=== PATIENT | male | born 1935 | race Asian ===

== ENCOUNTER 2018-08-12 02:18 | Inpatient (IN) | payer MEDICARE, MEDICAID ==
[~2018-08-12] VITALS: Ht 165.1 cm; Wt 63.0 kg
[2018-08-12] VITALS (12 sets, daily range): BP systolic 128–169; BP diastolic 62–95
[2018-08-12] MEDS ORDERED: Solu-MEDROL 125mg Inj IVP ONE (02:30)
[2018-08-12] MEDS ORDERED: SYNTHROID137 MCG ORAL (02:31)
[2018-08-12] MEDS ORDERED: BUMEX1 MG ORAL (02:31)
[2018-08-12] MEDS ORDERED: ATORVASTATIN CA40 MG ORAL (02:31)
[2018-08-12] MEDS ORDERED: AMIODARONE HCL100 MG ORAL (02:31)
[2018-08-12] MEDS ORDERED: COMBIVENT RESPIM4 GM IH (02:31)
[2018-08-12] MEDS ORDERED: PROTONIX20 MG ORAL (02:31)
[2018-08-12] MEDS ORDERED: LYRICA50 MG ORAL (02:31)
[2018-08-12] MEDS ORDERED: COREG3.125 MG ORAL (02:31)
[2018-08-12] MEDS ORDERED: POTASSIUM CHLO10 ME3 ORAL (02:31)
[2018-08-12] MEDS: Ipratropium 0.02% Inh Soln 2.5ml UD HHN SCH ×3 (02:39→03:00)
[2018-08-12] MEDS: Albuterol ud Inhalation HHN SCH ×3 (02:39→03:00)
--- NOTE | 2018-08-12 02:40 | NUR ---
ER Nurse Note: Pt BIBA R29 from [facility] c/o shortness of breath. Per EMS, pt does not have O2 at home, O2 in mid 80% RA. Pt arrived with CPAP. On assessment, pt lung sounds clear, pt grunts when breathing; RT place pt on BiPAP, currently 30% FiO2; O2 at 97%. Pt a&ox3, VSS. IV placed prior to arrival. Pt has HX of COPD, smoking. ERMD at pt side, will continue to montior.
[2018-08-12 02:53] LABS: BASOPHILS % (AUTO) 0.9 % (0.0-2.0); EOSINOPHILS % (AUTO) 2.1 % (0.0-3.0); HEMATOCRIT 41.3 % (42.0-52.0); HEMOGLOBIN 13.5 G/DL (14.2-18.0); LYMPHOCYTES % (AUTO) 30.6 % (20.0-45.0); MEAN CORPUSCULAR VOLUME 91 FL (80-99); MONOCYTES % (AUTO) 7.5 % (1.0-10.0); NEUTROPHILS % (AUTO) 58.9 % (45.0-75.0); PLATELET COUNT 221 K/UL (150-450); RED BLOOD COUNT 4.54 M/UL (4.70-6.10); RED CELL DISTRIBUTION WIDTH 13.5 % (11.6-14.8); WHITE BLOOD COUNT 10.2 K/UL (4.8-10.8)
--- NOTE | 2018-08-12 02:56 | Diagnostic Imaging Report ---
EXAM: XR Chest, 1 View CLINICAL HISTORY: SOB TECHNIQUE: Frontal view of the chest. COMPARISON: No relevant prior studies available. FINDINGS: Lungs: Diffuse airspace opacities which may represent edema versus an infectious process. Pleural space: Unremarkable. No pneumothorax. Heart: Unremarkable. No cardiomegaly. Mediastinum: Unremarkable. Bones/joints: Unremarkable. Tubes, lines and devices: Dual chamber cardiac pacemaker. IMPRESSION: Diffuse airspace opacities which may represent edema versus an infectious process.
[2018-08-12] MEDS ORDERED: Piperacillin/Tazobactam 3.375 GM in NS 110 ML IVPB ONE (03:00)
[2018-08-12] MEDS ORDERED: Azithromycin 500 MG in NS 275 ML IV ONE (03:00)
[2018-08-12 03:02] LABS: ANION GAP 9 mmol/L (5-15); BLOOD UREA NITROGEN 41 mg/dL (7-18); CALCIUM 8.8 MG/DL (8.5-10.1); CARBON DIOXIDE 26 MMOL/L (21-32); CHLORIDE 103 MMOL/L (98-107); CREATININE 2.2 MG/DL (0.55-1.30); POTASSIUM 4.7 MMOL/L (3.5-5.1); SODIUM 138 MMOL/L (136-145)
[2018-08-12 03:16] LABS: ALANINE AMINOTRANSFERASE 33 U/L (12-78); ALBUMIN 3.6 G/DL (3.4-5.0); ALBUMIN/GLOBULIN RATIO 0.9 (1.0-2.7); ALKALINE PHOSPHATASE 96 U/L (46-116); ASPARTATE AMINO TRANSFERASE 29 U/L (15-37); BILIRUBIN,TOTAL 0.6 MG/DL (0.2-1.0); CKMB 1.4 NG/ML (0.0-3.6); CREATINE KINASE 132 U/L (26-308)
--- NOTE | 2018-08-12 03:20 | NUR ---
ER Nurse Note: Pt receiving q15 breathing treatment; O2 at 95%. Pt lung sounds clear, pt remains grunting on extertion. Pt unable to provide urine; all labs sent and awaiting results. Family at bedside; will continue to montior.
[2018-08-12] MEDS ORDERED: cefTRIAXone 1 GM in NS 55 ML IVPB SCH ×2 (04:00→08:00)
--- NOTE | 2018-08-12 04:31 | NUR ---
ER Nurse Note: Pt O2 destated to 78%. ERMD, RT informed and aware. Pt repositioned, new O2 location, RT changed setting; pt O2 at 100%. ERMD aware. Will continue to montior.
--- NOTE | 2018-08-12 05:00 | NUR ---
ER Nurse Note: Report given to ADOLFO Gillespie in [facility]. Pt O2 sat 99% on BPAP. Pt a&ox3, VSS.
--- NOTE | 2018-08-12 05:02 | Emergency Room Report ---
History of Present Illness General Chief Complaint: Dyspnea/Respdistress Source: Patient Present Illness HPI 82-year-old male presents ED for evaluation. Brought in by EMS for respiratory distress. Started tonight. States that patient was tripoding at home. History of COPD. Was started on CPAP with nebs. Denies fevers or chills. Denies chest pain. States he was using his medications at home without relief. No other aggravating relieving factors. Denies any other associated symptoms Allergies: Coded Allergies: No Known Allergies (Unverified , 08/12/18) Patient History Past Medical History: HTN, COPD Past Surgical History: none, pacemaker Pertinent Family History: none Social History: Denies: smoking, alcohol use, drug use Immunizations: UTD Reviewed Nursing Documentation: PMH: Agreed; PSxH: Agreed Nursing Documentation-PMH Hx Hypertension: Yes Hx Pacemaker: Yes - left chest Hx COPD: Yes Review of Systems All Other Systems: negative except mentioned in HPI Physical Exam Vital Signs Date Time Temp Pulse Resp B/P (MAP) Pulse Ox O2 Delivery O2 Flow Rate FiO2 08/12/18 02:19 99.0 85 28 200/123 92 Bi-pap 15.0 08/12/18 02:35 30 Sp02 EP Interpretation: reviewed, normal General Appearance: alert, GCS 15, non-toxic, moderate distress Head: normocephalic, atraumatic Eyes: bilateral eye normal inspection, bilateral eye PERRL ENT: hearing grossly normal, normal pharynx, no angioedema, normal voice Neck: full range of motion, supple/symm/no masses Respiratory: accessory muscle use, crackles, wheezing Cardiovascular #1: regular rate, rhythm, no edema Cardiovascular #2: 2+ carotid (R), 2+ carotid (L), 2+ radial (R), 2+ radial (L) , 2+ dorsalis pedis (R), 2+ dorsalis pedis (L) Gastrointestinal: normal bowel sounds, non tender, soft, non-distended, no guarding, no rebound Rectal: deferred Genitourinary: normal inspection, no CVA tenderness Musculoskeletal: back normal, gait/station normal, normal range of motion, non- tender Neurologic: alert, oriented x3, responsive, motor strength/tone normal, sensory intact, speech normal Psychiatric: judgement/insight normal, memory normal, mood/affect normal, no suicidal/homicidal ideation Reflexes: 3+ bicep (R), 3+ bicep (L), 3+ tricep (R), 3+ tricep (L), 3+ knee (R) , 3+ knee (L) Skin: normal color, no rash, warm/dry, well hydrated Lymphatic: no adenopathy Procedures Critical Care Time Critical Care Time i. I feel this is a highly complex case requiring extensive working including EKG/Rhythm strip, Xray/CT/US, Blood/urine lab work, repeat exams while in ED, and administration of strong opiates/narcotics for pain control, admission to hospital or close patient follow up. Total time: 50 min bedside evaluation and treatment excludes procedures (EKG). Reason for critical care: Respiratory distress, hypoxia Possible complications: hypotension, hypertension, AK, shock, arrhythmias, metabolic acidosis, end organ damage, respiratory failure. Interventions: Labs, EKG, chest x-ray, BiPAP, ABG, nebulizer treatments, antibiotics Course: Patient presenting with respiratory distress. History of COPD. On CPAP. BiPAP with nebs started. ABG shows no significant hypercapnia or hypoxia. Chest x-ray shows significant infiltrate versus edema. Lactic greater than 3. Respiratory status improved on BiPAP. O2 sats improved. Antibiotics given. Consultations: nursing staff, EMS, family Performed by: Dr Dawson Tolerated well condition = critical j. because of unstable vital signs this patient had a condition that could potentially threaten life or limb. I feel this is a critical patient who required my full attention while patient was considered critical. Total Critical Care Time excluding procedures was greater than 50 minutes Medical Decision Making Diagnostic Impression: Primary Impression: Respiratory distress Additional Impressions: COPD exacerbation Sepsis Qualified Codes: A41.9 - Sepsis, unspecified organism ER Course Hospital Course 82-year-old M presenting to ED with SOB. h/o COPD Differential diagnoses include: Pneumonia, CHF exacerbation, pneumothorax, fluid overload Clinical course Patient placed on stretcher. in distress on CPAP. After initial history and physical, I ordered BIPAP + nebulizer treatments. I ordered labs, IV fluids, EKG, chest x-ray, blood cultures, UA. Labs - no leukocytosis noted, hemoglobin/hematocrit stable, electrolytes okay, lactate > 3, trop negative, BNP elevated CXR - diffuse bilateral opacities ? PNA, pacemaker ABG shows no significant hypercapnia or hypoxia. O2 sats improved on BiPAP. Respiratory status improved. given 30 mL per KG fluid bolus. Given broad-spectrum antibiotics. discussed findings with son at bedside Case discussed with Dr. Hidalgo and he agreed to the patient to his service for further care and support I feel this is a highly complex case requiring extensive working including EKG/ Rhythm strip, Xray/CT/US, Blood/urine lab work, repeat exams while in ED, and administration of strong opiates/narcotics for pain control, admission to hospital or close patient follow up. Diagnosis - COPD exacerbation, respiratory distress, sepsis Patient admitted to SDU in critical condition Labs Test 08/12/18 02:35 08/12/18 03:55 White Blood Count 10.2 K/UL (4.8-10.8) Red Blood Count 4.54 M/UL (4.70-6.10) Hemoglobin 13.5 G/DL (14.2-18.0) Hematocrit 41.3 % (42.0-52.0) Mean Corpuscular Volume 91 FL (80-99) Mean Corpuscular Hemoglobin 29.7 PG (27.0-31.0) Mean Corpuscular Hemoglobin Concent 32.7 G/DL (32.0-36.0) Red Cell Distribution Width 13.5 % (11.6-14.8) Platelet Count 221 K/UL (150-450) Mean Platelet Volume 7.5 FL (6.5-10.1) Neutrophils (%) (Auto) 58.9 % (45.0-75.0) Lymphocytes (%) (Auto) 30.6 % (20.0-45.0) Monocytes (%) (Auto) 7.5 % (1.0-10.0) Eosinophils (%) (Auto) 2.1 % (0.0-3.0) Basophils (%) (Auto) 0.9 % (0.0-2.0) Sodium Level 138 MMOL/L (136-145) Potassium Level 4.7 MMOL/L (3.5-5.1) Chloride Level 103 MMOL/L (98-107) Carbon Dioxide Level 26 MMOL/L (21-32) Anion Gap 9 mmol/L (5-15) Blood Urea Nitrogen 41 mg/dL (7-18) Creatinine 2.2 MG/DL (0.55-1.30) Estimat Glomerular Filtration Rate mL/min (>60) Glucose Level 310 MG/DL (74-106) Lactic Acid Level 3.30 mmol/L (0.4-2.0) 2.50 mmol/L (0.66-2.22) Calcium Level 8.8 MG/DL (8.5-10.1) Total Bilirubin 0.6 MG/DL (0.2-1.0) Aspartate Amino Transf (AST/SGOT) 29 U/L (15-37) Alanine Aminotransferase (ALT/SGPT) 33 U/L (12-78) Alkaline Phosphatase 96 U/L (46-116) Total Creatine Kinase 132 U/L (26-308) Creatine Kinase MB 1.4 NG/ML (0.0-3.6) Creatine Kinase MB Relative Index 1.0 Troponin I 0.038 ng/mL (0.000-0.056) Pro-B-Type Natriuretic Peptide 7730 pg/mL (0-125) Total Protein 7.6 G/DL (6.4-8.2) Albumin 3.6 G/DL (3.4-5.0) Globulin 4.0 g/dL Albumin/Globulin Ratio 0.9 (1.0-2.7) Thyroid Stimulating Hormone (TSH) 6.841 uiU/mL (0.358-3.740) EKG Diagnostic Results Rate: normal Rhythm: NSR ST Segments: other - repolarization abnormality ASA given to the pt in ED: No Rhythm Strip Diag. Results EP Interpretation: yes Rhythm: NSR Chest X-Ray Diagnostic Results Chest X-Ray Diagnostic Results : Chest X-Ray Ordered: Yes # of Views/Limited/Complete: 1 View Indication: Shortness of Breath EP Interpretation: Yes Interpretation: no pneumothorax, other - bilateral opacities vs edema Impression: Other - pneumonia Electronically Signed by: Electronically signed by Abraham Dawson MD Last Vital Signs Date Time Temp Pulse Resp B/P (MAP) Pulse Ox O2 Delivery O2 Flow Rate FiO2 08/12/18 03:50 65 24 96 Bi-pap 30 08/12/18 02:42 98.9 169/95 08/12/18 02:19 15.0 Status: improved Disposition: ADMITTED INPATIENT Condition: Critical Referrals: NOT CHOSEN IPA/,REFERRING (PCP) Abraham Dawson MD Aug 12, 2018 05:02
--- NOTE | 2018-08-12 05:10 | NUR ---
NURSE NOTES: Received report from Winnie RN, pt. brought up by marcy from ER, pt. is alert to name- pt. is English speaking- per endorsement, no signs of acute cardiac or respiratory distress noted, bed in lowest position and call light within easy reach, bed alarm on side rails up x's3 safety brakes engaged, Cardiac monitoring done, VS taken, pt. teaching done and pt. oriented to room, full body assessment done- skin intact. Pt. appears to be sating well on Bipap 10/5 fio2 at 100%- no respiratory distress noted, placed condom catheter on patient- intact and draining to gravity, RT. AC 20G IV intact and patent, comfort measures provided, safety measures continued, will continue with plan of care.
--- NOTE | 2018-08-12 07:00 | NUR ---
RESPIRATORY NOTE: pt recieved on bipap on facial mask, redness noted ton bridge of nose , changed to full face mask with tape placed, sat 100%, will continue to monitor the pt,
[2018-08-12] MEDS: Albuterol/Ipratropium 3ml neb HHN SCH ×5 (07:29→23:06)
--- NOTE | 2018-08-12 07:31 | NUR ---
HAND-OFF: Report given to Anastasiya RN, pt. stable and no signs of distress noted.
--- NOTE | 2018-08-12 07:32 | NUR ---
NURSE NOTES: RECEIVED PATIENT FROM Bartolo CLAYTON RN. PATIENT AWAKE, ALERT AND CONFUSED. TRYING TO GET OUT OF THE BED. ROOM CLOSE TO NURSES STATION. HOOKED TO [facility]IRCUTTER. ON BIPAP 06/11, FIO2 30%. NO SIGNS OF DISTRESS OF THE MOMENT. NOTED CONDOM CATH. IV ON R FA G20, IVF RUNNING NS AT 75CC/HR. CALL LIGHT WITHIN REACH. BED AT LOWEST POSITION. SIDE RAILS UP. WILL CONTINUE TO MONITOR.
--- NOTE | 2018-08-12 08:01 | NUR ---
NURSE NOTES: NOTED PULLING OFF THE BIPAP MASK. NO RESPI DISTRESS OF THE MOMENT. WILL CONTINUE TO MONITOR.
--- NOTE | 2018-08-12 10:18 | NUR ---
CASE MANAGEMENT: INITIAL REVIEW 08/12/2018 82 YO M PATRICIA FROM HOME CC: DYSPNEA. PMHx: HTN. COPD. PACER. SI:RESPIRATORY DISTRESS. COPD. T 99 HR 85 RR 28 B/P 200/123 SATS 92% ON 15L/BIPAP FiO2 30 BUN 41 CR 2.2 GLU 310 BNP 7730 LACTIC ACID 3.3 IS: DUO NEB HHN X1 NS BOLUS X1 SOLU MEDROL IV X1 PATIENT ADMITTED TO [facility] 08/12/2018 @ 0251 DCP: PATIENT TO BE DISCHARGED TO HOME ONCE MEDICALLY CLEARED. PLAN OF CARE: 2D ECHO Addendum: 08/12/18 at 1449 by Lupe Kendall CM INTERQUAL MET FOR ACUTE
--- NOTE | 2018-08-12 11:32 | NUR ---
NURSE NOTES: ABG DONE. CALLED AND A LEFT TO DR EGAN. AWAITING FOR CALL BACK. FAMILY MEMBER AT THE BEDSIDE. NO SIGNS OF DISTRESS. WILL CONTINUE TO MONITOR.
--- NOTE | 2018-08-12 12:04 | NUR ---
NURSE NOTES: CALLED AND A LEFT A MESSAGE TO DR EGAN FOR THE SECOND TIME. AWAITING FOR CALL BACK. WILL CONTINUE TO MONITOR.
--- NOTE | 2018-08-12 12:17 | NUR ---
NURSE NOTES: DR EGAN REFERRED PATIENT TO DR BOB FOR CONSULTATION. AWAITING FOR CALL BACK. MADE AWARE OF ABG RESULT. WILL CONTINUE TO MONITOR.
--- NOTE | 2018-08-12 13:15 | Cardiology Report ---
APPROVED REPORT EXAM: Two-dimensional and M-mode echocardiogram with Doppler and color Doppler. INDICATION Congestive Heart Failure M-Mode DIMENSIONS IVSd1.3 (0.7-1.1cm)Left Atrium (MM)4.0 (1.6-4.0cm) LVDd5.5 (3.5-5.6cm)Aortic Root3.1 (2.0-3.7cm) PWd1.0 (0.7-1.1cm)Aortic Cusp Exc.1.8 (1.5-2.0cm) IVSs1.7 cm LVDs4.4 (2.5-4.0cm) PWs1.0 cm Global left ventrular hypokinesis . Normal left ventricular chamber size . Left ventricular ejection fraction estimated to be 40 %. Moderate left ventricular hypertrophy. No evidence of pericardial effusion. Mild left atrial enlargement. Right cardiac chamber sizes are within normal limits. Focal aortic valve sclerosis with adequate cusp excursion. Thickened mitral valve leaflets with normal excursion. Mitral annulus and aortic root calcification. Pulmonic valve not well visualized. Normal tricuspid valve structure. IVC at normal size with physiologic collapse. Pacemaker wire present in the right side chambers. A color flow and spectral Doppler study was performed and revealed: Mild aortic insuuficency . Moderate mitral regurgitation. Mitral diastolic velocities suggest reduced left ventricular relaxation c/w mild LV diastolic dysfunction (Grade I ). Moderate tricuspid regurgitation. Tricuspid systolic velocities suggests peak right ventricular systolic pressure of 80 mmHg,consistent with severe pulmonary hypertension. Pulmonic regurgitation present.
--- NOTE | 2018-08-12 13:18 | Cardiology Report ---
APPROVED REPORT EKG Measurement Heart [id number] OK [id number] Normal sinus rhythm Left axis deviation Left ventricular hypertrophy with QRS widening and repolarization abnormality Inferior infarct, age undetermined Abnormal ECG
[2018-08-12] MEDS ORDERED: Solu-MEDROL 40mg Inj IVP SCH (14:00)
--- NOTE | 2018-08-12 14:50 | NUR ---
TRANSFER TO FLOOR: Patient transferred to ICU, 246-J per [facility] bed per Dr Hidalgo's order. Report given to ADOLFO Palomo. Belongings was all given to the son. Son and at the bedside. Still on BIPAP 15/4 at 90% FiO2. FOr stat ABG, awaiting for result.
--- NOTE | 2018-08-12 14:56 | NUR ---
NURSE NOTES: Patient report received from ADOLFO Brian. Admit to ICU for respiratory distress.On Bipap at this time 15/4 and saturation 100. Patient awake and restless, afebrile at this time and family at bedside. On NS at 75cc. Stat ABG done and awaiting result.No skin impairment and no belongings.Pt kept clean ,dry and remains on close monitoring. Addendum: 08/12/18 at 1649 by Stacia Estrada RN ABG result received and relayed to Dr Hidalgo with order to keep pt on close monitoring and report any depression of respiratory respiratory drive.Keep pt on Bipap at this time per Dr Hidalgo.Will continue close monitoring. Addendum: 08/12/18 at 1810 by Stacia Estrada RN Dr Hidalgo made aware of pt restlessness, as stated he does not want to depress his respiratory drive.
[2018-08-12 15:34] LABS: HEMATOCRIT 42.1 % (42.0-52.0); HEMOGLOBIN 13.6 G/DL (14.2-18.0); MEAN CORPUSCULAR VOLUME 92 FL (80-99); PLATELET COUNT 219 K/UL (150-450); RED CELL DISTRIBUTION WIDTH 13.3 % (11.6-14.8); WHITE BLOOD COUNT 20.3 K/UL (4.8-10.8)
--- NOTE | 2018-08-12 17:07 | NUR ---
NURSE NOTES: Received call from Dr Contreras to get update on pt condition.ABG relayed, also short episode of Afib made aware. Order to continue to closely monitor the pt. Remains on Bipap 15/4 FiO2 80% and saturating at 99% at this time.
--- NOTE | 2018-08-12 17:58 | NUR ---
NURSE NOTES: Left message to Dr Hidalgo regarding WBC 20.3, Lactic acid 5.2 and pt episode of restlessness and moaning.Awaiting call back
--- NOTE | 2018-08-12 18:51 | NUR ---
NURSE NOTES: ADls done, kept clean and dry.Paged Dr Contreras regarding pt restlessness and episode of moaning. As stated "if we give any sedative he will end up intubate because it will depress his respiration". Continue to closely monitor the pt.
--- NOTE | 2018-08-12 19:25 | NUR ---
HAND-OFF: Report given to ADOLFO Milsl. Addendum: 08/12/18 at 1928 by Stacia Estrada RN NURSE NOTES: Endorsed to next shift follow up diet order and WBC 20.3, Lactic acid 5.2
--- NOTE | 2018-08-12 19:36 | NUR ---
NURSE NOTES: PATIENT COMPLAINED CHEST PAIN THAT CALLED DR. EGAN, LEFT MESSAGE, WILL CONTINUE TO MONITOR.
--- NOTE | 2018-08-12 19:40 | NUR ---
NURSE NOTES: PATIENT ALERT, ORIENTED X2, CHINESE SPEAKING, COMPLAINED CHEST PAIN OF 5/10 WITHOUT RADIATION, ON FULL FACE MASK BIPAP I/E 04/28, BACK UP RATE 16/ FIO2 80% STATUS, TACHYPNEA 32-38/MIN AND O2 SATURATION 100% NOTED AT THIS TIME. ABDOMEN SOFT, HYPOACTIVE BOWEL SOUND TO 4 QUADRANTS, NO BOWEL MOVEMENT, ON CONDOM CATH, YELLOW URINE OUTED, PERIPHERAL LINE TO LEFT FOREARM 22G INTACT AND PATENT, ONGOING NS 75ML/HR STATUS, PROVIDED CALL LIGHT WITHIN REACH, MADE LOWER BED POSITION, WILL CONTINUE TO MONITOR.
[2018-08-12] MEDS ORDERED: D5 1/2NS 1000ml IV ONE (19:42)
[2018-08-12] MEDS ORDERED: Tubing IV Secondary IV ONE (19:42)
--- NOTE | 2018-08-12 20:46 | NUR ---
NURSE NOTES: PT'S SONS VISITED AND STAYED AT BEDSIDE. CALLED DR. EGAN REGARDING PAIN THAT LEFT MESSAGE.
[2018-08-12] MEDS: Heparin 5000 units/ml inj SUBQ SCH (20:54)
[2018-08-12] MEDS ORDERED: Heparin 5000 units/ml inj SUBQ SCH (21:00)
[2018-08-12] MEDS ORDERED: Norco 5mg/325mg tab ORAL PRN (21:00)
--- NOTE | 2018-08-12 21:00 | NUR ---
NURSE NOTES: CALLED BACK FROM DR. EGAN THAT MD AWARE REGARDING PT'S SITUATION.
--- NOTE | 2018-08-12 21:25 | NUR ---
NURSE NOTES: GIVEN TYLENOL 650MG BY PO ORDERED FOR GENERALIZED PAIN OF 3/10, NO ASPIRATION SIGN NOTED, WILL CONTINUE TO MONITOR.
[2018-08-12] MEDS: Solu-MEDROL 40mg Inj IVP SCH (21:32)
[2018-08-12] MEDS: Lyrica 50mg cap ORAL SCH (21:45)
--- NOTE | 2018-08-12 22:45 | Consultation ---
DATE OF CONSULTATION: 08/12/2018 NOTE: "POOR AUDIO QUALITY" PULMONARY CONSULTATION CONSULTING PHYSICIAN: Carl Contreras M.D. HISTORY OF PRESENT ILLNESS: This is an 82-year-old male, who was brought to the hospital with shortness of breath. He has history of COPD. He was placed on BiPAP. He was apparently in significant distress at home. The patient has a pacemaker in place. There is no other information available from the patient. The patient was found to be agitated requiring restraints. He was seen in ICU. PAST HISTORY: Hypertension, COPD, permanent pacemaker. ALLERGIES: None. HOME MEDICATIONS: Reviewed and reconciled in the chart. PREVIOUS SURGERIES: Pacemaker. FAMILY HISTORY: Noncontributory. PHYSICAL EXAMINATION: HEENT: Unremarkable. CHEST: breath sounds bilaterally. HEART: Normal heart sounds. ABDOMEN: Soft. EXTREMITIES: There is no edema. NEUROLOGIC: Nonfocal. IMAGING STUDIES: Echocardiogram has been obtained which shows global left ventricular hypokinesis, EF is 40%. X-ray of chest was also reviewed which shows diffuse bilateral pulmonary opacities which could be suspicious for pulmonary edema. IMPRESSION: 1. Pulmonary edema. 2. Advanced COPD. 3. Pacemaker. DISCUSSION: The patient needs diuresis. He also needs to be on respiratory support with BiPAP. Currently, I note he has been started on Rocephin and azithromycin after receiving a single dose in the emergency room. I will start him on Solu-Medrol 40 mg IV q.6 hours. Consider diuresis. We will follow carefully as a consulting architectural intern. Carl Contreras M.D. DR: Adan JOB#: [id number] CC:
--- NOTE | 2018-08-12 23:35 | NUR ---
NURSE NOTES: PATIENT ASLEEP STATUS, WILL CONTINUE TO MONITOR.
[2018-08-13] VITALS (25 sets, daily range): BP systolic 96–181; BP diastolic 55–98
--- NOTE | 2018-08-13 | History and Physical Report ---
DATE OF ADMISSION: 08/12/2018 REASON FOR ADMISSION: Respiratory failure. HISTORY OF PRESENT ILLNESS: This is an 82-year-old Faroese male with a known history of COPD. He has never required intubation according to his , but has been hospitalized for exacerbations of COPD in the past. He was brought into the emergency room by paramedics early this morning. He woke up with shortness of breath and congestion. He did not improve and did not respond to his usual nebulizers. In the emergency room, he was placed on CPAP and was noted to have unstable vital signs. Following hospitalization, he was also noted to have severely impaired acid-base parameters. On this basis, he was transferred to the intensive care unit. PAST MEDICAL HISTORY: Hypertension, COPD, [employer] permanent pacemaker, paroxysmal atrial fibrillation, osteoarthritis, degenerative disk disease, hypothyroidism, peptic ulcer disease, hyperlipidemia, and prostatic hypertrophy. SOCIAL HISTORY: Former smoker. No alcohol or substance abuse. ALLERGIES: None known. MEDICATIONS: Prior to admission, reviewed and reconciled. FAMILY HISTORY: Noncontributory. REVIEW OF SYSTEMS: Cannot be reliably obtained from the patient. Available data from his son, who is visiting from the [facility] is outlined above. PHYSICAL EXAMINATION: VITAL SIGNS: Blood pressure in the emergency room 200/123, heart rate 86, respiratory rate 28, temperature 99, and oxygen saturation 92% on BiPAP. Accessory muscle use. LUNGS: Coarse breath sounds with rhonchi. Expiratory wheezes. CARDIAC: Irregularly irregular rhythm. Normal S1 and S2. ABDOMEN: Soft and nontender. EXTREMITIES: Trace edema. Capillary refill diminished. NEUROLOGIC: Nonfocal. LABORATORY AND DIAGNOSTIC DATA: White count 10 and hemoglobin 13. Sodium 138, potassium 4.7, bicarbonate 26, BUN 41, creatinine 2.2, and glucose 310. Lactic acid 3.3. Natriuretic peptide 7700. Troponin 0.038. TSH 6.8. Chest x-ray reveals bilateral interstitial opacities. EKG reveals atrial fibrillation with nonspecific ST-T wave changes. ABG, pH 7.20, 51, 60. IMPRESSION: 1. Acute respiratory failure. 2. Acute respiratory acidosis. 3. COPD with acute exacerbation. 4. Community-acquired pneumonia. 5. Acute bronchospasm. 6. Permanent pacemaker. 7. Paroxysmal atrial fibrillation. 8. Acute on chronic diastolic and systolic congestive heart failure. 9. Hypoxia. 10. Hypothyroidism. 11. Lactic acidosis. PLAN: 1. ICU management. 2. BiPAP support, may need intubation and mechanical ventilation. 3. Panculture. 4. Broad-spectrum antibiotics. 5. Inhaled bronchodilators. 6. Intravenous steroids. 7. Pacemaker interrogation to follow, if not recently done. 8. DVT prophylaxis. 9. Reassess for chronic anticoagulation. 10. Stress ulcer prophylaxis. 11. Serial troponin levels. 12. Increase thyroid replacement therapy. Crescencio Hidalgo M.D. DR: GIGI JOB#: [id number] CC:
--- NOTE | 2018-08-13 01:40 | NUR ---
NURSE NOTES: PATIENT AWOKE, DENIED PAIN OR DISCOMFORT AT THIS TIME.
[2018-08-13] MEDS: Azithromycin 500 MG in NS 275 ML IV SCH (03:08)
[2018-08-13] MEDS ORDERED: Azithromycin 500 MG in NS 275 ML IV SCH (03:30)
[2018-08-13] MEDS: Albuterol/Ipratropium 3ml neb HHN SCH ×6 (03:34→23:01)
--- NOTE | 2018-08-13 03:40 | NUR ---
NURSE NOTES: MORNING CARE WAS DONE, ORAL CARE WAS DONE, NO BOWEL MOVEMENT.
--- NOTE | 2018-08-13 05:08 | NUR ---
NURSE NOTES: PATIENT ASLEEP STATUS.
[2018-08-13] MEDS: Solu-MEDROL 40mg Inj IVP SCH ×3 (05:44→21:36)
[2018-08-13 06:08] LABS: ALANINE AMINOTRANSFERASE 221 U/L (12-78); ALBUMIN/GLOBULIN RATIO 0.9 (1.0-2.7); ALKALINE PHOSPHATASE 77 U/L (46-116); ANION GAP 16 mmol/L (5-15); ASPARTATE AMINO TRANSFERASE 236 U/L (15-37); BILIRUBIN,TOTAL 0.7 MG/DL (0.2-1.0); BLOOD UREA NITROGEN 52 mg/dL (7-18); CALCIUM 7.6 MG/DL (8.5-10.1); CARBON DIOXIDE 20 MMOL/L (21-32); CHLORIDE 111 MMOL/L (98-107); CREATININE 2.2 MG/DL (0.55-1.30); POTASSIUM 3.7 MMOL/L (3.5-5.1); SODIUM 147 MMOL/L (136-145)
[2018-08-13 06:30] LABS: HEMATOCRIT 37.4 % (42.0-52.0); HEMOGLOBIN 12.5 G/DL (14.2-18.0); MEAN CORPUSCULAR VOLUME 89 FL (80-99); PLATELET COUNT 183 K/UL (150-450); RED CELL DISTRIBUTION WIDTH 13.4 % (11.6-14.8); WHITE BLOOD COUNT 14.5 K/UL (4.8-10.8)
--- NOTE | 2018-08-13 07:12 | NUR ---
HAND-OFF: Report given to HENRY/ADOLFO.
--- NOTE | 2018-08-13 07:15 | NUR ---
NURSE NOTES: Patient received from Antonio Loera RN. Patient is awake and alert. Patient is very anxious and restless. Family is at bedside assisting with translation. Patient speaks only Greek and is hard of hearing. Patient opens eyes spontaneously, follows commands, speaks his needs clearly or gesticulates to make his needs known. Patient has 3/5 on BUE muscle strength and 3/5 BLE muscle strength. Patient is being monitored on the BIPAP, 10/5 Bi-level 16 at 50%. Patient is tolerating well. Upon auscultation, patient has a crackle in his left lower lung otherwise lung sounds are slightly diminished. Patient states that he has mild pain on that side. Patient does moan and grimace. Patient does not appear in acute distress except with that discomfort. Patient's belly sounds are hypoactive. Patient is NPO and afebrile. Patient has a condom catheter and is voiding moderate amounts of urine. Patient has NS with 10 mEq running through his RH 24G currently. Skin is intact however, patient has ecchymosis all over BUE. Safety measures are in place with bed locked in the lowest position, bed alarmed and call light within reach. Will continue to monitor and follow MD plan of care.
--- NOTE | 2018-08-13 07:22 | NUR ---
Patient received on BIPAP 10/5 50% FIO2 BUR 16. Patient currently on full face mask and stephanie well. Diminished bilateral breath sounds heard throughout lung poe. Bipap alarms on and audible. Bipap plugged into red outlet. Will continue to monitor throughout the day.
[2018-08-13] MEDS: cefTRIAXone 1 GM in NS 55 ML IVPB SCH (08:54)
[2018-08-13] MEDS: Amiodarone 200mg tab ORAL SCH (08:55)
[2018-08-13] MEDS: Heparin 5000 units/ml inj SUBQ SCH ×2 (09:11→20:52)
--- NOTE | 2018-08-13 10:30 | NUR ---
NURSE NOTES: Patient is very restless and required repositioning with the help of the HARNESS PLACER. Patient requested water however, patient is NPO, lemon swabs were given instead. Patient was repositioned, mouth swabs given and BIPAP readjusted for comfort. The condom cath was also repositioned to ensure it was dropping urine to gravity. Family continues to be at bedside.
--- NOTE | 2018-08-13 10:41 | Pulmonology Progress Note ---
Assessment/Plan Assessment/Plan IMPRESSION: 1. Pulmonary edema. 2. Advanced COPD. 3. Pacemaker. DISCUSSION: The patient needs diuresis. Will order additional doses. Will DC BiPAP and attempt cool aerosol. COntinue steroids and abx Carl Contreras M.D. Subjective Interval Events: On BiPAP; anxious; ABG better Constitutional: Reports: no symptoms HEENT: Repors: no symptoms Respiratory: Reports: no symptoms Cardiovascular: Reports: no symptoms Gastrointestinal/Abdominal: Reports: no symptoms Genitourinary: Reports: no symptoms Allergies: Coded Allergies: No Known Allergies (Unverified , 08/12/18) Objective Last 24 Hour Vital Signs Date Time Temp Pulse Resp B/P (MAP) Pulse Ox O2 Delivery O2 Flow Rate FiO2 08/13/18 09:02 74 18 100 Full Face 40 08/13/18 09:00 79 25 113/76 (88) 100 08/13/18 08:00 98.2 81 27 160/86 (110) 100 08/13/18 08:00 40 08/13/18 08:00 Bi-pap 08/13/18 07:00 74 25 155/92 (113) 100 08/13/18 06:48 80 22 100 Bi-pap 50 08/13/18 06:45 68 16 100 Full Face 50 08/13/18 06:42 78 26 100 Bi-pap 50 08/13/18 06:42 50 08/13/18 06:00 81 26 139/65 (89) 100 08/13/18 05:00 78 26 137/75 (95) 100 08/13/18 04:55 80 31 100 Full Face 50 08/13/18 04:00 50 08/13/18 04:00 97.6 88 27 96/74 (81) 100 08/13/18 04:00 Bi-pap 08/13/18 03:43 81 34 100 Bi-pap 50 08/13/18 03:36 83 30 100 Full Face 50 08/13/18 03:34 81 33 100 Bi-pap 50 08/13/18 03:18 101 08/13/18 03:00 82 28 141/59 (86) 100 08/13/18 02:00 83 27 143/69 (93) 100 08/13/18 01:09 60 08/13/18 01:09 85 38 100 Full Face 60 08/13/18 01:00 84 29 142/63 (89) 100 08/13/18 00:18 73 08/13/18 00:04 153/84 08/13/18 00:00 Bi-pap 08/13/18 00:00 70 08/13/18 00:00 98.3 90 24 146/59 (88) 100 08/12/18 23:06 85 35 100 Bi-pap 70 08/12/18 23:00 86 29 153/82 (105) 100 08/12/18 22:55 82 30 100 Full Face 70 08/12/18 22:00 87 32 128/91 (103) 100 08/12/18 21:05 83 35 100 Full Face 80 08/12/18 21:00 88 30 140/72 (94) 100 08/12/18 20:16 97 31 100 Bi-pap 70 08/12/18 20:00 80 08/12/18 20:00 98.5 91 28 146/62 (90) 100 08/12/18 20:00 Bi-pap 08/12/18 19:53 89 08/12/18 19:37 99 35 100 Bi-pap 80 08/12/18 19:26 85 34 100 Bi-pap 80 08/12/18 19:07 80 31 100 Full Face 80 08/12/18 19:00 74 18 149/74 (99) 100 08/12/18 18:00 83 33 148/74 (98) 100 08/12/18 17:26 81 32 99 Full Face 80 08/12/18 17:00 83 32 142/68 (92) 99 08/12/18 16:00 93 31 132/95 (107) 100 08/12/18 16:00 Bi-pap 08/12/18 16:00 80 08/12/18 15:16 94 34 100 Bi-pap 90 08/12/18 15:05 82 33 100 Full Face 90 08/12/18 15:05 82 33 100 Bi-pap 90 08/12/18 15:00 97.5 99 36 146/76 (99) 100 08/12/18 13:33 82 30 92 Full Face 90 08/12/18 13:20 92 08/12/18 12:08 160/106 08/12/18 12:00 Bi-pap 08/12/18 12:00 90 08/12/18 11:35 87 24 95 Bi-pap 90 08/12/18 11:26 88 30 90 Bi-pap 80 08/12/18 11:26 88 30 90 Facial 80 Intake and Output 08/12/18 08/13/18 19:00 07:00 Intake Total 672.5 ml 1660 ml Output Total 350 ml 1570 ml Balance 322.5 ml 90 ml Intake IV Total 672.5 ml 1410 ml Other 250 ml Output Urine Total 350 ml 1570 ml General Appearance: no acute distress HEENT: normocephalic Respiratory/Chest: chest wall non-tender, crackles/rales Cardiovascular: normal peripheral pulses, normal rate, regular rhythm Abdomen: normal bowel sounds Microbiology Date/Time Source Procedure Growth Status 08/12/18 03:05 Nasal Nares Influenza Types A,B Antigen (ENOC) - Final Complete Laboratory Tests 08/12/18 10:49: Arterial Blood pH 7.200*L, Arterial Blood Partial Pressure CO2 51.3H, Arterial Blood Partial Pressure O2 59.8L, Arterial Blood HCO3 19.7L, Arterial Blood Oxygen Saturation 83.7*L, Arterial Blood Base Excess -8.5L, Gabriele Test Positive 08/12/18 14:23: Arterial Blood pH 7.260L, Arterial Blood Partial Pressure CO2 40.3, Arterial Blood Partial Pressure O2 112.0H, Arterial Blood HCO3 18.0L, Arterial Blood Oxygen Saturation 96.8, Arterial Blood Base Excess -8.4L, Gabriele Test Positive 08/12/18 15:25: White Blood Count 20.3#H, Red Blood Count 4.60L, Hemoglobin 13.6L, Hematocrit 42.1, Mean Corpuscular Volume 92, Mean Corpuscular Hemoglobin 29.5, Mean Corpuscular Hemoglobin Concent 32.3, Red Cell Distribution Width 13.3, Platelet Count 219, Mean Platelet Volume 7.1, Neutrophils (%) (Auto) , Lymphocytes (%) ( Auto) , Monocytes (%) (Auto) , Eosinophils (%) (Auto) , Basophils (%) (Auto) , Lactic Acid Level 4.70H 08/12/18 17:00: Arterial Blood pH 7.310L, Arterial Blood Partial Pressure CO2 35.1, Arterial Blood Partial Pressure O2 108.2H, Arterial Blood HCO3 17.4*L, Arterial Blood Oxygen Saturation 96.7, Arterial Blood Base Excess -8.0L, Gabriele Test Positive 08/12/18 17:05: Lactic Acid Level 5.20H 08/12/18 21:35: Lactic Acid Level 3.90H 08/13/18 04:52: White Blood Count 14.5H, Red Blood Count 4.20L, Hemoglobin 12.5L, Hematocrit 37.4L, Mean Corpuscular Volume 89, Mean Corpuscular Hemoglobin 29.6, Mean Corpuscular Hemoglobin Concent 33.3, Red Cell Distribution Width 13.4, Platelet Count 183, Mean Platelet Volume 8.6, Neutrophils (%) (Auto) , Lymphocytes (%) ( Auto) , Monocytes (%) (Auto) , Eosinophils (%) (Auto) , Basophils (%) (Auto) , Differential Total Cells Counted 100, Neutrophils % (Manual) 91H, Lymphocytes % (Manual) 6L, Monocytes % (Manual) 3, Eosinophils % (Manual) 0, Basophils % ( Manual) 0, Band Neutrophils 0, Platelet Estimate Adequate, Platelet Morphology Normal, Red Blood Cell Morphology Normal, Sodium Level 147H, Potassium Level 3.7 , Chloride Level 111H, Carbon Dioxide Level 20L, Anion Gap 16H, Blood Urea Nitrogen 52H, Creatinine 2.2H, Estimat Glomerular Filtration Rate , Glucose Level 189#H, Calcium Level 7.6L, Total Bilirubin 0.7, Aspartate Amino Transf ( AST/SGOT) 236H, Alanine Aminotransferase (ALT/SGPT) 221H, Alkaline Phosphatase 77, Troponin I 0.435H, Pro-B-Type Natriuretic Peptide > [id number], Total Protein 6.4, Albumin 3.0L, Globulin 3.4, Albumin/Globulin Ratio 0.9L 08/13/18 07:40: Arterial Blood pH 7.439, Arterial Blood Partial Pressure CO2 31.3L, Arterial Blood Partial Pressure O2 101.7H, Arterial Blood HCO3 20.7L, Arterial Blood Oxygen Saturation 96.7, Arterial Blood Base Excess -2.5L, Gabriele Test Positive Current Medications Medications (Trade) Dose Ordered Sig/Dinorah Route PRN Reason Start Time Stop Time Status Last Admin Dose Admin Acetaminophen (Tylenol) 650 mg Q6H PRN ORAL Mild Pain/Temp > 100.5 08/12/18 21:00 09/11/18 20:59 08/12/18 21:25 Acetaminophen/ Hydrocodone Bitart ([place] 5/325) 1 tab Q6H PRN ORAL PAIN 4-10 08/12/18 21:00 08/19/18 20:59 Albuterol/ Ipratropium (Albuterol/ Ipratropium) 3 ml Q4HRT HHN 08/12/18 19:00 08/17/18 06:59 08/13/18 06:46 Amiodarone HCl (Cordarone) 100 mg DAILY ORAL 08/13/18 09:00 09/12/18 08:59 08/13/18 08:55 Atorvastatin Calcium (Lipitor) 40 mg BEDTIME ORAL 08/13/18 21:00 09/12/18 20:59 Azithromycin 500 mg/Sodium Chloride 275 ml @ 275 mls/hr Q24HRS IV 08/13/18 03:30 08/20/18 03:29 08/13/18 03:08 Ceftriaxone Sodium 1 gm/ Sodium Chloride 55 ml @ 110 mls/hr Q24HRS IVPB 08/13/18 08:00 08/19/18 07:59 08/13/18 08:54 Heparin Sodium (Porcine) (Heparin 5000 units/ml) 5,000 units EVERY 12 HOURS SUBQ 08/12/18 21:00 09/11/18 20:59 08/13/18 09:11 Hydralazine HCl (Apresoline) 10 mg Q4H PRN IV SBP above 150mmHg 08/12/18 15:30 09/11/18 03:29 08/13/18 00:04 Levothyroxine Sodium (Synthroid) 150 mcg DAILY@0630 ORAL 08/13/18 06:30 09/12/18 06:29 08/13/18 05:44 Methylprednisolone Sodium Succinate (Solu-MEDROL) 40 mg EVERY 8 HOURS IVP 08/12/18 22:00 09/11/18 13:59 08/13/18 05:44 Ondansetron HCl (Zofran) 4 mg Q6H PRN IVP Nausea & Vomiting 08/12/18 16:00 09/11/18 15:59 Pantoprazole (Protonix) 40 mg DAILY ORAL 08/12/18 20:00 09/11/18 19:59 08/13/18 08:55 Potassium Chloride 10 meq/ Sodium Chloride 1,005 ml @ 100 mls/hr Q10H3M IV 08/12/18 21:01 09/11/18 21:00 08/13/18 08:53 Pregabalin (Lyrica) 50 mg BEDTIME ORAL 08/12/18 21:30 09/11/18 21:29 08/12/18 21:45 Carl Contreras MD Aug 13, 2018 10:41
--- NOTE | 2018-08-13 11:15 | NUR ---
NURSE NOTES: Dr Contreras assessed patient bedside. BiPAP was d/c'd and patient started on Venti mask at 40%. Orders were placed for the patient. Will monitor O2 sats and possible advancement of clear liquid diet. Will continue to monitor per MD orders.
--- NOTE | 2018-08-13 12:01 | NUR ---
NURSE NOTES: Patient is awake and alert. Family is bedside. Patient is anxious and restless. Patient makes his needs known with his very little Persian or with family translation. Patient is not in any acute distress, however does moan with his SOB. Patient is on Venti mask 12L at 40%. Patient is being monitored on the informatics pharmacist with VSS. Patient is NPO and afebrile. Patient has a newly replaced condom catheter and is voiding moderate amounts of urine. Patient has NS with 10 mEq running through his RH 24G currently at 50 ml. Safety measures are in place with bed locked in the lowest position, bed alarmed and call light within reach. Will continue to monitor and follow MD plan of care.
--- NOTE | 2018-08-13 14:00 | NUR ---
NURSE NOTES: Patient requested that condom catheter be removed because he stated that "it hurts" and that it was too tight however, condom catheter was not on patient's penis. RN adhered to the request and urinal was given to the patient and has successfully been voiding in the urinal. Patient's VSS and continues on the venti mask without respiratory distress. Patient does become SOB with repositioning or when linens were changed. Patient does not tolerate activity well. Will continue to monitor.
--- NOTE | 2018-08-13 16:10 | NUR ---
NURSE NOTES: Patient sits high fowlers in bed because it helps him breath better. Patient is observed to be awake and alert. Patient is more calm now that family has left home. Patient is being monitored on the polymerization oven operator. VSS. Patient currently is on the venti mask 12L @ 40%. Patient tolerates well except with activity when he becomes SOB. Patient is not in any acute distress. A clear liquid diet has been ordered for patient as nectar thick. Patient is successfully voiding in the urinal. NS with 10 mEq is running through his RH 24G @ 50 ml. Safety measures are in place with bed locked in the lowest position, bed alarmed and call light within reach. Will continue to monitor and follow MD plan of care.
--- NOTE | 2018-08-13 17:45 | NUR ---
NURSE NOTES: Called Dr Hidalgo's Office with Lactic Acid of 5.90 and Trop of 0.348. Left message. Awaiting call back. Also asked for ID consult.
--- NOTE | 2018-08-13 18:00 | NUR ---
NURSE NOTES: Patient ate 50% of his tray without any issues. Patient remained about 90% O2 Sats. VSS and appears to not be in any acute distress.
--- NOTE | 2018-08-13 19:09 | NUR ---
RESPIRATORY NOTE: Received pt on Venti mask 40% 8L. Pt is stable with no s/s of resp distress. Just received his breathing treatment. SPO2 98%, HR 88. Will put back on bipap if seen distress. Will continue to monitor pt's progress.
--- NOTE | 2018-08-13 19:15 | NUR ---
HAND-OFF: Report given to Evaristo Alvarez RN. VSS and not in any acute distress.
--- NOTE | 2018-08-13 19:30 | NUR ---
NURSE NOTES: PATIENT COMPLAINED BLADDER DISTENSION, BLADDER SCAN WAS DONE THAT OVER 999ML + NOTED TWO TIMES.
--- NOTE | 2018-08-13 19:35 | NUR ---
NURSE NOTES: CALLED BACK FROM DR. EGAN THAT REPORTED PT'S BLADER SCAN RESULT AND RECEIVED NEW ORDER, CARRY OUT.
--- NOTE | 2018-08-13 19:55 | NUR ---
NURSE NOTES: FAILED INSERTION 16 FR. MARES CATHETER, INSERTED AND FIXED 14FR. MARES CATHETER, THIN YELLOW URINE OUTED WITHOUT SEDIMENTS, NO HEMATURIA NOTED, WILL CONTINUE TO MONITOR.
--- NOTE | 2018-08-13 20:05 | NUR ---
NURSE NOTES: PT'S SON STAYED AT BEDSIDE. PATIENT ALERT, ORIENTED X3 AT THIS TIME, RESPIRATION REGULAR, ON 40% VENT MASK, TACHYPNEA NOTED BUT DENIED SOB OR DISTRESS AT THIS TIME, ABDOMEN SOFT, HYPOACTIVE BOWEL SOUND, NO BOWEL MOVEMENT, 14FR. F/C INTACT AND PATENT, THIN YELLOW URINE OUT, PERIPHERAL LINE TO RIGHT 24G, INTACT AND PATENT, ONGOING NS 1000ML W/KCL 10MEQ AT 50ML/HR VIA PERIPHERAL LINE, PROVIDED CALL LIGHT WITHIN REACH, MADE LOWER BED POSITION, WILL CONTINUE TO MONITOR.
[2018-08-13] MEDS: Lyrica 50mg cap ORAL SCH (20:50)
[2018-08-13 21:00] LABS: APPEARANCE,URINE CLEAR; BILIRUBIN, URINE NEGATIVE (NEGATIVE); COLOR,URINE PALE YELLOW; GLUCOSE, URINE (UA) 1+ (NEGATIVE); KETONES,URINE NEGATIVE (NEGATIVE); LEUKOCYTE ESTERASE ,URINE NEGATIVE (NEGATIVE); NITRITE,URINE NEGATIVE (NEGATIVE); PH,URINE 5 (4.5-8.0); PROTEIN,URINE NEGATIVE (NEGATIVE); UROBILINOGEN,URINE NORMAL MG/DL (0.0-1.0)
[2018-08-13] MEDS ORDERED: Atorvastatin 20mg tab ORAL SCH (21:00)
--- NOTE | 2018-08-13 21:00 | NUR ---
NURSE NOTES: F/C INTACT AND PATENT, URINE DRAINING WELL, GIVEN SCHEDULED MEDICATION BY PO, TOLERATED, SWALLOWING WELL, WILL CONTINUE TO MONITOR.
--- NOTE | 2018-08-13 23:00 | NUR ---
NURSE NOTES: PATIENT AWOKE, DENIED PAIN OR DISTRESS AT THIS TIME.
[2018-08-14] VITALS (15 sets, daily range): BP systolic 122–168; BP diastolic 49–99
--- NOTE | 2018-08-14 00:56 | NUR ---
NURSE NOTES: GIVEN TYLENOL 650MG BY PO PRN ORDERED FOR PAIN 3/10, DENIED CHEST PAIN, WILL CONTINUE TO MONITOR.
[2018-08-14] MEDS: Albuterol/Ipratropium 3ml neb HHN SCH ×6 (02:50→23:37)
[2018-08-14] MEDS: Azithromycin 500 MG in NS 275 ML IV SCH (03:07)
--- NOTE | 2018-08-14 03:10 | NUR ---
NURSE NOTES: PATIENT ASLEEP STATUS, WILL CONTINUE PLAN OF CARE.
--- NOTE | 2018-08-14 04:15 | Progress Note ---
DATE: 08/13/2018 CARDIOLOGY PROGRESS NOTE SUBJECTIVE: The patient remains in the intensive care unit. Condition remains critical. Prognosis guarded. The patient remains with shortness of breath, however his oxygen have decreased ____ able to come off BiPAP this afternoon for sometime. OBJECTIVE: VITAL SIGNS: Blood pressure 113/76, pulse 79, respiratory rate 25, afebrile. Monitored rhythm atrial fibrillation with no signs of pacing. Some accessory muscle use. LUNGS: Bilateral rales. HEART: Irregularly irregular rhythm. Normal S1 and S2. ABDOMEN: Soft. EXTREMITIES: No edema. LABORATORY DATA: White count 14.5 and hemoglobin 12.5. Lactic acid 4.4. Blood gas, ABG 7.31, 35, 108 last night and today 7.44, 31, 101. The patient had Zaidi catheter placed with 900 mL residual urine noted. IMPRESSION: 1. Respiratory failure, hypoxia, chronic obstructive pulmonary disease exacerbation. 2. Atrial fibrillation, permanent pacemaker. 3. Urinary retention, prostatic hypertrophy. 4. Acute myocardial ischemia. 5. Pulmonary edema, lactic acidosis. PLAN: 1. Maintenance hydration. 2. Diuresis. 3. Antimicrobials. 4. Steroids with taper. 5. Oxygenation. 6. Monitor acid-base parameters. 7. DVT and stress ulcer prophylaxis. 8. BiPAP as needed. Crescencio Hidalgo M.D. DR: REBECCA JOB#: [id number] CC:
--- NOTE | 2018-08-14 04:20 | NUR ---
NURSE NOTES: MORNING CARE WAS DONE.
[2018-08-14] MEDS: Solu-MEDROL 40mg Inj IVP SCH ×3 (05:54→21:41)
[2018-08-14 06:08] LABS: HEMOGLOBIN 11.8 G/DL (14.2-18.0); MEAN CORPUSCULAR VOLUME 89 FL (80-99); PLATELET COUNT 153 K/UL (150-450); RED BLOOD COUNT 3.95 M/UL (4.70-6.10); RED CELL DISTRIBUTION WIDTH 13.1 % (11.6-14.8); WHITE BLOOD COUNT 16.4 K/UL (4.8-10.8)
--- NOTE | 2018-08-14 06:22 | NUR ---
NURSE NOTES: ON FIO2 40% VENTURI MASK, O2 SATURATION 96% NOTED, NO SOB OR DISTRESS NOTED AT THIS TIME.
[2018-08-14 06:25] LABS: ALANINE AMINOTRANSFERASE 310 U/L (12-78); ALBUMIN 3.1 G/DL (3.4-5.0); ALBUMIN/GLOBULIN RATIO 0.9 (1.0-2.7); ALKALINE PHOSPHATASE 68 U/L (46-116); ANION GAP 13 mmol/L (5-15); ASPARTATE AMINO TRANSFERASE 214 U/L (15-37); BLOOD UREA NITROGEN 45 mg/dL (7-18); CALCIUM 8.1 MG/DL (8.5-10.1); CARBON DIOXIDE 25 MMOL/L (21-32); CHLORIDE 111 MMOL/L (98-107); POTASSIUM 2.8 MMOL/L (3.5-5.1); SODIUM 149 MMOL/L (136-145)
--- NOTE | 2018-08-14 07:12 | NUR ---
HAND-OFF: Report given to YARA/ADOLFO.
--- NOTE | 2018-08-14 07:30 | NUR ---
NURSE NOTES: Report received from Antonio RN. Pt alert and oriented x3, kiswahili speaking and able to make needs known. Pt connected to night monitor, paced sinus rhythm. Pt on 40% venturi mask saturating 97-99%. Zaidi intact draining clear yellow urine. RH 24 with NS =10 KCL @50 cc/hr. RFA heplock noted and intact. Son at bedside. Safety measures in place with bed locked and in lowest position, side rails x3 up and bed alarm on. Will continue to monitor and continue plan of care.
[2018-08-14] MEDS: Amiodarone 200mg tab ORAL SCH (08:14)
[2018-08-14] MEDS: Heparin 5000 units/ml inj SUBQ SCH ×2 (08:20→20:33)
[2018-08-14] MEDS: cefTRIAXone 1 GM in NS 55 ML IVPB SCH (08:41)
--- NOTE | 2018-08-14 10:04 | Pulmonology Progress Note ---
Assessment/Plan Assessment/Plan IMPRESSION: 1. Pulmonary edema. 2. Advanced COPD. 3. Pacemaker. DISCUSSION: Continue supplemental o2 via VTM Transfer to [facility] Continue steroids and abx WBC higher today Carl Contreras M.D. Subjective Interval Events: Looking well; off BiPAP; on 40% VTM; ABG adequate Constitutional: Reports: no symptoms HEENT: Repors: no symptoms Respiratory: Reports: no symptoms Cardiovascular: Reports: no symptoms Gastrointestinal/Abdominal: Reports: no symptoms Genitourinary: Reports: no symptoms Allergies: Coded Allergies: No Known Allergies (Unverified , 08/12/18) Objective Last 24 Hour Vital Signs Date Time Temp Pulse Resp B/P (MAP) Pulse Ox O2 Delivery O2 Flow Rate FiO2 08/14/18 10:00 85 17 155/59 (91) 99 08/14/18 09:00 90 16 155/59 (91) 97 08/14/18 08:00 98.3 96 15 146/99 (115) 98 08/14/18 08:00 8.0 40 08/14/18 08:00 Venturi Mask 12.0 08/14/18 07:15 86 16 100 Venturi Mask 8.0 40 08/14/18 07:02 85 15 94 Venturi Mask 8.0 40 08/14/18 07:02 85 15 94 08/14/18 07:00 98 15 152/69 (96) 97 08/14/18 06:00 84 19 144/70 (94) 97 08/14/18 05:18 169/71 08/14/18 05:00 85 18 98 08/14/18 05:00 84 19 168/81 (110) 98 08/14/18 04:00 80 08/14/18 04:00 8.0 40 08/14/18 04:00 98.5 80 22 137/49 (78) 91 08/14/18 04:00 Venturi Mask 12.0 08/14/18 03:00 82 16 122/56 (78) 98 08/14/18 02:57 83 17 99 Venturi Mask 8.0 40 08/14/18 02:50 74 18 98 Venturi Mask 8.0 40 08/14/18 02:44 81 18 98 08/14/18 02:00 83 16 124/50 (74) 98 08/14/18 01:06 94 18 97 08/14/18 01:00 90 23 145/75 (98) 97 08/14/18 00:00 98.0 86 17 146/52 (83) 98 08/14/18 00:00 89 08/14/18 00:00 8.0 40 08/14/18 00:00 Venturi Mask 12.0 08/13/18 23:08 88 21 99 Venturi Mask 8.0 40 08/13/18 23:01 86 21 98 Venturi Mask 8.0 40 08/13/18 23:00 97 15 164/80 (108) 98 08/13/18 22:58 86 20 98 08/13/18 22:25 88 21 156/76 (102) 98 08/13/18 22:00 88 17 163/98 (119) 99 08/13/18 21:37 152/74 08/13/18 21:03 88 22 99 08/13/18 21:00 86 20 152/74 (100) 98 08/13/18 20:00 8.0 40 08/13/18 20:00 Venturi Mask 12.0 08/13/18 20:00 90 08/13/18 20:00 98.2 90 24 179/74 (109) 98 08/13/18 19:13 86 23 100 Venturi Mask 8.0 40 08/13/18 19:07 88 23 97 08/13/18 19:06 89 24 97 Venturi Mask 8.0 40 08/13/18 19:00 94 27 169/98 (121) 98 08/13/18 18:00 82 27 181/96 (124) 97 08/13/18 18:00 72 20 172/96 (121) 98 08/13/18 17:00 87 22 98 08/13/18 17:00 84 27 181/96 (124) 97 08/13/18 16:00 Venturi Mask 12.0 08/13/18 16:00 98.2 85 28 163/66 (98) 98 08/13/18 16:00 91 08/13/18 16:00 12.0 40 08/13/18 15:00 92 25 168/85 (112) 98 08/13/18 14:41 80 22 100 Venturi Mask 8.0 40 08/13/18 14:40 73 23 99 08/13/18 14:35 36 08/13/18 14:35 73 21 99 Venturi Mask 8.0 40 08/13/18 14:01 75 23 159/84 (109) 97 08/13/18 13:05 87 24 97 08/13/18 13:00 84 22 165/75 (105) 98 08/13/18 12:00 Venturi Mask 08/13/18 12:00 90 08/13/18 12:00 98.6 84 28 150/83 (105) 97 08/13/18 11:11 82 19 100 Venturi Mask 8.0 40 08/13/18 11:00 80 22 153/70 (97) 100 08/13/18 11:00 12.0 40 08/13/18 11:00 36 08/13/18 11:00 74 21 99 Venturi Mask 8.0 40 08/13/18 11:00 80 19 99 Intake and Output 08/13/18 08/14/18 19:00 07:00 Intake Total 1030 ml 1145 ml Output Total 1110 ml 3260 ml Balance -80 ml -2115 ml Intake Oral 120 ml IV Total 910 ml 825 ml Other 120 ml 200 ml Output Urine Total 1110 ml 3260 ml # Voids 1 General Appearance: no acute distress HEENT: normocephalic Respiratory/Chest: chest wall non-tender, lungs clear Cardiovascular: normal peripheral pulses, normal rate Abdomen: normal bowel sounds, soft, non tender Microbiology Date/Time Source Procedure Growth Status 08/12/18 02:45 Blood Blood Culture - Preliminary NO GROWTH AFTER 48 HOURS Resulted 08/12/18 02:35 Blood Blood Culture - Preliminary NO GROWTH AFTER 48 HOURS Resulted 08/12/18 03:05 Nasal Nares Influenza Types A,B Antigen (ENOC) - Final Complete 08/13/18 20:25 Indwelling Cath Urine Culture - Preliminary NO GROWTH Resulted Laboratory Tests 08/13/18 11:40: Lactic Acid Level 4.60H, Troponin I 0.348H 08/13/18 17:00: Lactic Acid Level 5.90H 08/13/18 20:25: Urine Color Pale yellow, Urine Appearance Clear, Urine pH 5, Urine Specific [place] 1.010, Urine Protein Negative, Urine Glucose (UA) 1+H, Urine Ketones Negative, Urine Blood 4+H, Urine Nitrite Negative, Urine Bilirubin Negative, Urine Urobilinogen Normal, Urine Leukocyte Esterase Negative, Urine RBC 30-40H, Urine WBC 0, Urine Squamous Epithelial Cells None, Urine Bacteria None 08/13/18 22:50: Lactic Acid Level 4.40H 08/14/18 04:00: White Blood Count 16.4H, Red Blood Count 3.95L, Hemoglobin 11.8L, Hematocrit 35.0L, Mean Corpuscular Volume 89, Mean Corpuscular Hemoglobin 29.9, Mean Corpuscular Hemoglobin Concent 33.8, Red Cell Distribution Width 13.1, Platelet Count 153, Mean Platelet Volume 8.3, Neutrophils (%) (Auto) , Lymphocytes (%) ( Auto) , Monocytes (%) (Auto) , Eosinophils (%) (Auto) , Basophils (%) (Auto) , Differential Total Cells Counted 100, Neutrophils % (Manual) 92H, Lymphocytes % (Manual) 3L, Monocytes % (Manual) 5, Eosinophils % (Manual) 0, Basophils % ( Manual) 0, Band Neutrophils 0, Platelet Estimate Adequate, Platelet Morphology Normal, Red Blood Cell Morphology Normal, Arterial Blood pH 7.518H, Arterial Blood Partial Pressure CO2 30.5L, Arterial Blood Partial Pressure O2 84.7, Arterial Blood HCO3 24.2, Arterial Blood Oxygen Saturation 95.9, Arterial Blood Base Excess 2.0, Gabriele Test Positive 08/14/18 04:45: Sodium Level 149H, Potassium Level 2.8L, Chloride Level 111H, Carbon Dioxide Level 25, Anion Gap 13, Blood Urea Nitrogen 45H, Creatinine 2.0H, Estimat Glomerular Filtration Rate , Glucose Level 191H, Lactic Acid Level 3.60H, Calcium Level 8.1L, Total Bilirubin 1.0, Aspartate Amino Transf (AST/SGOT) 214H , Alanine Aminotransferase (ALT/SGPT) 310H, Alkaline Phosphatase 68, Total Protein 6.5, Albumin 3.1L, Globulin 3.4, Albumin/Globulin Ratio 0.9L 08/14/18 07:20: Lactic Acid Level 2.80H Current Medications Medications (Trade) Dose Ordered Sig/Dinorah Route PRN Reason Start Time Stop Time Status Last Admin Dose Admin Acetaminophen (Tylenol) 650 mg Q6H PRN ORAL Mild Pain/Temp > 100.5 08/12/18 21:00 09/11/18 20:59 08/14/18 00:56 Acetaminophen/ Hydrocodone Bitart ([place] 5/325) 1 tab Q6H PRN ORAL PAIN 4-10 08/12/18 21:00 08/19/18 20:59 Albuterol/ Ipratropium (Albuterol/ Ipratropium) 3 ml Q4HRT HHN 08/12/18 19:00 08/17/18 06:59 08/14/18 07:01 Amiodarone HCl (Cordarone) 100 mg DAILY ORAL 08/13/18 09:00 09/12/18 08:59 08/14/18 08:14 Atorvastatin Calcium (Lipitor) 40 mg BEDTIME ORAL 08/13/18 21:00 09/12/18 20:59 08/13/18 20:51 Azithromycin 500 mg/Sodium Chloride 275 ml @ 275 mls/hr Q24HRS IV 08/13/18 03:30 08/20/18 03:29 08/14/18 03:07 Ceftriaxone Sodium 1 gm/ Sodium Chloride 55 ml @ 110 mls/hr Q24HRS IVPB 08/13/18 08:00 08/19/18 07:59 08/14/18 08:41 Furosemide (Lasix) 40 mg EVERY 12 HOURS IV 08/13/18 10:45 09/12/18 10:44 08/14/18 08:15 Heparin Sodium (Porcine) (Heparin 5000 units/ml) 5,000 units EVERY 12 HOURS SUBQ 08/12/18 21:00 09/11/18 20:59 08/14/18 08:20 Hydralazine HCl (Apresoline) 10 mg Q4H PRN IV SBP above 150mmHg 08/12/18 15:30 09/11/18 03:29 08/14/18 05:18 Levothyroxine Sodium (Synthroid) 150 mcg DAILY@0630 ORAL 08/13/18 06:30 09/12/18 06:29 08/14/18 05:54 Methylprednisolone Sodium Succinate (Solu-MEDROL) 40 mg EVERY 8 HOURS IVP 08/12/18 22:00 09/11/18 13:59 08/14/18 05:54 Ondansetron HCl (Zofran) 4 mg Q6H PRN IVP Nausea & Vomiting 08/12/18 16:00 09/11/18 15:59 Pantoprazole (Protonix) 40 mg DAILY ORAL 08/12/18 20:00 09/11/18 19:59 08/14/18 08:13 Potassium Chloride 10 meq/ Sodium Chloride 1,005 ml @ 50 mls/hr Q20H6M IV 08/13/18 11:00 09/12/18 10:59 08/14/18 05:55 Pregabalin (Lyrica) 50 mg BEDTIME ORAL 08/12/18 21:30 09/11/18 21:29 08/13/18 20:50 Carl Contreras MD Aug 14, 2018 10:04
--- NOTE | 2018-08-14 10:24 | NUR ---
NURSE NOTES: Dr Contreras came to see pt. ordered to transfer pt to [facility]. Will continue to monitor.
--- NOTE | 2018-08-14 11:04 | NUR ---
HAND-OFF: Report given to Anastasiya MATA.
--- NOTE | 2018-08-14 11:05 | NUR ---
NURSE NOTES: RECEIVED PATIENT FROM ICU, REPORT GIVEN BY Sofya HYLTON RN. PATIENT IS AWAKE, ALERT AND ORIENTED. BELARUSIAN SPEAKING BUT ABLE TO MAKE NEEDS KNOWN. KIANA BUT USES B HEARING AID. HOOKED TO METALLURGICAL ANALYST. ON VENTURI MASK. NO SIGNS OF RESPI OR CARDIO DISTRESS OF THE MOMENT. MARES CATH CONNECTED TO BAG, PATENT AND DRAINING. IV ON R HAND G24 AND R FA G22 WITH IVF RUNNING NS + 10MEQS KCL AT 50CC/HR. NO SIGNS OF DISTRESS. CALL LIGHT WITHIN REACH. BED AT LOWEST POSITION. SIDE RAILS UP. WILL CONTINUE TO MONITOR.
[2018-08-14] MEDS ORDERED: Norco 5mg/325mg tab ORAL PRN ×2 (12:30)
--- NOTE | 2018-08-14 13:44 | Diagnostic Imaging Report ---
Indication: Dyspnea Technique: XRAY Chest 1v Comparison: 08/12/2018 Findings: Stable cardiomegaly. Atherosclerotic calcifications again noted in a tortuous aorta. Left-sided dual-lead pacer stable positioning. Interval decrease in bilateral airspace and interstitial opacities compared to exam 2 days prior likely related to interval improvement in pulmonary edema. Persistent interstitial opacities and very mild bibasilar airspace disease persists. Osseous structures stable. No pneumothorax. IMPRESSION: Interval improved aeration with decreased bilateral airspace opacities with residual interstitial opacification and patchy bibasilar airspace opacities. Findings may be on the basis of improved pulmonary edema. Superimposed infection to be excluded clinically. Clinical correlation and follow-up recommended.
[2018-08-14] MEDS ORDERED: Solu-MEDROL 40mg Inj IVP SCH (14:00)
[2018-08-14] MEDS: 1/2NS w/KCl 20mEq 1000ml 1,000 ML IV SCH (14:56)
[2018-08-14] MEDS ORDERED: Albuterol/Ipratropium 3ml neb HHN SCH (15:00)
--- NOTE | 2018-08-14 16:15 | Consultation ---
DATE OF CONSULTATION: 08/14/2018 INFECTIOUS DISEASES CONSULTATION This consult is for coverage of Dr. Almaraz. CONSULTING PHYSICIAN: Reji Batista M.D. PRIMARY ATTENDING PHYSICIAN: Crescencio Hidalgo M.D. REASON FOR CONSULTATION: COPD and pneumonia. HISTORY OF PRESENT ILLNESS: This is an 82-year-old male admitted on 08/12/2018 from home complaining of shortness of breath. The patient has history of COPD, wake up with shortness of breath, not responding with bronchodilator, in the hospital he was put on BiPAP and spent the first day in ICU. Currently, he is doing better and transferred to the [facility], had leukocytosis, and lactic acidosis. PAST MEDICAL HISTORY: Significant for COPD, hypertension, hypothyroidism, status post pacemaker, peptic ulcer disease, degenerative disk disease, and BPH. ALLERGIES: No known drug allergy. MEDICATIONS: Getting amiodarone, Protonix, ceftriaxone, levothyroxine, azithromycin, atorvastatin, , pregabalin, albuterol ipratropium, methylprednisone, potassium chloride x1. SOCIAL HISTORY: Former smoker. Currently lives at home, single originally from [place]. REVIEW OF SYSTEMS: Very limited because of language barrier. PHYSICAL EXAMINATION: VITAL SIGNS: Temperature 98.2, pulse 87, blood pressure 152/68. GENERAL APPEARANCE: Seems to be thin. HEAD AND NECK: Getting oxygen by Venturi mask. HEART: Normal rate. LUNGS: Bilateral rhonchi. ABDOMEN: Soft and nontender. EXTREMITIES: No edema. NEUROLOGIC: Awake and responsive. LABORATORY AND DIAGNOSTIC DATA: WBC 16.4, hemoglobin 11.8, hematocrit 35, platelets 153. Sodium 149, potassium 2.8, chloride is 111, bicarbonate 25, BUN 45, creatinine 2. Lactic acid latest 2.8 and earliest is 5.9. UA showed rbc's of 30 to 40. Blood gas at the time of admission showed acidosis with pH of 7.2, pCO2 of 51.3, pO2 of 59.8 latest. ABG showed elevation of pH to 7.518, pCO2 decreased to 30.5, and pO2 to increase to 84.7. Echocardiogram showed ejection fraction of 40% diastolic dysfunction, mitral regurgitation, tricuspid regurgitation. Chest x-ray, blood culture so far negative. Influenza A and B negative. Urine culture negative. Chest x-ray showed pulmonary edema versus infection. IMPRESSION: 1. Pneumonia. 2. COPD exacerbation. 3. Hypercapnic respiratory failure. 4. Acidosis. 5. Congestive heart failure, systolic and diastolic. 6. Renal failure. 7. Hypothyroidism. 8. Paroxysmal atrial fibrillation. 9. Lactic acidosis. RECOMMENDATION: 1. We will continue with ceftriaxone and Zithromax. 2. We will follow up the chest x-ray. 3. We will follow up the cultures. At the end of my exam, I thank Dr. Hidalgo, for involving me in the care of this patient. Reji Batista M.D. DR: Vipul JOB#: [id number] CC: DAVID
--- NOTE | 2018-08-14 17:27 | NUR ---
NURSE NOTES: PATIENT TOLERATION ROOM AIR. SATING AT 95-96%. NO SIGNS OF DISTRESS. WILL CONTINUE TO MONITOR.
--- NOTE | 2018-08-14 19:19 | NUR ---
HAND-OFF: Report given to Sofya Garcia RN.
--- NOTE | 2018-08-14 19:30 | NUR ---
NURSE NOTES: Received Pt is resting on the bed and awake and alert. On RA with SaO2 94% noted. IV site intact and no sign of infiltration noted. On Tele monitor with A-Fib with paced. Placed fall precaution. Will continue to care plan.
[2018-08-14] MEDS: Lyrica 50mg cap ORAL SCH (20:35)
[2018-08-14] MEDS ORDERED: Atorvastatin 20mg tab ORAL SCH ×2 (21:00)
[2018-08-14] MEDS ORDERED: Heparin 5000 units/ml inj SUBQ SCH (21:00)
[2018-08-14] MEDS ORDERED: Lyrica 50mg cap ORAL SCH (21:00)
[2018-08-15] VITALS: BP 136/88
[2018-08-15] MEDS: 1/2NS w/KCl 20mEq 1000ml 1,000 ML IV SCH ×3 (00:43→20:15)
[2018-08-15] MEDS: Albuterol/Ipratropium 3ml neb HHN SCH ×6 (03:00→23:04)
--- NOTE | 2018-08-15 03:00 | NUR ---
NURSE NOTES: Educated Pt for NPO for US ABD and verbally understand. Will continue to care plan.
--- NOTE | 2018-08-15 03:00 | Progress Note ---
DATE: 08/14/2018 SUBJECTIVE: The patient is less congested and short of breath. Acid-base parameters have improved. He is more alert. He is tolerating oral intake better. He still is limited in his mobility. OBJECTIVE: VITAL SIGNS: Blood pressure 155/59, pulse 85, and respiratory rate 17. LUNGS: Coarse breath sounds. No wheezing. Few rhonchi. HEART: Regular rhythm and rate. Normal S1 and S2. ABDOMEN: Soft. EXTREMITIES: Trace edema. LABORATORY DATA: Chest x-ray today revealed improved aeration with decreased opacities, although persistent bilateral airspace disease. White count 16 and hemoglobin 11.8. Lactic acid 3.1. Sodium 149, potassium 2.8, chloride 111, bicarbonate 25, BUN 45, creatinine 2, and glucose 191. AST and ALT are now elevated at 214 and 310 respectively. ABG - 7.5, 130, 84. IMPRESSION: 1. Healthcare-acquired pneumonia. 2. Chronic obstructive pulmonary disease exacerbation. 3. Acute bronchospasm. 4. Lactic acidosis. 5. Transaminitis. 6. Paroxysmal atrial fibrillation. 7. 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 8. Hypokalemia. 9. Dehydration. 10. Hyponatremia. 11. Acute kidney injury. 12. Neuropathy and pain. PLAN: 1. Respiratory hygiene, bronchodilator, and intravenous antibiotics. 2. Discontinue ____. 3. Discontinue Lipitor. 4. Potassium replacement. 5. Hold diuretics. 6. Cautiously hydrate with hypotonic fluids. 7. Recheck laboratory studies. 8. DVT prophylaxis. 9. Abdominal ultrasound. 10. Remains high risk. Crescencio Hidalgo M.D. DR: JOSEFINA JOB#: [id number] CC:
[2018-08-15] MEDS ORDERED: Azithromycin 500 MG in NS 275 ML IV SCH ×4 (03:30)
[2018-08-15 04:00] VITALS: BP 147/81
[2018-08-15] MEDS: Solu-MEDROL 40mg Inj IVP SCH ×2 (05:54→14:59)
[2018-08-15 06:12] LABS: HEMATOCRIT 33.4 % (42.0-52.0); HEMOGLOBIN 11.3 G/DL (14.2-18.0); MEAN CORPUSCULAR VOLUME 89 FL (80-99); PLATELET COUNT 146 K/UL (150-450); RED BLOOD COUNT 3.74 M/UL (4.70-6.10); RED CELL DISTRIBUTION WIDTH 13.5 % (11.6-14.8); WHITE BLOOD COUNT 14.2 K/UL (4.8-10.8)
[2018-08-15 06:57] LABS: ALANINE AMINOTRANSFERASE 301 U/L (12-78); ALKALINE PHOSPHATASE 71 U/L (46-116); ANION GAP 11 mmol/L (5-15); ASPARTATE AMINO TRANSFERASE 147 U/L (15-37); BILIRUBIN,TOTAL 1.1 MG/DL (0.2-1.0); BLOOD UREA NITROGEN 36 mg/dL (7-18); CALCIUM 7.5 MG/DL (8.5-10.1); CARBON DIOXIDE 24 MMOL/L (21-32); CHLORIDE 112 MMOL/L (98-107); CREATININE 1.7 MG/DL (0.55-1.30); POTASSIUM 3.4 MMOL/L (3.5-5.1); SODIUM 147 MMOL/L (136-145)
[2018-08-15 06:58] LABS: BILIRUBIN,DIRECT 0.2 MG/DL (0.0-0.3)
--- NOTE | 2018-08-15 07:40 | NUR ---
HAND-OFF: Report given to ADOLFO Hu. Pt is resting on the bed and no sign of acute distress noted. On NPo for US abdomen.
--- NOTE | 2018-08-15 07:41 | NUR ---
NURSE NOTES: Patient received lying in bed, awake, alert, opens eyes spontaneously. No complains of pain or respiratory distress. Lung sounds noted to be bilateral expiratory wheezing, oxygen saturation at 90-93%, patient has history of COPD, on room air. Zaidi catheter in place, clear yellow urine output. Right hand running IVF 1/2 NS with 20 mEq at 100 cc/hr, asymptomatic. Atrial Fibrillation, rate 110s, on the hospital monitor. Safety measures implemented, call light placed within reach. NPO for pending US of the abdomen. Will continue to monitor.
[2018-08-15 08:00] VITALS: BP 149/91
[2018-08-15] MEDS ORDERED: cefTRIAXone 1 GM in NS 55 ML IVPB SCH (08:00)
[2018-08-15] MEDS ORDERED: Amiodarone 200mg tab ORAL SCH (09:00)
[2018-08-15] MEDS: Amiodarone 200mg tab ORAL SCH (10:01)
[2018-08-15] MEDS: Heparin 5000 units/ml inj SUBQ SCH ×2 (10:02→20:16)
--- NOTE | 2018-08-15 10:22 | NUR ---
NURSE NOTES: Dr. Almaraz saw and assessed patient, made aware of WBC 14.2, no new orders at this time.
--- NOTE | 2018-08-15 10:24 | NUR ---
Discharge Planning This met with son, Antonio Garcia ([phone]), currently at bedside, along with spouse. Son plans to be here (visiting from [place]) until this Tuesday. Son states he prefers for patient to discharge to home with home care, does not want SNF placement. SonKarl lives two blocks and supportive, as needed . Spouse plan to be the primary caregiver after discharge, expressing no needs or concerns at this time.
--- NOTE | 2018-08-15 10:25 | Infectious Diseases Prog Note ---
Assessment/Plan Assessment/Plan antibiotics : ceftriaxone A 1. pneumonia 2. CHF 3. leucocytosis improving 4. renal failure improving 5. COPD 6. hypertension P 1. continue ceftriaxone 2. will follow up cultures 3. sputum cultures Subjective Constitutional: Denies: fever, chills Respiratory: Reports: shortness of breath, dry cough - with drinking water Gastrointestinal/Abdominal: Denies: nausea, vomiting, diarrhea Musculoskeletal: Denies: pain Allergies: Coded Allergies: No Known Allergies (Unverified , 08/12/18) Objective Vital Signs Last 24 Hour Vital Signs Date Time Temp Pulse Resp B/P (MAP) Pulse Ox O2 Delivery O2 Flow Rate FiO2 08/15/18 08:00 98.2 103 18 149/91 (110) 94 08/15/18 07:20 104 20 99 Room Air 21 08/15/18 07:10 109 18 93 Room Air 21 08/15/18 04:00 110 08/15/18 04:00 Room Air 08/15/18 04:00 98.4 117 18 147/81 (103) 94 08/15/18 03:00 Room Air 21 08/15/18 03:00 Room Air 21 08/15/18 00:00 Room Air 08/15/18 00:00 98.2 117 18 136/88 (104) 93 08/15/18 00:00 79 08/14/18 23:50 95 18 99 Room Air 21 08/14/18 23:37 80 18 93 Room Air 21 08/14/18 20:00 79 08/14/18 20:00 97.7 104 18 138/87 (104) 95 08/14/18 20:00 Room Air 08/14/18 19:50 90 18 99 Room Air 21 08/14/18 19:33 83 18 98 Room Air 21 08/14/18 16:00 Nasal Cannula 2.0 08/14/18 16:00 2.0 08/14/18 16:00 116 08/14/18 16:00 97.7 107 18 146/94 (111) 95 08/14/18 14:55 61 15 97 Nasal Cannula 3.0 32 08/14/18 14:43 60 14 94 Nasal Cannula 3.0 32 08/14/18 12:09 8.0 40 08/14/18 12:00 98.2 87 18 152/68 (96) 98 08/14/18 12:00 85 08/14/18 12:00 Venturi Mask 12.0 08/14/18 11:00 89 17 150/72 (98) 97 08/14/18 10:53 87 17 98 Venturi Mask 8.0 40 08/14/18 10:43 89 16 96 Venturi Mask 8.0 40 Height (Feet): 5 Height (Inches): 5.00 Weight (Pounds): 135 Respiratory/Chest: rhonchi - bilaterally Cardiovascular: normal rate, regular rhythm, no gallop/murmur Abdomen: soft, non tender Extremities: no edema Microbiology Date/Time Source Procedure Growth Status 08/13/18 20:25 Indwelling Cath Urine Culture - Preliminary NO GROWTH AFTER 24 HOURS Resulted Laboratory Tests Test 08/14/18 13:05 08/15/18 03:40 Lactic Acid Level 2.10 mmol/L (0.4-2.0) H White Blood Count 14.2 K/UL (4.8-10.8) H Red Blood Count 3.74 M/UL (4.70-6.10) L Hemoglobin 11.3 G/DL (14.2-18.0) L Hematocrit 33.4 % (42.0-52.0) L Mean Corpuscular Volume 89 FL (80-99) Mean Corpuscular Hemoglobin 30.1 PG (27.0-31.0) Mean Corpuscular Hemoglobin Concent 33.6 G/DL (32.0-36.0) Red Cell Distribution Width 13.5 % (11.6-14.8) Platelet Count 146 K/UL (150-450) L Mean Platelet Volume 8.0 FL (6.5-10.1) Neutrophils (%) (Auto) % (45.0-75.0) Lymphocytes (%) (Auto) % (20.0-45.0) Monocytes (%) (Auto) % (1.0-10.0) Eosinophils (%) (Auto) % (0.0-3.0) Basophils (%) (Auto) % (0.0-2.0) Sodium Level 147 MMOL/L (136-145) H Potassium Level 3.4 MMOL/L (3.5-5.1) L Chloride Level 112 MMOL/L (98-107) H Carbon Dioxide Level 24 MMOL/L (21-32) Anion Gap 11 mmol/L (5-15) Blood Urea Nitrogen 36 mg/dL (7-18) H Creatinine 1.7 MG/DL (0.55-1.30) H Estimat Glomerular Filtration Rate mL/min (>60) Glucose Level 169 MG/DL (74-106) H Calcium Level 7.5 MG/DL (8.5-10.1) L Magnesium Level 2.6 MG/DL (1.8-2.4) H Total Bilirubin 1.1 MG/DL (0.2-1.0) H Direct Bilirubin 0.2 MG/DL (0.0-0.3) Aspartate Amino Transf (AST/SGOT) 147 U/L (15-37) H Alanine Aminotransferase (ALT/SGPT) 301 U/L (12-78) H Alkaline Phosphatase 71 U/L (46-116) Pro-B-Type Natriuretic Peptide 00503 pg/mL (0-125) H Total Protein 6.1 G/DL (6.4-8.2) L Albumin 3.0 G/DL (3.4-5.0) L Globulin 3.1 g/dL Albumin/Globulin Ratio 1.0 (1.0-2.7) Current Medications Medications (Trade) Dose Ordered Sig/Dinorah Route PRN Reason Start Time Stop Time Status Last Admin Dose Admin Acetaminophen (Tylenol) 650 mg Q6H PRN ORAL Mild Pain/Temp > 100.5 08/14/18 12:30 09/11/18 12:29 Acetaminophen/ Hydrocodone Bitart ([place] 5/325) 1 tab Q6H PRN ORAL PAIN 4-10 08/14/18 12:30 08/19/18 12:29 Albuterol/ Ipratropium (Albuterol/ Ipratropium) 3 ml Q4HRT HHN 08/14/18 15:00 08/17/18 06:59 08/15/18 07:11 Amiodarone HCl (Cordarone) 100 mg DAILY ORAL 08/15/18 09:00 09/12/18 08:59 08/15/18 10:01 Ceftriaxone Sodium 1 gm/ Sodium Chloride 55 ml @ 110 mls/hr Q24HRS IVPB 08/15/18 08:00 08/19/18 07:59 Heparin Sodium (Porcine) (Heparin 5000 units/ml) 5,000 units EVERY 12 HOURS SUBQ 08/14/18 21:00 09/11/18 20:59 08/15/18 10:02 Hydralazine HCl (Apresoline) 10 mg Q4H PRN IV SBP above 150mmHg 08/14/18 12:30 09/11/18 12:29 Levothyroxine Sodium (Synthroid) 150 mcg DAILY@0630 ORAL 08/15/18 06:30 09/12/18 06:29 08/15/18 05:54 Methylprednisolone Sodium Succinate (Solu-MEDROL) 40 mg EVERY 8 HOURS IVP 08/14/18 14:00 09/11/18 13:59 08/15/18 05:54 Ondansetron HCl (Zofran) 4 mg Q6H PRN IVP Nausea & Vomiting 08/14/18 12:30 09/11/18 12:29 Pantoprazole (Protonix) 40 mg DAILY ORAL 08/15/18 09:00 09/11/18 19:59 08/15/18 10:01 Pregabalin (Lyrica) 50 mg BEDTIME ORAL 08/14/18 21:00 09/11/18 21:29 08/14/18 20:35 Sodium 1,000 ml @ 100 mls/hr Q10H IV 08/14/18 14:00 09/13/18 13:59 08/15/18 10:03 Soo Almaraz MD Aug 15, 2018 10:25
--- NOTE | 2018-08-15 10:25 | Pulmonology Progress Note ---
Assessment/Plan Assessment/Plan IMPRESSION: 1. Pulmonary edema. 2. Advanced COPD. 3. Pacemaker. DISCUSSION: Continue supplemental o2 via VTM Transfer to [facility] Continue steroids and abx Moniror for leucocytosis Spot Lasix Carl Contreras M.D. Subjective Interval Events: None new Constitutional: Reports: no symptoms HEENT: Repors: no symptoms Respiratory: Reports: no symptoms Cardiovascular: Reports: no symptoms Gastrointestinal/Abdominal: Reports: no symptoms Genitourinary: Reports: no symptoms Allergies: Coded Allergies: No Known Allergies (Unverified , 08/12/18) Objective Last 24 Hour Vital Signs Date Time Temp Pulse Resp B/P (MAP) Pulse Ox O2 Delivery O2 Flow Rate FiO2 08/15/18 08:00 98.2 103 18 149/91 (110) 94 08/15/18 07:20 104 20 99 Room Air 21 08/15/18 07:10 109 18 93 Room Air 21 08/15/18 04:00 110 08/15/18 04:00 Room Air 08/15/18 04:00 98.4 117 18 147/81 (103) 94 08/15/18 03:00 Room Air 21 08/15/18 03:00 Room Air 21 08/15/18 00:00 Room Air 08/15/18 00:00 98.2 117 18 136/88 (104) 93 08/15/18 00:00 79 08/14/18 23:50 95 18 99 Room Air 21 08/14/18 23:37 80 18 93 Room Air 21 08/14/18 20:00 79 08/14/18 20:00 97.7 104 18 138/87 (104) 95 08/14/18 20:00 Room Air 08/14/18 19:50 90 18 99 Room Air 21 08/14/18 19:33 83 18 98 Room Air 21 08/14/18 16:00 Nasal Cannula 2.0 08/14/18 16:00 2.0 08/14/18 16:00 116 08/14/18 16:00 97.7 107 18 146/94 (111) 95 08/14/18 14:55 61 15 97 Nasal Cannula 3.0 32 08/14/18 14:43 60 14 94 Nasal Cannula 3.0 32 08/14/18 12:09 8.0 40 08/14/18 12:00 98.2 87 18 152/68 (96) 98 08/14/18 12:00 85 08/14/18 12:00 Venturi Mask 12.0 08/14/18 11:00 89 17 150/72 (98) 97 08/14/18 10:53 87 17 98 Venturi Mask 8.0 40 08/14/18 10:43 89 16 96 Venturi Mask 8.0 40 Intake and Output 08/14/18 08/15/18 19:00 07:00 Intake Total 750 ml 1365 ml Output Total 1210 ml 450 ml Balance -460 ml 915 ml Intake Oral 350 ml 240 ml IV Total 400 ml 1125 ml Output Urine Total 1210 ml 450 ml General Appearance: no acute distress HEENT: normocephalic Respiratory/Chest: chest wall non-tender, decreased breath sounds Cardiovascular: normal peripheral pulses, normal rate Microbiology Date/Time Source Procedure Growth Status 08/13/18 20:25 Indwelling Cath Urine Culture - Preliminary NO GROWTH AFTER 24 HOURS Resulted Laboratory Tests 08/14/18 13:05: Lactic Acid Level 2.10H 08/15/18 03:40: White Blood Count 14.2H, Red Blood Count 3.74L, Hemoglobin 11.3L, Hematocrit 33.4L, Mean Corpuscular Volume 89, Mean Corpuscular Hemoglobin 30.1, Mean Corpuscular Hemoglobin Concent 33.6, Red Cell Distribution Width 13.5, Platelet Count 146L, Mean Platelet Volume 8.0, Neutrophils (%) (Auto) , Lymphocytes (%) ( Auto) , Monocytes (%) (Auto) , Eosinophils (%) (Auto) , Basophils (%) (Auto) , Sodium Level 147H, Potassium Level 3.4L, Chloride Level 112H, Carbon Dioxide Level 24, Anion Gap 11, Blood Urea Nitrogen 36H, Creatinine 1.7H, Estimat Glomerular Filtration Rate , Glucose Level 169H, Calcium Level 7.5L, Magnesium Level 2.6H, Total Bilirubin 1.1H, Direct Bilirubin 0.2, Aspartate Amino Transf ( AST/SGOT) 147H, Alanine Aminotransferase (ALT/SGPT) 301H, Alkaline Phosphatase 71, Pro-B-Type Natriuretic Peptide 82299C, Total Protein 6.1L, Albumin 3.0L, Globulin 3.1, Albumin/Globulin Ratio 1.0 Current Medications Medications (Trade) Dose Ordered Sig/Dinorah Route PRN Reason Start Time Stop Time Status Last Admin Dose Admin Acetaminophen (Tylenol) 650 mg Q6H PRN ORAL Mild Pain/Temp > 100.5 08/14/18 12:30 09/11/18 12:29 Acetaminophen/ Hydrocodone Bitart ([place] 5/325) 1 tab Q6H PRN ORAL PAIN 4-10 08/14/18 12:30 08/19/18 12:29 Albuterol/ Ipratropium (Albuterol/ Ipratropium) 3 ml Q4HRT HHN 08/14/18 15:00 08/17/18 06:59 08/15/18 07:11 Amiodarone HCl (Cordarone) 100 mg DAILY ORAL 08/15/18 09:00 09/12/18 08:59 08/15/18 10:01 Ceftriaxone Sodium 1 gm/ Sodium Chloride 55 ml @ 110 mls/hr Q24HRS IVPB 08/15/18 08:00 08/19/18 07:59 Heparin Sodium (Porcine) (Heparin 5000 units/ml) 5,000 units EVERY 12 HOURS SUBQ 08/14/18 21:00 09/11/18 20:59 08/15/18 10:02 Hydralazine HCl (Apresoline) 10 mg Q4H PRN IV SBP above 150mmHg 08/14/18 12:30 09/11/18 12:29 Levothyroxine Sodium (Synthroid) 150 mcg DAILY@0630 ORAL 08/15/18 06:30 09/12/18 06:29 08/15/18 05:54 Methylprednisolone Sodium Succinate (Solu-MEDROL) 40 mg EVERY 8 HOURS IVP 08/14/18 14:00 09/11/18 13:59 08/15/18 05:54 Ondansetron HCl (Zofran) 4 mg Q6H PRN IVP Nausea & Vomiting 08/14/18 12:30 09/11/18 12:29 Pantoprazole (Protonix) 40 mg DAILY ORAL 08/15/18 09:00 09/11/18 19:59 08/15/18 10:01 Pregabalin (Lyrica) 50 mg BEDTIME ORAL 08/14/18 21:00 09/11/18 21:29 08/14/18 20:35 Sodium 1,000 ml @ 100 mls/hr Q10H IV 08/14/18 14:00 09/13/18 13:59 08/15/18 10:03 Carl Contreras MD Aug 15, 2018 10:25
[2018-08-15] MEDS: cefTRIAXone 1 GM in NS 55 ML IVPB SCH (10:46)
[2018-08-15 12:00] VITALS: BP 149/91
--- NOTE | 2018-08-15 12:14 | NUR ---
REH[facility] PT NOTE CONSULT RECEIVED, ALEC CHERY, PATIENT WILL BENEFIT FROM SKILLED PT DURING STAY FOR RETURN TO OF. RECOMMEND HOME AT DC VS SNF. PLAN OF CARE INITIATED. WOO HERNANDEZ PT DPT Addendum: 08/15/18 at 1215 by WOO HERNANDEZ PT Amended: Links added.
--- NOTE | 2018-08-15 12:20 | NUR ---
NURSE NOTES: Dr. Hidalgo informed patient currently on clear liquid diet, MD ordered to advance diet to 3 gm sodium diet, soft easy chew. Order noted and carried out.
--- NOTE | 2018-08-15 13:00 | NUR ---
NURSE NOTES: Patient calm and comfortable, no complains of pain. No acute distress, remains on room air. Call light within reach.
--- NOTE | 2018-08-15 13:56 | General Progress Note ---
Assessment/Plan Problem List: (1) Sepsis ICD Codes: A41.9 - Sepsis, unspecified organism SNOMED: 97107233 Qualifiers: Qualified Codes: A41.9 - Sepsis, unspecified organism (2) COPD exacerbation ICD Codes: J44.1 - Chronic obstructive pulmonary disease with (acute) exacerbation SNOMED: 014526116 (3) Respiratory distress ICD Codes: R06.03 - Acute respiratory distress SNOMED: 924650003 Status: stable Assessment/Plan abx resp care replace lytes monitor labs o2 Subjective ROS Limited/Unobtainable: No Constitutional: Reports: malaise, weakness HEENT: Reports: no symptoms Cardiovascular: Reports: no symptoms Respiratory: Reports: cough, shortness of breath Gastrointestinal/Abdominal: Reports: no symptoms Genitourinary: Reports: no symptoms Neurologic/Psychiatric: Reports: no symptoms Endocrine: Reports: no symptoms Hematologic/Lymphatic: Reports: anemia Allergies: Coded Allergies: No Known Allergies (Unverified , 08/12/18) All Systems: reviewed and negative except above Subjective decreased sob. no new complaints. labs noted. Objective Last 24 Hour Vital Signs Date Time Temp Pulse Resp B/P (MAP) Pulse Ox O2 Delivery O2 Flow Rate FiO2 08/15/18 12:00 98.2 113 18 149/91 (110) 97 08/15/18 12:00 Room Air 08/15/18 11:11 116 22 90 Room Air 08/15/18 11:11 21 08/15/18 08:00 Room Air 08/15/18 08:00 98.2 103 18 149/91 (110) 94 08/15/18 08:00 112 08/15/18 07:20 104 20 99 Room Air 08/15/18 07:10 109 18 93 Room Air 08/15/18 04:00 110 08/15/18 04:00 Room Air 08/15/18 04:00 98.4 117 18 147/81 (103) 94 08/15/18 03:00 Room Air 08/15/18 03:00 Room Air 21 08/15/18 00:00 Room Air 08/15/18 00:00 98.2 117 18 136/88 (104) 93 08/15/18 00:00 79 08/14/18 23:50 95 18 99 Room Air 08/14/18 23:37 80 18 93 Room Air 21 08/14/18 20:00 79 08/14/18 20:00 97.7 104 18 138/87 (104) 95 08/14/18 20:00 Room Air 08/14/18 19:50 90 18 99 Room Air 21 08/14/18 19:33 83 18 98 Room Air 21 08/14/18 16:00 Nasal Cannula 2.0 08/14/18 16:00 2.0 08/14/18 16:00 116 08/14/18 16:00 97.7 107 18 146/94 (111) 95 08/14/18 14:55 61 15 97 Nasal Cannula 3.0 32 08/14/18 14:43 60 14 94 Nasal Cannula 3.0 32 Intake and Output 08/14/18 08/15/18 19:00 07:00 Intake Total 750 ml 1365 ml Output Total 1210 ml 450 ml Balance -460 ml 915 ml Intake Oral 350 ml 240 ml IV Total 400 ml 1125 ml Output Urine Total 1210 ml 450 ml Laboratory Tests 08/15/18 03:40: White Blood Count 14.2H, Red Blood Count 3.74L, Hemoglobin 11.3L, Hematocrit 33.4L, Mean Corpuscular Volume 89, Mean Corpuscular Hemoglobin 30.1, Mean Corpuscular Hemoglobin Concent 33.6, Red Cell Distribution Width 13.5, Platelet Count 146L, Mean Platelet Volume 8.0, Neutrophils (%) (Auto) , Lymphocytes (%) ( Auto) , Monocytes (%) (Auto) , Eosinophils (%) (Auto) , Basophils (%) (Auto) , Sodium Level 147H, Potassium Level 3.4L, Chloride Level 112H, Carbon Dioxide Level 24, Anion Gap 11, Blood Urea Nitrogen 36H, Creatinine 1.7H, Estimat Glomerular Filtration Rate , Glucose Level 169H, Calcium Level 7.5L, Magnesium Level 2.6H, Total Bilirubin 1.1H, Direct Bilirubin 0.2, Aspartate Amino Transf ( AST/SGOT) 147H, Alanine Aminotransferase (ALT/SGPT) 301H, Alkaline Phosphatase 71, Pro-B-Type Natriuretic Peptide 05332U, Total Protein 6.1L, Albumin 3.0L, Globulin 3.1, Albumin/Globulin Ratio 1.0 Height (Feet): 5 Height (Inches): 5.00 Weight (Pounds): 135 General Appearance: WD/WN, alert Neck: supple Cardiovascular: regular rhythm Respiratory/Chest: rhonchi - bilaterally Abdomen: normal bowel sounds, non tender, soft, no organomegaly Edema: no edema noted Arm (L), no edema noted Arm (R), no edema noted Leg (L), no edema noted Leg (R), no edema noted Pedal (L), no edema noted Pedal (R), no edema noted Generalized Joshua Sultana MD Aug 15, 2018 13:56
--- NOTE | 2018-08-15 14:39 | NUR ---
Social Service Note SW faxed prescription for nebulizer to [facility] [phone] (p) [phone] (f). Anticipated discharge in the next few days. Will follow up.
[2018-08-15 16:00] VITALS: BP 158/92
--- NOTE | 2018-08-15 16:25 | NUR ---
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 98.2 HR 116 RR 18 B/P 149/91 RA 98% WBC 14.2 BUN 36 CR 1.7 BNP [id number] IS: CEFTRIAXONE IV AZITHROMAX IV IVF NS @ 100ML/HR SOLU MEDROL IV STEP DOWN STATUS
--- NOTE | 2018-08-15 16:37 | Diagnostic Imaging Report ---
Indication: Abnormal liver function tests. Abnormal renal function tests Technique: Valadez-scale and duplex images of the upper abdomen were obtained Comparison: none Findings: Gallbladder demonstrates sludge. No gallstones. No pericholecystic fluid. Sonographic Urban's sign is negative. Common bile duct measures 4 mm in diameter. No intrahepatic biliary ductal dilatation. Liver demonstrates normal echogenicity, no focal abnormality. Portal vein and hepatic veins are patent. Pancreas is unremarkable. Spleen is unremarkable. Left kidney measures cm in length. Right kidney measures 9 cm length. Both kidneys demonstrate normal echogenicity. There is no hydronephrosis. Right kidney demonstrates an echogenic parenchymal focus in the upper pole measuring 1 cm diameter. Left kidney demonstrates a small lower pole cyst . Abdominal aorta is partially obscured by bowel gas, visualized portions are non-aneurysmal . There is incidental finding of a right pleural effusion Impression: Gallbladder sludge. 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 Consider CT to confirm Right pleural effusion Incidental finding left lower pole renal cyst Note incomplete visualization of the abdominal aorta
--- NOTE | 2018-08-15 17:54 | NUR ---
NURSE NOTES: Left a message for Dr. Hidalgo, patient requesting something for constipation, patient has no order PRN.
--- NOTE | 2018-08-15 19:11 | NUR ---
NURSE NOTES: RT called for patient's breathing treatment, SOB noted with exertion.
--- NOTE | 2018-08-15 19:30 | Progress Note ---
DATE: 08/15/2018 CARDIOLOGY PROGRESS NOTE: SUBJECTIVE: The patient was seen with his and son at bedside. The patient feels better, but is still coughing and congested requiring bronchodilators around the clock. OBJECTIVE: VITAL SIGNS: Blood pressure 149/91, pulse 113, respirations 18, afebrile. Monitor atrial fibrillation. LUNGS: Coarse breath sounds. Few rhonchi. HEART: Irregularly irregular rhythm. Normal S1, S2. ABDOMEN: Soft. No edema. LABORATORY DATA: White count 14 and hemoglobin and hematocrit 11 and 47. Potassium 3.4, chloride 112, bicarb 24, BUN 36, and creatinine 1.6. Albumin is 3. Pro-natriuretic peptide is 32,000. IMPRESSION: 1. COPD acute exacerbation. 2. Healthcare-acquired pneumonia as was recently hospitalized. 3. Paroxysmal atrial fibrillation. 4. Permanent pacemaker. 5. 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 6. Dehydration. 7. Hyponatremia. 8. Hypokalemia. PLAN: 1. Steroid taper. 2. Replace potassium. 3. Continue hypotonic IV fluids for free water replacement. 4. Hold diuretics. 5. Pacemaker interrogation scheduled. 6. DVT prophylaxis. 7. Amiodarone for arrhythmia suppression. Crescencio Hidalgo M.D. DR: LOTTIE JOB#: [id number] CC:
--- NOTE | 2018-08-15 19:31 | NUR ---
HAND-OFF: Report given to ADOLFO Rodriguez.
--- NOTE | 2018-08-15 19:32 | NUR ---
NURSE NOTES: Received patient from ADOLFO Hu.
[2018-08-15 20:00] VITALS: BP 157/95
[2018-08-15] MEDS: Lyrica 50mg cap ORAL SCH (20:17)
[2018-08-16] VITALS: BP 148/87
[2018-08-16] MEDS: Albuterol/Ipratropium 3ml neb HHN SCH ×6 (02:57→22:25)
[2018-08-16 04:00] VITALS: BP 152/95
[2018-08-16 05:31] LABS: HEMATOCRIT 34.4 % (42.0-52.0); HEMOGLOBIN 11.4 G/DL (14.2-18.0); MEAN CORPUSCULAR VOLUME 90 FL (80-99); PLATELET COUNT 146 K/UL (150-450); RED BLOOD COUNT 3.82 M/UL (4.70-6.10); RED CELL DISTRIBUTION WIDTH 13.7 % (11.6-14.8); WHITE BLOOD COUNT 13.9 K/UL (4.8-10.8)
[2018-08-16 06:19] LABS: ALANINE AMINOTRANSFERASE 268 U/L (12-78); ALBUMIN 3.4 G/DL (3.4-5.0); ALBUMIN/GLOBULIN RATIO 0.9 (1.0-2.7); ALKALINE PHOSPHATASE 83 U/L (46-116); ANION GAP 18 mmol/L (5-15); ASPARTATE AMINO TRANSFERASE 270 U/L (15-37); BILIRUBIN,TOTAL 0.5 MG/DL (0.2-1.0); BLOOD UREA NITROGEN 52 mg/dL (7-18); CARBON DIOXIDE 19 MMOL/L (21-32); CHLORIDE 112 MMOL/L (98-107); CREATININE 2.3 MG/DL (0.55-1.30); POTASSIUM 4.1 MMOL/L (3.5-5.1); SODIUM 149 MMOL/L (136-145)
[2018-08-16] MEDS: 1/2NS w/KCl 20mEq 1000ml 1,000 ML IV SCH (06:58)
--- NOTE | 2018-08-16 07:33 | NUR ---
NURSE NOTES: Report received from ADOLFO Gorman. Observed patient in bed. Awake and verbally responsive. On BIPAP with labored breathing and very congestive. Denies pain at this time. IV site intact with IVF running at prescribed rate. F/C intact and draining well. Bed in lowest position. Call light within reach. Will continue to monitor.
[2018-08-16 07:46] VITALS: BP 166/110
[2018-08-16] MEDS: Amiodarone 200mg tab ORAL SCH (08:06)
[2018-08-16] MEDS: dilTIAZem HCl CD 180mg cap ORAL SCH (08:06)
[2018-08-16] MEDS: Heparin 5000 units/ml inj SUBQ SCH ×2 (08:08→20:51)
[2018-08-16] MEDS: cefTRIAXone 1 GM in NS 55 ML IVPB SCH (08:08)
--- NOTE | 2018-08-16 08:47 | General Progress Note ---
Assessment/Plan Problem List: (1) Sepsis ICD Codes: A41.9 - Sepsis, unspecified organism SNOMED: 10943816 Qualifiers: Qualified Codes: A41.9 - Sepsis, unspecified organism (2) COPD exacerbation ICD Codes: J44.1 - Chronic obstructive pulmonary disease with (acute) exacerbation SNOMED: 274980716 (3) Respiratory distress ICD Codes: R06.03 - Acute respiratory distress SNOMED: 374151748 Status: stable, not improved Assessment/Plan abx resp care bipap replace lytes as needed check cxr consider steroids monitor labs o2 Subjective ROS Limited/Unobtainable: No Constitutional: Reports: malaise, weakness HEENT: Reports: no symptoms Cardiovascular: Reports: no symptoms Respiratory: Reports: cough, shortness of breath Gastrointestinal/Abdominal: Reports: no symptoms Genitourinary: Reports: no symptoms Neurologic/Psychiatric: Reports: no symptoms Endocrine: Reports: no symptoms Hematologic/Lymphatic: Reports: no symptoms Allergies: Coded Allergies: No Known Allergies (Unverified , 08/12/18) All Systems: reviewed and negative except above Subjective events noted. placed back on bipap last night due to progressive sob and hypoxemia. much more comfortable on bipap. Objective Last 24 Hour Vital Signs Date Time Temp Pulse Resp B/P (MAP) Pulse Ox O2 Delivery O2 Flow Rate FiO2 08/16/18 08:32 86 18 96 Bi-pap 40 08/16/18 08:06 96 166/110 08/16/18 08:00 Bi-pap 08/16/18 07:46 97.8 96 21 166/110 (128) 96 08/16/18 05:08 67 17 100 Facial 40 08/16/18 04:00 64 08/16/18 04:00 98.1 63 19 152/95 (114) 100 08/16/18 04:00 Room Air 08/16/18 04:00 40 08/16/18 03:04 64 16 100 Bi-pap 40 08/16/18 02:57 65 17 100 Facial 40 08/16/18 02:57 65 18 100 Bi-pap 40 08/16/18 01:04 68 21 100 Facial 40 08/16/18 00:00 40 08/16/18 00:00 97.8 85 19 148/87 (107) 99 08/16/18 00:00 Room Air 08/15/18 23:20 95 08/15/18 23:14 86 20 100 Bi-pap 40 08/15/18 23:14 08/15/18 23:04 105 21 100 Bi-pap 40 08/15/18 23:00 89 25 100 Facial 40 08/15/18 20:00 97.5 74 32 157/95 (115) 95 08/15/18 20:00 Room Air 08/15/18 19:55 110 22 100 Facial 40 08/15/18 19:36 111 08/15/18 19:22 97 20 99 Nasal Cannula 3.0 32 08/15/18 19:21 21 08/15/18 19:13 98 22 96 Nasal Cannula 2.0 28 08/15/18 16:00 82 08/15/18 16:00 88 20 98 Room Air 21 08/15/18 16:00 92 20 98 Room Air 21 08/15/18 16:00 98.4 77 20 158/92 (114) 97 08/15/18 16:00 Room Air 08/15/18 15:33 76 20 95 Room Air 21 08/15/18 15:33 21 08/15/18 12:00 98.2 113 18 149/91 (110) 97 08/15/18 12:00 111 08/15/18 12:00 Room Air 08/15/18 11:48 88 20 98 Room Air 21 08/15/18 11:11 116 22 90 Room Air 21 08/15/18 11:11 21 Intake and Output 08/15/18 08/16/18 19:00 07:00 Intake Total 1000 ml 975 ml Output Total 550 ml Balance 1000 ml 425 ml IV Total 1000 ml 975 ml Output Urine Total 550 ml # Bowel Movements 1 Laboratory Tests 08/16/18 03:30: White Blood Count 13.9H, Red Blood Count 3.82L, Hemoglobin 11.4L, Hematocrit 34.4L, Mean Corpuscular Volume 90, Mean Corpuscular Hemoglobin 29.9, Mean Corpuscular Hemoglobin Concent 33.2, Red Cell Distribution Width 13.7, Platelet Count 146L, Mean Platelet Volume 7.9, Neutrophils (%) (Auto) , Lymphocytes (%) ( Auto) , Monocytes (%) (Auto) , Eosinophils (%) (Auto) , Basophils (%) (Auto) , Differential Total Cells Counted 100, Neutrophils % (Manual) 96H, Lymphocytes % (Manual) 2L, Monocytes % (Manual) 2, Eosinophils % (Manual) 0, Basophils % ( Manual) 0, Band Neutrophils 0, Platelet Estimate DecreasedL, Platelet Morphology Normal, Hypochromasia 1+, Poikilocytosis 2+, Anisocytosis 1+, Dayne Cells 2+, Sodium Level 149H, Potassium Level 4.1, Chloride Level 112H, Carbon Dioxide Level 19L, Anion Gap 18H, Blood Urea Nitrogen 52H, Creatinine 2.3H, Estimat Glomerular Filtration Rate , Glucose Level 188H, Lactic Acid Level 4.70H , Calcium Level 8.0L, Magnesium Level 2.2, Total Bilirubin 0.5, Aspartate Amino Transf (AST/SGOT) 270H, Alanine Aminotransferase (ALT/SGPT) 268H, Alkaline Phosphatase 83, Total Protein 7.1, Albumin 3.4, Globulin 3.7, Albumin/Globulin Ratio 0.9L Height (Feet): 5 Height (Inches): 5.00 Weight (Pounds): 135 General Appearance: WD/WN, alert Neck: supple Cardiovascular: normal rate, regular rhythm Respiratory/Chest: no accessory muscle use, rhonchi - bilaterally, expiratory wheezing Abdomen: normal bowel sounds, non tender, soft 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
[2018-08-16] MEDS ORDERED: Solu-MEDROL 40mg Inj IVP SCH (09:00)
--- NOTE | 2018-08-16 09:21 | NUR ---
NURSE NOTES: Informed Dr. Contreras regarding ABG result and ordered to take off the BIPAP and changed to 4L N/C. RT made aware.
--- NOTE | 2018-08-16 09:24 | Pulmonology Progress Note ---
Assessment/Plan Assessment/Plan IMPRESSION: 1. Pulmonary edema. 2. Advanced COPD. 3. Pacemaker. DISCUSSION: Continue supplemental o2 via VTM; may use BiPAP prn ABG reviewed () In LINO Continue steroids; will increase to 40 q 6; and abx Moniror for leucocytosis No further LAsix; CXR is clear Carl Contreras M.D. Subjective Interval Events: More restless and tachypnic today Constitutional: Reports: no symptoms HEENT: Repors: no symptoms Respiratory: Reports: shortness of breath Cardiovascular: Reports: no symptoms Gastrointestinal/Abdominal: Reports: no symptoms Genitourinary: Reports: no symptoms Allergies: Coded Allergies: No Known Allergies (Unverified , 08/12/18) Objective Last 24 Hour Vital Signs Date Time Temp Pulse Resp B/P (MAP) Pulse Ox O2 Delivery O2 Flow Rate FiO2 08/16/18 08:45 96 26 100 Bi-pap 40 08/16/18 08:32 86 18 96 Bi-pap 40 08/16/18 08:06 96 166/110 08/16/18 08:00 40 08/16/18 08:00 Bi-pap 08/16/18 07:46 97.8 96 21 166/110 (128) 96 08/16/18 05:08 67 17 100 Facial 40 08/16/18 04:00 64 08/16/18 04:00 98.1 63 19 152/95 (114) 100 08/16/18 04:00 Room Air 08/16/18 04:00 40 08/16/18 03:04 64 16 100 Bi-pap 40 08/16/18 02:57 65 17 100 Facial 40 08/16/18 02:57 65 18 100 Bi-pap 40 08/16/18 01:04 68 21 100 Facial 40 08/16/18 00:00 40 08/16/18 00:00 97.8 85 19 148/87 (107) 99 08/16/18 00:00 Room Air 08/15/18 23:20 95 08/15/18 23:14 86 20 100 Bi-pap 40 08/15/18 23:14 1/22/19 23:04 105 21 100 Bi-pap 40 08/15/18 23:00 89 25 100 Facial 40 08/15/18 20:00 97.5 74 32 157/95 (115) 95 08/15/18 20:00 Room Air 08/15/18 19:55 110 22 100 Facial 40 08/15/18 19:36 111 08/15/18 19:22 97 20 99 Nasal Cannula 3.0 32 08/15/18 19:21 21 08/15/18 19:13 98 22 96 Nasal Cannula 2.0 28 08/15/18 16:00 82 08/15/18 16:00 88 20 98 Room Air 21 08/15/18 16:00 92 20 98 Room Air 21 08/15/18 16:00 98.4 77 20 158/92 (114) 97 08/15/18 16:00 Room Air 08/15/18 15:33 76 20 95 Room Air 21 08/15/18 15:33 21 08/15/18 12:00 98.2 113 18 149/91 (110) 97 08/15/18 12:00 111 08/15/18 12:00 Room Air 08/15/18 11:48 88 20 98 Room Air 21 08/15/18 11:11 116 22 90 Room Air 21 08/15/18 11:11 21 Intake and Output 08/15/18 08/16/18 19:00 07:00 Intake Total 1000 ml 975 ml Output Total 550 ml Balance 1000 ml 425 ml IV Total 1000 ml 975 ml Output Urine Total 550 ml # Bowel Movements 1 General Appearance: no acute distress HEENT: normocephalic Respiratory/Chest: chest wall non-tender, decreased breath sounds Cardiovascular: normal peripheral pulses, normal rate Abdomen: normal bowel sounds Microbiology Date/Time Source Procedure Growth Status 08/13/18 20:25 Indwelling Cath Urine Culture - Final NO GROWTH AFTER 48 HOURS Complete Laboratory Tests 08/16/18 03:30: White Blood Count 13.9H, Red Blood Count 3.82L, Hemoglobin 11.4L, Hematocrit 34.4L, Mean Corpuscular Volume 90, Mean Corpuscular Hemoglobin 29.9, Mean Corpuscular Hemoglobin Concent 33.2, Red Cell Distribution Width 13.7, Platelet Count 146L, Mean Platelet Volume 7.9, Neutrophils (%) (Auto) , Lymphocytes (%) ( Auto) , Monocytes (%) (Auto) , Eosinophils (%) (Auto) , Basophils (%) (Auto) , Differential Total Cells Counted 100, Neutrophils % (Manual) 96H, Lymphocytes % (Manual) 2L, Monocytes % (Manual) 2, Eosinophils % (Manual) 0, Basophils % ( Manual) 0, Band Neutrophils 0, Platelet Estimate DecreasedL, Platelet Morphology Normal, Hypochromasia 1+, Poikilocytosis 2+, Anisocytosis 1+, Dayne Cells 2+, Sodium Level 149H, Potassium Level 4.1, Chloride Level 112H, Carbon Dioxide Level 19L, Anion Gap 18H, Blood Urea Nitrogen 52H, Creatinine 2.3H, Estimat Glomerular Filtration Rate , Glucose Level 188H, Lactic Acid Level 4.70H , Calcium Level 8.0L, Magnesium Level 2.2, Total Bilirubin 0.5, Aspartate Amino Transf (AST/SGOT) 270H, Alanine Aminotransferase (ALT/SGPT) 268H, Alkaline Phosphatase 83, Total Protein 7.1, Albumin 3.4, Globulin 3.7, Albumin/Globulin Ratio 0.9L 08/16/18 08:40: Lactic Acid Level [Pending] 08/16/18 09:10: Arterial Blood pH 7.323L, Arterial Blood Partial Pressure CO2 33.2L, Arterial Blood Partial Pressure O2 97.0, Arterial Blood HCO3 16.8*L, Arterial Blood Oxygen Saturation 96.0, Arterial Blood Base Excess -8.2L, Gabriele Test Positive Current Medications Medications (Trade) Dose Ordered Sig/Dinorah Route PRN Reason Start Time Stop Time Status Last Admin Dose Admin Acetaminophen (Tylenol) 650 mg Q6H PRN ORAL Mild Pain/Temp > 100.5 08/14/18 12:30 09/11/18 12:29 Acetaminophen/ Hydrocodone Bitart ([place] 5/325) 1 tab Q6H PRN ORAL PAIN 4-10 08/14/18 12:30 08/19/18 12:29 Albuterol/ Ipratropium (Albuterol/ Ipratropium) 3 ml Q4HRT HHN 08/14/18 15:00 08/17/18 06:59 08/16/18 08:34 Amiodarone HCl (Cordarone) 100 mg DAILY ORAL 08/15/18 09:00 09/12/18 08:59 08/16/18 08:06 Ceftriaxone Sodium 1 gm/ Sodium Chloride 55 ml @ 110 mls/hr Q24HRS IVPB 08/15/18 08:00 08/19/18 07:59 08/16/18 08:08 Diltiazem HCl (Cardizem CD) 180 mg DAILY ORAL 08/16/18 09:00 09/15/18 08:59 08/16/18 08:06 Heparin Sodium (Porcine) (Heparin 5000 units/ml) 5,000 units EVERY 12 HOURS SUBQ 08/14/18 21:00 09/11/18 20:59 08/16/18 08:08 Hydralazine HCl (Apresoline) 10 mg Q4H PRN IV SBP above 150mmHg 08/14/18 12:30 09/11/18 12:29 Levothyroxine Sodium (Synthroid) 150 mcg DAILY@0630 ORAL 08/15/18 06:30 09/12/18 06:29 08/16/18 06:58 Methylprednisolone Sodium Succinate (Solu-MEDROL) 40 mg DAILY IVP 08/16/18 09:00 09/15/18 08:59 08/16/18 08:06 Ondansetron HCl (Zofran) 4 mg Q6H PRN IVP Nausea & Vomiting 08/14/18 12:30 09/11/18 12:29 Pantoprazole (Protonix) 40 mg DAILY ORAL 08/15/18 09:00 09/11/18 19:59 08/16/18 08:06 Pregabalin (Lyrica) 50 mg BEDTIME ORAL 08/14/18 21:00 09/11/18 21:29 08/15/18 20:17 Sodium 1,000 ml @ 100 mls/hr Q10H IV 08/14/18 14:00 09/13/18 13:59 08/16/18 06:58 Carl Contreras MD Aug 16, 2018 09:24
[2018-08-16] MEDS ORDERED: Albuterol/Ipratropium 3ml neb HHN SCH (10:27)
--- NOTE | 2018-08-16 10:46 | Infectious Diseases Prog Note ---
Assessment/Plan Assessment/Plan antibiotics : ceftriaxone A 1. pneumonia 2. CHF 3. leucocytosis improving 4. renal failure worse 5. COPD 6. hypertension 7. gram negative sepsis 8. r/o cholecystitis increased LFT P 1. d/c ceftriaxone 2. start zosyn 3. will follow up cultures 4. HIDA scan Subjective Constitutional: Denies: fever, chills Respiratory: Reports: shortness of breath, dry cough Gastrointestinal/Abdominal: Denies: nausea, vomiting, diarrhea Musculoskeletal: Denies: pain Allergies: Coded Allergies: No Known Allergies (Unverified , 08/12/18) Objective Vital Signs Last 24 Hour Vital Signs Date Time Temp Pulse Resp B/P (MAP) Pulse Ox O2 Delivery O2 Flow Rate FiO2 08/16/18 10:35 96 22 94 Nasal Cannula 36 08/16/18 08:45 96 26 100 Bi-pap 40 08/16/18 08:32 86 18 96 Bi-pap 40 08/16/18 08:06 96 166/110 08/16/18 08:00 40 08/16/18 08:00 Bi-pap 08/16/18 08:00 101 08/16/18 07:46 97.8 96 21 166/110 (128) 96 08/16/18 05:08 67 17 100 Facial 40 08/16/18 04:00 64 08/16/18 04:00 98.1 63 19 152/95 (114) 100 08/16/18 04:00 Room Air 08/16/18 04:00 40 08/16/18 03:04 64 16 100 Bi-pap 40 08/16/18 02:57 65 17 100 Facial 40 08/16/18 02:57 65 18 100 Bi-pap 40 08/16/18 01:04 68 21 100 Facial 40 08/16/18 00:00 40 08/16/18 00:00 97.8 85 19 148/87 (107) 99 08/16/18 00:00 Room Air 08/15/18 23:20 95 08/15/18 23:14 86 20 100 Bi-pap 40 08/15/18 23:14 08/15/18 23:04 105 21 100 Bi-pap 40 08/15/18 23:00 89 25 100 Facial 40 08/15/18 20:00 97.5 74 32 157/95 (115) 95 08/15/18 20:00 Room Air 08/15/18 19:55 110 22 100 Facial 40 08/15/18 19:36 111 08/15/18 19:22 97 20 99 Nasal Cannula 3.0 32 08/15/18 19:21 21 08/15/18 19:13 98 22 96 Nasal Cannula 2.0 28 08/15/18 16:00 82 08/15/18 16:00 88 20 98 Room Air 21 08/15/18 16:00 92 20 98 Room Air 21 08/15/18 16:00 98.4 77 20 158/92 (114) 97 08/15/18 16:00 Room Air 08/15/18 15:33 76 20 95 Room Air 21 08/15/18 15:33 21 08/15/18 12:00 98.2 113 18 149/91 (110) 97 08/15/18 12:00 111 08/15/18 12:00 Room Air 08/15/18 11:48 88 20 98 Room Air 21 08/15/18 11:11 116 22 90 Room Air 21 08/15/18 11:11 21 Height (Feet): 5 Height (Inches): 5.00 Weight (Pounds): 135 Respiratory/Chest: rhonchi - bilaterally Cardiovascular: normal rate, regular rhythm, no gallop/murmur Abdomen: soft, non tender Extremities: no edema Microbiology Date/Time Source Procedure Growth Status 08/13/18 20:25 Indwelling Cath Urine Culture - Final NO GROWTH AFTER 48 HOURS Complete Laboratory Tests Test 08/16/18 03:30 08/16/18 08:40 08/16/18 09:10 White Blood Count 13.9 K/UL (4.8-10.8) H Red Blood Count 3.82 M/UL (4.70-6.10) L Hemoglobin 11.4 G/DL (14.2-18.0) L Hematocrit 34.4 % (42.0-52.0) L Mean Corpuscular Volume 90 FL (80-99) Mean Corpuscular Hemoglobin 29.9 PG (27.0-31.0) Mean Corpuscular Hemoglobin Concent 33.2 G/DL (32.0-36.0) Red Cell Distribution Width 13.7 % (11.6-14.8) Platelet Count 146 K/UL (150-450) L Mean Platelet Volume 7.9 FL (6.5-10.1) Neutrophils (%) (Auto) % (45.0-75.0) Lymphocytes (%) (Auto) % (20.0-45.0) Monocytes (%) (Auto) % (1.0-10.0) Eosinophils (%) (Auto) % (0.0-3.0) Basophils (%) (Auto) % (0.0-2.0) Differential Total Cells Counted 100 Neutrophils % (Manual) 96 % (45-75) H Lymphocytes % (Manual) 2 % (20-45) L Monocytes % (Manual) 2 % (1-10) Eosinophils % (Manual) 0 % (0-3) Basophils % (Manual) 0 % (0-2) Band Neutrophils 0 % (0-8) Platelet Estimate Decreased L Platelet Morphology Normal Hypochromasia 1+ Poikilocytosis 2+ Anisocytosis 1+ Dumont Cells 2+ Sodium Level 149 MMOL/L (136-145) H Potassium Level 4.1 MMOL/L (3.5-5.1) Chloride Level 112 MMOL/L (98-107) H Carbon Dioxide Level 19 MMOL/L (21-32) L Anion Gap 18 mmol/L (5-15) H Blood Urea Nitrogen 52 mg/dL (7-18) H Creatinine 2.3 MG/DL (0.55-1.30) H Estimat Glomerular Filtration Rate mL/min (>60) Glucose Level 188 MG/DL (74-106) H Lactic Acid Level 4.70 mmol/L (0.4-2.0) H 3.50 mmol/L (0.66-2.22) H Calcium Level 8.0 MG/DL (8.5-10.1) L Magnesium Level 2.2 MG/DL (1.8-2.4) Total Bilirubin 0.5 MG/DL (0.2-1.0) Aspartate Amino Transf (AST/SGOT) 270 U/L (15-37) H Alanine Aminotransferase (ALT/SGPT) 268 U/L (12-78) H Alkaline Phosphatase 83 U/L (46-116) Total Protein 7.1 G/DL (6.4-8.2) Albumin 3.4 G/DL (3.4-5.0) Globulin 3.7 g/dL Albumin/Globulin Ratio 0.9 (1.0-2.7) L Arterial Blood pH 7.323 (7.350-7.450) Arterial Blood Partial Pressure CO2 33.2 mmHg (35.0-45.0) L Arterial Blood Partial Pressure O2 97.0 mmHg (75.0-100.0) Arterial Blood HCO3 16.8 mmol/L (22.0-26.0) *L Arterial Blood Oxygen Saturation 96.0 % (95-100) Arterial Blood Base Excess -8.2 (-2-2) L Gabriele Test Positive Current Medications Medications (Trade) Dose Ordered Sig/Dinorah Route PRN Reason Start Time Stop Time Status Last Admin Dose Admin Acetaminophen (Tylenol) 650 mg Q6H PRN ORAL Mild Pain/Temp > 100.5 08/14/18 12:30 09/11/18 12:29 Acetaminophen/ Hydrocodone Bitart ([place] 5/325) 1 tab Q6H PRN ORAL PAIN 4-10 08/14/18 12:30 08/19/18 12:29 Albuterol/ Ipratropium (Albuterol/ Ipratropium) 3 ml Q4HRT N 08/14/18 15:00 08/17/18 06:59 08/16/18 08:34 Albuterol/ Ipratropium (Albuterol/ Ipratropium) 3 ml STAT N 08/16/18 10:27 08/16/18 11:30 08/16/18 10:33 Amiodarone HCl (Cordarone) 100 mg DAILY ORAL 08/15/18 09:00 09/12/18 08:59 08/16/18 08:06 Diltiazem HCl (Cardizem CD) 180 mg DAILY ORAL 08/16/18 09:00 09/15/18 08:59 08/16/18 08:06 Heparin Sodium (Porcine) (Heparin 5000 units/ml) 5,000 units EVERY 12 HOURS SUBQ 08/14/18 21:00 09/11/18 20:59 08/16/18 08:08 Hydralazine HCl (Apresoline) 10 mg Q4H PRN IV SBP above 150mmHg 08/14/18 12:30 09/11/18 12:29 Levothyroxine Sodium (Synthroid) 150 mcg DAILY@0630 ORAL 08/15/18 06:30 09/12/18 06:29 08/16/18 06:58 Methylprednisolone Sodium Succinate (Solu-MEDROL) 40 mg Q6HR IVP 08/16/18 12:00 09/15/18 11:59 Ondansetron HCl (Zofran) 4 mg Q6H PRN IVP Nausea & Vomiting 08/14/18 12:30 09/11/18 12:29 Pantoprazole (Protonix) 40 mg DAILY ORAL 08/15/18 09:00 09/11/18 19:59 08/16/18 08:06 Piperacillin Sod/ Tazobactam Sod 4.5 gm/Dextrose 110 ml @ 27.5 mls/hr EVERY 8 HOURS IVPB 08/16/18 10:45 08/21/18 10:44 UNV Pregabalin (Lyrica) 50 mg BEDTIME ORAL 08/14/18 21:00 09/11/18 21:29 08/15/18 20:17 Sodium Chloride 1,000 ml @ 100 mls/hr Q10H IV 08/16/18 10:45 09/15/18 10:44 UNV Soo Almaraz MD Aug 16, 2018 10:46
--- NOTE | 2018-08-16 11:00 | NUR ---
NURSE NOTES:RECEIVED BED SIDE REPORT FROM RUBÉN MATA .RECEIVED PT WITH HOB ELEVATED 45 DEGREE SLOVENIAN SPEAKING ONLY ,SEEMS BREATHING FAST 34 RR,FAMILY AT BED SIDE REQUESTING TO PLACE THE PT ON BIPAP.PT PLACED ON BIPAP BY RT.PT IS NPO FOR HIDA SCAN TODAY.ALL NEEDS ATTENDED AND ANTICIPATED.WILL CONT TO MONITOR.
--- NOTE | 2018-08-16 11:05 | NUR ---
RADIOLOGY DEPT CHEST X-RAY DONE BY TECH. [place] BRAXTON.YANIV
--- NOTE | 2018-08-16 11:05 | NUR ---
HAND-OFF: Report given to ADOLFO Alexander.
--- NOTE | 2018-08-16 11:17 | NUR ---
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 97.8 HR 96 RR 21 B/P 166/110 5L NC O2 SAT @ 94% WBC 13.9 NA 149 BUN 52 CR 2.3 AST 270 [id number] LACTID ACID 3.50 PH 7.32 PCO2 33.2 O2 SAT 97.0 HCO3 16.8 O2 SAT 96.0 BE-8.2 IS: SOLU MEDROL IV ZOSYN IV IVF NS @ 100ML/HR CARDIZEM STEP DOWN STATUS
[2018-08-16] MEDS: Solu-MEDROL 40mg Inj IVP SCH ×3 (11:48→23:59)
[2018-08-16 12:00] VITALS: BP 151/83
--- NOTE | 2018-08-16 13:30 | NUR ---
NURSE NOTES:PT UNABLE TO TOLERATED LYING FLAT.Rodney HERNANDEZ OF [facility] MADE AWARE AND NOTIFIED REGARDING PT IS UNABLE TO TOLERATED LYING FLAT AND PT IS BACK ON BIPAP SMALL TO RESP DISTRESS.JUAN MANUEL RE-SCHEDULE THE PT FOR HIDA SCAN UNTIL TOMORROW.PLACED A TELEPHONE CALL TO DR HINKLE AND MADE AWARE AND NOTIFIED REGARDING PT UNABLE TO TOLERATED LYING FLAT AND HIDA SCAN IS RE-SCHEDULE FOR TOMORROW.WILL CONT TO MONITOR.
--- NOTE | 2018-08-16 13:32 | NUR ---
Regarding HIDA: Spoke with ADOLFO Mcghee, pt is unable to tolerate laying flat for HIDA scan at this time. Will follow up tomorrow to see if pt can tolerate.
--- NOTE | 2018-08-16 13:34 | NUR ---
Social Service Note Dr. Hidalgo signed physician's orders for [facility]. Orders faxed to [facility] at [phone].
[2018-08-16] MEDS: Piperacillin/Tazobactam 4.5 GM in D5W 110 ML IVPB SCH ×2 (13:37→20:49)
--- NOTE | 2018-08-16 14:31 | Diagnostic Imaging Report ---
Indication: Cough Technique: One view of the chest Comparison: 08/14/2018 Findings: Less optimal inspiration currently. Bilateral interstitial and airspace infiltrates versus edema appear equivocally slightly increased from the prior exam, although apparent increase is likely artifactual due to the lower lung volumes. Normal heart size. Left chest pacemaker again demonstrated. Small bilateral pleural effusions persist Impression: Unchanged, over 2 days, findings as above.
[2018-08-16 16:00] VITALS: BP 145/82
--- NOTE | 2018-08-16 17:45 | Consultation ---
DATE OF CONSULTATION: 08/16/2018 NEPHROLOGY CONSULTATION CONSULTING PHYSICIAN: Brian Gill M.D. ATTENDING PHYSICIAN: Crescencio Hidalgo M.D. REASON FOR CONSULTATION: Multiple electrolyte abnormalities and acidosis. HISTORY OF PRESENT ILLNESS: The patient is an 82-year-old Yi male who was admitted to the hospital with respiratory failure. The patient was found to have acute respiratory failure and respiratory acidosis. Later on, the patient developed sepsis with lactic acidosis and was found to have sepsis. The patient is nonverbal. PAST MEDICAL HISTORY: 1. COPD. 2. Status post pacemaker. 3. Hypertensive cardiovascular disease. 4. History of paroxysmal atrial fibrillation. 5. Degenerative joint disease. 6. Hypothyroidism. MEDICATIONS: IV fluids half normal saline, IV Zosyn, amiodarone, diltiazem , DuoNeb inhalation, subcutaneous heparin, Apresoline IV p.r.n., Synthroid, IV Solu-Medrol, Zofran p.r.n., Lyrica p.r.n. ALLERGIES: No known drug allergies. FAMILY HISTORY: Unable to obtain secondary to mental status. SOCIAL HISTORY: Unable to obtain secondary to mental status. REVIEW OF SYSTEMS: Unable to obtain secondary to mental status. PHYSICAL EXAMINATION: GENERAL: This is an elderly Yi male who is in no acute distress. VITAL SIGNS: Blood pressure 166/110; pulse 86. Respirations 22, unlabored. O2 saturation 100% on a BiPAP. HEENT: Head is normocephalic and atraumatic. Pupils are equal, round, and reactive to light and accommodation consensually. NECK: Supple. Trachea midline. There was no lymphadenopathy or thyromegaly. LUNGS: Bilateral wheezes. HEART: Regular rate and rhythm without rubs, murmurs, or gallops. ABDOMEN: Soft and nontender. Bowel sounds were active. EXTREMITIES: No clubbing, cyanosis, or edema. NEUROLOGICAL: He is confused. There were no gross focal findings. LABORATORY AND ANCILLARY DATA: CBC shows white count of 13,900, otherwise within normal limits. Serum chemistry, electrolytes, sodium 149, potassium 4.1, BUN 52, creatinine 2.3. Lactic acid initially 4.7 and then 3.5. ABGs today, pH 7.32, pCO2 33, pO2 97, bicarb 16.8. ASSESSMENT: Acute metabolic acidosis, most likely due to the patient's sepsis. PLAN: Continue current therapy for the patient's sepsis, which is most likely due to the patient's current pneumonia. The patient says he has been followed by Dr. Almaraz. I have discussed the patient's situation with Dr. Almaraz and Dr. Hidalgo. Thank you, Dr. Hidalgo, for letting me to participate in the care of this patient. Brian Gill M.D. DR: Dyllan JOB#: [id number] CC: DAVID
--- NOTE | 2018-08-16 19:00 | NUR ---
HAND-OFF: Report given to .ALLIE MATA.
--- NOTE | 2018-08-16 19:24 | NUR ---
NURSE NOTES: Report received from ADOLFO Alexander. Patient seen in bed in valdez position with oxygen on 4L/min via N/C. no acute respiratory distress is noted. is by bed side. Denies any pain at this time. IVF of 1/2NS @ 100ml/hr is running. IV site to right hand 24g and right forearm 22g is both intact. Noted with charles cath, urine is draining. Bed is in lowest position. Call light is within reach when in room. will continue to monitor.
[2018-08-16 20:00] VITALS: BP 140/77
[2018-08-16] MEDS: Lyrica 50mg cap ORAL SCH (20:50)
--- NOTE | 2018-08-16 22:45 | Progress Note ---
DATE: 08/16/2018 CARDIOLOGY PROGRESS NOTE SUBJECTIVE: The patient's condition has worsened today. He has become increasingly congested with wheezing and shortness of breath. He has had this is reflected in his ABG, which today shows pH 7.32, pCO2 33, and pO2 of 97. So, the patient remains with elevated lactic acid level and low-grade fevers. However, his blood cultures are positive for gram-negative rods. OBJECTIVE: VITAL SIGNS: Blood pressure 145/82, pulse 72, respiratory rate 24, afebrile. He remains on BiPAP support. LUNGS: Coarse breath sounds. Scattered rhonchi. Expiratory wheezes. HEART: Regular rhythm and rate. Normal S1, S2. A 1/6 systolic murmur at apex. ABDOMEN: Soft. EXTREMITIES: No edema. LABORATORY DATA: Lactic acid 3.5. Sodium 149, potassium 4.1, chloride 112, bicarb 19, BUN 52, and creatinine 2.3. Albumin is 3.4. White count 13.9, hemoglobin 11.4. IMPRESSION: 1. Sepsis. 2. Gram-negative bacteremia. 3. Pneumonia. 4. COPD exacerbation. 5. Acute bronchospasm. 6. Acute on chronic respiratory acidosis. 7. Lactic acidosis. 8. Acute renal failure. 9. Critical and guarded. 10. Permanent pacemaker. PLAN: Infectious Disease and renal consults are appreciated. Antimicrobials, spectrum broaden, hypotonic IV fluids just added. Continue bronchodilators and respiratory hygiene. Hold diuretics. Continue current cardiovascular regimen otherwise. Pacemaker interrogation plan today. Crescencio Hidalgo M.D. : GIGI JOB#: [id number] CC:
[2018-08-17] VITALS: BP 129/72
[2018-08-17] MEDS: Albuterol/Ipratropium 3ml neb HHN SCH ×2 (02:42→22:39)
[2018-08-17 04:00] VITALS: BP 123/77
[2018-08-17 05:44] LABS: HEMATOCRIT 33.3 % (42.0-52.0); MEAN CORPUSCULAR VOLUME 89 FL (80-99); PLATELET COUNT 114 K/UL (150-450); RED BLOOD COUNT 3.73 M/UL (4.70-6.10); RED CELL DISTRIBUTION WIDTH 13.4 % (11.6-14.8); WHITE BLOOD COUNT 8.7 K/UL (4.8-10.8)
[2018-08-17] MEDS: Piperacillin/Tazobactam 4.5 GM in D5W 110 ML IVPB SCH ×3 (05:46→21:05)
[2018-08-17] MEDS: Solu-MEDROL 40mg Inj IVP SCH ×3 (05:46→17:37)
[2018-08-17 05:54] LABS: ALANINE AMINOTRANSFERASE 362 U/L (12-78); ALBUMIN 2.9 G/DL (3.4-5.0); ALKALINE PHOSPHATASE 60 U/L (46-116); ANION GAP 12 mmol/L (5-15); ASPARTATE AMINO TRANSFERASE 237 U/L (15-37); BILIRUBIN,TOTAL 1.1 MG/DL (0.2-1.0); BLOOD UREA NITROGEN 45 mg/dL (7-18); CALCIUM 7.3 MG/DL (8.5-10.1); CARBON DIOXIDE 20 MMOL/L (21-32); CHLORIDE 108 MMOL/L (98-107); CREATININE 1.8 MG/DL (0.55-1.30); POTASSIUM 4.9 MMOL/L (3.5-5.1); SODIUM 140 MMOL/L (136-145)
[2018-08-17 05:58] LABS: BILIRUBIN,DIRECT 0.4 MG/DL (0.0-0.3)
--- NOTE | 2018-08-17 07:22 | NUR ---
HAND-OFF: Report given to ADOLFO Bradley .
--- NOTE | 2018-08-17 07:25 | General Progress Note ---
Assessment/Plan Problem List: (1) Sepsis ICD Codes: A41.9 - Sepsis, unspecified organism SNOMED: 53808193 Qualifiers: Qualified Codes: A41.9 - Sepsis, unspecified organism (2) COPD exacerbation ICD Codes: J44.1 - Chronic obstructive pulmonary disease with (acute) exacerbation SNOMED: 413852449 (3) Respiratory distress ICD Codes: R06.03 - Acute respiratory distress SNOMED: 268937977 Status: stable Assessment/Plan abx resp care/o2 amio for rate control bipap as needed consider steroids monitor labs o2 hida scan Subjective ROS Limited/Unobtainable: No Constitutional: Reports: malaise, weakness HEENT: Reports: no symptoms Cardiovascular: Reports: no symptoms Respiratory: Reports: cough, shortness of breath Gastrointestinal/Abdominal: Reports: no symptoms Genitourinary: Reports: no symptoms Neurologic/Psychiatric: Reports: no symptoms Endocrine: Reports: no symptoms Hematologic/Lymphatic: Reports: anemia Allergies: Coded Allergies: No Known Allergies (Unverified , 08/12/18) All Systems: reviewed and negative except above Subjective off bipap. on 4L NC. no chest pain still with wheezing and congestion. Objective Last 24 Hour Vital Signs Date Time Temp Pulse Resp B/P (MAP) Pulse Ox O2 Delivery O2 Flow Rate FiO2 08/17/18 04:00 Bi-pap 08/17/18 04:00 97.8 73 24 123/77 (92) 98 08/17/18 04:00 30 08/17/18 03:17 76 08/17/18 02:57 77 16 100 Nasal Cannula 2.0 28 08/17/18 02:42 77 14 100 Nasal Cannula 2.0 28 08/17/18 02:34 68 16 Nasal Cannula 2.0 28 08/17/18 00:00 98.2 62 20 129/72 (91) 98 08/17/18 00:00 Bi-pap 08/17/18 00:00 62 08/16/18 22:38 68 16 100 Nasal Cannula 2.0 28 08/16/18 22:25 70 18 100 Nasal Cannula 2.0 28 08/16/18 20:00 Bi-pap 08/16/18 20:00 40 08/16/18 20:00 98.7 70 23 140/77 (98) 98 08/16/18 20:00 68 08/16/18 19:24 66 18 100 Nasal Cannula 2.0 28 08/16/18 19:15 68 19 95 Nasal Cannula 2.0 28 08/16/18 16:00 Bi-pap 08/16/18 16:00 97.7 72 24 145/82 (103) 98 08/16/18 16:00 64 08/16/18 16:00 40 08/16/18 15:26 76 19 99 Bi-pap 40 08/16/18 15:16 69 16 99 Bi-pap 40 08/16/18 12:13 66 17 100 Bi-pap 40 08/16/18 12:02 68 18 100 Bi-pap 40 08/16/18 12:00 97.3 71 32 151/83 (105) 95 08/16/18 12:00 Bi-pap 08/16/18 12:00 78 08/16/18 12:00 40 08/16/18 11:30 80 20 99 Facial 40 08/16/18 10:45 89 22 94 Nasal Cannula 40 08/16/18 10:35 96 22 94 Nasal Cannula 36 08/16/18 08:45 96 26 100 Bi-pap 40 08/16/18 08:32 86 18 96 Bi-pap 40 08/16/18 08:06 96 166/110 08/16/18 08:00 40 08/16/18 08:00 Bi-pap 08/16/18 08:00 101 08/16/18 08:00 80 22 98 Facial 40 08/16/18 07:46 97.8 96 21 166/110 (128) 96 Intake and Output 08/16/18 08/17/18 18:59 06:59 Intake Total 1515.0 ml 1270.0 ml Output Total 350 ml 450 ml Balance 1165.0 ml 820.0 ml Intake Oral 350 ml 160 ml IV Total 1165.0 ml 1110.0 ml Output Urine Total 350 ml 450 ml Laboratory Tests 08/16/18 08:40: Lactic Acid Level 3.50H 08/16/18 09:10: Arterial Blood pH 7.323L, Arterial Blood Partial Pressure CO2 33.2L, Arterial Blood Partial Pressure O2 97.0, Arterial Blood HCO3 16.8*L, Arterial Blood Oxygen Saturation 96.0, Arterial Blood Base Excess -8.2L, Gabriele Test Positive 08/17/18 03:25: White Blood Count 8.7, Red Blood Count 3.73L, Hemoglobin 11.0L, Hematocrit 33.3L , Mean Corpuscular Volume 89, Mean Corpuscular Hemoglobin 29.6, Mean Corpuscular Hemoglobin Concent 33.1, Red Cell Distribution Width 13.4, Platelet Count 114L, Mean Platelet Volume 8.3, Neutrophils (%) (Auto) , Lymphocytes (%) ( Auto) , Monocytes (%) (Auto) , Eosinophils (%) (Auto) , Basophils (%) (Auto) , Neutrophils % (Manual) [Pending], Lymphocytes % (Manual) [Pending], Platelet Estimate [Pending], Platelet Morphology [Pending], Sodium Level 140, Potassium Level 4.9, Chloride Level 108H, Carbon Dioxide Level 20L, Anion Gap 12, Blood Urea Nitrogen 45H, Creatinine 1.8H, Estimat Glomerular Filtration Rate , Glucose Level 165H, Calcium Level 7.3L, Total Bilirubin 1.1H, Direct Bilirubin 0.4H, Aspartate Amino Transf (AST/SGOT) 237H, Alanine Aminotransferase (ALT/SGPT ) 362H, Alkaline Phosphatase 60, Total Protein 5.8L, Albumin 2.9L, Globulin 2.9 , Albumin/Globulin Ratio 1.0 Height (Feet): 5 Height (Inches): 5.00 Weight (Pounds): 135 Objective General Appearance: WD/WN, alert Neck: supple Cardiovascular: normal rate, regular rhythm Respiratory/Chest: no accessory muscle use, rhonchi - bilaterally, expiratory wheezing Abdomen: normal bowel sounds, non tender, soft 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
--- NOTE | 2018-08-17 07:28 | NUR ---
NURSE NOTES: Report received from ADOLFO Gorman. Observed patient in bed. Awake and verbally responsive. Denies pain at this time. Receiving 4L of oxygen via N/C with O2 saturation of 98%. IV site intact and patent. F/C intact and draining well. Bed in lowest position. Call light within reach. Will continue to monitor.
[2018-08-17 08:00] VITALS: BP 123/67
[2018-08-17] MEDS: Heparin 5000 units/ml inj SUBQ SCH ×2 (09:00→20:55)
[2018-08-17] MEDS: Amiodarone 200mg tab ORAL SCH (09:04)
[2018-08-17] MEDS: dilTIAZem HCl CD 180mg cap ORAL SCH (09:04)
--- NOTE | 2018-08-17 10:18 | Pulmonology Progress Note ---
Assessment/Plan Assessment/Plan IMPRESSION: 1. Pulmonary edema. 2. Advanced COPD. 3. Pacemaker. DISCUSSION: Continue supplemental o2 via VTM; may use BiPAP prn ABG reviewed () In [facility] Continue steroids; now on 40 q 6; and abx Moniror for leucocytosis No further LAsix; CXR is clear Carl Contreras M.D. Subjective Interval Events: Off BiPAP; doing well Constitutional: Reports: no symptoms HEENT: Repors: no symptoms Respiratory: Reports: no symptoms Cardiovascular: Reports: no symptoms Gastrointestinal/Abdominal: Reports: no symptoms Genitourinary: Reports: no symptoms Allergies: Coded Allergies: No Known Allergies (Unverified , 08/12/18) Objective Last 24 Hour Vital Signs Date Time Temp Pulse Resp B/P (MAP) Pulse Ox O2 Delivery O2 Flow Rate FiO2 08/17/18 09:04 67 123/67 08/17/18 08:00 4.0 08/17/18 08:00 98.4 67 18 123/67 (85) 98 08/17/18 08:00 Nasal Cannula 4.0 08/17/18 04:00 Bi-pap 08/17/18 04:00 97.8 73 24 123/77 (92) 98 08/17/18 04:00 30 08/17/18 03:17 76 08/17/18 02:57 77 16 100 Nasal Cannula 2.0 28 08/17/18 02:42 77 14 100 Nasal Cannula 2.0 28 08/17/18 02:34 68 16 Nasal Cannula 2.0 28 08/17/18 00:00 98.2 62 20 129/72 (91) 98 08/17/18 00:00 Bi-pap 08/17/18 00:00 62 08/16/18 22:38 68 16 100 Nasal Cannula 2.0 28 08/16/18 22:25 70 18 100 Nasal Cannula 2.0 28 08/16/18 20:00 Bi-pap 08/16/18 20:00 40 08/16/18 20:00 98.7 70 23 140/77 (98) 98 08/16/18 20:00 68 08/16/18 19:24 66 18 100 Nasal Cannula 2.0 28 08/16/18 19:15 68 19 95 Nasal Cannula 2.0 28 08/16/18 16:00 Bi-pap 08/16/18 16:00 97.7 72 24 145/82 (103) 98 08/16/18 16:00 64 08/16/18 16:00 40 08/16/18 15:26 76 19 99 Bi-pap 40 08/16/18 15:16 69 16 99 Bi-pap 40 08/16/18 12:13 66 17 100 Bi-pap 40 08/16/18 12:02 68 18 100 Bi-pap 40 08/16/18 12:00 97.3 71 32 151/83 (105) 95 08/16/18 12:00 Bi-pap 08/16/18 12:00 78 08/16/18 12:00 40 08/16/18 11:30 80 20 99 Facial 40 08/16/18 10:45 89 22 94 Nasal Cannula 40 08/16/18 10:35 96 22 94 Nasal Cannula 36 Intake and Output 08/16/18 08/17/18 19:00 07:00 Intake Total 1615.0 ml 1170.0 ml Output Total 350 ml 450 ml Balance 1265.0 ml 720.0 ml Intake Oral 350 ml 160 ml IV Total 1265.0 ml 1010.0 ml Output Urine Total 350 ml 450 ml General Appearance: no acute distress HEENT: normocephalic Respiratory/Chest: chest wall non-tender, lungs clear Cardiovascular: normal peripheral pulses, normal rate Abdomen: normal bowel sounds Microbiology Date/Time Source Procedure Growth Status 08/16/18 12:00 Sputum Gram Stain Pending Resulted 08/16/18 12:00 Sputum Sputum Culture - Preliminary Resulted Laboratory Tests 08/17/18 03:25: White Blood Count 8.7, Red Blood Count 3.73L, Hemoglobin 11.0L, Hematocrit 33.3L , Mean Corpuscular Volume 89, Mean Corpuscular Hemoglobin 29.6, Mean Corpuscular Hemoglobin Concent 33.1, Red Cell Distribution Width 13.4, Platelet Count 114L, Mean Platelet Volume 8.3, Neutrophils (%) (Auto) , Lymphocytes (%) ( Auto) , Monocytes (%) (Auto) , Eosinophils (%) (Auto) , Basophils (%) (Auto) , Differential Total Cells Counted 100, Neutrophils % (Manual) 93H, Lymphocytes % (Manual) 3L, Monocytes % (Manual) 4, Eosinophils % (Manual) 0, Basophils % ( Manual) 0, Band Neutrophils 0, Platelet Estimate DecreasedL, Platelet Morphology Normal, Hypochromasia 1+, Anisocytosis 1+, Sodium Level 140, Potassium Level 4.9, Chloride Level 108H, Carbon Dioxide Level 20L, Anion Gap 12 , Blood Urea Nitrogen 45H, Creatinine 1.8H, Estimat Glomerular Filtration Rate , Glucose Level 165H, Calcium Level 7.3L, Total Bilirubin 1.1H, Direct Bilirubin 0.4H, Aspartate Amino Transf (AST/SGOT) 237H, Alanine Aminotransferase (ALT/SGPT) 362H, Alkaline Phosphatase 60, Total Protein 5.8L, Albumin 2.9L, Globulin 2.9, Albumin/Globulin Ratio 1.0 Current Medications Medications (Trade) Dose Ordered Sig/Dinorah Route PRN Reason Start Time Stop Time Status Last Admin Dose Admin Acetaminophen (Tylenol) 650 mg Q6H PRN ORAL Mild Pain/Temp > 100.5 08/14/18 12:30 09/11/18 12:29 Acetaminophen/ Hydrocodone Bitart ([place] 5/325) 1 tab Q6H PRN ORAL PAIN 4-10 08/14/18 12:30 08/19/18 12:29 Amiodarone HCl (Cordarone) 100 mg DAILY ORAL 08/15/18 09:00 09/12/18 08:59 08/17/18 09:04 Diltiazem HCl (Cardizem CD) 180 mg DAILY ORAL 08/16/18 09:00 09/15/18 08:59 08/17/18 09:04 Heparin Sodium (Porcine) (Heparin 5000 units/ml) 5,000 units EVERY 12 HOURS SUBQ 08/14/18 21:00 09/11/18 20:59 08/16/18 20:51 Hydralazine HCl (Apresoline) 10 mg Q4H PRN IV SBP above 150mmHg 08/14/18 12:30 09/11/18 12:29 Levothyroxine Sodium (Synthroid) 150 mcg DAILY@0630 ORAL 08/15/18 06:30 09/12/18 06:29 08/17/18 05:46 Methylprednisolone Sodium Succinate (Solu-MEDROL) 40 mg Q6HR IVP 08/16/18 12:00 09/15/18 11:59 08/17/18 05:46 Ondansetron HCl (Zofran) 4 mg Q6H PRN IVP Nausea & Vomiting 08/14/18 12:30 09/11/18 12:29 Pantoprazole (Protonix) 40 mg DAILY ORAL 08/15/18 09:00 09/11/18 19:59 08/17/18 09:04 Piperacillin Sod/ Tazobactam Sod 4.5 gm/Dextrose 110 ml @ 27.5 mls/hr EVERY 8 HOURS IVPB 08/16/18 12:00 08/21/18 11:59 08/17/18 05:46 Pregabalin (Lyrica) 50 mg BEDTIME ORAL 08/14/18 21:00 09/11/18 21:29 08/16/18 20:50 Sodium Chloride 1,000 ml @ 75 mls/hr [id number] IV 08/17/18 07:30 09/16/18 07:29 08/17/18 07:40 Carl Contreras MD Aug 17, 2018 10:18
[2018-08-17 12:00] VITALS: BP 134/82
--- NOTE | 2018-08-17 12:30 | NUR ---
Informed Dr. Almaraz regarding HIDA scan was not able to perform because pt. is not able to lying flat on the bed due to breathing problem. Dr. Almaraz said to keep the order and perform when pt. become more stable. Willie from [facility] informed.
--- NOTE | 2018-08-17 13:50 | Infectious Diseases Prog Note ---
Assessment/Plan Assessment/Plan A 1. pneumonia 2. CHF 3. leucocytosis improving 4. renal failure worse 5. COPD 6. hypertension 7. gram negative sepsis 8. r/o cholecystitis increased LFT P 1. Continue Zosyn 2. will follow up cultures 4. will follow HIDA scan Subjective ROS Limited/Unobtainable: Yes Constitutional: Reports: no symptoms Gastrointestinal/Abdominal: Reports: no symptoms Allergies: Coded Allergies: No Known Allergies (Unverified , 08/12/18) Objective Vital Signs Last 24 Hour Vital Signs Date Time Temp Pulse Resp B/P (MAP) Pulse Ox O2 Delivery O2 Flow Rate FiO2 08/17/18 12:00 4.0 08/17/18 12:00 97.4 75 18 134/82 (99) 100 08/17/18 12:00 Nasal Cannula 4.0 08/17/18 09:04 67 123/67 08/17/18 08:00 4.0 08/17/18 08:00 71 08/17/18 08:00 98.4 67 18 123/67 (85) 98 08/17/18 08:00 Nasal Cannula 4.0 08/17/18 04:00 Bi-pap 08/17/18 04:00 97.8 73 24 123/77 (92) 98 08/17/18 04:00 30 08/17/18 03:17 76 08/17/18 02:57 77 16 100 Nasal Cannula 2.0 28 08/17/18 02:42 77 14 100 Nasal Cannula 2.0 28 08/17/18 02:34 68 16 Nasal Cannula 2.0 28 08/17/18 00:00 98.2 62 20 129/72 (91) 98 08/17/18 00:00 Bi-pap 08/17/18 00:00 62 08/16/18 22:38 68 16 100 Nasal Cannula 2.0 28 08/16/18 22:25 70 18 100 Nasal Cannula 2.0 28 08/16/18 20:00 Bi-pap 08/16/18 20:00 40 08/16/18 20:00 98.7 70 23 140/77 (98) 98 08/16/18 20:00 68 08/16/18 19:24 66 18 100 Nasal Cannula 2.0 28 08/16/18 19:15 68 19 95 Nasal Cannula 2.0 28 08/16/18 16:00 Bi-pap 08/16/18 16:00 97.7 72 24 145/82 (103) 98 08/16/18 16:00 64 08/16/18 16:00 40 08/16/18 15:26 76 19 99 Bi-pap 40 08/16/18 15:16 69 16 99 Bi-pap 40 Height (Feet): 5 Height (Inches): 5.00 Weight (Pounds): 135 General Appearance: no acute distress HEENT: mucous membranes moist Respiratory/Chest: lungs clear Cardiovascular: normal rate Abdomen: soft, non tender Extremities: no edema Neurologic/Psychiatric: alert, responsive Microbiology Date/Time Source Procedure Growth Status 08/16/18 12:00 Sputum Gram Stain Pending Resulted 08/16/18 12:00 Sputum Sputum Culture - Preliminary Resulted Laboratory Tests Test 08/17/18 03:25 White Blood Count 8.7 K/UL (4.8-10.8) Red Blood Count 3.73 M/UL (4.70-6.10) L Hemoglobin 11.0 G/DL (14.2-18.0) L Hematocrit 33.3 % (42.0-52.0) L Mean Corpuscular Volume 89 FL (80-99) Mean Corpuscular Hemoglobin 29.6 PG (27.0-31.0) Mean Corpuscular Hemoglobin Concent 33.1 G/DL (32.0-36.0) Red Cell Distribution Width 13.4 % (11.6-14.8) Platelet Count 114 K/UL (150-450) L Mean Platelet Volume 8.3 FL (6.5-10.1) Neutrophils (%) (Auto) % (45.0-75.0) Lymphocytes (%) (Auto) % (20.0-45.0) Monocytes (%) (Auto) % (1.0-10.0) Eosinophils (%) (Auto) % (0.0-3.0) Basophils (%) (Auto) % (0.0-2.0) Differential Total Cells Counted 100 Neutrophils % (Manual) 93 % (45-75) H Lymphocytes % (Manual) 3 % (20-45) L Monocytes % (Manual) 4 % (1-10) Eosinophils % (Manual) 0 % (0-3) Basophils % (Manual) 0 % (0-2) Band Neutrophils 0 % (0-8) Platelet Estimate Decreased L Platelet Morphology Normal Hypochromasia 1+ Anisocytosis 1+ Sodium Level 140 MMOL/L (136-145) Potassium Level 4.9 MMOL/L (3.5-5.1) Chloride Level 108 MMOL/L (98-107) H Carbon Dioxide Level 20 MMOL/L (21-32) L Anion Gap 12 mmol/L (5-15) Blood Urea Nitrogen 45 mg/dL (7-18) H Creatinine 1.8 MG/DL (0.55-1.30) H Estimat Glomerular Filtration Rate mL/min (>60) Glucose Level 165 MG/DL (74-106) H Calcium Level 7.3 MG/DL (8.5-10.1) L Total Bilirubin 1.1 MG/DL (0.2-1.0) H Direct Bilirubin 0.4 MG/DL (0.0-0.3) H Aspartate Amino Transf (AST/SGOT) 237 U/L (15-37) H Alanine Aminotransferase (ALT/SGPT) 362 U/L (12-78) H Alkaline Phosphatase 60 U/L (46-116) Total Protein 5.8 G/DL (6.4-8.2) L Albumin 2.9 G/DL (3.4-5.0) L Globulin 2.9 g/dL Albumin/Globulin Ratio 1.0 (1.0-2.7) Current Medications Medications (Trade) Dose Ordered Sig/Dinorah Route PRN Reason Start Time Stop Time Status Last Admin Dose Admin Acetaminophen (Tylenol) 650 mg Q6H PRN ORAL Mild Pain/Temp > 100.5 08/14/18 12:30 09/11/18 12:29 Acetaminophen/ Hydrocodone Bitart ([place] 5/325) 1 tab Q6H PRN ORAL PAIN 4-10 08/14/18 12:30 08/19/18 12:29 Amiodarone HCl (Cordarone) 100 mg DAILY ORAL 08/15/18 09:00 09/12/18 08:59 08/17/18 09:04 Diltiazem HCl (Cardizem CD) 180 mg DAILY ORAL 08/16/18 09:00 09/15/18 08:59 08/17/18 09:04 Heparin Sodium (Porcine) (Heparin 5000 units/ml) 5,000 units EVERY 12 HOURS SUBQ 08/14/18 21:00 09/11/18 20:59 08/16/18 20:51 Hydralazine HCl (Apresoline) 10 mg Q4H PRN IV SBP above 150mmHg 08/14/18 12:30 09/11/18 12:29 Levothyroxine Sodium (Synthroid) 150 mcg DAILY@0630 ORAL 08/15/18 06:30 09/12/18 06:29 08/17/18 05:46 Methylprednisolone Sodium Succinate (Solu-MEDROL) 40 mg Q6HR IVP 08/16/18 12:00 09/15/18 11:59 08/17/18 11:12 Ondansetron HCl (Zofran) 4 mg Q6H PRN IVP Nausea & Vomiting 08/14/18 12:30 09/11/18 12:29 Pantoprazole (Protonix) 40 mg DAILY ORAL 08/15/18 09:00 09/11/18 19:59 08/17/18 09:04 Piperacillin Sod/ Tazobactam Sod 4.5 gm/Dextrose 110 ml @ 27.5 mls/hr EVERY 8 HOURS IVPB 08/16/18 12:00 08/21/18 11:59 08/17/18 13:13 Pregabalin (Lyrica) 50 mg BEDTIME ORAL 08/14/18 21:00 09/11/18 21:29 08/16/18 20:50 Sodium Chloride 1,000 ml @ 75 mls/hr [id number] IV 08/17/18 07:30 09/16/18 07:29 08/17/18 07:40 Reji Batista MD Aug 17, 2018 13:50
--- NOTE | 2018-08-17 15:16 | NUR ---
NURSE NOTES: Called and left message to Dr. Sultana regarding pt.'s concern about swelling on bilateral legs and noted with light pink colored blood on his sputum. Awaiting for call back.
[2018-08-17] MEDS ORDERED: NS 275ml ONE (15:36)
[2018-08-17] MEDS ORDERED: 1/2 NS 1000ml IV ONE (15:36)
[2018-08-17] MEDS ORDERED: Tubing IV Secondary IV ONE (15:36)
[2018-08-17 16:00] VITALS: BP 137/76
--- NOTE | 2018-08-17 16:10 | NUR ---
NURSE NOTES: Called back from Dr. Sultana with x-ray order. Order carried out.
--- NOTE | 2018-08-17 16:58 | Nephrology Progress Note ---
Assessment/Plan Plan Metabolic Acidosis Continues. Recheck ABGs. Need IV HCO3 Subjective Subjective Confused Objective Objective Last 24 Hour Vital Signs Date Time Temp Pulse Resp B/P (MAP) Pulse Ox O2 Delivery O2 Flow Rate FiO2 08/17/18 16:00 Nasal Cannula 4.0 08/17/18 16:00 97.4 68 17 137/76 (96) 99 08/17/18 16:00 4.0 08/17/18 12:00 70 08/17/18 12:00 4.0 08/17/18 12:00 97.4 75 18 134/82 (99) 100 08/17/18 12:00 Nasal Cannula 4.0 08/17/18 09:04 67 123/67 08/17/18 08:00 4.0 08/17/18 08:00 71 08/17/18 08:00 98.4 67 18 123/67 (85) 98 08/17/18 08:00 Nasal Cannula 4.0 08/17/18 04:00 Bi-pap 08/17/18 04:00 97.8 73 24 123/77 (92) 98 08/17/18 04:00 30 08/17/18 03:17 76 08/17/18 02:57 77 16 100 Nasal Cannula 2.0 28 08/17/18 02:42 77 14 100 Nasal Cannula 2.0 28 08/17/18 02:34 68 16 Nasal Cannula 2.0 28 08/17/18 00:00 98.2 62 20 129/72 (91) 98 08/17/18 00:00 Bi-pap 08/17/18 00:00 62 08/16/18 22:38 68 16 100 Nasal Cannula 2.0 28 08/16/18 22:25 70 18 100 Nasal Cannula 2.0 28 08/16/18 20:00 Bi-pap 08/16/18 20:00 40 08/16/18 20:00 98.7 70 23 140/77 (98) 98 08/16/18 20:00 68 08/16/18 19:24 66 18 100 Nasal Cannula 2.0 28 08/16/18 19:15 68 19 95 Nasal Cannula 2.0 28 Intake and Output 08/16/18 08/17/18 19:00 07:00 Intake Total 1615.0 ml 1170.0 ml Output Total 350 ml 450 ml Balance 1265.0 ml 720.0 ml Intake Oral 350 ml 160 ml IV Total 1265.0 ml 1010.0 ml Output Urine Total 350 ml 450 ml Laboratory Tests 08/17/18 03:25: White Blood Count 8.7, Red Blood Count 3.73L, Hemoglobin 11.0L, Hematocrit 33.3L , Mean Corpuscular Volume 89, Mean Corpuscular Hemoglobin 29.6, Mean Corpuscular Hemoglobin Concent 33.1, Red Cell Distribution Width 13.4, Platelet Count 114L, Mean Platelet Volume 8.3, Neutrophils (%) (Auto) , Lymphocytes (%) ( Auto) , Monocytes (%) (Auto) , Eosinophils (%) (Auto) , Basophils (%) (Auto) , Differential Total Cells Counted 100, Neutrophils % (Manual) 93H, Lymphocytes % (Manual) 3L, Monocytes % (Manual) 4, Eosinophils % (Manual) 0, Basophils % ( Manual) 0, Band Neutrophils 0, Platelet Estimate DecreasedL, Platelet Morphology Normal, Hypochromasia 1+, Anisocytosis 1+, Sodium Level 140, Potassium Level 4.9, Chloride Level 108H, Carbon Dioxide Level 20L, Anion Gap 12 , Blood Urea Nitrogen 45H, Creatinine 1.8H, Estimat Glomerular Filtration Rate , Glucose Level 165H, Calcium Level 7.3L, Total Bilirubin 1.1H, Direct Bilirubin 0.4H, Aspartate Amino Transf (AST/SGOT) 237H, Alanine Aminotransferase (ALT/SGPT) 362H, Alkaline Phosphatase 60, Total Protein 5.8L, Albumin 2.9L, Globulin 2.9, Albumin/Globulin Ratio 1.0 Height (Feet): 5 Height (Inches): 5.00 Weight (Pounds): 135 Objective CV RR Lungs B wheezes Abd SNT. BS + E No CCE Brian Gill MD Aug 17, 2018 16:58
--- NOTE | 2018-08-17 17:03 | Diagnostic Imaging Report ---
Indication: Cough Technique: One view of the chest Comparison: 08/16/2018 Findings: Bilateral interstitial and airspace infiltrates versus edema persist, unchanged. Bilateral pleural effusions persist, unchanged on the left and perhaps slightly larger on the right. Borderline cardiomegaly persists. Left chest pacemaker is again demonstrated Impression: Slightly increased right pleural effusion. 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
--- NOTE | 2018-08-17 17:20 | NUR ---
NURSE NOTES: Informed Dr. Sultana with result of chest x-ray with no new order at this time.
--- NOTE | 2018-08-17 19:09 | NUR ---
HAND-OFF: Report given to ADOLFO Gorman. Stable condition.
--- NOTE | 2018-08-17 19:11 | NUR ---
NURSE NOTES: Received patient from ADOLFO [place]. Patient is alert and oriented x3; Croatian speaking. On nasal cannula of 4L and saturating at 99%. Shows no pain and/or distress. Bed alarm is activated, call light is in reach and family members are at bedside. Will continue plan of care.
[2018-08-17 20:00] VITALS: BP 148/80
[2018-08-17] MEDS ORDERED: Albuterol/Ipratropium 3ml neb HHN SCH (20:30)
[2018-08-17] MEDS: Lyrica 50mg cap ORAL SCH (21:06)
[2018-08-18] VITALS: BP 133/88
[2018-08-18] MEDS: Solu-MEDROL 40mg Inj IVP SCH ×4 (00:05→17:35)
[2018-08-18] MEDS: Albuterol/Ipratropium 3ml neb HHN SCH ×6 (03:55→22:59)
[2018-08-18 04:00] VITALS: BP 156/70
--- NOTE | 2018-08-18 05:08 | NUR ---
RESPIRATORY NOTE: PT. STABLE ON BIPAP WITH CURRENT SETTINGS. MASK AND CIRCUIT SECURE AND OUT OF THE WAY. NO S/S OF SKIN BREAKDOWN NOTED AT THIS TIME. NO SOB.
[2018-08-18 05:15] LABS: HEMATOCRIT 34.3 % (42.0-52.0); HEMOGLOBIN 11.6 G/DL (14.2-18.0); MEAN CORPUSCULAR VOLUME 87 FL (80-99); PLATELET COUNT 118 K/UL (150-450); RED BLOOD COUNT 3.93 M/UL (4.70-6.10); RED CELL DISTRIBUTION WIDTH 13.1 % (11.6-14.8); WHITE BLOOD COUNT 11.7 K/UL (4.8-10.8)
[2018-08-18] MEDS: Piperacillin/Tazobactam 4.5 GM in D5W 110 ML IVPB SCH ×3 (05:30→21:15)
[2018-08-18 05:50] LABS: ALANINE AMINOTRANSFERASE 303 U/L (12-78); ALBUMIN 2.8 G/DL (3.4-5.0); ALBUMIN/GLOBULIN RATIO 0.9 (1.0-2.7); ALKALINE PHOSPHATASE 61 U/L (46-116); ANION GAP 12 mmol/L (5-15); ASPARTATE AMINO TRANSFERASE 79 U/L (15-37); BILIRUBIN,TOTAL 1.2 MG/DL (0.2-1.0); BLOOD UREA NITROGEN 43 mg/dL (7-18); CALCIUM 7.7 MG/DL (8.5-10.1); CARBON DIOXIDE 20 MMOL/L (21-32); CHLORIDE 107 MMOL/L (98-107); CREATININE 1.7 MG/DL (0.55-1.30); POTASSIUM 4.8 MMOL/L (3.5-5.1); SODIUM 139 MMOL/L (136-145)
[2018-08-18 06:02] LABS: BILIRUBIN,DIRECT 0.4 MG/DL (0.0-0.3)
--- NOTE | 2018-08-18 07:00 | NUR ---
RESPIRATORY NOTE:pt recieved on bipap face mask 06/28 24% sat of 97% no redness or skin tear noted, no SOB or discomfort noted at this time will continue to monitor the pt
--- NOTE | 2018-08-18 07:40 | NUR ---
NURSE NOTES: Left message for Dr. Almaraz regarding patient's increased WBC this AM of 11.8. Awaiting call back for further orders/instructions.
--- NOTE | 2018-08-18 07:41 | NUR ---
HAND-OFF: Report given to ADOLFO YOU.
--- NOTE | 2018-08-18 07:42 | NUR ---
NURSE NOTES: Patient received from ADOLFO Gorman. Patient is awake, alert, and in bed. He was on bipap, but changed to 4L NC. Zaidi is in placed. IV site is asymptomatic. Bed in lowest position with side rails up and locked. Will continue to follow plan of care.
[2018-08-18 08:00] VITALS: BP 136/81
--- NOTE | 2018-08-18 08:08 | General Progress Note ---
Assessment/Plan Problem List: (1) Sepsis ICD Codes: A41.9 - Sepsis, unspecified organism SNOMED: 10728256 Qualifiers: Qualified Codes: A41.9 - Sepsis, unspecified organism (2) COPD exacerbation ICD Codes: J44.1 - Chronic obstructive pulmonary disease with (acute) exacerbation SNOMED: 448172775 (3) Respiratory distress ICD Codes: R06.03 - Acute respiratory distress SNOMED: 517936981 Status: stable, progressing Assessment/Plan abx resp care/o2 amio for rate control bipap as needed cont steroids per pulm monitor labs o2 hida scan- pt unable to do cautious hydration- monitor fluid status Subjective ROS Limited/Unobtainable: No Constitutional: Reports: malaise, weakness HEENT: Reports: no symptoms Cardiovascular: Reports: no symptoms Respiratory: Reports: cough, shortness of breath, wheezing Gastrointestinal/Abdominal: Reports: no symptoms Genitourinary: Reports: no symptoms Neurologic/Psychiatric: Reports: no symptoms Endocrine: Reports: no symptoms Hematologic/Lymphatic: Reports: no symptoms Allergies: Coded Allergies: No Known Allergies (Unverified , 08/12/18) All Systems: reviewed and negative except above Subjective no events. w/o complaints. +wheezing. c/o swelling. Objective Last 24 Hour Vital Signs Date Time Temp Pulse Resp B/P (MAP) Pulse Ox O2 Delivery O2 Flow Rate FiO2 08/18/18 06:53 67 17 100 Bi-pap 24 08/18/18 06:49 70 19 96 Facial 24 08/18/18 06:45 70 19 96 Bi-pap 24 08/18/18 05:08 70 24 97 Facial 40 08/18/18 04:00 24 08/18/18 04:00 97.9 67 20 156/70 (98) 98 08/18/18 04:00 Nasal Cannula 4.0 08/18/18 03:59 73 20 100 Nasal Cannula 4.0 36 08/18/18 03:51 67 20 98 Nasal Cannula 4.0 36 08/18/18 03:38 71 08/18/18 02:38 70 20 99 08/18/18 02:10 72 20 99 08/18/18 00:00 Nasal Cannula 4.0 08/18/18 00:00 97.7 71 24 133/88 (103) 98 08/17/18 23:50 70 08/17/18 22:51 68 22 98 Nasal Cannula 4.0 36 08/17/18 22:39 70 22 100 Nasal Cannula 4.0 36 08/17/18 22:38 Nasal Cannula 4.0 36 08/17/18 22:38 Nasal Cannula 4.0 36 08/17/18 22:31 70 22 97 08/17/18 20:00 97.7 75 20 148/80 (102) 100 08/17/18 20:00 4.0 08/17/18 20:00 Nasal Cannula 4.0 08/17/18 19:44 97 08/17/18 16:00 Nasal Cannula 4.0 08/17/18 16:00 97.4 68 17 137/76 (96) 99 08/17/18 16:00 75 08/17/18 16:00 4.0 08/17/18 12:00 70 08/17/18 12:00 4.0 08/17/18 12:00 97.4 75 18 134/82 (99) 100 08/17/18 12:00 Nasal Cannula 4.0 08/17/18 09:04 67 123/67 Intake and Output 08/17/18 08/18/18 18:59 06:59 Intake Total 1320.0 ml 1148.75 ml Output Total 500 ml 600 ml Balance 820.0 ml 548.75 ml Intake Oral 350 ml 200 ml IV Total 970.0 ml 948.75 ml Output Urine Total 500 ml 600 ml # Bowel Movements 2 Laboratory Tests 08/17/18 18:00: Arterial Blood pH 7.378, Arterial Blood Partial Pressure CO2 32.5L, Arterial Blood Partial Pressure O2 50.3L, Arterial Blood HCO3 18.7L, Arterial Blood Oxygen Saturation 82.8*L, Arterial Blood Base Excess -5.5L, Gabriele Test Positive 08/18/18 03:30: White Blood Count 11.7H, Red Blood Count 3.93L, Hemoglobin 11.6L, Hematocrit 34.3L, Mean Corpuscular Volume 87, Mean Corpuscular Hemoglobin 29.6, Mean Corpuscular Hemoglobin Concent 33.9, Red Cell Distribution Width 13.1, Platelet Count 118L, Mean Platelet Volume 9.0, Neutrophils (%) (Auto) , Lymphocytes (%) ( Auto) , Monocytes (%) (Auto) , Eosinophils (%) (Auto) , Basophils (%) (Auto) , Neutrophils % (Manual) [Pending], Lymphocytes % (Manual) [Pending], Platelet Estimate [Pending], Platelet Morphology [Pending], Sodium Level 139, Potassium Level 4.8, Chloride Level 107, Carbon Dioxide Level 20L, Anion Gap 12, Blood Urea Nitrogen 43H, Creatinine 1.7H, Estimat Glomerular Filtration Rate , Glucose Level 175H, Calcium Level 7.7L, Total Bilirubin 1.2H, Direct Bilirubin 0.4H, Aspartate Amino Transf (AST/SGOT) 79H, Alanine Aminotransferase (ALT/SGPT ) 303H, Alkaline Phosphatase 61, Total Protein 5.8L, Albumin 2.8L, Globulin 3.0 , Albumin/Globulin Ratio 0.9L Height (Feet): 5 Height (Inches): 5.00 Weight (Pounds): 135 Objective General Appearance: WD/WN, alert Neck: supple Cardiovascular: normal rate, regular rhythm Respiratory/Chest: no accessory muscle use, rhonchi - bilaterally, expiratory wheezing Abdomen: normal bowel sounds, non tender, soft 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
[2018-08-18] MEDS: Amiodarone 200mg tab ORAL SCH (08:52)
[2018-08-18] MEDS: Heparin 5000 units/ml inj SUBQ SCH ×2 (08:52→20:29)
[2018-08-18] MEDS: dilTIAZem HCl CD 180mg cap ORAL SCH (08:52)
--- NOTE | 2018-08-18 08:58 | NUR ---
Regarding HIDA: Spoke with Anny RN, pt is still unable to tolerate laying on back for duration of scan. HIDA scan remains on hold until pt is able to tolerate.
--- NOTE | 2018-08-18 10:29 | NUR ---
[facility] PT NOTE ATTEMPT TO SEE PATIENT FOR PT SESSION, HOWEVER NURSE ADVISED TO HOLD PT AT THIS TIME, PATIENT SOB. WILL REATTEMPT ABLE.
--- NOTE | 2018-08-18 10:45 | NUR ---
NURSE NOTES: Dr. Almaraz in the unit and informed her that patient is still cannot lay down flat due to breathing problem and unable to do the HIDA Scan today. Also informed her that Willie from [facility] stated that they will try again on Tuesday since they do not do HIDA scan on the weekend.
--- NOTE | 2018-08-18 10:53 | Infectious Diseases Prog Note ---
Assessment/Plan Assessment/Plan antibiotics : zosyn A 1. staph aureus pneumonia 2. CHF 3. leucocytosis improving 4. renal failure worse 5. COPD 6. hypertension 7. gram negative sepsis 8. r/o cholecystitis increased LFT improving P 1. cotninue zosyn 2. will follow up cultures Subjective Constitutional: Denies: fever Respiratory: Reports: shortness of breath, dry cough Gastrointestinal/Abdominal: Denies: nausea, vomiting Musculoskeletal: Denies: pain Allergies: Coded Allergies: No Known Allergies (Unverified , 08/12/18) Objective Vital Signs Last 24 Hour Vital Signs Date Time Temp Pulse Resp B/P (MAP) Pulse Ox O2 Delivery O2 Flow Rate FiO2 08/18/18 10:45 79 17 98 Nasal Cannula 4.0 36 08/18/18 10:33 73 18 98 Nasal Cannula 4.0 36 08/18/18 08:52 72 136/81 08/18/18 08:00 4.0 08/18/18 08:00 Nasal Cannula 4.0 08/18/18 08:00 97.2 72 24 136/81 (99) 97 08/18/18 08:00 76 08/18/18 06:53 67 17 100 Bi-pap 24 08/18/18 06:49 70 19 96 Facial 24 08/18/18 06:45 70 19 96 Bi-pap 24 08/18/18 05:08 70 24 97 Facial 40 08/18/18 04:00 24 08/18/18 04:00 97.9 67 20 156/70 (98) 98 08/18/18 04:00 Nasal Cannula 4.0 08/18/18 03:59 73 20 100 Nasal Cannula 4.0 36 08/18/18 03:51 67 20 98 Nasal Cannula 4.0 36 08/18/18 03:38 71 08/18/18 02:38 70 20 99 08/18/18 02:10 72 20 99 08/18/18 00:00 Nasal Cannula 4.0 08/18/18 00:00 97.7 71 24 133/88 (103) 98 08/17/18 23:50 70 08/17/18 22:51 68 22 98 Nasal Cannula 4.0 36 08/17/18 22:39 70 22 100 Nasal Cannula 4.0 36 08/17/18 22:38 Nasal Cannula 4.0 36 08/17/18 22:38 Nasal Cannula 4.0 36 08/17/18 22:31 70 22 97 08/17/18 20:00 97.7 75 20 148/80 (102) 100 08/17/18 20:00 4.0 08/17/18 20:00 Nasal Cannula 4.0 08/17/18 19:44 97 08/17/18 16:00 Nasal Cannula 4.0 08/17/18 16:00 97.4 68 17 137/76 (96) 99 08/17/18 16:00 75 08/17/18 16:00 4.0 08/17/18 12:00 70 08/17/18 12:00 4.0 08/17/18 12:00 97.4 75 18 134/82 (99) 100 08/17/18 12:00 Nasal Cannula 4.0 Height (Feet): 5 Height (Inches): 5.00 Weight (Pounds): 135 Respiratory/Chest: rhonchi - bilaterally Cardiovascular: normal rate, regular rhythm, no gallop/murmur Abdomen: soft, non tender Extremities: no edema Microbiology Date/Time Source Procedure Growth Status 08/16/18 12:00 Sputum Gram Stain - Final Resulted 08/16/18 12:00 Sputum Culture - Preliminary Robina Albicans Staphylococcus Aureus Resulted Laboratory Tests Test 08/17/18 18:00 08/18/18 03:30 Arterial Blood pH 7.378 (7.350-7.450) Arterial Blood Partial Pressure CO2 32.5 mmHg (35.0-45.0) L Arterial Blood Partial Pressure O2 50.3 mmHg (75.0-100.0) L Arterial Blood HCO3 18.7 mmol/L (22.0-26.0) L Arterial Blood Oxygen Saturation 82.8 % (95-100) *L Arterial Blood Base Excess -5.5 (-2-2) L Gabriele Test Positive White Blood Count 11.7 K/UL (4.8-10.8) H Red Blood Count 3.93 M/UL (4.70-6.10) L Hemoglobin 11.6 G/DL (14.2-18.0) L Hematocrit 34.3 % (42.0-52.0) L Mean Corpuscular Volume 87 FL (80-99) Mean Corpuscular Hemoglobin 29.6 PG (27.0-31.0) Mean Corpuscular Hemoglobin Concent 33.9 G/DL (32.0-36.0) Red Cell Distribution Width 13.1 % (11.6-14.8) Platelet Count 118 K/UL (150-450) L Mean Platelet Volume 9.0 FL (6.5-10.1) Neutrophils (%) (Auto) % (45.0-75.0) Lymphocytes (%) (Auto) % (20.0-45.0) Monocytes (%) (Auto) % (1.0-10.0) Eosinophils (%) (Auto) % (0.0-3.0) Basophils (%) (Auto) % (0.0-2.0) Differential Total Cells Counted 100 Neutrophils % (Manual) 95 % (45-75) H Lymphocytes % (Manual) 2 % (20-45) L Monocytes % (Manual) 1 % (1-10) Eosinophils % (Manual) 0 % (0-3) Basophils % (Manual) 0 % (0-2) Metamyelocytes % 1 % (0-0) H Myelocytes % 1 % (0-0) H Band Neutrophils 0 % (0-8) Platelet Estimate Decreased L Platelet Morphology Normal Dayne Cells 1+ Crenated Cell 2+ Sodium Level 139 MMOL/L (136-145) Potassium Level 4.8 MMOL/L (3.5-5.1) Chloride Level 107 MMOL/L (98-107) Carbon Dioxide Level 20 MMOL/L (21-32) L Anion Gap 12 mmol/L (5-15) Blood Urea Nitrogen 43 mg/dL (7-18) H Creatinine 1.7 MG/DL (0.55-1.30) H Estimat Glomerular Filtration Rate mL/min (>60) Glucose Level 175 MG/DL (74-106) H Calcium Level 7.7 MG/DL (8.5-10.1) L Total Bilirubin 1.2 MG/DL (0.2-1.0) H Direct Bilirubin 0.4 MG/DL (0.0-0.3) H Aspartate Amino Transf (AST/SGOT) 79 U/L (15-37) H Alanine Aminotransferase (ALT/SGPT) 303 U/L (12-78) H Alkaline Phosphatase 61 U/L (46-116) Total Protein 5.8 G/DL (6.4-8.2) L Albumin 2.8 G/DL (3.4-5.0) L Globulin 3.0 g/dL Albumin/Globulin Ratio 0.9 (1.0-2.7) L Current Medications Medications (Trade) Dose Ordered Sig/Dinorah Route PRN Reason Start Time Stop Time Status Last Admin Dose Admin Acetaminophen (Tylenol) 650 mg Q6H PRN ORAL Mild Pain/Temp > 100.5 08/14/18 12:30 09/11/18 12:29 Acetaminophen/ Hydrocodone Bitart ([place] 5/325) 1 tab Q6H PRN ORAL PAIN 4-10 08/14/18 12:30 08/19/18 12:29 Albuterol/ Ipratropium (Albuterol/ Ipratropium) 3 ml Q4HRT HHN 08/17/18 23:00 08/22/18 22:59 08/18/18 10:33 Amiodarone HCl (Cordarone) 100 mg DAILY ORAL 08/15/18 09:00 09/12/18 08:59 08/18/18 08:52 Diltiazem HCl (Cardizem CD) 180 mg DAILY ORAL 08/16/18 09:00 09/15/18 08:59 08/18/18 08:52 Heparin Sodium (Porcine) (Heparin 5000 units/ml) 5,000 units EVERY 12 HOURS SUBQ 08/14/18 21:00 09/11/18 20:59 08/16/18 20:51 Hydralazine HCl (Apresoline) 10 mg Q4H PRN IV SBP above 150mmHg 08/14/18 12:30 09/11/18 12:29 Levothyroxine Sodium (Synthroid) 150 mcg DAILY@0630 ORAL 08/15/18 06:30 09/12/18 06:29 08/18/18 05:30 Methylprednisolone Sodium Succinate (Solu-MEDROL) 40 mg Q6HR IVP 08/16/18 12:00 09/15/18 11:59 08/18/18 05:30 Ondansetron HCl (Zofran) 4 mg Q6H PRN IVP Nausea & Vomiting 08/14/18 12:30 09/11/18 12:29 Pantoprazole (Protonix) 40 mg DAILY ORAL 08/15/18 09:00 09/11/18 19:59 08/18/18 08:52 Piperacillin Sod/ Tazobactam Sod 4.5 gm/Dextrose 110 ml @ 27.5 mls/hr EVERY 8 HOURS IVPB 08/16/18 12:00 08/21/18 11:59 08/18/18 05:30 Pregabalin (Lyrica) 50 mg BEDTIME ORAL 08/14/18 21:00 09/11/18 21:29 08/17/18 21:06 Sodium Chloride 1,000 ml @ 75 mls/hr [id number] IV 08/17/18 07:30 09/16/18 07:29 08/18/18 10:25 Soo Almaraz MD Aug 18, 2018 10:53
--- NOTE | 2018-08-18 10:54 | Nephrology Progress Note ---
Assessment/Plan Plan Metabolic Acidosis improving. CKD III. Subjective Subjective Confused Objective Objective Last 24 Hour Vital Signs Date Time Temp Pulse Resp B/P (MAP) Pulse Ox O2 Delivery O2 Flow Rate FiO2 08/18/18 10:45 79 17 98 Nasal Cannula 4.0 36 08/18/18 10:33 73 18 98 Nasal Cannula 4.0 36 08/18/18 08:52 72 136/81 08/18/18 08:00 4.0 08/18/18 08:00 Nasal Cannula 4.0 08/18/18 08:00 97.2 72 24 136/81 (99) 97 08/18/18 08:00 76 08/18/18 06:53 67 17 100 Bi-pap 24 08/18/18 06:49 70 19 96 Facial 24 08/18/18 06:45 70 19 96 Bi-pap 24 08/18/18 05:08 70 24 97 Facial 40 08/18/18 04:00 24 08/18/18 04:00 97.9 67 20 156/70 (98) 98 08/18/18 04:00 Nasal Cannula 4.0 08/18/18 03:59 73 20 100 Nasal Cannula 4.0 36 08/18/18 03:51 67 20 98 Nasal Cannula 4.0 36 08/18/18 03:38 71 08/18/18 02:38 70 20 99 08/18/18 02:10 72 20 99 08/18/18 00:00 Nasal Cannula 4.0 08/18/18 00:00 97.7 71 24 133/88 (103) 98 08/17/18 23:50 70 08/17/18 22:51 68 22 98 Nasal Cannula 4.0 36 08/17/18 22:39 70 22 100 Nasal Cannula 4.0 36 08/17/18 22:38 Nasal Cannula 4.0 36 08/17/18 22:38 Nasal Cannula 4.0 36 08/17/18 22:31 70 22 97 08/17/18 20:00 97.7 75 20 148/80 (102) 100 08/17/18 20:00 4.0 08/17/18 20:00 Nasal Cannula 4.0 08/17/18 19:44 97 08/17/18 16:00 Nasal Cannula 4.0 08/17/18 16:00 97.4 68 17 137/76 (96) 99 08/17/18 16:00 75 08/17/18 16:00 4.0 08/17/18 12:00 70 08/17/18 12:00 4.0 08/17/18 12:00 97.4 75 18 134/82 (99) 100 08/17/18 12:00 Nasal Cannula 4.0 Intake and Output 08/17/18 08/18/18 18:59 06:59 Intake Total 1320.0 ml 1148.75 ml Output Total 500 ml 600 ml Balance 820.0 ml 548.75 ml Intake Oral 350 ml 200 ml IV Total 970.0 ml 948.75 ml Output Urine Total 500 ml 600 ml # Bowel Movements 2 Laboratory Tests 08/17/18 18:00: Arterial Blood pH 7.378, Arterial Blood Partial Pressure CO2 32.5L, Arterial Blood Partial Pressure O2 50.3L, Arterial Blood HCO3 18.7L, Arterial Blood Oxygen Saturation 82.8*L, Arterial Blood Base Excess -5.5L, Gabriele Test Positive 08/18/18 03:30: White Blood Count 11.7H, Red Blood Count 3.93L, Hemoglobin 11.6L, Hematocrit 34.3L, Mean Corpuscular Volume 87, Mean Corpuscular Hemoglobin 29.6, Mean Corpuscular Hemoglobin Concent 33.9, Red Cell Distribution Width 13.1, Platelet Count 118L, Mean Platelet Volume 9.0, Neutrophils (%) (Auto) , Lymphocytes (%) ( Auto) , Monocytes (%) (Auto) , Eosinophils (%) (Auto) , Basophils (%) (Auto) , Differential Total Cells Counted 100, Neutrophils % (Manual) 95H, Lymphocytes % (Manual) 2L, Monocytes % (Manual) 1, Eosinophils % (Manual) 0, Basophils % ( Manual) 0, Metamyelocytes % 1H, Myelocytes % 1H, Band Neutrophils 0, Platelet Estimate DecreasedL, Platelet Morphology Normal, Dayne Cells 1+, Crenated Cell 2+ , Sodium Level 139, Potassium Level 4.8, Chloride Level 107, Carbon Dioxide Level 20L, Anion Gap 12, Blood Urea Nitrogen 43H, Creatinine 1.7H, Estimat Glomerular Filtration Rate , Glucose Level 175H, Calcium Level 7.7L, Total Bilirubin 1.2H, Direct Bilirubin 0.4H, Aspartate Amino Transf (AST/SGOT) 79H, Alanine Aminotransferase (ALT/SGPT) 303H, Alkaline Phosphatase 61, Total Protein 5.8L, Albumin 2.8L, Globulin 3.0, Albumin/Globulin Ratio 0.9L Height (Feet): 5 Height (Inches): 5.00 Weight (Pounds): 135 Objective CV RR Lungs B wheezes Abd SNT. BS + E No CCE Brian Gill MD Aug 18, 2018 10:54
[2018-08-18 12:00] VITALS: BP 137/91
[2018-08-18] MEDS ORDERED: Vancomycin 1250mg/D5W 250ml IVPB SCH (12:00)
--- NOTE | 2018-08-18 12:05 | NUR ---
Social Service Note CHIVO spoke with patient's son Antonio Garcia [phone] who states he would like his father to be [facility]. If [facility] doesn't have an available bed son would like patient referred to another [place] speaking facility. CHIVO informed Dr. Hidalgo. Referral faxed to [facility] [phone] (f) [phone] (p). No order for dc at this time. Will monitor and follow up.
--- NOTE | 2018-08-18 12:58 | NUR ---
RD ASSESSMENT & RECOMMENDATIONS SEE CARE ACTIVITY FOR COMPLETE ASSESSMENT DAILY ESTIMATED NEEDS: Needs based on Pulmonary 61kg 25-30 kcals/kg [id number] total kcals 1-1.5 g protein/kg 61-92 g total protein Fluid per MD, was on lasix NUTRITION DIAGNOSIS: 1) Decreased sodium needs r/t clinical status as evidenced by elev BUN, creat, elev T bili, elev LFT's, elev BNP. 2) Altered nutrition related lab values r/t steroidal meds as evidenced by pt w/ COPD, on solumedrol, elev BG (165-188). CURRENT DIET:Low Na soft PO DIET RECOMMENDATIONS: Maintain low Na diet (texture as tolerated) ADDITIONAL RECOMMENDATIONS: 1) Would add carb restriction w/ po intake >75% 2) Obtain a standing weight as able 3) Add Glucerna 1 tetra yoko daily w/ continued fair po intake 4) Rec SSI coverage for glycemic control while on solumedrol
--- NOTE | 2018-08-18 14:01 | NUR ---
NURSE NOTES: Informed Dr. Sultana about patient's bilateral legs and fingers swelling and that patient is not on diuretic. No new orders.
[2018-08-18 16:00] VITALS: BP 155/79
--- NOTE | 2018-08-18 16:00 | NUR ---
Social Service Note Patient accepted for placement at [facility] [phone]. No orders for dc at this time. Dr. Hidalgo notified. Addendum: 08/18/18 at 1622 by KD CARLSON Bed available this weekend 56B.
[2018-08-18] MEDS ORDERED: NS 275ml ONE (16:29)
[2018-08-18] MEDS ORDERED: Tubing IV Secondary IV ONE (16:29)
[2018-08-18] MEDS ORDERED: 1/2 NS 1000ml IV ONE (16:29)
--- NOTE | 2018-08-18 16:37 | Pulmonology Progress Note ---
Assessment/Plan Problems: (1) Pulmonary hypertension (2) Pneumonia (3) COPD exacerbation Assessment/Plan Optimize pulmonary hygiene/mobilize as tolerated Titrate down FiO2 to keep SaO2 > 90% BiPAP 15/4 qHS and PRN RTC and PRN DUOnebs Decrease SM to 40 IV BID Abx (Zosyn/Vanco) per ID Aspiration precautions Monitor volumes and renal function, consider decrease IVF DVT Px: Hep SQ FC Dispo planning Subjective Allergies: Coded Allergies: No Known Allergies (Unverified , 08/12/18) Subjective AFVSS on 4L Used BiPAP ON + cough + wheezing + SOB no F/C Raúl some PO Objective Last 24 Hour Vital Signs Date Time Temp Pulse Resp B/P (MAP) Pulse Ox O2 Delivery O2 Flow Rate FiO2 08/18/18 15:21 78 22 98 Nasal Cannula 4.0 36 08/18/18 15:21 79 17 98 Nasal Cannula 4.0 36 08/18/18 12:00 4.0 08/18/18 12:00 97.5 69 22 137/91 (106) 96 08/18/18 12:00 Nasal Cannula 4.0 08/18/18 11:27 75 08/18/18 10:56 75 22 97 Facial 24 08/18/18 10:45 79 17 98 Nasal Cannula 4.0 36 08/18/18 10:33 73 18 98 Nasal Cannula 4.0 36 08/18/18 08:52 72 136/81 08/18/18 08:00 4.0 08/18/18 08:00 Nasal Cannula 4.0 08/18/18 08:00 97.2 72 24 136/81 (99) 97 08/18/18 08:00 76 08/18/18 06:53 67 17 100 Bi-pap 24 08/18/18 06:49 70 19 96 Facial 24 08/18/18 06:45 70 19 96 Bi-pap 24 08/18/18 05:08 70 24 97 Facial 40 08/18/18 04:00 24 08/18/18 04:00 97.9 67 20 156/70 (98) 98 08/18/18 04:00 Nasal Cannula 4.0 08/18/18 03:59 73 20 100 Nasal Cannula 4.0 36 08/18/18 03:51 67 20 98 Nasal Cannula 4.0 36 08/18/18 03:38 71 08/18/18 02:38 70 20 99 08/18/18 02:10 72 20 99 08/18/18 00:00 Nasal Cannula 4.0 08/18/18 00:00 97.7 71 24 133/88 (103) 98 08/17/18 23:50 70 08/17/18 22:51 68 22 98 Nasal Cannula 4.0 36 08/17/18 22:39 70 22 100 Nasal Cannula 4.0 36 08/17/18 22:38 Nasal Cannula 4.0 36 08/17/18 22:38 Nasal Cannula 4.0 36 08/17/18 22:31 70 22 97 08/17/18 20:00 97.7 75 20 148/80 (102) 100 08/17/18 20:00 4.0 08/17/18 20:00 Nasal Cannula 4.0 08/17/18 19:44 97 Intake and Output 08/17/18 08/18/18 19:00 07:00 Intake Total 1320.0 ml 1251.25 ml Output Total 500 ml 600 ml Balance 820.0 ml 651.25 ml Intake Oral 350 ml 200 ml IV Total 970.0 ml 1051.25 ml Output Urine Total 500 ml 600 ml # Bowel Movements 2 General Appearance: WD/WN, no acute distress HEENT: normocephalic, atraumatic, anicteric, mucous membranes moist Respiratory/Chest: rhonchi Cardiovascular: normal peripheral pulses, normal rate, regular rhythm Abdomen: normal bowel sounds, soft, non tender, no organomegaly, non distended , no mass Extremities: no cyanosis, no clubbing, other - trace SAMANTHA Microbiology Date/Time Source Procedure Growth Status 08/16/18 12:00 Sputum Gram Stain - Final Resulted 08/16/18 12:00 Sputum Culture - Preliminary Robina Albicans Staphylococcus Aureus Resulted Laboratory Tests 08/17/18 18:00: Arterial Blood pH 7.378, Arterial Blood Partial Pressure CO2 32.5L, Arterial Blood Partial Pressure O2 50.3L, Arterial Blood HCO3 18.7L, Arterial Blood Oxygen Saturation 82.8*L, Arterial Blood Base Excess -5.5L, Gabriele Test Positive 08/18/18 03:30: White Blood Count 11.7H, Red Blood Count 3.93L, Hemoglobin 11.6L, Hematocrit 34.3L, Mean Corpuscular Volume 87, Mean Corpuscular Hemoglobin 29.6, Mean Corpuscular Hemoglobin Concent 33.9, Red Cell Distribution Width 13.1, Platelet Count 118L, Mean Platelet Volume 9.0, Neutrophils (%) (Auto) , Lymphocytes (%) ( Auto) , Monocytes (%) (Auto) , Eosinophils (%) (Auto) , Basophils (%) (Auto) , Differential Total Cells Counted 100, Neutrophils % (Manual) 95H, Lymphocytes % (Manual) 2L, Monocytes % (Manual) 1, Eosinophils % (Manual) 0, Basophils % ( Manual) 0, Metamyelocytes % 1H, Myelocytes % 1H, Band Neutrophils 0, Platelet Estimate DecreasedL, Platelet Morphology Normal, [place] Cells 1+, Crenated Cell 2+ , Sodium Level 139, Potassium Level 4.8, Chloride Level 107, Carbon Dioxide Level 20L, Anion Gap 12, Blood Urea Nitrogen 43H, Creatinine 1.7H, Estimat Glomerular Filtration Rate , Glucose Level 175H, Calcium Level 7.7L, Total Bilirubin 1.2H, Direct Bilirubin 0.4H, Aspartate Amino Transf (AST/SGOT) 79H, Alanine Aminotransferase (ALT/SGPT) 303H, Alkaline Phosphatase 61, Total Protein 5.8L, Albumin 2.8L, Globulin 3.0, Albumin/Globulin Ratio 0.9L Current Medications Medications (Trade) Dose Ordered Sig/Dinorah Route PRN Reason Start Time Stop Time Status Last Admin Dose Admin Acetaminophen (Tylenol) 650 mg Q6H PRN ORAL Mild Pain/Temp > 100.5 08/14/18 12:30 09/11/18 12:29 Acetaminophen/ Hydrocodone Bitart ([place] 5/325) 1 tab Q6H PRN ORAL PAIN 4-10 08/14/18 12:30 08/19/18 12:29 Albuterol/ Ipratropium (Albuterol/ Ipratropium) 3 ml Q4HRT HHN 08/17/18 23:00 08/22/18 22:59 08/18/18 10:33 Amiodarone HCl (Cordarone) 100 mg DAILY ORAL 08/15/18 09:00 09/12/18 08:59 08/18/18 08:52 Diltiazem HCl (Cardizem CD) 180 mg DAILY ORAL 08/16/18 09:00 09/15/18 08:59 08/18/18 08:52 Heparin Sodium (Porcine) (Heparin 5000 units/ml) 5,000 units EVERY 12 HOURS SUBQ 08/14/18 21:00 09/11/18 20:59 08/16/18 20:51 Hydralazine HCl (Apresoline) 10 mg Q4H PRN IV SBP above 150mmHg 08/14/18 12:30 09/11/18 12:29 Levothyroxine Sodium (Synthroid) 150 mcg DAILY@0630 ORAL 08/15/18 06:30 09/12/18 06:29 08/18/18 05:30 Methylprednisolone Sodium Succinate (Solu-MEDROL) 40 mg Q6HR IVP 08/16/18 12:00 09/15/18 11:59 08/18/18 11:27 Ondansetron HCl (Zofran) 4 mg Q6H PRN IVP Nausea & Vomiting 08/14/18 12:30 09/11/18 12:29 Pantoprazole (Protonix) 40 mg DAILY ORAL 08/15/18 09:00 09/11/18 19:59 08/18/18 08:52 Piperacillin Sod/ Tazobactam Sod 4.5 gm/Dextrose 110 ml @ 27.5 mls/hr EVERY 8 HOURS IVPB 08/16/18 12:00 08/21/18 11:59 08/18/18 14:22 Pregabalin (Lyrica) 50 mg BEDTIME ORAL 08/14/18 21:00 09/11/18 21:29 08/17/18 21:06 Sodium Chloride 1,000 ml @ 75 mls/hr [id number] IV 08/17/18 07:30 09/16/18 07:29 08/18/18 10:25 Vancomycin HCl (Vanco rx to dose) 1 ea DAILY PRN MISC Per rx protocol 08/18/18 11:00 09/17/18 10:59 Timbo Barbour MD Aug 18, 2018 16:37
--- NOTE | 2018-08-18 19:20 | NUR ---
HAND-OFF: Report given to ADOLFO Sepulveda. Patient stable.
[2018-08-18 20:00] VITALS: BP 145/97
[2018-08-18] MEDS: Lyrica 50mg cap ORAL SCH (20:27)
--- NOTE | 2018-08-18 21:19 | NUR ---
Multiple attempts made to convince the patient to use Bipap and to take a breathing treatment but still refused. Patient is non compliant. RN's and Charge Nurse are all aware. Family member at bedside can't even do anything about the patient refusing care. Spo2 is 95% on nasal can but is breathing fast and shallow.
--- NOTE | 2018-08-18 22:19 | NUR ---
NURSE NOTES: Spoke with DR. Barbour regarding pt. short of breath and if he would like to d/c fluids 1/2 NS at 755cc/hr- per doctor to D/C fluids and order Lasix 20mg via IV once- will carry out orders.
[2018-08-19] VITALS (7 sets, daily range): BP systolic 132–160; BP diastolic 67–82
[2018-08-19] MEDS: Albuterol/Ipratropium 3ml neb HHN SCH ×5 (03:00→20:28)
[2018-08-19] MEDS: Piperacillin/Tazobactam 4.5 GM in D5W 110 ML IVPB SCH (05:30)
[2018-08-19 05:38] LABS: HEMOGLOBIN 11.6 G/DL (14.2-18.0); MEAN CORPUSCULAR VOLUME 88 FL (80-99); PLATELET COUNT 139 K/UL (150-450); RED BLOOD COUNT 3.85 M/UL (4.70-6.10); RED CELL DISTRIBUTION WIDTH 13.4 % (11.6-14.8); WHITE BLOOD COUNT 15.4 K/UL (4.8-10.8)
[2018-08-19 05:53] LABS: ALANINE AMINOTRANSFERASE 245 U/L (12-78); ALBUMIN/GLOBULIN RATIO 1.1 (1.0-2.7); ALKALINE PHOSPHATASE 54 U/L (46-116); ANION GAP 12 mmol/L (5-15); ASPARTATE AMINO TRANSFERASE 42 U/L (15-37); BILIRUBIN,TOTAL 1.4 MG/DL (0.2-1.0); BLOOD UREA NITROGEN 40 mg/dL (7-18); CARBON DIOXIDE 20 MMOL/L (21-32); CHLORIDE 105 MMOL/L (98-107); CREATININE 1.7 MG/DL (0.55-1.30); POTASSIUM 4.1 MMOL/L (3.5-5.1); SODIUM 137 MMOL/L (136-145)
[2018-08-19 05:57] LABS: BILIRUBIN,DIRECT 0.5 MG/DL (0.0-0.3)
--- NOTE | 2018-08-19 07:02 | NUR ---
HAND-OFF: Report given to Paige Rn, pt. remains stable and no signs of distress noted.
--- NOTE | 2018-08-19 07:10 | NUR ---
NURSE NOTES: Report received from Jerica MATA.Pt awake,sitting up in bed,eating breakfast,on 4 l/NC,no resp distress notes,no signs of pain or discomfort V-Paced on the monitor,Zaidi cath draining yellow urine,IV sites x2, RH and RFA both intact,skin warm and dry,SR up x2 ,HOB elevated,bed lock in lowest position,will continue with plans of care.
--- NOTE | 2018-08-19 08:35 | NUR ---
NURSE NOTES: Dr Sultana at bedside,pt not stable to discharge to SNF today,transfer orders to Tele noted. Pt's son informed re plans of care.
[2018-08-19] MEDS: dilTIAZem HCl CD 180mg cap ORAL SCH (09:29)
[2018-08-19] MEDS: Solu-MEDROL 40mg Inj IVP SCH ×2 (09:29→18:08)
[2018-08-19] MEDS: Amiodarone 200mg tab ORAL SCH (09:29)
[2018-08-19] MEDS: Heparin 5000 units/ml inj SUBQ SCH ×2 (09:33→21:11)
--- NOTE | 2018-08-19 09:46 | Pulmonology Progress Note ---
Assessment/Plan Assessment/Plan IMPRESSION: 1. Pulmonary edema. 2. Advanced COPD. 3. Pacemaker. DISCUSSION: Continue supplemental o2 via VTM; may use BiPAP prn ABG reviewed () In [facility] Continue steroids; begin tapering Carl Contreras M.D. Subjective Interval Events: None new Constitutional: Reports: no symptoms HEENT: Repors: no symptoms Respiratory: Reports: no symptoms Cardiovascular: Reports: no symptoms Gastrointestinal/Abdominal: Reports: no symptoms Genitourinary: Reports: no symptoms Neurologic: Reports: no symptoms Allergies: Coded Allergies: No Known Allergies (Unverified , 08/12/18) Objective Last 24 Hour Vital Signs Date Time Temp Pulse Resp B/P (MAP) Pulse Ox O2 Delivery O2 Flow Rate FiO2 08/19/18 09:29 77 132/67 08/19/18 08:00 Nasal Cannula 4.0 08/19/18 08:00 97.8 77 24 132/67 (88) 97 08/19/18 07:13 73 20 99 Nasal Cannula 4.0 36 08/19/18 07:04 71 20 98 Nasal Cannula 3.0 32 08/19/18 04:00 Nasal Cannula 08/19/18 04:00 74 08/19/18 04:00 98.0 79 18 139/78 (98) 99 08/19/18 04:00 4.0 08/19/18 04:00 Nasal Cannula 08/19/18 04:00 Nasal Cannula 4.0 08/19/18 03:30 96 2.0 28 08/19/18 01:30 74 142/75 (97) 08/19/18 01:00 95 2.0 28 08/19/18 00:36 160/79 08/19/18 00:00 24 08/19/18 00:00 97.8 70 20 160/79 (106) 98 08/19/18 00:00 74 08/19/18 00:00 Nasal Cannula 4.0 08/18/18 23:01 105 21 100 Bi-pap 28 08/18/18 22:56 90 21 100 Facial 28 08/18/18 22:50 90 21 98 Bi-pap 28 08/18/18 22:00 24 08/18/18 20:00 Nasal Cannula 08/18/18 20:00 Nasal Cannula 08/18/18 20:00 Nasal Cannula 4.0 08/18/18 20:00 4.0 08/18/18 20:00 97.9 79 22 145/97 (113) 98 08/18/18 20:00 75 08/18/18 16:00 Nasal Cannula 4.0 08/18/18 16:00 97.3 70 20 155/79 (104) 97 08/18/18 16:00 4.0 08/18/18 15:30 70 08/18/18 15:21 78 22 98 Nasal Cannula 4.0 36 08/18/18 15:21 79 17 98 Nasal Cannula 4.0 36 08/18/18 12:00 4.0 08/18/18 12:00 97.5 69 22 137/91 (106) 96 08/18/18 12:00 Nasal Cannula 4.0 08/18/18 11:27 75 08/18/18 10:56 75 22 97 Facial 24 08/18/18 10:45 79 17 98 Nasal Cannula 4.0 36 08/18/18 10:33 73 18 98 Nasal Cannula 4.0 36 Intake and Output 08/18/18 08/19/18 18:59 06:59 Intake Total 1265.00 ml 316.0 ml Output Total 550 ml 1350 ml Balance 715.00 ml -1034.0 ml Intake Oral 340 ml IV Total 925.00 ml 316.0 ml Output Urine Total 550 ml 1350 ml General Appearance: no acute distress HEENT: normocephalic Respiratory/Chest: lungs clear Cardiovascular: normal peripheral pulses, normal rate Abdomen: normal bowel sounds, soft, non tender Microbiology Date/Time Source Procedure Growth Status 08/16/18 12:00 Sputum Gram Stain - Final Complete 08/16/18 12:00 Sputum Culture - Final Robina Albicans Staphylococcus Aureus - Mrsa Complete Laboratory Tests 08/19/18 04:05: White Blood Count 15.4H, Red Blood Count 3.85L, Hemoglobin 11.6L, Hematocrit 34.0L, Mean Corpuscular Volume 88, Mean Corpuscular Hemoglobin 30.2, Mean Corpuscular Hemoglobin Concent 34.1, Red Cell Distribution Width 13.4, Platelet Count 139L, Mean Platelet Volume 9.8, Neutrophils (%) (Auto) , Lymphocytes (%) ( Auto) , Monocytes (%) (Auto) , Eosinophils (%) (Auto) , Basophils (%) (Auto) , Neutrophils % (Manual) [Pending], Lymphocytes % (Manual) [Pending], Platelet Estimate [Pending], Platelet Morphology [Pending], Sodium Level 137, Potassium Level 4.1, Chloride Level 105, Carbon Dioxide Level 20L, Anion Gap 12, Blood Urea Nitrogen 40H, Creatinine 1.7H, Estimat Glomerular Filtration Rate , Glucose Level 179H, Calcium Level 8.0L, Total Bilirubin 1.4H, Direct Bilirubin 0.5H, Aspartate Amino Transf (AST/SGOT) 42H, Alanine Aminotransferase (ALT/SGPT ) 245H, Alkaline Phosphatase 54, Total Protein 5.8L, Albumin 3.0L, Globulin 2.8 , Albumin/Globulin Ratio 1.1 Current Medications Medications (Trade) Dose Ordered Sig/Dinorah Route PRN Reason Start Time Stop Time Status Last Admin Dose Admin Acetaminophen (Tylenol) 650 mg Q6H PRN ORAL Mild Pain/Temp > 100.5 08/14/18 12:30 09/11/18 12:29 Acetaminophen/ Hydrocodone Bitart ([place] 5/325) 1 tab Q6H PRN ORAL PAIN 4-10 08/14/18 12:30 08/19/18 12:29 Albuterol/ Ipratropium (Albuterol/ Ipratropium) 3 ml Q4HRT HHN 08/17/18 23:00 08/22/18 22:59 08/19/18 07:04 Amiodarone HCl (Cordarone) 100 mg DAILY ORAL 08/15/18 09:00 09/12/18 08:59 08/19/18 09:29 Diltiazem HCl (Cardizem CD) 180 mg DAILY ORAL 08/16/18 09:00 09/15/18 08:59 08/19/18 09:29 Heparin Sodium (Porcine) (Heparin 5000 units/ml) 5,000 units EVERY 12 HOURS SUBQ 08/14/18 21:00 09/11/18 20:59 08/19/18 09:33 Hydralazine HCl (Apresoline) 10 mg Q4H PRN IV SBP above 150mmHg 1/21/19 12:30 09/11/18 12:29 08/19/18 00:36 Levothyroxine Sodium (Synthroid) 150 mcg DAILY@0630 ORAL 08/15/18 06:30 09/12/18 06:29 08/19/18 05:32 Methylprednisolone Sodium Succinate (Solu-MEDROL) 40 mg BID IVP 08/18/18 18:00 09/15/18 11:59 08/19/18 09:29 Ondansetron HCl (Zofran) 4 mg Q6H PRN IVP Nausea & Vomiting 08/14/18 12:30 09/11/18 12:29 Pantoprazole (Protonix) 40 mg DAILY ORAL 08/15/18 09:00 09/11/18 19:59 08/19/18 09:29 Piperacillin Sod/ Tazobactam Sod 4.5 gm/Dextrose 110 ml @ 27.5 mls/hr EVERY 8 HOURS IVPB 08/16/18 12:00 08/21/18 11:59 08/19/18 05:30 Pregabalin (Lyrica) 50 mg BEDTIME ORAL 08/14/18 21:00 09/11/18 21:29 08/18/18 20:27 Vancomycin HCl (Vanco rx to dose) 1 ea DAILY PRN MISC Per rx protocol 08/18/18 11:00 09/17/18 10:59 Carl Contreras MD Aug 19, 2018 09:46
--- NOTE | 2018-08-19 10:47 | Infectious Diseases Prog Note ---
Assessment/Plan Assessment/Plan antibiotics : vancomycin iv, zosyn A 1. MRSA pneumonia 2. CHF 3. leucocytosis increased likely secondary to steroids 4. renal failure improving 5. COPD 6. hypertension 7. gram negative sepsis 8. r/o cholecystitis increased LFT improving P 1. continue iv vancomycin, zosyn 2. will follow up cultures 3. HIDA scan pending Subjective Constitutional: Denies: fever, chills Respiratory: Denies: shortness of breath, dry cough Gastrointestinal/Abdominal: Denies: nausea, vomiting, diarrhea Musculoskeletal: Denies: pain Allergies: Coded Allergies: No Known Allergies (Unverified , 08/12/18) Objective Vital Signs Last 24 Hour Vital Signs Date Time Temp Pulse Resp B/P (MAP) Pulse Ox O2 Delivery O2 Flow Rate FiO2 08/19/18 09:29 77 132/67 08/19/18 08:00 Nasal Cannula 4.0 08/19/18 08:00 97.8 77 24 132/67 (88) 97 08/19/18 07:13 73 20 99 Nasal Cannula 4.0 36 08/19/18 07:04 71 20 98 Nasal Cannula 3.0 32 08/19/18 04:00 Nasal Cannula 08/19/18 04:00 74 08/19/18 04:00 98.0 79 18 139/78 (98) 99 08/19/18 04:00 4.0 08/19/18 04:00 Nasal Cannula 08/19/18 04:00 Nasal Cannula 4.0 08/19/18 03:30 96 2.0 28 08/19/18 01:30 74 142/75 (97) 08/19/18 01:00 95 2.0 28 08/19/18 00:36 160/79 08/19/18 00:00 24 08/19/18 00:00 97.8 70 20 160/79 (106) 98 08/19/18 00:00 74 08/19/18 00:00 Nasal Cannula 4.0 08/18/18 23:01 105 21 100 Bi-pap 28 08/18/18 22:56 90 21 100 Facial 28 08/18/18 22:50 90 21 98 Bi-pap 28 08/18/18 22:00 24 08/18/18 20:00 Nasal Cannula 08/18/18 20:00 Nasal Cannula 08/18/18 20:00 Nasal Cannula 4.0 08/18/18 20:00 4.0 08/18/18 20:00 97.9 79 22 145/97 (113) 98 08/18/18 20:00 75 08/18/18 16:00 Nasal Cannula 4.0 08/18/18 16:00 97.3 70 20 155/79 (104) 97 08/18/18 16:00 4.0 08/18/18 15:30 70 08/18/18 15:21 78 22 98 Nasal Cannula 4.0 36 08/18/18 15:21 79 17 98 Nasal Cannula 4.0 36 08/18/18 12:00 4.0 08/18/18 12:00 97.5 69 22 137/91 (106) 96 08/18/18 12:00 Nasal Cannula 4.0 08/18/18 11:27 75 08/18/18 10:56 75 22 97 Facial 24 Height (Feet): 5 Height (Inches): 5.00 Weight (Pounds): 135 Respiratory/Chest: rhonchi - bilaterally Cardiovascular: normal rate, regular rhythm, no gallop/murmur Abdomen: soft, non tender Extremities: no edema Microbiology Date/Time Source Procedure Growth Status 08/16/18 12:00 Sputum Gram Stain - Final Complete 08/16/18 12:00 Sputum Culture - Final Robina Albicans Staphylococcus Aureus - Mrsa Complete Laboratory Tests Test 08/19/18 04:05 White Blood Count 15.4 K/UL (4.8-10.8) H Red Blood Count 3.85 M/UL (4.70-6.10) L Hemoglobin 11.6 G/DL (14.2-18.0) L Hematocrit 34.0 % (42.0-52.0) L Mean Corpuscular Volume 88 FL (80-99) Mean Corpuscular Hemoglobin 30.2 PG (27.0-31.0) Mean Corpuscular Hemoglobin Concent 34.1 G/DL (32.0-36.0) Red Cell Distribution Width 13.4 % (11.6-14.8) Platelet Count 139 K/UL (150-450) L Mean Platelet Volume 9.8 FL (6.5-10.1) Neutrophils (%) (Auto) % (45.0-75.0) Lymphocytes (%) (Auto) % (20.0-45.0) Monocytes (%) (Auto) % (1.0-10.0) Eosinophils (%) (Auto) % (0.0-3.0) Basophils (%) (Auto) % (0.0-2.0) Differential Total Cells Counted 100 Neutrophils % (Manual) 93 % (45-75) H Lymphocytes % (Manual) 3 % (20-45) L Monocytes % (Manual) 4 % (1-10) Eosinophils % (Manual) 0 % (0-3) Basophils % (Manual) 0 % (0-2) Band Neutrophils 0 % (0-8) Platelet Estimate Decreased L Platelet Morphology Normal Red Blood Cell Morphology Normal Sodium Level 137 MMOL/L (136-145) Potassium Level 4.1 MMOL/L (3.5-5.1) Chloride Level 105 MMOL/L (98-107) Carbon Dioxide Level 20 MMOL/L (21-32) L Anion Gap 12 mmol/L (5-15) Blood Urea Nitrogen 40 mg/dL (7-18) H Creatinine 1.7 MG/DL (0.55-1.30) H Estimat Glomerular Filtration Rate mL/min (>60) Glucose Level 179 MG/DL (74-106) H Calcium Level 8.0 MG/DL (8.5-10.1) L Total Bilirubin 1.4 MG/DL (0.2-1.0) H Direct Bilirubin 0.5 MG/DL (0.0-0.3) H Aspartate Amino Transf (AST/SGOT) 42 U/L (15-37) H Alanine Aminotransferase (ALT/SGPT) 245 U/L (12-78) H Alkaline Phosphatase 54 U/L (46-116) Total Protein 5.8 G/DL (6.4-8.2) L Albumin 3.0 G/DL (3.4-5.0) L Globulin 2.8 g/dL Albumin/Globulin Ratio 1.1 (1.0-2.7) Current Medications Medications (Trade) Dose Ordered Sig/Dinorah Route PRN Reason Start Time Stop Time Status Last Admin Dose Admin Acetaminophen (Tylenol) 650 mg Q6H PRN ORAL Mild Pain/Temp > 100.5 08/14/18 12:30 09/11/18 12:29 Acetaminophen/ Hydrocodone Bitart ([place] 5/325) 1 tab Q6H PRN ORAL PAIN 4-10 08/14/18 12:30 08/19/18 12:29 Albuterol/ Ipratropium (Albuterol/ Ipratropium) 3 ml Q4HRT HHN 08/17/18 23:00 08/22/18 22:59 08/19/18 07:04 Amiodarone HCl (Cordarone) 100 mg DAILY ORAL 08/15/18 09:00 09/12/18 08:59 08/19/18 09:29 Diltiazem HCl (Cardizem CD) 180 mg DAILY ORAL 08/16/18 09:00 09/15/18 08:59 08/19/18 09:29 Heparin Sodium (Porcine) (Heparin 5000 units/ml) 5,000 units EVERY 12 HOURS SUBQ 08/14/18 21:00 09/11/18 20:59 08/19/18 09:33 Hydralazine HCl (Apresoline) 10 mg Q4H PRN IV SBP above 150mmHg 08/14/18 12:30 09/11/18 12:29 08/19/18 00:36 Levothyroxine Sodium (Synthroid) 150 mcg DAILY@0630 ORAL 08/15/18 06:30 09/12/18 06:29 08/19/18 05:32 Methylprednisolone Sodium Succinate (Solu-MEDROL) 40 mg BID IVP 08/18/18 18:00 09/15/18 11:59 08/19/18 09:29 Ondansetron HCl (Zofran) 4 mg Q6H PRN IVP Nausea & Vomiting 08/14/18 12:30 09/11/18 12:29 Pantoprazole (Protonix) 40 mg DAILY ORAL 08/15/18 09:00 09/11/18 19:59 08/19/18 09:29 Piperacillin Sod/ Tazobactam Sod 4.5 gm/Dextrose 110 ml @ 27.5 mls/hr EVERY 8 HOURS IVPB 08/16/18 12:00 08/21/18 11:59 08/19/18 05:30 Pregabalin (Lyrica) 50 mg BEDTIME ORAL 08/14/18 21:00 09/11/18 21:29 08/18/18 20:27 Vancomycin HCl (Vanco rx to dose) 1 ea DAILY PRN MISC Per rx protocol 08/18/18 11:00 09/17/18 10:59 Soo Almaraz MD Aug 19, 2018 10:47
--- NOTE | 2018-08-19 12:21 | General Progress Note ---
Assessment/Plan Problem List: (1) Sepsis ICD Codes: A41.9 - Sepsis, unspecified organism SNOMED: 99412930 Qualifiers: Qualified Codes: A41.9 - Sepsis, unspecified organism (2) COPD exacerbation ICD Codes: J44.1 - Chronic obstructive pulmonary disease with (acute) exacerbation SNOMED: 350340766 (3) Respiratory distress ICD Codes: R06.03 - Acute respiratory distress SNOMED: 263428785 Status: stable Assessment/Plan abx resp care/o2 amio for rate control bipap as needed cont steroids per pulm monitor labs o2 lasix prn Subjective ROS Limited/Unobtainable: No Constitutional: Reports: malaise, weakness HEENT: Reports: no symptoms Cardiovascular: Reports: no symptoms Respiratory: Reports: cough, shortness of breath Gastrointestinal/Abdominal: Reports: no symptoms Genitourinary: Reports: no symptoms Neurologic/Psychiatric: Reports: pre-existing deficit Endocrine: Reports: no symptoms Hematologic/Lymphatic: Reports: anemia Allergies: Coded Allergies: No Known Allergies (Unverified , 08/12/18) All Systems: reviewed and negative except above Subjective no events. w/o complaints. +wheezing. c/o swelling. given lasix x 1. Objective Last 24 Hour Vital Signs Date Time Temp Pulse Resp B/P (MAP) Pulse Ox O2 Delivery O2 Flow Rate FiO2 08/19/18 12:09 Nasal Cannula 4.0 08/19/18 12:08 4.0 08/19/18 11:42 72 20 100 Nasal Cannula 3.0 32 08/19/18 11:34 70 20 98 Nasal Cannula 3.0 32 08/19/18 09:29 77 132/67 08/19/18 08:00 Nasal Cannula 4.0 08/19/18 08:00 97.8 77 24 132/67 (88) 97 08/19/18 08:00 4.0 08/19/18 08:00 75 08/19/18 07:13 73 20 99 Nasal Cannula 4.0 36 08/19/18 07:04 71 20 98 Nasal Cannula 3.0 32 08/19/18 04:00 Nasal Cannula 08/19/18 04:00 74 08/19/18 04:00 98.0 79 18 139/78 (98) 99 08/19/18 04:00 4.0 08/19/18 04:00 Nasal Cannula 08/19/18 04:00 Nasal Cannula 4.0 08/19/18 03:30 96 2.0 28 08/19/18 01:30 74 142/75 (97) 08/19/18 01:00 95 2.0 28 08/19/18 00:36 160/79 08/19/18 00:00 24 08/19/18 00:00 97.8 70 20 160/79 (106) 98 08/19/18 00:00 74 08/19/18 00:00 Nasal Cannula 4.0 08/18/18 23:01 105 21 100 Bi-pap 28 08/18/18 22:56 90 21 100 Facial 28 08/18/18 22:50 90 21 98 Bi-pap 28 08/18/18 22:00 24 08/18/18 20:00 Nasal Cannula 08/18/18 20:00 Nasal Cannula 08/18/18 20:00 Nasal Cannula 4.0 08/18/18 20:00 4.0 08/18/18 20:00 97.9 79 22 145/97 (113) 98 08/18/18 20:00 75 08/18/18 16:00 Nasal Cannula 4.0 08/18/18 16:00 97.3 70 20 155/79 (104) 97 08/18/18 16:00 4.0 08/18/18 15:30 70 08/18/18 15:21 78 22 98 Nasal Cannula 4.0 36 08/18/18 15:21 79 17 98 Nasal Cannula 4.0 36 Intake and Output 08/18/18 08/19/18 18:59 06:59 Intake Total 1265.00 ml 316.0 ml Output Total 550 ml 1350 ml Balance 715.00 ml -1034.0 ml Intake Oral 340 ml IV Total 925.00 ml 316.0 ml Output Urine Total 550 ml 1350 ml Laboratory Tests 08/19/18 04:05: White Blood Count 15.4H, Red Blood Count 3.85L, Hemoglobin 11.6L, Hematocrit 34.0L, Mean Corpuscular Volume 88, Mean Corpuscular Hemoglobin 30.2, Mean Corpuscular Hemoglobin Concent 34.1, Red Cell Distribution Width 13.4, Platelet Count 139L, Mean Platelet Volume 9.8, Neutrophils (%) (Auto) , Lymphocytes (%) ( Auto) , Monocytes (%) (Auto) , Eosinophils (%) (Auto) , Basophils (%) (Auto) , Differential Total Cells Counted 100, Neutrophils % (Manual) 93H, Lymphocytes % (Manual) 3L, Monocytes % (Manual) 4, Eosinophils % (Manual) 0, Basophils % ( Manual) 0, Band Neutrophils 0, Platelet Estimate DecreasedL, Platelet Morphology Normal, Red Blood Cell Morphology Normal, Sodium Level 137, Potassium Level 4.1, Chloride Level 105, Carbon Dioxide Level 20L, Anion Gap 12 , Blood Urea Nitrogen 40H, Creatinine 1.7H, Estimat Glomerular Filtration Rate , Glucose Level 179H, Calcium Level 8.0L, Total Bilirubin 1.4H, Direct Bilirubin 0.5H, Aspartate Amino Transf (AST/SGOT) 42H, Alanine Aminotransferase (ALT/SGPT) 245H, Alkaline Phosphatase 54, Total Protein 5.8L, Albumin 3.0L, Globulin 2.8, Albumin/Globulin Ratio 1.1 Height (Feet): 5 Height (Inches): 5.00 Weight (Pounds): 135 Objective General Appearance: WD/WN, alert Neck: supple Cardiovascular: normal rate, regular rhythm Respiratory/Chest: no accessory muscle use, rhonchi - bilaterally, expiratory wheezing Abdomen: normal bowel sounds, non tender, soft Neurologic: 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
--- NOTE | 2018-08-19 13:00 | NUR ---
NURSE NOTES: Pt stable no resp distress presented, and son at bedside.
--- NOTE | 2018-08-19 13:21 | Nephrology Progress Note ---
Assessment/Plan Plan Metabolic Acidosis improving. CKD III. Subjective Subjective Confused Objective Objective Last 24 Hour Vital Signs Date Time Temp Pulse Resp B/P (MAP) Pulse Ox O2 Delivery O2 Flow Rate FiO2 08/19/18 12:09 Nasal Cannula 4.0 08/19/18 12:08 4.0 08/19/18 11:42 72 20 100 Nasal Cannula 3.0 32 08/19/18 11:34 70 20 98 Nasal Cannula 3.0 32 08/19/18 09:29 77 132/67 08/19/18 08:00 Nasal Cannula 4.0 08/19/18 08:00 97.8 77 24 132/67 (88) 97 08/19/18 08:00 4.0 08/19/18 08:00 75 08/19/18 07:13 73 20 99 Nasal Cannula 4.0 36 08/19/18 07:04 71 20 98 Nasal Cannula 3.0 32 08/19/18 04:00 Nasal Cannula 08/19/18 04:00 74 08/19/18 04:00 98.0 79 18 139/78 (98) 99 08/19/18 04:00 4.0 08/19/18 04:00 Nasal Cannula 08/19/18 04:00 Nasal Cannula 4.0 08/19/18 03:30 96 2.0 28 08/19/18 01:30 74 142/75 (97) 08/19/18 01:00 95 2.0 28 08/19/18 00:36 160/79 08/19/18 00:00 24 08/19/18 00:00 97.8 70 20 160/79 (106) 98 08/19/18 00:00 74 08/19/18 00:00 Nasal Cannula 4.0 08/18/18 23:01 105 21 100 Bi-pap 28 08/18/18 22:56 90 21 100 Facial 28 08/18/18 22:50 90 21 98 Bi-pap 28 08/18/18 22:00 24 08/18/18 20:00 Nasal Cannula 08/18/18 20:00 Nasal Cannula 08/18/18 20:00 Nasal Cannula 4.0 08/18/18 20:00 4.0 08/18/18 20:00 97.9 79 22 145/97 (113) 98 08/18/18 20:00 75 08/18/18 16:00 Nasal Cannula 4.0 08/18/18 16:00 97.3 70 20 155/79 (104) 97 08/18/18 16:00 4.0 08/18/18 15:30 70 08/18/18 15:21 78 22 98 Nasal Cannula 4.0 36 08/18/18 15:21 79 17 98 Nasal Cannula 4.0 36 Intake and Output 08/18/18 08/19/18 18:59 06:59 Intake Total 1265.00 ml 316.0 ml Output Total 550 ml 1350 ml Balance 715.00 ml -1034.0 ml Intake Oral 340 ml IV Total 925.00 ml 316.0 ml Output Urine Total 550 ml 1350 ml Laboratory Tests 08/19/18 04:05: White Blood Count 15.4H, Red Blood Count 3.85L, Hemoglobin 11.6L, Hematocrit 34.0L, Mean Corpuscular Volume 88, Mean Corpuscular Hemoglobin 30.2, Mean Corpuscular Hemoglobin Concent 34.1, Red Cell Distribution Width 13.4, Platelet Count 139L, Mean Platelet Volume 9.8, Neutrophils (%) (Auto) , Lymphocytes (%) ( Auto) , Monocytes (%) (Auto) , Eosinophils (%) (Auto) , Basophils (%) (Auto) , Differential Total Cells Counted 100, Neutrophils % (Manual) 93H, Lymphocytes % (Manual) 3L, Monocytes % (Manual) 4, Eosinophils % (Manual) 0, Basophils % ( Manual) 0, Band Neutrophils 0, Platelet Estimate DecreasedL, Platelet Morphology Normal, Red Blood Cell Morphology Normal, Sodium Level 137, Potassium Level 4.1, Chloride Level 105, Carbon Dioxide Level 20L, Anion Gap 12 , Blood Urea Nitrogen 40H, Creatinine 1.7H, Estimat Glomerular Filtration Rate , Glucose Level 179H, Calcium Level 8.0L, Total Bilirubin 1.4H, Direct Bilirubin 0.5H, Aspartate Amino Transf (AST/SGOT) 42H, Alanine Aminotransferase (ALT/SGPT) 245H, Alkaline Phosphatase 54, Total Protein 5.8L, Albumin 3.0L, Globulin 2.8, Albumin/Globulin Ratio 1.1 Height (Feet): 5 Height (Inches): 5.00 Weight (Pounds): 135 Objective CV RR Lungs B wheezes Abd SNT. BS + E No CCE Shechter,Pagiel MD Aug 19, 2018 13:21
[2018-08-19] MEDS: Zoysn 3.37gm in NS 100ML IVPB SCH ×2 (14:12→22:05)
[2018-08-19] MEDS ORDERED: NS 275ml ONE (17:01)
[2018-08-19] MEDS ORDERED: 1/2 NS 1000ml IV ONE (17:01)
--- NOTE | 2018-08-19 19:37 | NUR ---
NURSE NOTES: Received report from ADOLFO Mcghee. at bedside, patient asleep, arousable when name called. On O2 @ 4LPM NC. IV site to right hand & FA intact and patent. Zaidi cath intact and patent running yellow urine. at bedside. No signs of acute distress and discomfort observed. Respiration even and unlabored. Bed in lowest position, wheels locked, alarm on. SR up and secured. Nursing protocols implemented and effective. Will continue to monitor.
--- NOTE | 2018-08-19 19:40 | NUR ---
HAND-OFF: Report given to Krystyna Carlson RN.
[2018-08-19] MEDS ORDERED: Albuterol/Ipratropium 3ml neb ONE (20:26)
[2018-08-19] MEDS: Lyrica 50mg cap ORAL SCH (21:09)
--- NOTE | 2018-08-19 23:15 | NUR ---
TRANSFER TO FLOOR: Patient transferred to 2E Room 214-1, per Dr. Sultana. Report given to ADOLFO German. Belongings w/ . Medications given to ADOLFO German. at bedside, aware of transfer.
[2018-08-20] VITALS: BP 135/63
[2018-08-20] MEDS: Albuterol/Ipratropium 3ml neb HHN SCH ×6 (03:45→23:29)
[2018-08-20 04:00] VITALS: BP 141/71
[2018-08-20] MEDS: Piperacillin/Tazobactam 3.375 GM in NS 110 ML IVPB SCH ×3 (05:58→21:30)
--- NOTE | 2018-08-20 07:14 | NUR ---
HAND-OFF: Report given to Aldo MATA.
--- NOTE | 2018-08-20 07:15 | NUR ---
NURSE NOTES: Received report from ADOLFO German. Patient is in stable condition. No acute distress/SOB noted. is at the bedside. Will continue plan of care.
[2018-08-20 08:00] VITALS: BP 155/64
[2018-08-20 08:12] LABS: HEMATOCRIT 33.6 % (42.0-52.0); HEMOGLOBIN 11.4 G/DL (14.2-18.0); MEAN CORPUSCULAR VOLUME 88 FL (80-99); PLATELET COUNT 134 K/UL (150-450); RED BLOOD COUNT 3.81 M/UL (4.70-6.10); RED CELL DISTRIBUTION WIDTH 13.3 % (11.6-14.8); WHITE BLOOD COUNT 16.3 K/UL (4.8-10.8)
[2018-08-20 08:40] LABS: ALANINE AMINOTRANSFERASE 195 U/L (12-78); ALBUMIN 2.9 G/DL (3.4-5.0); ALKALINE PHOSPHATASE 54 U/L (46-116); ANION GAP 11 mmol/L (5-15); ASPARTATE AMINO TRANSFERASE 34 U/L (15-37); BILIRUBIN,TOTAL 1.4 MG/DL (0.2-1.0); BLOOD UREA NITROGEN 38 mg/dL (7-18); CALCIUM 8.2 MG/DL (8.5-10.1); CARBON DIOXIDE 22 MMOL/L (21-32); CHLORIDE 107 MMOL/L (98-107); CREATININE 1.6 MG/DL (0.55-1.30); POTASSIUM 3.9 MMOL/L (3.5-5.1); SODIUM 140 MMOL/L (136-145)
[2018-08-20 08:47] LABS: BILIRUBIN,DIRECT 0.4 MG/DL (0.0-0.3)
[2018-08-20] MEDS: Heparin 5000 units/ml inj SUBQ SCH ×2 (09:00→21:00)
[2018-08-20] MEDS: Solu-MEDROL 40mg Inj IVP SCH ×2 (09:26→17:21)
[2018-08-20] MEDS: Amiodarone 200mg tab ORAL SCH (09:27)
[2018-08-20] MEDS: dilTIAZem HCl CD 180mg cap ORAL SCH (09:27)
--- NOTE | 2018-08-20 10:32 | Pulmonology Progress Note ---
Assessment/Plan Assessment/Plan IMPRESSION: 1. Pulmonary edema. 2. Advanced COPD. 3. Pacemaker. DISCUSSION: Continue supplemental o2 via VTM; may use BiPAP prn ABG reviewed () In LIN[facility] Continue steroids; now tapering CXR shows small R effusion; will diurese Carl Contreras M.D. Subjective Interval Events: On 3L/min O2; comfortable Constitutional: Reports: no symptoms HEENT: Repors: no symptoms Respiratory: Reports: no symptoms Cardiovascular: Reports: no symptoms Gastrointestinal/Abdominal: Reports: no symptoms Genitourinary: Reports: no symptoms Allergies: Coded Allergies: No Known Allergies (Unverified , 08/12/18) Objective Last 24 Hour Vital Signs Date Time Temp Pulse Resp B/P (MAP) Pulse Ox O2 Delivery O2 Flow Rate FiO2 08/20/18 09:27 66 155/64 08/20/18 09:00 Nasal Cannula 3.0 08/20/18 09:00 3.0 08/20/18 08:00 97.7 66 20 155/64 (94) 95 08/20/18 05:38 78 20 97 28.0 08/20/18 05:22 74 24 99 Facial 27 08/20/18 04:00 24 08/20/18 04:00 71 08/20/18 04:00 97.8 71 16 141/71 (94) 97 08/20/18 04:00 Nasal Cannula 3.0 08/20/18 03:58 77 20 100 Nasal Cannula 3.0 32 08/20/18 03:49 81 23 98 Facial 27 08/20/18 03:45 71 20 96 Bi-pap 3.0 32 08/20/18 01:00 77 22 96 Facial 27 08/20/18 00:00 71 08/20/18 00:00 24 08/20/18 00:00 Nasal Cannula 3.0 08/20/18 00:00 97.8 78 20 135/63 (87) 94 08/19/18 23:00 72 22 96 Facial 28 08/19/18 21:07 72 24 97 Facial 28 08/19/18 20:49 67 20 98 28 08/19/18 20:39 72 20 99 Nasal Cannula 3.0 32 08/19/18 20:30 75 24 97 Nasal Cannula 3.0 32 08/19/18 20:00 Nasal Cannula 3.0 08/19/18 20:00 3.0 08/19/18 20:00 72 08/19/18 20:00 97.2 73 20 144/82 (102) 98 08/19/18 16:00 4.0 08/19/18 16:00 97.9 71 24 138/69 (92) 96 08/19/18 16:00 Nasal Cannula 4.0 08/19/18 15:17 70 20 98 Nasal Cannula 3.0 32 08/19/18 15:09 67 20 97 Nasal Cannula 3.0 32 08/19/18 12:09 Nasal Cannula 4.0 08/19/18 12:08 4.0 08/19/18 12:00 71 08/19/18 12:00 97.5 71 18 145/73 (97) 98 08/19/18 11:42 72 20 100 Nasal Cannula 3.0 32 08/19/18 11:34 70 20 98 Nasal Cannula 3.0 32 Intake and Output 08/19/18 08/20/18 19:00 07:00 Intake Total 480 ml 127.5 ml Output Total 500 ml 550 ml Balance -20 ml -422.5 ml Intake Oral 480 ml 100 ml IV Total 27.5 ml Output Urine Total 500 ml 550 ml General Appearance: no acute distress HEENT: normocephalic Respiratory/Chest: chest wall non-tender, decreased breath sounds Cardiovascular: normal peripheral pulses, normal rate Abdomen: normal bowel sounds, soft, non tender Extremities: no cyanosis Laboratory Tests 08/20/18 07:02: White Blood Count 16.3H, Red Blood Count 3.81L, Hemoglobin 11.4L, Hematocrit 33.6L, Mean Corpuscular Volume 88, Mean Corpuscular Hemoglobin 30.0, Mean Corpuscular Hemoglobin Concent 34.1, Red Cell Distribution Width 13.3, Platelet Count 134L, Mean Platelet Volume 7.8, Neutrophils (%) (Auto) , Lymphocytes (%) ( Auto) , Monocytes (%) (Auto) , Eosinophils (%) (Auto) , Basophils (%) (Auto) , Neutrophils % (Manual) [Pending], Lymphocytes % (Manual) [Pending], Platelet Estimate [Pending], Platelet Morphology [Pending], Sodium Level 140, Potassium Level 3.9, Chloride Level 107, Carbon Dioxide Level 22, Anion Gap 11, Blood Urea Nitrogen 38H, Creatinine 1.6H, Estimat Glomerular Filtration Rate , Glucose Level 190H, Calcium Level 8.2L, Total Bilirubin 1.4H, Direct Bilirubin 0.4H, Aspartate Amino Transf (AST/SGOT) 34, Alanine Aminotransferase (ALT/SGPT) 195H, Alkaline Phosphatase 54, Total Protein 5.8L, Albumin 2.9L, Globulin 2.9, Albumin/Globulin Ratio 1.0, Random Vancomycin Level 5.5 Current Medications Medications (Trade) Dose Ordered Sig/Dinorah Route PRN Reason Start Time Stop Time Status Last Admin Dose Admin Acetaminophen (Tylenol) 650 mg Q6H PRN ORAL Mild Pain/Temp > 100.5 08/20/18 00:30 09/11/18 12:29 Albuterol/ Ipratropium (Albuterol/ Ipratropium) 3 ml Q4HRT HHN 08/20/18 03:00 08/22/18 22:59 08/20/18 09:22 Amiodarone HCl (Cordarone) 100 mg DAILY ORAL 08/20/18 09:00 09/12/18 08:59 08/20/18 09:27 Diltiazem HCl (Cardizem CD) 180 mg DAILY ORAL 08/20/18 09:00 09/15/18 08:59 08/20/18 09:27 Heparin Sodium (Porcine) (Heparin 5000 units/ml) 5,000 units EVERY 12 HOURS SUBQ 08/20/18 09:00 09/11/18 20:59 Hydralazine HCl (Apresoline) 10 mg Q4H PRN IV SBP above 150mmHg 08/20/18 00:30 09/11/18 12:29 Levothyroxine Sodium (Synthroid) 150 mcg DAILY@0630 ORAL 08/20/18 06:30 09/12/18 06:29 08/20/18 05:58 Methylprednisolone Sodium Succinate (Solu-MEDROL) 40 mg BID IVP 08/20/18 09:00 09/15/18 11:59 08/20/18 09:26 Ondansetron HCl (Zofran) 4 mg Q6H PRN IVP Nausea & Vomiting 08/20/18 00:30 09/11/18 12:29 Pantoprazole (Protonix) 40 mg DAILY ORAL 08/20/18 09:00 09/11/18 19:59 08/20/18 09:27 Piperacillin Sod/ Tazobactam Sod 3.375 gm/Sodium Chloride 110 ml @ 27.5 mls/hr EVERY 8 HOURS IVPB 08/20/18 06:00 08/24/18 13:59 08/20/18 05:58 Pregabalin (Lyrica) 50 mg BEDTIME ORAL 08/20/18 21:00 09/11/18 21:29 Vancomycin HCl (Vanco rx to dose) 1 ea DAILY PRN MISC Per rx protocol 08/20/18 09:00 09/17/18 10:59 Vancomycin HCl 500 mg/Dextrose 110 ml @ 110 mls/hr Q24H IVPB 08/21/18 11:00 08/26/18 10:59 Vancomycin/Sodium Chloride 250 ml @ 166.667 mls/hr ONCE ONCE IVPB 08/20/18 11:00 08/20/18 12:29 Carl Contreras MD Aug 20, 2018 10:32
--- NOTE | 2018-08-20 10:54 | Infectious Diseases Prog Note ---
Assessment/Plan Assessment/Plan A 1. pneumonia with MRSA 2. CHF 3. leucocytosis improving 4. renal failure worse 5. COPD 6. hypertension 7. gram negative sepsis 8. increased LFT P 1. Continue Zosyn & Vancomycin 2. will follow up cultures Subjective ROS Limited/Unobtainable: Yes Respiratory: Reports: shortness of breath, productive cough Gastrointestinal/Abdominal: Reports: no symptoms Genitourinary: Reports: no symptoms Allergies: Coded Allergies: No Known Allergies (Unverified , 08/12/18) Objective Vital Signs Last 24 Hour Vital Signs Date Time Temp Pulse Resp B/P (MAP) Pulse Ox O2 Delivery O2 Flow Rate FiO2 08/20/18 09:27 66 155/64 08/20/18 09:00 Nasal Cannula 3.0 08/20/18 09:00 3.0 08/20/18 08:00 97.7 66 20 155/64 (94) 95 08/20/18 05:38 78 20 97 28.0 08/20/18 05:22 74 24 99 Facial 27 08/20/18 04:00 24 08/20/18 04:00 71 08/20/18 04:00 97.8 71 16 141/71 (94) 97 08/20/18 04:00 Nasal Cannula 3.0 08/20/18 03:58 77 20 100 Nasal Cannula 3.0 32 08/20/18 03:49 81 23 98 Facial 27 08/20/18 03:45 71 20 96 Bi-pap 3.0 32 08/20/18 01:00 77 22 96 Facial 27 08/20/18 00:00 71 08/20/18 00:00 24 08/20/18 00:00 Nasal Cannula 3.0 08/20/18 00:00 97.8 78 20 135/63 (87) 94 08/19/18 23:00 72 22 96 Facial 28 08/19/18 21:07 72 24 97 Facial 28 08/19/18 20:49 67 20 98 28 08/19/18 20:39 72 20 99 Nasal Cannula 3.0 32 08/19/18 20:30 75 24 97 Nasal Cannula 3.0 32 08/19/18 20:00 Nasal Cannula 3.0 08/19/18 20:00 3.0 08/19/18 20:00 72 08/19/18 20:00 97.2 73 20 144/82 (102) 98 08/19/18 16:00 4.0 08/19/18 16:00 97.9 71 24 138/69 (92) 96 08/19/18 16:00 Nasal Cannula 4.0 08/19/18 15:17 70 20 98 Nasal Cannula 3.0 32 08/19/18 15:09 67 20 97 Nasal Cannula 3.0 32 08/19/18 12:09 Nasal Cannula 4.0 08/19/18 12:08 4.0 08/19/18 12:00 71 08/19/18 12:00 97.5 71 18 145/73 (97) 98 08/19/18 11:42 72 20 100 Nasal Cannula 3.0 32 08/19/18 11:34 70 20 98 Nasal Cannula 3.0 32 Height (Feet): 5 Height (Inches): 5.00 Weight (Pounds): 135 HEENT: mucous membranes moist, other - oxygen bynasal cannula Respiratory/Chest: rhonchi - bilaterally, expiratory wheezing Cardiovascular: normal rate Abdomen: soft, non tender Extremities: no edema Skin: other - bruises Neurologic/Psychiatric: alert, responsive Laboratory Tests Test 08/20/18 07:02 White Blood Count 16.3 K/UL (4.8-10.8) H Red Blood Count 3.81 M/UL (4.70-6.10) L Hemoglobin 11.4 G/DL (14.2-18.0) L Hematocrit 33.6 % (42.0-52.0) L Mean Corpuscular Volume 88 FL (80-99) Mean Corpuscular Hemoglobin 30.0 PG (27.0-31.0) Mean Corpuscular Hemoglobin Concent 34.1 G/DL (32.0-36.0) Red Cell Distribution Width 13.3 % (11.6-14.8) Platelet Count 134 K/UL (150-450) L Mean Platelet Volume 7.8 FL (6.5-10.1) Neutrophils (%) (Auto) % (45.0-75.0) Lymphocytes (%) (Auto) % (20.0-45.0) Monocytes (%) (Auto) % (1.0-10.0) Eosinophils (%) (Auto) % (0.0-3.0) Basophils (%) (Auto) % (0.0-2.0) Neutrophils % (Manual) Pending Lymphocytes % (Manual) Pending Platelet Estimate Pending Platelet Morphology Pending Sodium Level 140 MMOL/L (136-145) Potassium Level 3.9 MMOL/L (3.5-5.1) Chloride Level 107 MMOL/L (98-107) Carbon Dioxide Level 22 MMOL/L (21-32) Anion Gap 11 mmol/L (5-15) Blood Urea Nitrogen 38 mg/dL (7-18) H Creatinine 1.6 MG/DL (0.55-1.30) H Estimat Glomerular Filtration Rate mL/min (>60) Glucose Level 190 MG/DL (74-106) H Calcium Level 8.2 MG/DL (8.5-10.1) L Total Bilirubin 1.4 MG/DL (0.2-1.0) H Direct Bilirubin 0.4 MG/DL (0.0-0.3) H Aspartate Amino Transf (AST/SGOT) 34 U/L (15-37) Alanine Aminotransferase (ALT/SGPT) 195 U/L (12-78) H Alkaline Phosphatase 54 U/L (46-116) Total Protein 5.8 G/DL (6.4-8.2) L Albumin 2.9 G/DL (3.4-5.0) L Globulin 2.9 g/dL Albumin/Globulin Ratio 1.0 (1.0-2.7) Random Vancomycin Level 5.5 ug/mL Current Medications Medications (Trade) Dose Ordered Sig/Dinorah Route PRN Reason Start Time Stop Time Status Last Admin Dose Admin Acetaminophen (Tylenol) 650 mg Q6H PRN ORAL Mild Pain/Temp > 100.5 08/20/18 00:30 09/11/18 12:29 Albuterol/ Ipratropium (Albuterol/ Ipratropium) 3 ml Q4HRT HHN 08/20/18 03:00 08/22/18 22:59 08/20/18 09:22 Amiodarone HCl (Cordarone) 100 mg DAILY ORAL 08/20/18 09:00 09/12/18 08:59 08/20/18 09:27 Diltiazem HCl (Cardizem CD) 180 mg DAILY ORAL 08/20/18 09:00 09/15/18 08:59 08/20/18 09:27 Furosemide (Lasix) 40 mg ONCE IV 08/20/18 10:45 08/20/18 12:00 Heparin Sodium (Porcine) (Heparin 5000 units/ml) 5,000 units EVERY 12 HOURS SUBQ 08/20/18 09:00 09/11/18 20:59 Hydralazine HCl (Apresoline) 10 mg Q4H PRN IV SBP above 150mmHg 08/20/18 00:30 09/11/18 12:29 Levothyroxine Sodium (Synthroid) 150 mcg DAILY@0630 ORAL 08/20/18 06:30 09/12/18 06:29 08/20/18 05:58 Methylprednisolone Sodium Succinate (Solu-MEDROL) 40 mg BID IVP 08/20/18 09:00 09/15/18 11:59 08/20/18 09:26 Ondansetron HCl (Zofran) 4 mg Q6H PRN IVP Nausea & Vomiting 08/20/18 00:30 09/11/18 12:29 Pantoprazole (Protonix) 40 mg DAILY ORAL 08/20/18 09:00 09/11/18 19:59 08/20/18 09:27 Piperacillin Sod/ Tazobactam Sod 3.375 gm/Sodium Chloride 110 ml @ 27.5 mls/hr EVERY 8 HOURS IVPB 08/20/18 06:00 08/24/18 13:59 08/20/18 05:58 Pregabalin (Lyrica) 50 mg BEDTIME ORAL 08/20/18 21:00 09/11/18 21:29 Vancomycin HCl (Vanco rx to dose) 1 ea DAILY PRN MISC Per rx protocol 08/20/18 09:00 09/17/18 10:59 Vancomycin HCl 500 mg/Dextrose 110 ml @ 110 mls/hr Q24H IVPB 08/21/18 11:00 08/26/18 10:59 Vancomycin/Sodium Chloride 250 ml @ 166.667 mls/hr ONCE ONCE IVPB 08/20/18 11:00 08/20/18 12:29 Reji Batista MD Aug 20, 2018 10:54
[2018-08-20] MEDS ORDERED: Vancomycin 750mg/NS 250ml IVPB ONE (11:00)
[2018-08-20 12:00] VITALS: BP 177/90
--- NOTE | 2018-08-20 14:16 | General Progress Note ---
Assessment/Plan Problem List: (1) Sepsis ICD Codes: A41.9 - Sepsis, unspecified organism SNOMED: 80087872 Qualifiers: Qualified Codes: A41.9 - Sepsis, unspecified organism (2) COPD exacerbation ICD Codes: J44.1 - Chronic obstructive pulmonary disease with (acute) exacerbation SNOMED: 765583080 (3) Respiratory distress ICD Codes: R06.03 - Acute respiratory distress SNOMED: 325748426 Status: stable, not improved Assessment/Plan abx resp care/o2 amio for rate control bipap as needed cont steroids per pulm monitor labs o2 lasix prn ?aspiration Subjective ROS Limited/Unobtainable: No Constitutional: Reports: malaise, weakness HEENT: Reports: no symptoms Allergies: Coded Allergies: No Known Allergies (Unverified , 08/12/18) Subjective no events. w/o complaints. +wheezing. currently off bipap Objective Last 24 Hour Vital Signs Date Time Temp Pulse Resp B/P (MAP) Pulse Ox O2 Delivery O2 Flow Rate FiO2 08/20/18 13:57 72 22 98 Nasal Cannula 3.0 32 08/20/18 12:24 Nasal Cannula 08/20/18 12:24 Nasal Cannula 08/20/18 12:06 177/90 08/20/18 12:00 68 08/20/18 12:00 97.5 71 22 177/90 (119) 95 08/20/18 09:29 76 20 100 Nasal Cannula 3.0 32 08/20/18 09:27 66 155/64 08/20/18 09:22 74 20 97 Nasal Cannula 3.0 32 08/20/18 09:00 Nasal Cannula 3.0 08/20/18 09:00 3.0 08/20/18 08:00 97.7 66 20 155/64 (94) 95 08/20/18 08:00 74 08/20/18 05:38 78 20 97 28.0 08/20/18 05:22 74 24 99 Facial 27 08/20/18 04:00 24 08/20/18 04:00 71 08/20/18 04:00 97.8 71 16 141/71 (94) 97 08/20/18 04:00 Nasal Cannula 3.0 08/20/18 03:58 77 20 100 Nasal Cannula 3.0 32 08/20/18 03:49 81 23 98 Facial 27 08/20/18 03:45 71 20 96 Bi-pap 3.0 32 08/20/18 01:00 77 22 96 Facial 27 08/20/18 00:00 71 08/20/18 00:00 24 08/20/18 00:00 Nasal Cannula 3.0 08/20/18 00:00 97.8 78 20 135/63 (87) 94 08/19/18 23:00 72 22 96 Facial 28 08/19/18 21:07 72 24 97 Facial 28 08/19/18 20:49 67 20 98 28 08/19/18 20:39 72 20 99 Nasal Cannula 3.0 32 08/19/18 20:30 75 24 97 Nasal Cannula 3.0 32 08/19/18 20:00 Nasal Cannula 3.0 08/19/18 20:00 3.0 08/19/18 20:00 72 08/19/18 20:00 97.2 73 20 144/82 (102) 98 08/19/18 16:00 4.0 08/19/18 16:00 97.9 71 24 138/69 (92) 96 08/19/18 16:00 Nasal Cannula 4.0 08/19/18 15:17 70 20 98 Nasal Cannula 3.0 32 08/19/18 15:09 67 20 97 Nasal Cannula 3.0 32 Intake and Output 08/19/18 08/20/18 18:59 06:59 Intake Total 480 ml 127.5 ml Output Total 500 ml 550 ml Balance -20 ml -422.5 ml Intake Oral 480 ml 100 ml IV Total 27.5 ml Output Urine Total 500 ml 550 ml Laboratory Tests 08/20/18 07:02: White Blood Count 16.3H, Red Blood Count 3.81L, Hemoglobin 11.4L, Hematocrit 33.6L, Mean Corpuscular Volume 88, Mean Corpuscular Hemoglobin 30.0, Mean Corpuscular Hemoglobin Concent 34.1, Red Cell Distribution Width 13.3, Platelet Count 134L, Mean Platelet Volume 7.8, Neutrophils (%) (Auto) , Lymphocytes (%) ( Auto) , Monocytes (%) (Auto) , Eosinophils (%) (Auto) , Basophils (%) (Auto) , Differential Total Cells Counted 100, Neutrophils % (Manual) 90H, Lymphocytes % (Manual) 1L, Monocytes % (Manual) 8, Eosinophils % (Manual) 0, Basophils % ( Manual) 0, Band Neutrophils 1, Platelet Estimate DecreasedL, Platelet Morphology Normal, Red Blood Cell Morphology Normal, Sodium Level 140, Potassium Level 3.9, Chloride Level 107, Carbon Dioxide Level 22, Anion Gap 11, Blood Urea Nitrogen 38H, Creatinine 1.6H, Estimat Glomerular Filtration Rate , Glucose Level 190H, Calcium Level 8.2L, Total Bilirubin 1.4H, Direct Bilirubin 0.4H, Aspartate Amino Transf (AST/SGOT) 34, Alanine Aminotransferase (ALT/SGPT) 195H, Alkaline Phosphatase 54, Total Protein 5.8L, Albumin 2.9L, Globulin 2.9, Albumin/Globulin Ratio 1.0, Random Vancomycin Level 5.5 Height (Feet): 5 Height (Inches): 5.00 Weight (Pounds): 135 Objective General Appearance: WD/WN, alert Neck: supple Cardiovascular: normal rate, regular rhythm Respiratory/Chest: no accessory muscle use, rhonchi - bilaterally, expiratory wheezing Abdomen: normal bowel sounds, non tender, soft 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
--- NOTE | 2018-08-20 15:56 | NUR ---
PT Note Attempted to see patient for treatment but patient refused. RN is aware.
[2018-08-20 16:00] VITALS: BP 137/58
--- NOTE | 2018-08-20 19:13 | NUR ---
HAND-OFF: Report given to ADOLFO Devine. Patient is in stable condition. No acute distress/SOB noted. Family members are at the bedside. Endorsed plan of care.
--- NOTE | 2018-08-20 19:13 | NUR ---
NURSE NOTES: Received report from Qasim Kahn RN. Patient is awake in bed, A/O x4, no s/s of distress noted. V-paced on secured entrance monitor. On 3L O2 via nasal cannula and saturating well. Zaidi catheter in place and draining by gravity. Right hand 24g IV TKO, intact and patent. Bed locked in lowest position with side rails up x3. Call light left within reach, family member at bedside. Will continue plan of care. Will continue to monitor.
[2018-08-20 20:00] VITALS: BP 137/65
[2018-08-20] MEDS: Lyrica 50mg cap ORAL SCH (21:29)
[2018-08-21] VITALS: BP 134/64
[2018-08-21] MEDS: Albuterol/Ipratropium 3ml neb HHN SCH ×6 (03:19→23:27)
[2018-08-21 04:00] VITALS: BP 134/65
--- NOTE | 2018-08-21 05:15 | NUR ---
RESPIRATORY NOTE: PT. TOLERATED NOCTURNAL BIPAP WELL. ASKED FOR BIPAP TO BE REMOVED AT THIS TIME. SPONGE TAPE WAS REMOVED AND FACE WAS INSPECTED. NO SIGN OF SKIN BREAKDOWN WAS NOTED. PT IS COMFORTABLE ON NASAL CANNULA AT 3LPM. ALL VS WNL. NO S/S OF RESPIRATORY DISTRESS NOTED AT THIS TIME.
[2018-08-21] MEDS: Piperacillin/Tazobactam 3.375 GM in NS 110 ML IVPB SCH ×3 (05:39→21:11)
--- NOTE | 2018-08-21 07:05 | NUR ---
HAND-OFF: Report given to Barby Dallas RN.
--- NOTE | 2018-08-21 07:08 | NUR ---
NURSE NOTES: Received report from ADOLFO Devine. Patient in bed resting. Patient on oxygen 3L via NC. No active s/s cardiac, respiratory distress noticed at this time.SR with HR 78 Denies pain at this time. Family member at bed side. IV running at prescribed rate, IV site asymptomatic, intact, patent. Bed in lowest position, side rails up x3, call light within reach. Will continue to monitor.
--- NOTE | 2018-08-21 07:59 | General Progress Note ---
Assessment/Plan Problem List: (1) Sepsis ICD Codes: A41.9 - Sepsis, unspecified organism SNOMED: [id number] Qualifiers: Qualified Codes: A41.9 - Sepsis, unspecified organism (2) COPD exacerbation ICD Codes: J44.1 - Chronic obstructive pulmonary disease with (acute) exacerbation SNOMED: 081520724 (3) Respiratory distress ICD Codes: R06.03 - Acute respiratory distress SNOMED: 635009407 Status: stable, progressing Assessment/Plan abx resp care/o2 amio for rate control bipap as needed cont steroids per pulm monitor labs o2 lasix prn ?aspiration Subjective ROS Limited/Unobtainable: No Constitutional: Reports: malaise, weakness HEENT: Reports: no symptoms Cardiovascular: Reports: no symptoms Respiratory: Reports: cough, shortness of breath, wheezing Gastrointestinal/Abdominal: Reports: no symptoms Genitourinary: Reports: no symptoms Neurologic/Psychiatric: Reports: no symptoms Endocrine: Reports: no symptoms Hematologic/Lymphatic: Reports: no symptoms Allergies: Coded Allergies: No Known Allergies (Unverified , 08/12/18) All Systems: reviewed and negative except above Subjective no events. w/o complaints. +wheezing. less congested than yesterday. currently off bipap Objective Last 24 Hour Vital Signs Date Time Temp Pulse Resp B/P (MAP) Pulse Ox O2 Delivery O2 Flow Rate FiO2 08/21/18 07:16 69 17 99 Nasal Cannula 2.0 28 08/21/18 07:06 70 16 97 Nasal Cannula 3.0 32 08/21/18 05:15 78 20 99 Facial 28 08/21/18 04:00 97.2 71 19 134/65 (88) 98 08/21/18 03:35 71 08/21/18 03:27 73 17 97 Bi-pap 28 08/21/18 03:19 72 16 98 Facial 28 08/21/18 03:19 72 16 98 Bi-pap 28 08/21/18 00:30 71 25 96 Facial 28 08/21/18 00:00 98.4 72 18 134/64 (87) 96 08/21/18 00:00 28 08/20/18 23:45 75 24 95 Bi-pap 28 08/20/18 23:40 72 08/20/18 23:29 70 23 95 Bi-pap 28 08/20/18 23:20 70 23 95 Facial 28 08/20/18 21:00 3.0 08/20/18 21:00 Nasal Cannula 3.0 08/20/18 20:31 70 20 98 Nasal Cannula 3.0 32 08/20/18 20:19 84 20 96 Nasal Cannula 3.0 32 08/20/18 20:00 97.9 72 22 137/65 (89) 95 08/20/18 16:00 72 08/20/18 16:00 98.2 76 22 137/58 (84) 95 08/20/18 14:07 79 22 99 Nasal Cannula 3.0 32 08/20/18 13:57 72 22 98 Nasal Cannula 3.0 32 08/20/18 12:24 Nasal Cannula 08/20/18 12:24 Nasal Cannula 08/20/18 12:06 177/90 08/20/18 12:00 68 08/20/18 12:00 97.5 71 22 177/90 (119) 95 08/20/18 09:29 76 20 100 Nasal Cannula 3.0 32 08/20/18 09:27 66 155/64 08/20/18 09:22 74 20 97 Nasal Cannula 3.0 32 08/20/18 09:00 Nasal Cannula 3.0 08/20/18 09:00 3.0 08/20/18 08:00 97.7 66 20 155/64 (94) 95 08/20/18 08:00 74 Intake and Output 08/20/18 08/21/18 19:00 07:00 Intake Total 360 ml 210.0 ml Output Total 2000 ml 500 ml Balance -1640 ml -290.0 ml Intake Oral 360 ml 100 ml IV Total 110.0 ml Output Urine Total 2000 ml 500 ml # Bowel Movements 1 Height (Feet): 5 Height (Inches): 5.00 Weight (Pounds): 135 Objective General Appearance: WD/WN, alert Neck: supple Cardiovascular: normal rate, regular rhythm Respiratory/Chest: no accessory muscle use, rhonchi - bilaterally, expiratory wheezing Abdomen: normal bowel sounds, non tender, soft 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
[2018-08-21 08:00] VITALS: BP 180/78
--- NOTE | 2018-08-21 08:03 | Pulmonology Progress Note ---
Assessment/Plan Assessment/Plan IMPRESSION: 1. Pulmonary edema. 2. Advanced COPD. 3. Pacemaker. DISCUSSION: Continue supplemental o2 via VTM; may use BiPAP prn ABG reviewed On tele now Continue steroids; now tapering CXR shows small R effusion; will diurese Carl Contreras M.D. Subjective Interval Events: CXR noted Constitutional: Reports: no symptoms HEENT: Repors: no symptoms Respiratory: Reports: dyspnea on exertion Cardiovascular: Reports: no symptoms Gastrointestinal/Abdominal: Reports: no symptoms Genitourinary: Reports: no symptoms Allergies: Coded Allergies: No Known Allergies (Unverified , 08/12/18) Objective Last 24 Hour Vital Signs Date Time Temp Pulse Resp B/P (MAP) Pulse Ox O2 Delivery O2 Flow Rate FiO2 08/21/18 07:16 69 17 99 Nasal Cannula 2.0 28 08/21/18 07:06 70 16 97 Nasal Cannula 3.0 32 08/21/18 05:15 78 20 99 Facial 28 08/21/18 04:00 97.2 71 19 134/65 (88) 98 08/21/18 03:35 71 08/21/18 03:27 73 17 97 Bi-pap 28 08/21/18 03:19 72 16 98 Facial 28 08/21/18 03:19 72 16 98 Bi-pap 28 08/21/18 00:30 71 25 96 Facial 28 08/21/18 00:00 98.4 72 18 134/64 (87) 96 08/21/18 00:00 28 08/20/18 23:45 75 24 95 Bi-pap 28 08/20/18 23:40 72 08/20/18 23:29 70 23 95 Bi-pap 28 08/20/18 23:20 70 23 95 Facial 28 08/20/18 21:00 3.0 08/20/18 21:00 Nasal Cannula 3.0 08/20/18 20:31 70 20 98 Nasal Cannula 3.0 32 08/20/18 20:19 84 20 96 Nasal Cannula 3.0 32 08/20/18 20:00 97.9 72 22 137/65 (89) 95 08/20/18 16:00 72 08/20/18 16:00 98.2 76 22 137/58 (84) 95 08/20/18 14:07 79 22 99 Nasal Cannula 3.0 32 08/20/18 13:57 72 22 98 Nasal Cannula 3.0 32 08/20/18 12:24 Nasal Cannula 08/20/18 12:24 Nasal Cannula 08/20/18 12:06 177/90 08/20/18 12:00 68 08/20/18 12:00 97.5 71 22 177/90 (119) 95 08/20/18 09:29 76 20 100 Nasal Cannula 3.0 32 08/20/18 09:27 66 155/64 08/20/18 09:22 74 20 97 Nasal Cannula 3.0 32 08/20/18 09:00 Nasal Cannula 3.0 08/20/18 09:00 3.0 Intake and Output 08/20/18 08/21/18 19:00 07:00 Intake Total 360 ml 210.0 ml Output Total 2000 ml 500 ml Balance -1640 ml -290.0 ml Intake Oral 360 ml 100 ml IV Total 110.0 ml Output Urine Total 2000 ml 500 ml # Bowel Movements 1 General Appearance: no acute distress HEENT: normocephalic Respiratory/Chest: chest wall non-tender, decreased breath sounds Cardiovascular: normal peripheral pulses, normal rate Abdomen: normal bowel sounds Current Medications Medications (Trade) Dose Ordered Sig/Dinorah Route PRN Reason Start Time Stop Time Status Last Admin Dose Admin Acetaminophen (Tylenol) 650 mg Q6H PRN ORAL Mild Pain/Temp > 100.5 08/20/18 00:30 09/11/18 12:29 Albuterol/ Ipratropium (Albuterol/ Ipratropium) 3 ml Q4HRT HHN 08/20/18 03:00 08/22/18 22:59 08/21/18 07:06 Amiodarone HCl (Cordarone) 100 mg DAILY ORAL 08/20/18 09:00 09/12/18 08:59 08/20/18 09:27 Diltiazem HCl (Cardizem CD) 180 mg DAILY ORAL 08/20/18 09:00 09/15/18 08:59 08/20/18 09:27 Heparin Sodium (Porcine) (Heparin 5000 units/ml) 5,000 units EVERY 12 HOURS SUBQ 08/20/18 09:00 09/11/18 20:59 Hydralazine HCl (Apresoline) 10 mg Q4H PRN IV SBP above 150mmHg 08/20/18 00:30 09/11/18 12:29 08/20/18 12:06 Levothyroxine Sodium (Synthroid) 150 mcg DAILY@0630 ORAL 08/20/18 06:30 09/12/18 06:29 08/21/18 05:39 Methylprednisolone Sodium Succinate (Solu-MEDROL) 40 mg BID IVP 08/20/18 09:00 09/15/18 11:59 08/20/18 17:21 Ondansetron HCl (Zofran) 4 mg Q6H PRN IVP Nausea & Vomiting 08/20/18 00:30 09/11/18 12:29 Pantoprazole (Protonix) 40 mg DAILY ORAL 08/20/18 09:00 09/11/18 19:59 08/20/18 09:27 Piperacillin Sod/ Tazobactam Sod 3.375 gm/Sodium Chloride 110 ml @ 27.5 mls/hr EVERY 8 HOURS IVPB 08/20/18 06:00 08/24/18 13:59 08/21/18 05:39 Pregabalin (Lyrica) 50 mg BEDTIME ORAL 08/20/18 21:00 09/11/18 21:29 08/20/18 21:29 Vancomycin HCl (Vanco rx to dose) 1 ea DAILY PRN MISC Per rx protocol 08/20/18 09:00 09/17/18 10:59 Vancomycin HCl 500 mg/Dextrose 110 ml @ 110 mls/hr Q24H IVPB 08/21/18 11:00 08/26/18 10:59 Carl Contreras MD Aug 21, 2018 08:03
[2018-08-21] MEDS ORDERED: Morphine Sulfate 4mg/ml Inj (IV/IM USE ONLY) IVP SCH (08:25)
--- NOTE | 2018-08-21 08:30 | NUR ---
NURSE NOTES: Per Dr. Almaraz, morphine 2 mg IVP once prior to HIDA scan. Order noted, entered, and carried out. Will continue to monitor.
[2018-08-21] MEDS: Heparin 5000 units/ml inj SUBQ SCH ×2 (09:00→21:00)
[2018-08-21] MEDS: Solu-MEDROL 40mg Inj IVP SCH ×2 (09:21→17:05)
[2018-08-21] MEDS: Amiodarone 200mg tab ORAL SCH (09:21)
[2018-08-21] MEDS: dilTIAZem HCl CD 180mg cap ORAL SCH (09:22)
--- NOTE | 2018-08-21 10:43 | Infectious Diseases Prog Note ---
Assessment/Plan Assessment/Plan antibiotics : vancomycin iv, zosyn A 1. MRSA pneumonia 2. CHF 3. leucocytosis increased likely secondary to steroids 4. renal failure improving 5. COPD 6. hypertension 7. gram negative sepsis 8. r/o cholecystitis increased LFT improving P 1. continue iv vancomycin, zosyn 2. will follow up cultures 3. HIDA scan pending Subjective Constitutional: Denies: fever, chills Respiratory: Denies: shortness of breath, dry cough Gastrointestinal/Abdominal: Denies: nausea, vomiting, diarrhea Musculoskeletal: Denies: pain Allergies: Coded Allergies: No Known Allergies (Unverified , 08/12/18) Objective Vital Signs Last 24 Hour Vital Signs Date Time Temp Pulse Resp B/P (MAP) Pulse Ox O2 Delivery O2 Flow Rate FiO2 08/21/18 09:22 76 180/78 08/21/18 07:16 69 17 99 Nasal Cannula 2.0 28 08/21/18 07:06 70 16 97 Nasal Cannula 3.0 32 08/21/18 05:15 78 20 99 Facial 28 08/21/18 04:00 97.2 71 19 134/65 (88) 98 08/21/18 03:35 71 08/21/18 03:27 73 17 97 Bi-pap 28 08/21/18 03:19 72 16 98 Facial 28 08/21/18 03:19 72 16 98 Bi-pap 28 08/21/18 00:30 71 25 96 Facial 28 08/21/18 00:00 98.4 72 18 134/64 (87) 96 08/21/18 00:00 28 08/20/18 23:45 75 24 95 Bi-pap 28 08/20/18 23:40 72 08/20/18 23:29 70 23 95 Bi-pap 28 08/20/18 23:20 70 23 95 Facial 28 08/20/18 21:00 3.0 08/20/18 21:00 Nasal Cannula 3.0 08/20/18 20:31 70 20 98 Nasal Cannula 3.0 32 08/20/18 20:19 84 20 96 Nasal Cannula 3.0 32 08/20/18 20:00 97.9 72 22 137/65 (89) 95 08/20/18 16:00 72 08/20/18 16:00 98.2 76 22 137/58 (84) 95 08/20/18 14:07 79 22 99 Nasal Cannula 3.0 32 08/20/18 13:57 72 22 98 Nasal Cannula 3.0 32 08/20/18 12:24 Nasal Cannula 08/20/18 12:24 Nasal Cannula 08/20/18 12:06 177/90 08/20/18 12:00 68 08/20/18 12:00 97.5 71 22 177/90 (119) 95 Height (Feet): 5 Height (Inches): 5.00 Weight (Pounds): 135 Respiratory/Chest: rhonchi - bilaterally Cardiovascular: normal rate, regular rhythm, no gallop/murmur Abdomen: soft, non tender Extremities: no edema Current Medications Medications (Trade) Dose Ordered Sig/Dinorah Route PRN Reason Start Time Stop Time Status Last Admin Dose Admin Acetaminophen (Tylenol) 650 mg Q6H PRN ORAL Mild Pain/Temp > 100.5 08/20/18 00:30 09/11/18 12:29 Albuterol/ Ipratropium (Albuterol/ Ipratropium) 3 ml Q4HRT HHN 08/20/18 03:00 08/22/18 22:59 08/21/18 07:06 Amiodarone HCl (Cordarone) 100 mg DAILY ORAL 08/20/18 09:00 09/12/18 08:59 08/21/18 09:21 Diltiazem HCl (Cardizem CD) 180 mg DAILY ORAL 08/20/18 09:00 09/15/18 08:59 08/21/18 09:22 Heparin Sodium (Porcine) (Heparin 5000 units/ml) 5,000 units EVERY 12 HOURS SUBQ 08/20/18 09:00 09/11/18 20:59 Hydralazine HCl (Apresoline) 10 mg Q4H PRN IV SBP above 150mmHg 08/20/18 00:30 09/11/18 12:29 08/20/18 12:06 Levothyroxine Sodium (Synthroid) 150 mcg DAILY@0630 ORAL 08/20/18 06:30 09/12/18 06:29 08/21/18 05:39 Methylprednisolone Sodium Succinate (Solu-MEDROL) 40 mg BID IVP 08/20/18 09:00 09/15/18 11:59 08/21/18 09:21 Ondansetron HCl (Zofran) 4 mg Q6H PRN IVP Nausea & Vomiting 08/20/18 00:30 09/11/18 12:29 Pantoprazole (Protonix) 40 mg DAILY ORAL 08/20/18 09:00 09/11/18 19:59 08/21/18 09:22 Piperacillin Sod/ Tazobactam Sod 3.375 gm/Sodium Chloride 110 ml @ 27.5 mls/hr EVERY 8 HOURS IVPB 08/20/18 06:00 08/24/18 13:59 08/21/18 05:39 Pregabalin (Lyrica) 50 mg BEDTIME ORAL 08/20/18 21:00 09/11/18 21:29 08/20/18 21:29 Vancomycin HCl (Vanco rx to dose) 1 ea DAILY PRN MISC Per rx protocol 08/20/18 09:00 09/17/18 10:59 Vancomycin HCl 500 mg/Dextrose 110 ml @ 110 mls/hr Q24H IVPB 08/21/18 11:00 08/26/18 10:59 Soo Almaraz MD Aug 21, 2018 10:42
[2018-08-21] MEDS ORDERED: Vancomycin 500mg/D5W 110ml IVPB SCH ×2 (11:00)
--- NOTE | 2018-08-21 11:18 | Diagnostic Imaging Report ---
Indications: Abdominal pain, abnormal liver function tests Technique: IV administration 5.5 mCi 99M technetium Choletec. Serial images obtained over the abdomen for 60 minutes Comparison: None Findings: Prompt tracer uptake within the liver. Extrahepatic bile ducts are seen at 10 minutes. Excretion into the duodenum demonstrated at 60 minutes. Gallbladder visualized at 13 minutes. Impression: Negative
[2018-08-21 12:00] VITALS: BP 164/74
--- NOTE | 2018-08-21 12:56 | NUR ---
RESPIRATORY NOTE: Patient's 1100 breathing TX is omitted due to other higher priority care. It's too closed to the next TX now. Pt is awake, alert, no SOB or acute resp. RN Zahra made aware. Will continue to monitor pt.
[2018-08-21 16:00] VITALS: BP 130/79
--- NOTE | 2018-08-21 19:36 | NUR ---
HAND-OFF: Report given to ADOLFO Hogan.
--- NOTE | 2018-08-21 19:37 | NUR ---
NURSE NOTES: Received report from Barby Dallas RN. Pt is resting in the bed receiving breathing treatment by RT. HOB elevated 45 degree. Safety measures are applied with bed alarm on, bed in lowest position, and breaks are engaged. Call light and side table are w/in reach. is at the bedside. Will follow plans of care.
[2018-08-21 20:00] VITALS: BP_SYST 147; BP_SYST 156; BP_DIAS 65
[2018-08-21] MEDS: Lyrica 50mg cap ORAL SCH (21:10)
[2018-08-22] VITALS: BP 157/65
--- NOTE | 2018-08-22 01:04 | NUR ---
NURSE NOTES: Pt is resting in the bed, no distress noted. is at the bedside. Will continue to monitor.
[2018-08-22] MEDS: Albuterol/Ipratropium 3ml neb HHN SCH ×5 (02:13→20:31)
--- NOTE | 2018-08-22 02:15 | Progress Note ---
DATE: 08/21/2018 CARDIOLOGY PROGRESS NOTE SUBJECTIVE: The patient remains on oxygen and BiPAP intermittently. He remains on telemetry with sinus rhythm and sinus tachycardia. He remains on IV steroids. OBJECTIVE: VITAL SIGNS: Blood pressure 134/65, pulse 71, respirations 19, and afebrile. LUNGS: Diminished breath sounds. Few rales. HEART: Regular rhythm. Rapid rate. Normal S1 and S2. ABDOMEN: Soft. EXTREMITIES: Trace edema. LABORATORY AND IMAGING DATA: He has had no new labs. HIDA scan today revealed no abnormality. IMPRESSION: 1. Chronic obstructive pulmonary disease exacerbation, bronchospasm, gram-negative bacteremia. 2. Lactic acidosis secondary to sinus tachycardia. 3. 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 Condition remains serious. PLAN: 1. Recheck lab studies. 2. Diuresis. 3. Trend natriuretic peptide assay. 4. Steroid taper as able. 5. Decrease BiPAP use as able. Recheck radiograph of the chest. 6. DVT and stress ulcer prophylaxis. 7. Antimicrobials per [facility]. Crescencio Hidalgo M.D. DR: MAG JOB#: [id number] CC:
[2018-08-22 04:00] VITALS: BP 144/58
[2018-08-22] MEDS: Piperacillin/Tazobactam 3.375 GM in NS 110 ML IVPB SCH (06:59)
--- NOTE | 2018-08-22 07:10 | NUR ---
HAND-OFF: Report given to Barby Dallas RN. Stable condition.
--- NOTE | 2018-08-22 07:42 | NUR ---
NURSE NOTES: Received report from ADOLFO Hogan. Patient in bed 45 degree, patient on 3L oxygen via NC. SOB at rest. Patient denies pain at this time, AO x4, A-fib with V-pacing with HR 70. Family member at bedside. Zaidi catheter draining well to gravity. IV site asymptomatic, patent, intact. Bed in lowest position, side rails up x3, call light within reach. Will continue to monitor.
[2018-08-22 08:00] VITALS: BP 128/63
[2018-08-22] MEDS: Solu-MEDROL 40mg Inj IVP SCH ×2 (08:10→18:18)
[2018-08-22] MEDS: dilTIAZem HCl CD 180mg cap ORAL SCH (08:12)
[2018-08-22] MEDS: Amiodarone 200mg tab ORAL SCH (08:12)
[2018-08-22] MEDS: Heparin 5000 units/ml inj SUBQ SCH ×2 (08:13→21:00)
[2018-08-22 08:33] LABS: HEMATOCRIT 33.9 % (42.0-52.0); HEMOGLOBIN 11.5 G/DL (14.2-18.0); MEAN CORPUSCULAR VOLUME 88 FL (80-99); PLATELET COUNT 140 K/UL (150-450); RED BLOOD COUNT 3.84 M/UL (4.70-6.10); WHITE BLOOD COUNT 16.9 K/UL (4.8-10.8)
--- NOTE | 2018-08-22 08:50 | Pulmonology Progress Note ---
Assessment/Plan Assessment/Plan IMPRESSION: 1. Pulmonary edema. 2. Advanced COPD. 3. Pacemaker. DISCUSSION: Continue supplemental o2 via VTM; may use BiPAP prn ABG reviewed On tele now Continue steroids; now tapering CXR shows small R effusion; will diurese Carl Contreras M.D. Subjective Interval Events: saturating well on 2L/min Constitutional: Reports: no symptoms HEENT: Repors: no symptoms Respiratory: Reports: no symptoms Cardiovascular: Reports: no symptoms Gastrointestinal/Abdominal: Reports: no symptoms Genitourinary: Reports: no symptoms Neurologic: Reports: no symptoms Allergies: Coded Allergies: No Known Allergies (Unverified , 08/12/18) Objective Last 24 Hour Vital Signs Date Time Temp Pulse Resp B/P (MAP) Pulse Ox O2 Delivery O2 Flow Rate FiO2 08/22/18 08:12 87 128/63 08/22/18 07:38 76 20 98 Nasal Cannula 3.0 32 08/22/18 07:28 73 20 97 Nasal Cannula 3.0 32 08/22/18 05:16 70 18 95 08/22/18 04:00 98.1 87 20 144/58 (86) 98 08/22/18 03:20 72 08/22/18 02:41 86 16 Bi-pap 28 08/22/18 02:26 89 20 98 Bi-pap 28 08/22/18 02:13 66 18 98 Nasal Cannula 3.0 32 08/22/18 02:13 72 20 98 Facial 28 08/22/18 01:42 157/65 08/22/18 00:00 98.4 68 20 157/65 (95) 99 08/21/18 23:40 67 20 98 Bi-pap 28 08/21/18 23:27 66 22 98 Facial 28 08/21/18 23:27 66 18 98 Bi-pap 28 08/21/18 23:20 79 08/21/18 21:00 24 08/21/18 21:00 Nasal Cannula 4.0 08/21/18 20:00 98.3 77 20 147/65 (92) 98 08/21/18 19:43 72 20 98 Nasal Cannula 3.0 32 08/21/18 19:32 72 18 96 Nasal Cannula 3.0 32 08/21/18 19:11 71 08/21/18 16:00 97.0 71 19 130/79 (96) 98 08/21/18 16:00 72 08/21/18 15:05 72 22 98 Nasal Cannula 3.0 32 08/21/18 14:54 72 19 94 Nasal Cannula 3.0 32 08/21/18 12:00 97.5 71 19 164/74 (104) 97 08/21/18 12:00 70 08/21/18 11:00 Nasal Cannula 08/21/18 11:00 Nasal Cannula 08/21/18 09:22 76 180/78 08/21/18 09:00 3.0 08/21/18 09:00 Nasal Cannula 3.0 Nasal Cannula 3.0 Nasal Cannula 3.0 Intake and Output 08/21/18 08/22/18 19:00 07:00 Intake Total 360 ml 120 ml Output Total 300 ml 300 ml Balance 60 ml -180 ml Intake Oral 360 ml 120 ml Output Urine Total 300 ml 300 ml # Voids 1 General Appearance: no acute distress HEENT: normocephalic Respiratory/Chest: chest wall non-tender, lungs clear Cardiovascular: normal peripheral pulses, normal rate Abdomen: normal bowel sounds, soft, non tender Laboratory Tests 08/22/18 06:30: White Blood Count 16.9H, Red Blood Count 3.84L, Hemoglobin 11.5L, Hematocrit 33.9L, Mean Corpuscular Volume 88, Mean Corpuscular Hemoglobin 30.0, Mean Corpuscular Hemoglobin Concent 33.9, Red Cell Distribution Width 14.0, Platelet Count 140L, Mean Platelet Volume 8.6, Neutrophils (%) (Auto) , Lymphocytes (%) ( Auto) , Monocytes (%) (Auto) , Eosinophils (%) (Auto) , Basophils (%) (Auto) , Neutrophils % (Manual) [Pending], Lymphocytes % (Manual) [Pending], Platelet Estimate [Pending], Platelet Morphology [Pending], Sodium Level [Pending], Potassium Level [Pending], Chloride Level [Pending], Carbon Dioxide Level [ Pending], Blood Urea Nitrogen [Pending], Creatinine [Pending], Estimat Glomerular Filtration Rate [Pending], Glucose Level [Pending], Lactic Acid Level [Pending], Calcium Level [Pending], Magnesium Level [Pending], Total Bilirubin [Pending], Aspartate Amino Transf (AST/SGOT) [Pending], Alanine Aminotransferase (ALT/SGPT) [Pending], Alkaline Phosphatase [Pending], Pro-B- Type Natriuretic Peptide [Pending], Total Protein [Pending], Albumin [Pending], Globulin [Pending] Current Medications Medications (Trade) Dose Ordered Sig/Dinorah Route PRN Reason Start Time Stop Time Status Last Admin Dose Admin Acetaminophen (Tylenol) 650 mg Q6H PRN ORAL Mild Pain/Temp > 100.5 08/20/18 00:30 09/11/18 12:29 Albuterol/ Ipratropium (Albuterol/ Ipratropium) 3 ml Q4HRT HHN 08/20/18 03:00 08/22/18 22:59 08/22/18 07:28 Amiodarone HCl (Cordarone) 100 mg DAILY ORAL 08/20/18 09:00 09/12/18 08:59 08/22/18 08:12 Diltiazem HCl (Cardizem CD) 180 mg DAILY ORAL 08/20/18 09:00 09/15/18 08:59 08/22/18 08:12 Heparin Sodium (Porcine) (Heparin 5000 units/ml) 5,000 units EVERY 12 HOURS SUBQ 08/20/18 09:00 09/11/18 20:59 08/22/18 08:13 Hydralazine HCl (Apresoline) 10 mg Q4H PRN IV SBP above 150mmHg 08/20/18 00:30 09/11/18 12:29 08/22/18 01:42 Levothyroxine Sodium (Synthroid) 150 mcg DAILY@0630 ORAL 08/20/18 06:30 09/12/18 06:29 08/22/18 07:00 Methylprednisolone Sodium Succinate (Solu-MEDROL) 40 mg BID IVP 08/20/18 09:00 09/15/18 11:59 08/22/18 08:10 Ondansetron HCl (Zofran) 4 mg Q6H PRN IVP Nausea & Vomiting 08/20/18 00:30 09/11/18 12:29 Pantoprazole (Protonix) 40 mg DAILY ORAL 08/20/18 09:00 09/11/18 19:59 08/22/18 08:10 Piperacillin Sod/ Tazobactam Sod 3.375 gm/Sodium Chloride 110 ml @ 27.5 mls/hr EVERY 8 HOURS IVPB 08/20/18 06:00 08/24/18 13:59 08/22/18 06:59 Pregabalin (Lyrica) 50 mg BEDTIME ORAL 08/20/18 21:00 09/11/18 21:29 08/21/18 21:10 Vancomycin HCl (Vanco rx to dose) 1 ea DAILY PRN MISC Per rx protocol 08/20/18 09:00 09/17/18 10:59 Vancomycin HCl 500 mg/Dextrose 110 ml @ 110 mls/hr Q24H IVPB 08/21/18 11:00 08/26/18 10:59 08/21/18 12:55 Carl Contreras MD Aug 22, 2018 08:50
[2018-08-22 09:40] LABS: ALANINE AMINOTRANSFERASE 168 U/L (12-78); ALBUMIN 2.7 G/DL (3.4-5.0); ALKALINE PHOSPHATASE 55 U/L (46-116); ANION GAP 10 mmol/L (5-15); ASPARTATE AMINO TRANSFERASE 43 U/L (15-37); BILIRUBIN,TOTAL 1.4 MG/DL (0.2-1.0); BLOOD UREA NITROGEN 37 mg/dL (7-18); CALCIUM 8.1 MG/DL (8.5-10.1); CARBON DIOXIDE 24 MMOL/L (21-32); CHLORIDE 107 MMOL/L (98-107); CREATININE 1.4 MG/DL (0.55-1.30); POTASSIUM 3.4 MMOL/L (3.5-5.1); SODIUM 141 MMOL/L (136-145)
[2018-08-22 09:41] LABS: BILIRUBIN,DIRECT 0.3 MG/DL (0.0-0.3)
--- NOTE | 2018-08-22 10:14 | General Progress Note ---
Assessment/Plan Problem List: (1) Sepsis ICD Codes: A41.9 - Sepsis, unspecified organism SNOMED: 31275963 Qualifiers: Qualified Codes: A41.9 - Sepsis, unspecified organism (2) COPD exacerbation ICD Codes: J44.1 - Chronic obstructive pulmonary disease with (acute) exacerbation SNOMED: 748270407 (3) Respiratory distress ICD Codes: R06.03 - Acute respiratory distress SNOMED: 695548745 Status: stable, progressing Assessment/Plan abx resp care/o2 amio for rate control bipap as needed cont steroids per pulm monitor labs replace k o2 lasix prn dc planning- improving Subjective ROS Limited/Unobtainable: No Constitutional: Reports: malaise, weakness HEENT: Reports: no symptoms Cardiovascular: Reports: no symptoms Respiratory: Reports: no symptoms Gastrointestinal/Abdominal: Reports: no symptoms Genitourinary: Reports: no symptoms Neurologic/Psychiatric: Reports: no symptoms Endocrine: Reports: no symptoms Hematologic/Lymphatic: Reports: no symptoms Allergies: Coded Allergies: No Known Allergies (Unverified , 08/12/18) All Systems: reviewed and negative except above Subjective no events. w/o complaints. decreased wheezing. less congested than yesterday. currently off bipap Objective Last 24 Hour Vital Signs Date Time Temp Pulse Resp B/P (MAP) Pulse Ox O2 Delivery O2 Flow Rate FiO2 08/22/18 09:00 3.0 08/22/18 09:00 Nasal Cannula 4.0 Nasal Cannula 3.0 08/22/18 08:12 87 128/63 08/22/18 08:00 97.9 82 21 128/63 (84) 95 08/22/18 07:38 76 20 98 Nasal Cannula 3.0 32 08/22/18 07:28 73 20 97 Nasal Cannula 3.0 32 08/22/18 05:16 70 18 95 08/22/18 04:00 98.1 87 20 144/58 (86) 98 08/22/18 03:20 72 08/22/18 02:41 86 16 Bi-pap 28 08/22/18 02:26 89 20 98 Bi-pap 28 08/22/18 02:13 66 18 98 Nasal Cannula 3.0 32 08/22/18 02:13 72 20 98 Facial 28 08/22/18 01:42 157/65 08/22/18 00:00 98.4 68 20 157/65 (95) 99 08/21/18 23:40 67 20 98 Bi-pap 28 08/21/18 23:27 66 22 98 Facial 28 08/21/18 23:27 66 18 98 Bi-pap 28 08/21/18 23:20 79 08/21/18 21:00 24 08/21/18 21:00 Nasal Cannula 4.0 08/21/18 20:00 98.3 77 20 147/65 (92) 98 08/21/18 19:43 72 20 98 Nasal Cannula 3.0 32 08/21/18 19:32 72 18 96 Nasal Cannula 3.0 32 08/21/18 19:11 71 08/21/18 16:00 97.0 71 19 130/79 (96) 98 08/21/18 16:00 72 08/21/18 15:05 72 22 98 Nasal Cannula 3.0 32 08/21/18 14:54 72 19 94 Nasal Cannula 3.0 32 08/21/18 12:00 97.5 71 19 164/74 (104) 97 08/21/18 12:00 70 08/21/18 11:00 Nasal Cannula 08/21/18 11:00 Nasal Cannula Intake and Output 08/21/18 08/22/18 19:00 07:00 Intake Total 360 ml 120 ml Output Total 300 ml 300 ml Balance 60 ml -180 ml Intake Oral 360 ml 120 ml Output Urine Total 300 ml 300 ml # Voids 1 Laboratory Tests 08/22/18 06:30: White Blood Count 16.9H, Red Blood Count 3.84L, Hemoglobin 11.5L, Hematocrit 33.9L, Mean Corpuscular Volume 88, Mean Corpuscular Hemoglobin 30.0, Mean Corpuscular Hemoglobin Concent 33.9, Red Cell Distribution Width 14.0, Platelet Count 140L, Mean Platelet Volume 8.6, Neutrophils (%) (Auto) , Lymphocytes (%) ( Auto) , Monocytes (%) (Auto) , Eosinophils (%) (Auto) , Basophils (%) (Auto) , Neutrophils % (Manual) [Pending], Lymphocytes % (Manual) [Pending], Platelet Estimate [Pending], Platelet Morphology [Pending], Sodium Level 141, Potassium Level 3.4L, Chloride Level 107, Carbon Dioxide Level 24, Anion Gap 10, Blood Urea Nitrogen 37H, Creatinine 1.4H, Estimat Glomerular Filtration Rate , Glucose Level 177H, Lactic Acid Level 1.40, Calcium Level 8.1L, Magnesium Level 2.5H, Total Bilirubin 1.4H, Direct Bilirubin 0.3, Aspartate Amino Transf (AST/ SGOT) 43H, Alanine Aminotransferase (ALT/SGPT) 168H, Alkaline Phosphatase 55, Pro-B-Type Natriuretic Peptide 38606S, Total Protein 5.4L, Albumin 2.7L, Globulin 2.7, Albumin/Globulin Ratio 1.0 08/22/18 09:50: Vancomycin Level Trough [Pending] Height (Feet): 5 Height (Inches): 5.00 Weight (Pounds): 135 Objective General Appearance: WD/WN, alert Neck: supple Cardiovascular: normal rate, regular rhythm Respiratory/Chest: no accessory muscle use, rhonchi - bilaterally, expiratory wheezing Abdomen: normal bowel sounds, non tender, soft Neurologic: scalp treatment operator II-XII grossly normal, alert, oriented x 3 Joshua Sultana MD Aug 22, 2018 10:14
--- NOTE | 2018-08-22 10:51 | Infectious Diseases Prog Note ---
Assessment/Plan Assessment/Plan antibiotics : vancomycin iv, zosyn A 1. MRSA pneumonia 2. CHF 3. leucocytosis increased likely secondary to steroids 4. renal failure improving 5. COPD 6. hypertension 7. sphingobacterium sepsis P 1. d.c iv vancomycin, zosyn 2. start and continue doxycycline 5 more days 3. will follow up cultures Subjective ROS Limited/Unobtainable: Yes Allergies: Coded Allergies: No Known Allergies (Unverified , 08/12/18) Objective Vital Signs Last 24 Hour Vital Signs Date Time Temp Pulse Resp B/P (MAP) Pulse Ox O2 Delivery O2 Flow Rate FiO2 08/22/18 09:00 3.0 08/22/18 09:00 Nasal Cannula 4.0 Nasal Cannula 3.0 08/22/18 08:12 87 128/63 08/22/18 08:00 97.9 82 21 128/63 (84) 95 08/22/18 07:38 76 20 98 Nasal Cannula 3.0 32 08/22/18 07:28 73 20 97 Nasal Cannula 3.0 32 08/22/18 05:16 70 18 95 08/22/18 04:00 98.1 87 20 144/58 (86) 98 08/22/18 03:20 72 08/22/18 02:41 86 16 Bi-pap 28 08/22/18 02:26 89 20 98 Bi-pap 28 08/22/18 02:13 66 18 98 Nasal Cannula 3.0 32 08/22/18 02:13 72 20 98 Facial 28 08/22/18 01:42 157/65 08/22/18 00:00 98.4 68 20 157/65 (95) 99 08/21/18 23:40 67 20 98 Bi-pap 28 08/21/18 23:27 66 22 98 Facial 28 08/21/18 23:27 66 18 98 Bi-pap 28 08/21/18 23:20 79 08/21/18 21:00 24 08/21/18 21:00 Nasal Cannula 4.0 08/21/18 20:00 98.3 77 20 147/65 (92) 98 08/21/18 19:43 72 20 98 Nasal Cannula 3.0 32 08/21/18 19:32 72 18 96 Nasal Cannula 3.0 32 08/21/18 19:11 71 08/21/18 16:00 97.0 71 19 130/79 (96) 98 08/21/18 16:00 72 08/21/18 15:05 72 22 98 Nasal Cannula 3.0 32 08/21/18 14:54 72 19 94 Nasal Cannula 3.0 32 08/21/18 12:00 97.5 71 19 164/74 (104) 97 08/21/18 12:00 70 08/21/18 11:00 Nasal Cannula 08/21/18 11:00 Nasal Cannula Height (Feet): 5 Height (Inches): 5.00 Weight (Pounds): 135 Respiratory/Chest: rhonchi - bilaterally Cardiovascular: normal rate, regular rhythm, no gallop/murmur Abdomen: soft, non tender Extremities: no edema Laboratory Tests Test 08/22/18 06:30 08/22/18 09:50 White Blood Count 16.9 K/UL (4.8-10.8) H Red Blood Count 3.84 M/UL (4.70-6.10) L Hemoglobin 11.5 G/DL (14.2-18.0) L Hematocrit 33.9 % (42.0-52.0) L Mean Corpuscular Volume 88 FL (80-99) Mean Corpuscular Hemoglobin 30.0 PG (27.0-31.0) Mean Corpuscular Hemoglobin Concent 33.9 G/DL (32.0-36.0) Red Cell Distribution Width 14.0 % (11.6-14.8) Platelet Count 140 K/UL (150-450) L Mean Platelet Volume 8.6 FL (6.5-10.1) Neutrophils (%) (Auto) % (45.0-75.0) Lymphocytes (%) (Auto) % (20.0-45.0) Monocytes (%) (Auto) % (1.0-10.0) Eosinophils (%) (Auto) % (0.0-3.0) Basophils (%) (Auto) % (0.0-2.0) Differential Total Cells Counted 100 Neutrophils % (Manual) 96 % (45-75) H Lymphocytes % (Manual) 1 % (20-45) L Monocytes % (Manual) 2 % (1-10) Eosinophils % (Manual) 0 % (0-3) Basophils % (Manual) 0 % (0-2) Band Neutrophils 1 % (0-8) Platelet Estimate Decreased L Platelet Morphology Normal Hypochromasia 1+ Sodium Level 141 MMOL/L (136-145) Potassium Level 3.4 MMOL/L (3.5-5.1) L Chloride Level 107 MMOL/L (98-107) Carbon Dioxide Level 24 MMOL/L (21-32) Anion Gap 10 mmol/L (5-15) Blood Urea Nitrogen 37 mg/dL (7-18) H Creatinine 1.4 MG/DL (0.55-1.30) H Estimat Glomerular Filtration Rate mL/min (>60) Glucose Level 177 MG/DL (74-106) H Lactic Acid Level 1.40 mmol/L (0.4-2.0) Calcium Level 8.1 MG/DL (8.5-10.1) L Magnesium Level 2.5 MG/DL (1.8-2.4) H Total Bilirubin 1.4 MG/DL (0.2-1.0) H Direct Bilirubin 0.3 MG/DL (0.0-0.3) Aspartate Amino Transf (AST/SGOT) 43 U/L (15-37) H Alanine Aminotransferase (ALT/SGPT) 168 U/L (12-78) H Alkaline Phosphatase 55 U/L (46-116) Pro-B-Type Natriuretic Peptide 67511 pg/mL (0-125) H Total Protein 5.4 G/DL (6.4-8.2) L Albumin 2.7 G/DL (3.4-5.0) L Globulin 2.7 g/dL Albumin/Globulin Ratio 1.0 (1.0-2.7) Vancomycin Level Trough Pending Current Medications Medications (Trade) Dose Ordered Sig/Dinorah Route PRN Reason Start Time Stop Time Status Last Admin Dose Admin Acetaminophen (Tylenol) 650 mg Q6H PRN ORAL Mild Pain/Temp > 100.5 08/20/18 00:30 09/11/18 12:29 Albuterol/ Ipratropium (Albuterol/ Ipratropium) 3 ml Q4HRT HHN 08/20/18 03:00 08/22/18 22:59 08/22/18 07:28 Amiodarone HCl (Cordarone) 100 mg DAILY ORAL 08/20/18 09:00 09/12/18 08:59 08/22/18 08:12 Diltiazem HCl (Cardizem CD) 180 mg DAILY ORAL 08/20/18 09:00 09/15/18 08:59 08/22/18 08:12 Heparin Sodium (Porcine) (Heparin 5000 units/ml) 5,000 units EVERY 12 HOURS SUBQ 08/20/18 09:00 09/11/18 20:59 08/22/18 08:13 Hydralazine HCl (Apresoline) 10 mg Q4H PRN IV SBP above 150mmHg 08/20/18 00:30 09/11/18 12:29 08/22/18 01:42 Levothyroxine Sodium (Synthroid) 150 mcg DAILY@0630 ORAL 08/20/18 06:30 09/12/18 06:29 08/22/18 07:00 Methylprednisolone Sodium Succinate (Solu-MEDROL) 40 mg BID IVP 08/20/18 09:00 09/15/18 11:59 08/22/18 08:10 Ondansetron HCl (Zofran) 4 mg Q6H PRN IVP Nausea & Vomiting 08/20/18 00:30 09/11/18 12:29 Pantoprazole (Protonix) 40 mg DAILY ORAL 08/20/18 09:00 09/11/18 19:59 08/22/18 08:10 Piperacillin Sod/ Tazobactam Sod 3.375 gm/Sodium Chloride 110 ml @ 27.5 mls/hr EVERY 8 HOURS IVPB 08/20/18 06:00 08/24/18 13:59 08/22/18 06:59 Potassium Chloride (K-Dur) 20 meq ONCE ORAL 08/22/18 10:15 08/22/18 11:30 08/22/18 10:41 Pregabalin (Lyrica) 50 mg BEDTIME ORAL 08/20/18 21:00 09/11/18 21:29 08/21/18 21:10 Vancomycin HCl (Vanco rx to dose) 1 ea DAILY PRN MISC Per rx protocol 08/20/18 09:00 09/17/18 10:59 Vancomycin HCl 500 mg/Dextrose 110 ml @ 110 mls/hr Q24H IVPB 08/21/18 11:00 08/26/18 10:59 08/21/18 12:55 Soo Almaraz MD Aug 22, 2018 10:51
--- NOTE | 2018-08-22 11:33 | NUR ---
RADIOLOGY DEPT CHEST X-RAY DONE.-P.DYE
[2018-08-22 12:00] VITALS: BP 154/72
--- NOTE | 2018-08-22 12:06 | Diagnostic Imaging Report ---
Indication: Cough Technique: One view of the chest Comparison: 08/17/2018 Findings: There is increasing opacity at the right lung base. Generalized interstitial edema persists, stable or slightly improved, allowing for differences in exposure technique. Bilateral pleural effusions are again demonstrated. The heart is enlarged. Left chest pacemaker again demonstrated Impression: Increasing right basilar opacity, may reflect increasing pleural fluid, increasing infiltrate, or both Stable to minimally improved interstitial edema Stable left pleural effusion
[2018-08-22 16:00] VITALS: BP 157/74
--- NOTE | 2018-08-22 19:10 | NUR ---
NURSE NOTES: Received report from Barby Dallas RN. Pt is in the bed c/o SOB and requesting breathing treatment by RT. RT was paged. HOB elevated 45 degree. Safety measures are applied with bed alarm on, bed in lowest position, and breaks are engaged. Call light and side table are w/in reach. Family is at the bedside. Will follow plans of care.
--- NOTE | 2018-08-22 19:54 | NUR ---
HAND-OFF: Report given to ADOLFO Hogan.
[2018-08-22 20:00] VITALS: BP 162/72
[2018-08-22] MEDS: Lyrica 50mg cap ORAL SCH (22:22)
[2018-08-23] VITALS: BP 158/67
[2018-08-23] MEDS: Albuterol/Ipratropium 3ml neb HHN SCH ×7 (00:39→23:02)
--- NOTE | 2018-08-23 00:45 | Progress Note ---
CARDIOLOGY PROGRESS NOTE DATE: 08/22/2018 SUBJECTIVE: The patient still has congestion, but less wheezing today. He is off BiPAP. Chest x-ray today reveals decreased edema, but residual infiltrate or effusion on the right, possibly increased. OBJECTIVE: VITAL SIGNS: Blood pressure 126/63, pulse 87, and respirations 21. Afebrile. LUNGS: Few rhonchi. CARDIOVASCULAR: Regular rhythm and rate. Normal S1, S2 with a fourth heart sound. ABDOMEN: Soft. EXTREMITIES: No edema. LABORATORY DATA: Sodium 141, potassium 3.4, bicarbonate 24, BUN 37, and creatinine 1.4. Lactic acid now normal. Magnesium 2.5. Pro-natriuretic peptide 22,000. IMPRESSION: 1. Pneumonia. 2. Pleural effusion. 3. Congestive heart failure due to systolic and diastolic dysfunction, improving. 4. Renal failure. 5. Moderate protein-calorie malnutrition. 6. Resolved lactic acidosis. 7. Gram negative sepsis. 8. Hypokalemia. 9. Chronic obstructive pulmonary disease exacerbation with paroxysmal bronchospasm. 10. Paroxysmal atrial fibrillation. PLAN: 1. Replace potassium. 2. Avoid positive fluid balance. 3. Periodic diuresis. 4. Respiratory hygiene. 5. Antimicrobials. 6. BiPAP as needed. 7. Taper steroids. 8. Continue inhaled bronchodilators and antibiotics. 9. Maintenance dose amiodarone. Crescencio Hidalgo M.D. DR: HUY JOB#: [id number] CC: DAVID
--- NOTE | 2018-08-23 02:19 | NUR ---
NURSE NOTES: Pt is sleeping in Bipap, saturating 98%, tolerating well. is at the bedside. Will continue to monitor.
[2018-08-23 04:00] VITALS: BP 148/63
--- NOTE | 2018-08-23 06:22 | NUR ---
NURSE NOTES: 800 ml urine out put noted. D/C charles order will be carried out.
--- NOTE | 2018-08-23 07:10 | NUR ---
HAND-OFF: Report given to Barby Dallas RN. Stable condition.
--- NOTE | 2018-08-23 07:33 | NUR ---
NURSE NOTES: Received report from ADOLFO Hogan. Patient in bed resting, receiving breathing treatment. AO x4, V-paced w/ A. fib with HR 72. Denies pain at this time, shallow breathing. Endorsed d/c charles catheter. Charles Catheter draining well to gravity. IV site asymptomatic, patent, intact. Family member at bedside. Bed in lowest position, side rails up x3, call light within reach. Will continue to monitor.
[2018-08-23 08:00] VITALS: BP 154/84
[2018-08-23] MEDS: Amiodarone 200mg tab ORAL SCH (09:00)
[2018-08-23] MEDS: Heparin 5000 units/ml inj SUBQ SCH ×2 (09:00→20:23)
[2018-08-23] MEDS: Solu-MEDROL 40mg Inj IVP SCH ×2 (09:00→17:23)
[2018-08-23] MEDS: dilTIAZem HCl CD 180mg cap ORAL SCH (09:00)
--- NOTE | 2018-08-23 09:30 | General Progress Note ---
Assessment/Plan Problem List: (1) Sepsis ICD Codes: A41.9 - Sepsis, unspecified organism SNOMED: [id number] Qualifiers: Qualified Codes: A41.9 - Sepsis, unspecified organism (2) COPD exacerbation ICD Codes: J44.1 - Chronic obstructive pulmonary disease with (acute) exacerbation SNOMED: 855825180 (3) Respiratory distress ICD Codes: R06.03 - Acute respiratory distress SNOMED: 854553463 Status: stable, progressing Assessment/Plan abx resp care/o2 amio for rate control bipap as needed cont steroids per pulm monitor labs and cxr diuresis per cards Subjective ROS Limited/Unobtainable: No Constitutional: Reports: malaise, weakness HEENT: Reports: no symptoms Cardiovascular: Reports: no symptoms Respiratory: Reports: cough, shortness of breath Gastrointestinal/Abdominal: Reports: no symptoms Genitourinary: Reports: no symptoms Neurologic/Psychiatric: Reports: no symptoms Endocrine: Reports: no symptoms Hematologic/Lymphatic: Reports: no symptoms Allergies: Coded Allergies: No Known Allergies (Unverified , 08/12/18) All Systems: reviewed and negative except above Subjective no events. w/o complaints. decreased wheezing. less congested than yesterday. currently off bipap cxr with increased infiltrate. Objective Last 24 Hour Vital Signs Date Time Temp Pulse Resp B/P (MAP) Pulse Ox O2 Delivery O2 Flow Rate FiO2 08/23/18 07:36 83 24 98 Nasal Cannula 3.0 32 08/23/18 07:24 81 24 93 Nasal Cannula 3.0 32 08/23/18 04:10 72 18 98 Bi-pap 25 08/23/18 04:00 98.1 74 20 148/63 (91) 98 08/23/18 04:00 75 08/23/18 03:58 71 18 96 Bi-pap 28 08/23/18 00:59 76 23 98 Facial 28 08/23/18 00:39 72 18 Nasal Cannula 3.0 32 08/23/18 00:39 72 18 95 Nasal Cannula 3.0 32 08/23/18 00:00 97.8 72 20 158/67 (97) 96 08/22/18 23:45 72 08/22/18 22:23 162/72 08/22/18 21:00 Nasal Cannula 3.0 Nasal Cannula 3.0 1/29/19 21:00 3.0 08/22/18 20:44 72 18 98 Nasal Cannula 3.0 32 08/22/18 20:31 71 18 96 Nasal Cannula 3.0 32 08/22/18 20:00 98.0 71 20 162/72 (102) 96 08/22/18 19:33 71 08/22/18 16:33 69 20 95 Nasal Cannula 3.0 32 08/22/18 16:00 97.9 72 20 157/74 (101) 97 08/22/18 16:00 74 08/22/18 12:00 71 08/22/18 12:00 97.3 76 20 154/72 (99) 99 08/22/18 11:51 71 20 99 Nasal Cannula 3.0 32 08/22/18 11:41 70 20 96 Nasal Cannula 3.0 32 Intake and Output 08/22/18 08/23/18 19:00 07:00 Intake Total 500 ml 500 ml Output Total 1300 ml Balance 500 ml -800 ml Intake Oral 500 ml 260 ml Other 240 ml Output Urine Total 1300 ml # Bowel Movements 2 Laboratory Tests 08/22/18 09:50: Vancomycin Level Trough 7.8 Height (Feet): 5 Height (Inches): 5.00 Weight (Pounds): 139 Objective General Appearance: WD/WN, alert Neck: supple Cardiovascular: normal rate, regular rhythm Respiratory/Chest: no accessory muscle use, rhonchi - bilaterally, expiratory wheezing Abdomen: normal bowel sounds, non tender, soft Neurologic: internal medicine doctor II-XII grossly normal, alert, oriented x 3 Joshua Sultana MD Aug 23, 2018 09:30
--- NOTE | 2018-08-23 09:37 | Pulmonology Progress Note ---
Assessment/Plan Assessment/Plan IMPRESSION: 1. Pulmonary edema. 2. Advanced COPD. 3. Pacemaker. DISCUSSION: Continue supplemental o2 via VTM; may use BiPAP prn ABG reviewed On tele now Continue steroids; now tapering CXR shows small R effusion; will diurese Carl Contreras M.D. Subjective Interval Events: None new Constitutional: Reports: no symptoms HEENT: Repors: no symptoms Respiratory: Reports: no symptoms Cardiovascular: Reports: no symptoms Gastrointestinal/Abdominal: Reports: no symptoms Genitourinary: Reports: no symptoms Neurologic: Reports: no symptoms Allergies: Coded Allergies: No Known Allergies (Unverified , 08/12/18) Objective Last 24 Hour Vital Signs Date Time Temp Pulse Resp B/P (MAP) Pulse Ox O2 Delivery O2 Flow Rate FiO2 08/23/18 07:36 83 24 98 Nasal Cannula 3.0 32 08/23/18 07:24 81 24 93 Nasal Cannula 3.0 32 08/23/18 04:10 72 18 98 Bi-pap 25 08/23/18 04:00 98.1 74 20 148/63 (91) 98 08/23/18 04:00 75 08/23/18 03:58 71 18 96 Bi-pap 28 08/23/18 00:59 76 23 98 Facial 28 08/23/18 00:39 72 18 Nasal Cannula 3.0 32 08/23/18 00:39 72 18 95 Nasal Cannula 3.0 32 08/23/18 00:00 97.8 72 20 158/67 (97) 96 08/22/18 23:45 72 08/22/18 22:23 162/72 08/22/18 21:00 Nasal Cannula 3.0 Nasal Cannula 3.0 08/22/18 21:00 3.0 08/22/18 20:44 72 18 98 Nasal Cannula 3.0 32 08/22/18 20:31 71 18 96 Nasal Cannula 3.0 32 08/22/18 20:00 98.0 71 20 162/72 (102) 96 08/22/18 19:33 71 08/22/18 16:33 69 20 95 Nasal Cannula 3.0 32 08/22/18 16:00 97.9 72 20 157/74 (101) 97 08/22/18 16:00 74 08/22/18 12:00 71 08/22/18 12:00 97.3 76 20 154/72 (99) 99 08/22/18 11:51 71 20 99 Nasal Cannula 3.0 32 08/22/18 11:41 70 20 96 Nasal Cannula 3.0 32 Intake and Output 08/22/18 08/23/18 19:00 07:00 Intake Total 500 ml 500 ml Output Total 1300 ml Balance 500 ml -800 ml Intake Oral 500 ml 260 ml Other 240 ml Output Urine Total 1300 ml # Bowel Movements 2 General Appearance: no acute distress HEENT: normocephalic Respiratory/Chest: chest wall non-tender, lungs clear Cardiovascular: normal peripheral pulses Abdomen: normal bowel sounds, soft, non tender Laboratory Tests 08/22/18 09:50: Vancomycin Level Trough 7.8 Current Medications Medications (Trade) Dose Ordered Sig/Dinorah Route PRN Reason Start Time Stop Time Status Last Admin Dose Admin Acetaminophen (Tylenol) 650 mg Q6H PRN ORAL Mild Pain/Temp > 100.5 08/20/18 00:30 09/11/18 12:29 Albuterol/ Ipratropium (Albuterol/ Ipratropium) 3 ml Q4HRT HHN 08/23/18 00:00 08/28/18 00:00 08/23/18 07:23 Amiodarone HCl (Cordarone) 100 mg DAILY ORAL 08/20/18 09:00 09/12/18 08:59 08/22/18 08:12 Diltiazem HCl (Cardizem CD) 180 mg DAILY ORAL 08/20/18 09:00 09/15/18 08:59 08/22/18 08:12 Doxycycline Monohydrate (Vibramycin) 100 mg EVERY 12 HOURS ORAL 08/22/18 11:30 08/29/18 11:29 08/22/18 22:22 Heparin Sodium (Porcine) (Heparin 5000 units/ml) 5,000 units EVERY 12 HOURS SUBQ 08/20/18 09:00 09/11/18 20:59 08/22/18 08:13 Hydralazine HCl (Apresoline) 10 mg Q4H PRN IV SBP above 150mmHg 08/20/18 00:30 09/11/18 12:29 08/22/18 22:23 Levothyroxine Sodium (Synthroid) 150 mcg DAILY@0630 ORAL 08/20/18 06:30 09/12/18 06:29 08/23/18 06:12 Methylprednisolone Sodium Succinate (Solu-MEDROL) 40 mg BID IVP 08/20/18 09:00 09/15/18 11:59 08/22/18 18:18 Ondansetron HCl (Zofran) 4 mg Q6H PRN IVP Nausea & Vomiting 08/20/18 00:30 09/11/18 12:29 Pantoprazole (Protonix) 40 mg DAILY ORAL 08/20/18 09:00 09/11/18 19:59 08/22/18 08:10 Pregabalin (Lyrica) 50 mg BEDTIME ORAL 08/20/18 21:00 09/11/18 21:29 08/22/18 22:22 Carl Contrears MD Aug 23, 2018 09:37
[2018-08-23 10:06] LABS: HEMATOCRIT 36.1 % (42.0-52.0); HEMOGLOBIN 12.1 G/DL (14.2-18.0); MEAN CORPUSCULAR VOLUME 89 FL (80-99); PLATELET COUNT 130 K/UL (150-450); RED BLOOD COUNT 4.04 M/UL (4.70-6.10); RED CELL DISTRIBUTION WIDTH 14.4 % (11.6-14.8); WHITE BLOOD COUNT 20.8 K/UL (4.8-10.8)
--- NOTE | 2018-08-23 10:13 | NUR ---
NURSE NOTES: All morning medication administered as prescribed. Was not able to scan medications, CN made aware, pharmacy made aware. Will continue to monitor.
[2018-08-23 10:37] LABS: ALANINE AMINOTRANSFERASE 198 U/L (12-78); ALBUMIN 2.6 G/DL (3.4-5.0); ALKALINE PHOSPHATASE 59 U/L (46-116); ANION GAP 13 mmol/L (5-15); ASPARTATE AMINO TRANSFERASE 73 U/L (15-37); BLOOD UREA NITROGEN 41 mg/dL (7-18); CALCIUM 8.1 MG/DL (8.5-10.1); CARBON DIOXIDE 21 MMOL/L (21-32); CHLORIDE 106 MMOL/L (98-107); CREATININE 1.4 MG/DL (0.55-1.30); POTASSIUM 4.1 MMOL/L (3.5-5.1); SODIUM 140 MMOL/L (136-145)
--- NOTE | 2018-08-23 11:08 | Infectious Diseases Prog Note ---
Assessment/Plan Assessment/Plan antibiotics : doxycycline A 1. MRSA pneumonia 2. CHF 3. leucocytosis increased likely secondary to steroids 4. renal failure improving 5. COPD 6. hypertension 7. sphingobacterium sepsis s/p rx P 1. continue doxycycline 4 more days 2. will follow up cultures Subjective Constitutional: Denies: fever, chills Respiratory: Reports: shortness of breath; Denies: dry cough Gastrointestinal/Abdominal: Denies: nausea, vomiting, diarrhea Musculoskeletal: Denies: pain Allergies: Coded Allergies: No Known Allergies (Unverified , 08/12/18) Objective Vital Signs Last 24 Hour Vital Signs Date Time Temp Pulse Resp B/P (MAP) Pulse Ox O2 Delivery O2 Flow Rate FiO2 08/23/18 09:00 Nasal Cannula 3.0 Nasal Cannula 3.0 08/23/18 09:00 3.0 08/23/18 09:00 77 154/84 08/23/18 08:00 97.9 77 20 154/84 (107) 96 08/23/18 07:36 83 24 98 Nasal Cannula 3.0 32 08/23/18 07:24 81 24 93 Nasal Cannula 3.0 32 08/23/18 04:10 72 18 98 Bi-pap 25 08/23/18 04:00 98.1 74 20 148/63 (91) 98 08/23/18 04:00 75 08/23/18 03:58 71 18 96 Bi-pap 28 08/23/18 00:59 76 23 98 Facial 28 08/23/18 00:39 72 18 Nasal Cannula 3.0 32 08/23/18 00:39 72 18 95 Nasal Cannula 3.0 32 08/23/18 00:00 97.8 72 20 158/67 (97) 96 08/22/18 23:45 72 08/22/18 22:23 162/72 08/22/18 21:00 Nasal Cannula 3.0 Nasal Cannula 3.0 08/22/18 21:00 3.0 08/22/18 20:44 72 18 98 Nasal Cannula 3.0 32 08/22/18 20:31 71 18 96 Nasal Cannula 3.0 32 08/22/18 20:00 98.0 71 20 162/72 (102) 96 08/22/18 19:33 71 08/22/18 16:33 69 20 95 Nasal Cannula 3.0 32 08/22/18 16:00 97.9 72 20 157/74 (101) 97 08/22/18 16:00 74 08/22/18 12:00 71 08/22/18 12:00 97.3 76 20 154/72 (99) 99 08/22/18 11:51 71 20 99 Nasal Cannula 3.0 32 08/22/18 11:41 70 20 96 Nasal Cannula 3.0 32 Height (Feet): 5 Height (Inches): 5.00 Weight (Pounds): 139 Respiratory/Chest: rhonchi - bilaterally Cardiovascular: normal rate, regular rhythm, no gallop/murmur Abdomen: soft, non tender Extremities: no edema Laboratory Tests Test 08/23/18 09:57 White Blood Count 20.8 K/UL (4.8-10.8) H Red Blood Count 4.04 M/UL (4.70-6.10) L Hemoglobin 12.1 G/DL (14.2-18.0) L Hematocrit 36.1 % (42.0-52.0) L Mean Corpuscular Volume 89 FL (80-99) Mean Corpuscular Hemoglobin 30.0 PG (27.0-31.0) Mean Corpuscular Hemoglobin Concent 33.6 G/DL (32.0-36.0) Red Cell Distribution Width 14.4 % (11.6-14.8) Platelet Count 130 K/UL (150-450) L Mean Platelet Volume 8.7 FL (6.5-10.1) Neutrophils (%) (Auto) % (45.0-75.0) Lymphocytes (%) (Auto) % (20.0-45.0) Monocytes (%) (Auto) % (1.0-10.0) Eosinophils (%) (Auto) % (0.0-3.0) Basophils (%) (Auto) % (0.0-2.0) Neutrophils % (Manual) Pending Lymphocytes % (Manual) Pending Platelet Estimate Pending Platelet Morphology Pending Sodium Level 140 MMOL/L (136-145) Potassium Level 4.1 MMOL/L (3.5-5.1) Chloride Level 106 MMOL/L (98-107) Carbon Dioxide Level 21 MMOL/L (21-32) Anion Gap 13 mmol/L (5-15) Blood Urea Nitrogen 41 mg/dL (7-18) H Creatinine 1.4 MG/DL (0.55-1.30) H Estimat Glomerular Filtration Rate mL/min (>60) Glucose Level 243 MG/DL (74-106) H Calcium Level 8.1 MG/DL (8.5-10.1) L Total Bilirubin 1.0 MG/DL (0.2-1.0) Aspartate Amino Transf (AST/SGOT) 73 U/L (15-37) H Alanine Aminotransferase (ALT/SGPT) 198 U/L (12-78) H Alkaline Phosphatase 59 U/L (46-116) Total Protein 5.3 G/DL (6.4-8.2) L Albumin 2.6 G/DL (3.4-5.0) L Globulin 2.7 g/dL Albumin/Globulin Ratio 1.0 (1.0-2.7) Current Medications Medications (Trade) Dose Ordered Sig/Dinorah Route PRN Reason Start Time Stop Time Status Last Admin Dose Admin Acetaminophen (Tylenol) 650 mg Q6H PRN ORAL Mild Pain/Temp > 100.5 08/20/18 00:30 09/11/18 12:29 Albuterol/ Ipratropium (Albuterol/ Ipratropium) 3 ml Q4HRT HHN 08/23/18 00:00 08/28/18 00:00 08/23/18 07:23 Amiodarone HCl (Cordarone) 100 mg DAILY ORAL 08/20/18 09:00 09/12/18 08:59 08/23/18 09:00 Diltiazem HCl (Cardizem CD) 180 mg DAILY ORAL 08/20/18 09:00 09/15/18 08:59 08/23/18 09:00 Doxycycline Monohydrate (Vibramycin) 100 mg EVERY 12 HOURS ORAL 08/22/18 11:30 08/29/18 11:29 08/23/18 09:00 Heparin Sodium (Porcine) (Heparin 5000 units/ml) 5,000 units EVERY 12 HOURS SUBQ 08/20/18 09:00 09/11/18 20:59 08/23/18 09:00 Hydralazine HCl (Apresoline) 10 mg Q4H PRN IV SBP above 150mmHg 08/20/18 00:30 09/11/18 12:29 08/22/18 22:23 Levothyroxine Sodium (Synthroid) 150 mcg DAILY@0630 ORAL 08/20/18 06:30 09/12/18 06:29 08/23/18 06:12 Methylprednisolone Sodium Succinate (Solu-MEDROL) 40 mg BID IVP 08/20/18 09:00 09/15/18 11:59 08/23/18 09:00 Ondansetron HCl (Zofran) 4 mg Q6H PRN IVP Nausea & Vomiting 08/20/18 00:30 09/11/18 12:29 Pantoprazole (Protonix) 40 mg DAILY ORAL 08/20/18 09:00 09/11/18 19:59 08/23/18 09:00 Pregabalin (Lyrica) 50 mg BEDTIME ORAL 08/20/18 21:00 09/11/18 21:29 08/22/18 22:22 Soo Almaraz MD Aug 23, 2018 11:08
--- NOTE | 2018-08-23 11:33 | NUR ---
RD ASSESSMENT & RECOMMENDATIONS SEE CARE ACTIVITY FOR COMPLETE ASSESSMENT DAILY ESTIMATED NEEDS: Needs based on Pulmonary 61kg 25-30 kcals/kg 2391-7385 total kcals 1-1.5 g protein/kg 61-92 g total protein Fluid per MD, was on lasix mL/kg total fluid mLs NUTRITION DIAGNOSIS: 1) Decreased sodium needs r/t clinical status as evidenced by elev creat, elev LFT's, elev BNP (98270). 2) Altered nutrition related lab values r/t steroidal meds as evidenced by pt w/ COPD, on solumedrol, elev BG (177-190). CURRENT DIET:Low Na soft easy chew PO DIET RECOMMENDATIONS: LOW NA, CCHO MED (texture as tolerated) ADDITIONAL RECOMMENDATIONS: 1) Add carb restriction for improved BG control- on solumedrol 2) Obtain a standing weight as able 3) Rec SSI coverage for glycemic control while on solumedrol 4) Check A1C for eval of glycemic control
[2018-08-23 12:00] VITALS: BP 152/74
--- NOTE | 2018-08-23 12:00 | NUR ---
NURSE NOTES: Patient's caregiver came up to the station and complains patient's hearing aids are missing. Patient and patient caregiver assume that hearing aids might have been placed between dirty linen. Patient's wound care technician stated, "he used to wear hearing aids at night time, but now he does not wear them. So, it may be placed in dirty linen." Per patient's preference, RN searched all dirty linen of the floor but hearing aids not found. CN made aware. Will continue to follow up.
--- NOTE | 2018-08-23 14:29 | NUR ---
NURSE NOTES: Dr. Hidalgo made aware patient was not able to urinate after discontinue of charles catheter at 0833. Bladder scan done 270ml. Per Dr. Hidalgo, wait an hour more then follow up. Will continue to monitor.
[2018-08-23 16:00] VITALS: BP 142/76
--- NOTE | 2018-08-23 16:45 | NUR ---
NURSE NOTES: Dr. Hidalgo at the station, made aware patient still unable to urinate after charles catheter removal at 0830. Bladder scan 311ml. Per Dr. Hidalgo, sit patient at bedside and wait more. Will continue to monitor.
--- NOTE | 2018-08-23 18:10 | NUR ---
NURSE NOTES: Paged Dr. Hidalgo regarding patient being unable to urinate since 829 after discontinue of charles catheter, bladder scan 400mL. Awaiting for callback. Will continue to monitor
--- NOTE | 2018-08-23 18:55 | NUR ---
NURSE NOTES: Paged Dr. Hidalgo 2nd time regarding unable to urinate after discontinuation of charles catheter, and patient c/o discomfort. Will continue to monitor.
--- NOTE | 2018-08-23 19:26 | NUR ---
NURSE NOTES: Per patient's adult care provider, hearing aid found at room. CN made aware.
--- NOTE | 2018-08-23 19:27 | NUR ---
HAND-OFF: Report given to ADOLFO Lizama.
--- NOTE | 2018-08-23 19:30 | NUR ---
NURSE NOTES: Pt received from Zahra Dallas RN alert and oriented x4, primarily Greek-speaking with family at the bedside. No complaints or s/s of pain, SOB, or n/v. IV site asymptomatic and patent. Bed in lowest position, call light and belongings within reach.
--- NOTE | 2018-08-23 19:45 | NUR ---
NURSE NOTES: Received call back from Dr. Bañuelos regarding post void residual of 400 mL upon bladder scan. Per Dr. Bañuelos, insert charles catheter.
[2018-08-23 20:00] VITALS: BP 162/61
[2018-08-23] MEDS: Lyrica 50mg cap ORAL SCH (20:18)
[2018-08-23] MEDS: Tamsulosin 0.4mg cap ORAL SCH (20:18)
--- NOTE | 2018-08-23 21:30 | Consultation ---
DATE OF CONSULTATION: 08/23/2018 CONSULTING PHYSICIAN: Jovanny Bañuelos M.D. REFERRING PHYSICIAN: Crescencio Hidalgo M.D. REASON FOR CONSULTATION: For evaluation of urinary retention. HISTORY OF PRESENT ILLNESS: This is an 82-year-old male. He was admitted to the hospital because of respiratory failure, chronic obstructive pulmonary disease exacerbation. He has been in the hospital for an extended period. He has had difficulty urinating with urinary retention. Urology evaluation requested. His Zaidi was taken out. Again, this morning he was unable to urinate. Zaidi was replaced 400 mL of residual urine. PAST MEDICAL HISTORY: Significant for above, hypertension, chronic obstructive pulmonary disease, osteoarthritis, degenerative disk disease, peptic ulcer disease, hyperlipidemia, and BPH. PAST SURGICAL HISTORY: He has had pacemaker placement. Other surgeries are unknown. MEDICATIONS: Current medications here in the hospital, the patient is on albuterol, Vibramycin, Lyrica, Cardura, Cardizem, heparin, Protonix, Synthroid, Tylenol, Apresoline, and Zofran. ALLERGIES: No known drug allergies. SOCIAL HISTORY: Smoking history is unknown. FAMILY HISTORY: Noncontributory. REVIEW OF SYSTEMS: Unable to obtain. PHYSICAL EXAMINATION: GENERAL: Elderly male, in no acute distress. VITAL SIGNS: Temperature is 97.3, blood pressure is 142/76, pulse is 82, and respirations 20. HEENT: Normocephalic. NECK: Supple. ABDOMEN: Soft. GENITOURINARY: Normal phallus. Zaidi was placed with gross urine draining. Prostate exam reveals a firm prostate about 40 g. EXTREMITIES: No clubbing, cyanosis. LABORATORY DATA: UA showed 30 to 40 RBCs, 1+ glucose. White count is 20.8, hemoglobin 12.1, and platelets are 130. BUN is 41, creatinine is 1.4. He did have a creatinine as high as 2.2 on admission. His last urine culture from the 08/13/2018 was negative. He did have blood cultures that showed Gram-negative rods. DIAGNOSTIC IMAGING STUDIES: The patient had an abdominal ultrasound and there was mention of small lower pole left renal cyst and possibly a small angiomyolipoma in the right kidney. IMPRESSION: 1. Urinary retention. 2. Benign prostatic hypertrophy. 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 4. Renal insufficiency, acute on chronic. 5. Hematuria. 6. Renal cyst. 7. Small angiomyolipoma. PLAN AND DISCUSSION: Again as noted above, the patient was not able to urinate after Zaidi removal. I did personally hope the nursing staff place a Zaidi catheter tonight and there was return of the yellowish urine. The retention is probably secondary to combination of BPH related to bladder outlet obstruction, possible atonic neurogenic bladder because of lack of mobility and some of the medications including albuterol. At this time, I would recommend starting the patient on Flomax with repeat voiding trial once he is more alert and ambulatory. The above was discussed with the patient's family. Thank you, Dr. Hidalgo, for asking me to participate in this consultation. Jovanny Bañuelos M.D. DR: RACHEL JOB#: [id number] CC:
[2018-08-24] VITALS (7 sets, daily range): BP systolic 144–166; BP diastolic 55–73
[2018-08-24 00:28] LABS: APPEARANCE,URINE CLEAR; BILIRUBIN, URINE NEGATIVE (NEGATIVE); GLUCOSE, URINE (UA) 4+ (NEGATIVE); KETONES,URINE NEGATIVE (NEGATIVE); LEUKOCYTE ESTERASE ,URINE NEGATIVE (NEGATIVE); NITRITE,URINE NEGATIVE (NEGATIVE); PH,URINE 5 (4.5-8.0); PROTEIN,URINE 3+ (NEGATIVE); UROBILINOGEN,URINE NORMAL MG/DL (0.0-1.0)
--- NOTE | 2018-08-24 00:30 | Progress Note ---
CARDIOLOGY PROGRESS NOTE DATE: 08/23/2018` SUBJECTIVE: The patient is without chest pain. He still is quite weak and unable to walk. Less congestion. Zaidi catheter was removed. The patient remained unable to void for eight hours. It was replaced. OBJECTIVE: VITAL SIGNS: Blood pressure 148/63, pulse 74, and respirations 20. Afebrile. LUNGS: Diminished breath sounds. Few rhonchi. No wheezing. HEART: Regular rhythm and rate. Normal S1, S2. ABDOMEN: Soft. EXTREMITIES: Trace edema. LABORATORY DATA: White count 20, hemoglobin 12. Potassium 4.1, BUN 41, and creatinine 1.4. Albumin 3.6. IMPRESSION: 1. Urinary retention. 2. Persistent leukocytosis. 3. MRSA pneumonia. 4. Gram-negative bacteremia. 5. Chronic obstructive pulmonary disease. 6. Acute on chronic renal failure. 7. 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 8. Steroid myopathy and functional decline. PLAN: 1. Antibiotics per Infectious Disease computer systems consultant. 2. Steroid taper. 3. Follow up CBC. 4. Continue Zaidi catheter. 5. Recheck urine studies. 6. Inhaled bronchodilators. 7. Mobilization with physical therapy. 8. Periodic diuresis. Crescencio Hidalgo M.D. DR: HUY JOB#: [id number] CC:
[2018-08-24 01:20] LABS: COLOR,URINE YELLOW
--- NOTE | 2018-08-24 01:35 | NUR ---
RESPIRATORY NOTE: Pt placed on BiPAP for nightly use. Pt now on BiPAP 15/, backup rate 16, 30%. Placed on a Facial mask,skin intact, no redness/breakdown noted. Foam tape applied on pt's nosebridge/cheeks/chin to prevent any irritations. Pt alert/awake, follows commands, family at bedside. B/S alisha. diminished/wheezes, nonproductive cough. BiPAP plugged into red outlet. Pt in no apparent distress at this time.Will continue plan of care.
[2018-08-24] MEDS: Albuterol/Ipratropium 3ml neb HHN SCH ×6 (03:40→23:39)
[2018-08-24] MEDS ORDERED: NovoLOG Insulin Flexpen SUBQ SCH (06:30)
[2018-08-24] MEDS: NovoLOG Insulin Flexpen SUBQ SCH ×4 (06:33→20:58)
[2018-08-24 07:00] LABS: HEMATOCRIT 35.5 % (42.0-52.0); HEMOGLOBIN 12.2 G/DL (14.2-18.0); MEAN CORPUSCULAR VOLUME 88 FL (80-99); PLATELET COUNT 128 K/UL (150-450); RED BLOOD COUNT 4.04 M/UL (4.70-6.10); RED CELL DISTRIBUTION WIDTH 14.2 % (11.6-14.8); WHITE BLOOD COUNT 19.4 K/UL (4.8-10.8)
--- NOTE | 2018-08-24 07:00 | NUR ---
RESPIRATORY NOTE: pt received on 2L NC, pt is alert, no SOB or discomfort noted, no redness or skin tear noted on face, sat 97% will continue to monitor the pt
--- NOTE | 2018-08-24 07:30 | NUR ---
NURSE NOTES: Received report from ADOLFO Lizama. Patient is in stable condition. No acute distress/SOB noted. is at the bedside. Will continue plan of care.
--- NOTE | 2018-08-24 07:35 | NUR ---
HAND-OFF: Report given to Aldo Kahn RN.
[2018-08-24 07:43] LABS: ALANINE AMINOTRANSFERASE 240 U/L (12-78); ALBUMIN 2.7 G/DL (3.4-5.0); ALKALINE PHOSPHATASE 61 U/L (46-116); ANION GAP 8 mmol/L (5-15); ASPARTATE AMINO TRANSFERASE 81 U/L (15-37); BILIRUBIN,TOTAL 1.2 MG/DL (0.2-1.0); BLOOD UREA NITROGEN 42 mg/dL (7-18); CALCIUM 7.9 MG/DL (8.5-10.1); CARBON DIOXIDE 25 MMOL/L (21-32); CHLORIDE 107 MMOL/L (98-107); CREATININE 1.3 MG/DL (0.55-1.30); POTASSIUM 4.1 MMOL/L (3.5-5.1); SODIUM 140 MMOL/L (136-145)
[2018-08-24 07:46] LABS: BILIRUBIN,DIRECT 0.2 MG/DL (0.0-0.3)
--- NOTE | 2018-08-24 08:02 | General Progress Note ---
Assessment/Plan Problem List: (1) Sepsis ICD Codes: A41.9 - Sepsis, unspecified organism SNOMED: 79909345 Qualifiers: Qualified Codes: A41.9 - Sepsis, unspecified organism (2) COPD exacerbation ICD Codes: J44.1 - Chronic obstructive pulmonary disease with (acute) exacerbation SNOMED: 538549072 (3) Respiratory distress ICD Codes: R06.03 - Acute respiratory distress SNOMED: 272108401 Status: stable Assessment/Plan abx resp care/o2 amio for rate control bipap as needed cont steroids per pulm monitor labs and cxr diuresis per cards ct abd surgery eval Subjective ROS Limited/Unobtainable: No Constitutional: Reports: malaise, weakness HEENT: Reports: no symptoms Cardiovascular: Reports: no symptoms Respiratory: Reports: no symptoms Gastrointestinal/Abdominal: Reports: no symptoms Genitourinary: Reports: no symptoms Neurologic/Psychiatric: Reports: no symptoms Endocrine: Reports: no symptoms Hematologic/Lymphatic: Reports: anemia Allergies: Coded Allergies: No Known Allergies (Unverified , 08/12/18) All Systems: reviewed and negative except above Subjective no events. w/o complaints. decreased wheezing. less congested than yesterday. currently off bipap cxr with increased infiltrate. c/o ruq abd pain with eating Objective Last 24 Hour Vital Signs Date Time Temp Pulse Resp B/P (MAP) Pulse Ox O2 Delivery O2 Flow Rate FiO2 08/24/18 04:00 86 08/24/18 04:00 97.1 84 20 166/71 (102) 96 08/24/18 03:50 93 30 97 Bi-pap 30 08/24/18 03:40 91 25 93 Bi-pap 30 08/24/18 03:40 91 25 93 Facial 30 08/24/18 01:34 85 29 95 Facial 30 08/24/18 00:43 165/73 08/24/18 00:20 89 145/72 (96) 08/24/18 00:00 98.2 76 20 165/73 (103) 95 08/24/18 00:00 78 08/23/18 23:12 71 20 97 Nasal Cannula 3.0 32 08/23/18 23:02 76 20 93 Nasal Cannula 3.0 32 08/23/18 21:00 28 08/23/18 21:00 Nasal Cannula 3.0 Nasal Cannula 3.0 08/23/18 20:00 98.2 73 20 162/61 (94) 95 08/23/18 20:00 79 08/23/18 19:49 74 22 98 Nasal Cannula 3.0 32 08/23/18 19:39 73 20 94 Nasal Cannula 3.0 32 08/23/18 19:39 Nasal Cannula 3.0 32 08/23/18 19:39 94 Nasal Cannula 3.0 32 08/23/18 16:00 82 08/23/18 16:00 97.3 73 20 142/76 (98) 96 08/23/18 15:17 84 20 97 Nasal Cannula 2.0 28 08/23/18 15:05 86 21 93 Nasal Cannula 2.0 28 08/23/18 12:00 97.9 77 20 152/74 (100) 98 08/23/18 12:00 73 08/23/18 11:21 86 21 98 Nasal Cannula 2.0 28 08/23/18 11:11 84 21 94 Nasal Cannula 2.0 28 08/23/18 09:00 Nasal Cannula 3.0 Nasal Cannula 3.0 08/23/18 09:00 3.0 08/23/18 09:00 77 154/84 08/23/18 08:00 97.9 77 20 154/84 (107) 96 08/23/18 08:00 89 Intake and Output 08/23/18 08/24/18 19:00 07:00 Intake Total 620 ml Output Total 650 ml Balance 620 ml -650 ml Intake Oral 620 ml Output Urine Total 650 ml # Bowel Movements 1 Laboratory Tests 08/23/18 09:57: White Blood Count 20.8H, Red Blood Count 4.04L, Hemoglobin 12.1L, Hematocrit 36.1L, Mean Corpuscular Volume 89, Mean Corpuscular Hemoglobin 30.0, Mean Corpuscular Hemoglobin Concent 33.6, Red Cell Distribution Width 14.4, Platelet Count 130L, Mean Platelet Volume 8.7, Neutrophils (%) (Auto) , Lymphocytes (%) ( Auto) , Monocytes (%) (Auto) , Eosinophils (%) (Auto) , Basophils (%) (Auto) , Differential Total Cells Counted 100, Neutrophils % (Manual) 93H, Lymphocytes % (Manual) 3L, Monocytes % (Manual) 4, Eosinophils % (Manual) 0, Basophils % ( Manual) 0, Band Neutrophils 0, Platelet Estimate DecreasedL, Platelet Morphology Normal, Hypochromasia 1+, Anisocytosis 1+, Sodium Level 140, Potassium Level 4.1, Chloride Level 106, Carbon Dioxide Level 21, Anion Gap 13, Blood Urea Nitrogen 41H, Creatinine 1.4H, Estimat Glomerular Filtration Rate , Glucose Level 243H, Calcium Level 8.1L, Total Bilirubin 1.0, Aspartate Amino Transf (AST/SGOT) 73H, Alanine Aminotransferase (ALT/SGPT) 198H, Alkaline Phosphatase 59, Total Protein 5.3L, Albumin 2.6L, Globulin 2.7, Albumin/ Globulin Ratio 1.0 08/24/18 00:00: Urine Color Yellow, Urine Appearance Clear, Urine pH 5, Urine Specific [place] 1.020, Urine Protein 3+H, Urine Glucose (UA) 4+H, Urine Ketones Negative, Urine Blood 5+H, Urine Nitrite Negative, Urine Bilirubin Negative, Urine Urobilinogen Normal, Urine Leukocyte Esterase Negative, Urine RBC 40-60H, Urine WBC 2-4, Urine Squamous Epithelial Cells None, Urine Bacteria Few 08/24/18 05:10: White Blood Count 19.4H, Red Blood Count 4.04L, Hemoglobin 12.2L, Hematocrit 35.5L, Mean Corpuscular Volume 88, Mean Corpuscular Hemoglobin 30.1, Mean Corpuscular Hemoglobin Concent 34.2, Red Cell Distribution Width 14.2, Platelet Count 128L, Mean Platelet Volume 9.2, Neutrophils (%) (Auto) , Lymphocytes (%) ( Auto) , Monocytes (%) (Auto) , Eosinophils (%) (Auto) , Basophils (%) (Auto) , Neutrophils % (Manual) [Pending], Lymphocytes % (Manual) [Pending], Platelet Estimate [Pending], Platelet Morphology [Pending], Sodium Level 140, Potassium Level 4.1, Chloride Level 107, Carbon Dioxide Level 25, Anion Gap 8, Blood Urea Nitrogen 42H, Creatinine 1.3, Estimat Glomerular Filtration Rate , Glucose Level 194H, Calcium Level 7.9L, Total Bilirubin 1.2H, Aspartate Amino Transf ( AST/SGOT) 81H, Alanine Aminotransferase (ALT/SGPT) 240H, Alkaline Phosphatase 61 , Total Protein 5.5L, Albumin 2.7L, Globulin 2.8, Albumin/Globulin Ratio 1.0, Direct Bilirubin 0.2, Pro-B-Type Natriuretic Peptide 70466Q Height (Feet): 5 Height (Inches): 5.00 Weight (Pounds): 139 Objective General Appearance: WD/WN, alert Neck: supple Cardiovascular: normal rate, regular rhythm Respiratory/Chest: no accessory muscle use, rhonchi - bilaterally, expiratory wheezing- minimal Abdomen: normal bowel sounds, non tender, soft 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
[2018-08-24] MEDS: dilTIAZem HCl CD 180mg cap ORAL SCH (09:00)
[2018-08-24] MEDS: Amiodarone 200mg tab ORAL SCH (09:00)
[2018-08-24] MEDS: Heparin 5000 units/ml inj SUBQ SCH ×2 (09:00→20:50)
[2018-08-24] MEDS: Solu-MEDROL 40mg Inj IVP SCH ×2 (09:00→17:26)
--- NOTE | 2018-08-24 09:51 | Urology Progress Note ---
Assessment/Plan Assessment/Plan 1. Urinary retention. 2. Benign prostatic hypertrophy. 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 4. Renal insufficiency, acute on chronic. 5. Hematuria. 6. Renal cyst. 7. Small angiomyolipoma. charles indwellig flomax added monitor renal fxn voiding trial soon cysto later Subjective Allergies: Coded Allergies: No Known Allergies (Unverified , 08/12/18) Subjective all noted Objective Last 24 Hour Vital Signs Date Time Temp Pulse Resp B/P (MAP) Pulse Ox O2 Delivery O2 Flow Rate FiO2 08/24/18 09:00 87 166/71 08/24/18 08:25 87 21 97 Nasal Cannula 3.0 32 08/24/18 08:12 75 20 94 Nasal Cannula 3.0 32 08/24/18 08:12 Nasal Cannula 3.0 32 08/24/18 08:12 94 Nasal Cannula 3.0 32 08/24/18 08:00 97.9 75 18 147/65 (92) 95 08/24/18 04:00 86 08/24/18 04:00 97.1 84 20 166/71 (102) 96 08/24/18 03:50 93 30 97 Bi-pap 30 08/24/18 03:40 91 25 93 Bi-pap 30 08/24/18 03:40 91 25 93 Facial 30 08/24/18 01:34 85 29 95 Facial 30 08/24/18 00:43 165/73 08/24/18 00:20 89 145/72 (96) 08/24/18 00:00 98.2 76 20 165/73 (103) 95 08/24/18 00:00 78 08/23/18 23:12 71 20 97 Nasal Cannula 3.0 32 08/23/18 23:02 76 20 93 Nasal Cannula 3.0 32 08/23/18 21:00 28 08/23/18 21:00 Nasal Cannula 3.0 Nasal Cannula 3.0 08/23/18 20:00 98.2 73 20 162/61 (94) 95 08/23/18 20:00 79 08/23/18 19:49 74 22 98 Nasal Cannula 3.0 32 08/23/18 19:39 73 20 94 Nasal Cannula 3.0 32 08/23/18 19:39 Nasal Cannula 3.0 32 08/23/18 19:39 94 Nasal Cannula 3.0 32 08/23/18 16:00 82 08/23/18 16:00 97.3 73 20 142/76 (98) 96 08/23/18 15:17 84 20 97 Nasal Cannula 2.0 28 08/23/18 15:05 86 21 93 Nasal Cannula 2.0 28 08/23/18 12:00 97.9 77 20 152/74 (100) 98 08/23/18 12:00 73 08/23/18 11:21 86 21 98 Nasal Cannula 2.0 28 08/23/18 11:11 84 21 94 Nasal Cannula 2.0 28 Intake and Output 08/23/18 08/24/18 19:00 07:00 Intake Total 620 ml Output Total 650 ml Balance 620 ml -650 ml Intake Oral 620 ml Output Urine Total 650 ml # Bowel Movements 1 Microbiology Date/Time Source Procedure Growth Status 08/12/18 02:45 Blood Blood Culture - Final Gram Negative Jones Complete 08/16/18 12:00 Sputum Gram Stain - Final Complete 08/16/18 12:00 Sputum Culture - Final Robina Albicans Staphylococcus Aureus - Mrsa Complete 08/13/18 20:25 Indwelling Cath Urine Culture - Final NO GROWTH AFTER 48 HOURS Complete Current Medications Medications (Trade) Dose Ordered Sig/Dinorah Route PRN Reason Start Time Stop Time Status Last Admin Dose Admin Acetaminophen (Tylenol) 650 mg Q6H PRN ORAL Mild Pain/Temp > 100.5 08/20/18 00:30 09/11/18 12:29 Albuterol/ Ipratropium (Albuterol/ Ipratropium) 3 ml Q4HRT HHN 08/23/18 00:00 08/28/18 00:00 08/24/18 08:12 Amiodarone HCl (Cordarone) 100 mg DAILY ORAL 08/20/18 09:00 09/12/18 08:59 08/24/18 09:00 Barium Sulfate (Readi-Cat 2) 450 ml NOW PRN ORAL Radiology Procedure 08/24/18 08:15 08/26/18 08:02 Dextrose (Dextrose 50%) 25 ml Q30M PRN IV Hypoglycemia 08/23/18 23:30 09/22/18 23:29 Dextrose (Dextrose 50%) 50 ml Q30M PRN IV Hypoglycemia 08/23/18 23:30 09/22/18 23:29 Diltiazem HCl (Cardizem CD) 180 mg DAILY ORAL 08/20/18 09:00 09/15/18 08:59 08/24/18 09:00 Doxycycline Monohydrate (Vibramycin) 100 mg EVERY 12 HOURS ORAL 08/22/18 11:30 08/29/18 11:29 08/24/18 09:00 Heparin Sodium (Porcine) (Heparin 5000 units/ml) 5,000 units EVERY 12 HOURS SUBQ 08/20/18 09:00 09/11/18 20:59 08/23/18 20:23 Hydralazine HCl (Apresoline) 10 mg Q4H PRN IV SBP above 150mmHg 08/20/18 00:30 09/11/18 12:29 08/24/18 00:43 Insulin Aspart (NovoLOG) BEFORE MEALS AND HS SUBQ 08/24/18 06:30 09/23/18 06:29 08/24/18 06:33 Insulin Aspart (NovoLOG) NOVOTIAC SUBQ 08/24/18 06:30 09/23/18 06:29 UNV Levothyroxine Sodium (Synthroid) 150 mcg DAILY@0630 ORAL 08/20/18 06:30 09/12/18 06:29 08/24/18 06:27 Methylprednisolone Sodium Succinate (Solu-MEDROL) 40 mg BID IVP 08/20/18 09:00 09/15/18 11:59 08/24/18 09:00 Ondansetron HCl (Zofran) 4 mg Q6H PRN IVP Nausea & Vomiting 08/20/18 00:30 09/11/18 12:29 Pantoprazole (Protonix) 40 mg DAILY ORAL 08/20/18 09:00 09/11/18 19:59 08/24/18 09:00 Pregabalin (Lyrica) 50 mg BEDTIME ORAL 08/20/18 21:00 09/11/18 21:29 08/23/18 20:18 Tamsulosin HCl (Flomax) 0.4 mg BEDTIME ORAL 08/23/18 21:00 09/22/18 20:59 08/23/18 20:18 Laboratory Tests 08/23/18 09:57: White Blood Count 20.8H, Red Blood Count 4.04L, Hemoglobin 12.1L, Hematocrit 36.1L, Mean Corpuscular Volume 89, Mean Corpuscular Hemoglobin 30.0, Mean Corpuscular Hemoglobin Concent 33.6, Red Cell Distribution Width 14.4, Platelet Count 130L, Mean Platelet Volume 8.7, Neutrophils (%) (Auto) , Lymphocytes (%) ( Auto) , Monocytes (%) (Auto) , Eosinophils (%) (Auto) , Basophils (%) (Auto) , Differential Total Cells Counted 100, Neutrophils % (Manual) 93H, Lymphocytes % (Manual) 3L, Monocytes % (Manual) 4, Eosinophils % (Manual) 0, Basophils % ( Manual) 0, Band Neutrophils 0, Platelet Estimate DecreasedL, Platelet Morphology Normal, Hypochromasia 1+, Anisocytosis 1+, Sodium Level 140, Potassium Level 4.1, Chloride Level 106, Carbon Dioxide Level 21, Anion Gap 13, Blood Urea Nitrogen 41H, Creatinine 1.4H, Estimat Glomerular Filtration Rate , Glucose Level 243H, Calcium Level 8.1L, Total Bilirubin 1.0, Aspartate Amino Transf (AST/SGOT) 73H, Alanine Aminotransferase (ALT/SGPT) 198H, Alkaline Phosphatase 59, Total Protein 5.3L, Albumin 2.6L, Globulin 2.7, Albumin/ Globulin Ratio 1.0 08/24/18 00:00: Urine Color Yellow, Urine Appearance Clear, Urine pH 5, Urine Specific [place] 1.020, Urine Protein 3+H, Urine Glucose (UA) 4+H, Urine Ketones Negative, Urine Blood 5+H, Urine Nitrite Negative, Urine Bilirubin Negative, Urine Urobilinogen Normal, Urine Leukocyte Esterase Negative, Urine RBC 40-60H, Urine WBC 2-4, Urine Squamous Epithelial Cells None, Urine Bacteria Few 08/24/18 05:10: White Blood Count 19.4H, Red Blood Count 4.04L, Hemoglobin 12.2L, Hematocrit 35.5L, Mean Corpuscular Volume 88, Mean Corpuscular Hemoglobin 30.1, Mean Corpuscular Hemoglobin Concent 34.2, Red Cell Distribution Width 14.2, Platelet Count 128L, Mean Platelet Volume 9.2, Neutrophils (%) (Auto) , Lymphocytes (%) ( Auto) , Monocytes (%) (Auto) , Eosinophils (%) (Auto) , Basophils (%) (Auto) , Neutrophils % (Manual) [Pending], Lymphocytes % (Manual) [Pending], Platelet Estimate [Pending], Platelet Morphology [Pending], Sodium Level 140, Potassium Level 4.1, Chloride Level 107, Carbon Dioxide Level 25, Anion Gap 8, Blood Urea Nitrogen 42H, Creatinine 1.3, Estimat Glomerular Filtration Rate , Glucose Level 194H, Calcium Level 7.9L, Total Bilirubin 1.2H, Aspartate Amino Transf ( AST/SGOT) 81H, Alanine Aminotransferase (ALT/SGPT) 240H, Alkaline Phosphatase 61 , Total Protein 5.5L, Albumin 2.7L, Globulin 2.8, Albumin/Globulin Ratio 1.0, Direct Bilirubin 0.2, Pro-B-Type Natriuretic Peptide [id number] Height (Feet): 5 Height (Inches): 5.00 Weight (Pounds): 139 Objective exam stable charles indwelling with yellow urine Jovanny Bañuelos MD Aug 24, 2018 09:51
--- NOTE | 2018-08-24 10:46 | Infectious Diseases Prog Note ---
Assessment/Plan Assessment/Plan A 1. pneumonia with MRSA 2. CHF 3. leucocytosis, steroid related 4. renal failure worse 5. COPD 6. hypertension 7. gram negative sepsis 8. increased LFT, HIDA scan : negative P 1. Continue Doxycycline X 3 days 2. Taper steroids Subjective ROS Limited/Unobtainable: Yes Constitutional: Reports: no symptoms Gastrointestinal/Abdominal: Reports: other - R upper abdominal pain Allergies: Coded Allergies: No Known Allergies (Unverified , 08/12/18) Objective Vital Signs Last 24 Hour Vital Signs Date Time Temp Pulse Resp B/P (MAP) Pulse Ox O2 Delivery O2 Flow Rate FiO2 08/24/18 09:00 Nasal Cannula 3.0 Nasal Cannula 3.0 08/24/18 09:00 87 166/71 08/24/18 09:00 3.0 08/24/18 08:25 87 21 97 Nasal Cannula 3.0 32 08/24/18 08:12 75 20 94 Nasal Cannula 3.0 32 08/24/18 08:12 Nasal Cannula 3.0 32 08/24/18 08:12 94 Nasal Cannula 3.0 32 08/24/18 08:00 97.9 75 18 147/65 (92) 95 08/24/18 04:00 86 08/24/18 04:00 97.1 84 20 166/71 (102) 96 08/24/18 03:50 93 30 97 Bi-pap 30 08/24/18 03:40 91 25 93 Bi-pap 30 08/24/18 03:40 91 25 93 Facial 30 08/24/18 01:34 85 29 95 Facial 30 08/24/18 00:43 165/73 08/24/18 00:20 89 145/72 (96) 08/24/18 00:00 98.2 76 20 165/73 (103) 95 08/24/18 00:00 78 08/23/18 23:12 71 20 97 Nasal Cannula 3.0 32 08/23/18 23:02 76 20 93 Nasal Cannula 3.0 32 08/23/18 21:00 28 08/23/18 21:00 Nasal Cannula 3.0 Nasal Cannula 3.0 08/23/18 20:00 98.2 73 20 162/61 (94) 95 08/23/18 20:00 79 08/23/18 19:49 74 22 98 Nasal Cannula 3.0 32 08/23/18 19:39 73 20 94 Nasal Cannula 3.0 32 08/23/18 19:39 Nasal Cannula 3.0 32 08/23/18 19:39 94 Nasal Cannula 3.0 32 08/23/18 16:00 82 08/23/18 16:00 97.3 73 20 142/76 (98) 96 08/23/18 15:17 84 20 97 Nasal Cannula 2.0 28 08/23/18 15:05 86 21 93 Nasal Cannula 2.0 28 08/23/18 12:00 97.9 77 20 152/74 (100) 98 08/23/18 12:00 73 08/23/18 11:21 86 21 98 Nasal Cannula 2.0 28 08/23/18 11:11 84 21 94 Nasal Cannula 2.0 28 Height (Feet): 5 Height (Inches): 5.00 Weight (Pounds): 139 General Appearance: no acute distress HEENT: mucous membranes moist Respiratory/Chest: lungs clear, other - oxygen by nasal cannula Cardiovascular: normal rate Abdomen: other - soft, mildly tender in RUQ Extremities: no edema Neurologic/Psychiatric: alert, responsive Laboratory Tests Test 08/24/18 00:00 08/24/18 05:10 Urine Color Yellow Urine Appearance Clear Urine pH 5 (4.5-8.0) Urine Specific [place] 1.020 (1.005-1.035) Urine Protein 3+ (NEGATIVE) H Urine Glucose (UA) 4+ (NEGATIVE) H Urine Ketones Negative (NEGATIVE) Urine Blood 5+ (NEGATIVE) H Urine Nitrite Negative (NEGATIVE) Urine Bilirubin Negative (NEGATIVE) Urine Urobilinogen Normal MG/DL (0.0-1.0) Urine Leukocyte Esterase Negative (NEGATIVE) Urine RBC 40-60 /HPF (0 - 0) H Urine WBC 2-4 /HPF (0 - 0) Urine Squamous Epithelial Cells None /LPF (NONE/OCC) Urine Bacteria Few /HPF (NONE) White Blood Count 19.4 K/UL (4.8-10.8) H Red Blood Count 4.04 M/UL (4.70-6.10) L Hemoglobin 12.2 G/DL (14.2-18.0) L Hematocrit 35.5 % (42.0-52.0) L Mean Corpuscular Volume 88 FL (80-99) Mean Corpuscular Hemoglobin 30.1 PG (27.0-31.0) Mean Corpuscular Hemoglobin Concent 34.2 G/DL (32.0-36.0) Red Cell Distribution Width 14.2 % (11.6-14.8) Platelet Count 128 K/UL (150-450) L Mean Platelet Volume 9.2 FL (6.5-10.1) Neutrophils (%) (Auto) % (45.0-75.0) Lymphocytes (%) (Auto) % (20.0-45.0) Monocytes (%) (Auto) % (1.0-10.0) Eosinophils (%) (Auto) % (0.0-3.0) Basophils (%) (Auto) % (0.0-2.0) Differential Total Cells Counted 100 Neutrophils % (Manual) 91 % (45-75) H Lymphocytes % (Manual) 2 % (20-45) L Monocytes % (Manual) 5 % (1-10) Eosinophils % (Manual) 0 % (0-3) Basophils % (Manual) 0 % (0-2) Band Neutrophils 2 % (0-8) Platelet Estimate Decreased L Platelet Morphology Normal Anisocytosis 1+ Sodium Level 140 MMOL/L (136-145) Potassium Level 4.1 MMOL/L (3.5-5.1) Chloride Level 107 MMOL/L (98-107) Carbon Dioxide Level 25 MMOL/L (21-32) Anion Gap 8 mmol/L (5-15) Blood Urea Nitrogen 42 mg/dL (7-18) H Creatinine 1.3 MG/DL (0.55-1.30) Estimat Glomerular Filtration Rate mL/min (>60) Glucose Level 194 MG/DL (74-106) H Calcium Level 7.9 MG/DL (8.5-10.1) L Total Bilirubin 1.2 MG/DL (0.2-1.0) H Direct Bilirubin 0.2 MG/DL (0.0-0.3) Aspartate Amino Transf (AST/SGOT) 81 U/L (15-37) H Alanine Aminotransferase (ALT/SGPT) 240 U/L (12-78) H Alkaline Phosphatase 61 U/L (46-116) Pro-B-Type Natriuretic Peptide 42318 pg/mL (0-125) H Total Protein 5.5 G/DL (6.4-8.2) L Albumin 2.7 G/DL (3.4-5.0) L Globulin 2.8 g/dL Albumin/Globulin Ratio 1.0 (1.0-2.7) Current Medications Medications (Trade) Dose Ordered Sig/Dinorah Route PRN Reason Start Time Stop Time Status Last Admin Dose Admin Acetaminophen (Tylenol) 650 mg Q6H PRN ORAL Mild Pain/Temp > 100.5 08/20/18 00:30 09/11/18 12:29 Albuterol/ Ipratropium (Albuterol/ Ipratropium) 3 ml Q4HRT HHN 08/23/18 00:00 08/28/18 00:00 08/24/18 08:12 Amiodarone HCl (Cordarone) 100 mg DAILY ORAL 08/20/18 09:00 09/12/18 08:59 08/24/18 09:00 Barium Sulfate (Readi-Cat 2) 450 ml NOW PRN ORAL Radiology Procedure 08/24/18 08:15 08/26/18 08:02 Dextrose (Dextrose 50%) 25 ml Q30M PRN IV Hypoglycemia 08/23/18 23:30 09/22/18 23:29 Dextrose (Dextrose 50%) 50 ml Q30M PRN IV Hypoglycemia 08/23/18 23:30 09/22/18 23:29 Diltiazem HCl (Cardizem CD) 180 mg DAILY ORAL 08/20/18 09:00 09/15/18 08:59 08/24/18 09:00 Doxycycline Monohydrate (Vibramycin) 100 mg EVERY 12 HOURS ORAL 08/22/18 11:30 08/29/18 11:29 08/24/18 09:00 Heparin Sodium (Porcine) (Heparin 5000 units/ml) 5,000 units EVERY 12 HOURS SUBQ 08/20/18 09:00 09/11/18 20:59 08/23/18 20:23 Hydralazine HCl (Apresoline) 10 mg Q4H PRN IV SBP above 150mmHg 08/20/18 00:30 09/11/18 12:29 08/24/18 00:43 Insulin Aspart (NovoLOG) BEFORE MEALS AND HS SUBQ 08/24/18 06:30 09/23/18 06:29 08/24/18 06:33 Insulin Aspart (NovoLOG) NOVOTIAC SUBQ 08/24/18 06:30 09/23/18 06:29 UNV Levothyroxine Sodium (Synthroid) 150 mcg DAILY@0630 ORAL 08/20/18 06:30 09/12/18 06:29 08/24/18 06:27 Methylprednisolone Sodium Succinate (Solu-MEDROL) 40 mg BID IVP 08/20/18 09:00 09/15/18 11:59 08/24/18 09:00 Ondansetron HCl (Zofran) 4 mg Q6H PRN IVP Nausea & Vomiting 08/20/18 00:30 09/11/18 12:29 Pantoprazole (Protonix) 40 mg DAILY ORAL 08/20/18 09:00 09/11/18 19:59 08/24/18 09:00 Pregabalin (Lyrica) 50 mg BEDTIME ORAL 08/20/18 21:00 09/11/18 21:29 08/23/18 20:18 Tamsulosin HCl (Flomax) 0.4 mg BEDTIME ORAL 08/23/18 21:00 09/22/18 20:59 08/23/18 20:18 Reji Batista MD Aug 24, 2018 10:46
--- NOTE | 2018-08-24 12:28 | Consultation ---
History of Present Illness General Date patient seen: Aug 24, 2018 Reason for Hospitalization: Dyspnea/Respdistress Present Illness HPI 82 year old male recently admitted for respiratory insufficiency under care of medical teams. During admission noted to have leukocytosis and abnormal LFT's. US / HIDA noted negative but still complaining of RUQ abdominal pain. Surgery called to evaluate and assist with care. patient seen, chart reviewed, patient examined. Allergies: Coded Allergies: No Known Allergies (Unverified , 08/12/18) Medication History Scheduled Amiodarone Hcl (Amiodarone Hcl), 200 MG ORAL DAILY, (Reported) Atorvastatin Calcium* (Atorvastatin Calcium*), 40 MG ORAL BEDTIME, (Reported) Bumetanide (Bumetanide), 1 MG ORAL DAILY, (Reported) Carvedilol (Coreg), 3.125 MG ORAL EVERY 12 HOURS, (Reported) Levothyroxine Sodium (Synthroid), 50 MCG ORAL DAILY, (Reported) Pantoprazole Sodium (Protonix), 40 MG ORAL BEFORE BREAKFAST, (Reported) Potassium Chloride (Potassium Chloride), 10 MEQ ORAL DAILY, (Reported) Pregabalin (Lyrica), 50 MG ORAL DAILY, (Reported) Miscellaneous Medications Ipratropium/Albuterol Sulfate (Combivent Respimat Inhal [place]), 4 GM IH, ( Reported) Patient History Limited by: language barrier History Provided By: Patient, Family Member, Medical Record, PMD Healthcare decision maker Resuscitation status Full Code Advanced Directive on File Review of Systems Review of Symptoms General ROS: no weight loss or fever Psychological ROS: no depression or mood changes, no memory loss Ophthalmic ROS: no visual changes or eye irritation ENT ROS: no nasal congestion, hearing loss, dizziness Allergy and Immunology ROS: no allergic symptoms or urticaria Hematological and Lymphatic ROS: no swollen glands, unusual bleeding or bruising Endocrine ROS: no polyuria, polydipsia, weight changes, temperature intolerance Respiratory ROS: no cough, shortness of breath, or wheezing Cardiovascular ROS: no chest pain or dyspnea on exertion Gastrointestinal ROS: denies abdominal pain, bright red blood in stool. Musculoskeletal ROS: no myalgias or arthralgias Neurological ROS: no TIA or stroke symptoms Dermatological ROS: no new or changing skin lesions, rashes or pruritis Physical Exam Physical Exam General appearance: alert, cooperative, no distress, appears stated age Head: Normocephalic, without obvious abnormality, atraumatic Eyes: conjunctivae/corneas clear. PERRL, EOM's intact. Fundi benign Throat: Lips, mucosa, and tongue normal. Teeth and gums normal Neck: supple, symmetrical, trachea midline, no adenopathy, thyroid: not enlarged, symmetric, no tenderness/mass/nodules, no carotid bruit and no JVD Lungs: clear to auscultation bilaterally Heart: regular rate and rhythm, S1, S2 normal, no murmur, click, rub or gallop Abdomen: soft, mild tender, no rebound, distended. Bowel sounds normal. No masses, no organomegaly Extremities: extremities normal, atraumatic, no cyanosis or edema Pulses: 2+ and symmetric Skin: Skin color, texture, turgor normal. No rashes or lesions Neurologic: Grossly normal Last 24 Hour Vital Signs Date Time Temp Pulse Resp B/P (MAP) Pulse Ox O2 Delivery O2 Flow Rate FiO2 08/24/18 12:00 98.2 79 18 153/72 (99) 94 08/24/18 10:58 86 21 98 Nasal Cannula 4.0 36 08/24/18 10:48 69 20 94 Nasal Cannula 3.0 32 08/24/18 09:00 Nasal Cannula 3.0 Nasal Cannula 3.0 08/24/18 09:00 87 166/71 08/24/18 09:00 3.0 08/24/18 08:25 87 21 97 Nasal Cannula 3.0 32 08/24/18 08:12 75 20 94 Nasal Cannula 3.0 32 08/24/18 08:12 Nasal Cannula 3.0 32 08/24/18 08:12 94 Nasal Cannula 3.0 32 08/24/18 08:00 97.9 75 18 147/65 (92) 95 08/24/18 08:00 77 08/24/18 04:00 86 08/24/18 04:00 97.1 84 20 166/71 (102) 96 08/24/18 03:50 93 30 97 Bi-pap 30 08/24/18 03:40 91 25 93 Bi-pap 30 08/24/18 03:40 91 25 93 Facial 30 08/24/18 01:34 85 29 95 Facial 30 08/24/18 00:43 165/73 08/24/18 00:20 89 145/72 (96) 08/24/18 00:00 98.2 76 20 165/73 (103) 95 08/24/18 00:00 78 08/23/18 23:12 71 20 97 Nasal Cannula 3.0 32 08/23/18 23:02 76 20 93 Nasal Cannula 3.0 32 08/23/18 21:00 28 08/23/18 21:00 Nasal Cannula 3.0 Nasal Cannula 3.0 08/23/18 20:00 98.2 73 20 162/61 (94) 95 08/23/18 20:00 79 08/23/18 19:49 74 22 98 Nasal Cannula 3.0 32 08/23/18 19:39 73 20 94 Nasal Cannula 3.0 32 08/23/18 19:39 Nasal Cannula 3.0 32 08/23/18 19:39 94 Nasal Cannula 3.0 32 08/23/18 16:00 82 08/23/18 16:00 97.3 73 20 142/76 (98) 96 08/23/18 15:17 84 20 97 Nasal Cannula 2.0 28 08/23/18 15:05 86 21 93 Nasal Cannula 2.0 28 Intake and Output 08/23/18 08/24/18 19:00 07:00 Intake Total 620 ml Output Total 650 ml Balance 620 ml -650 ml Intake Oral 620 ml Output Urine Total 650 ml # Bowel Movements 1 Laboratory Tests Test 08/24/18 00:00 08/24/18 05:10 Urine Color Yellow Urine Appearance Clear Urine pH 5 (4.5-8.0) Urine Specific Wellman 1.020 (1.005-1.035) Urine Protein 3+ (NEGATIVE) H Urine Glucose (UA) 4+ (NEGATIVE) H Urine Ketones Negative (NEGATIVE) Urine Blood 5+ (NEGATIVE) H Urine Nitrite Negative (NEGATIVE) Urine Bilirubin Negative (NEGATIVE) Urine Urobilinogen Normal MG/DL (0.0-1.0) Urine Leukocyte Esterase Negative (NEGATIVE) Urine RBC 40-60 /HPF (0 - 0) H Urine WBC 2-4 /HPF (0 - 0) Urine Squamous Epithelial Cells None /LPF (NONE/OCC) Urine Bacteria Few /HPF (NONE) White Blood Count 19.4 K/UL (4.8-10.8) H Red Blood Count 4.04 M/UL (4.70-6.10) L Hemoglobin 12.2 G/DL (14.2-18.0) L Hematocrit 35.5 % (42.0-52.0) L Mean Corpuscular Volume 88 FL (80-99) Mean Corpuscular Hemoglobin 30.1 PG (27.0-31.0) Mean Corpuscular Hemoglobin Concent 34.2 G/DL (32.0-36.0) Red Cell Distribution Width 14.2 % (11.6-14.8) Platelet Count 128 K/UL (150-450) L Mean Platelet Volume 9.2 FL (6.5-10.1) Neutrophils (%) (Auto) % (45.0-75.0) Lymphocytes (%) (Auto) % (20.0-45.0) Monocytes (%) (Auto) % (1.0-10.0) Eosinophils (%) (Auto) % (0.0-3.0) Basophils (%) (Auto) % (0.0-2.0) Differential Total Cells Counted 100 Neutrophils % (Manual) 91 % (45-75) H Lymphocytes % (Manual) 2 % (20-45) L Monocytes % (Manual) 5 % (1-10) Eosinophils % (Manual) 0 % (0-3) Basophils % (Manual) 0 % (0-2) Band Neutrophils 2 % (0-8) Platelet Estimate Decreased L Platelet Morphology Normal Anisocytosis 1+ Sodium Level 140 MMOL/L (136-145) Potassium Level 4.1 MMOL/L (3.5-5.1) Chloride Level 107 MMOL/L (98-107) Carbon Dioxide Level 25 MMOL/L (21-32) Anion Gap 8 mmol/L (5-15) Blood Urea Nitrogen 42 mg/dL (7-18) H Creatinine 1.3 MG/DL (0.55-1.30) Estimat Glomerular Filtration Rate mL/min (>60) Glucose Level 194 MG/DL (74-106) H Calcium Level 7.9 MG/DL (8.5-10.1) L Total Bilirubin 1.2 MG/DL (0.2-1.0) H Direct Bilirubin 0.2 MG/DL (0.0-0.3) Aspartate Amino Transf (AST/SGOT) 81 U/L (15-37) H Alanine Aminotransferase (ALT/SGPT) 240 U/L (12-78) H Alkaline Phosphatase 61 U/L (46-116) Pro-B-Type Natriuretic Peptide 33185 pg/mL (0-125) H Total Protein 5.5 G/DL (6.4-8.2) L Albumin 2.7 G/DL (3.4-5.0) L Globulin 2.8 g/dL Albumin/Globulin Ratio 1.0 (1.0-2.7) Height (Feet): 5 Height (Inches): 5.00 Weight (Pounds): 139 Medications Current Medications Medications (Trade) Dose Ordered Sig/Dinorah Route PRN Reason Start Time Stop Time Status Last Admin Dose Admin Acetaminophen (Tylenol) 650 mg Q6H PRN ORAL Mild Pain/Temp > 100.5 08/20/18 00:30 09/11/18 12:29 Albuterol/ Ipratropium (Albuterol/ Ipratropium) 3 ml Q4HRT HHN 08/23/18 00:00 08/28/18 00:00 08/24/18 10:46 Amiodarone HCl (Cordarone) 100 mg DAILY ORAL 08/20/18 09:00 09/12/18 08:59 08/24/18 09:00 Barium Sulfate (Readi-Cat 2) 450 ml NOW PRN ORAL Radiology Procedure 08/24/18 08:15 08/26/18 08:02 Dextrose (Dextrose 50%) 25 ml Q30M PRN IV Hypoglycemia 08/23/18 23:30 09/22/18 23:29 Dextrose (Dextrose 50%) 50 ml Q30M PRN IV Hypoglycemia 08/23/18 23:30 09/22/18 23:29 Diltiazem HCl (Cardizem CD) 180 mg DAILY ORAL 08/20/18 09:00 09/15/18 08:59 08/24/18 09:00 Doxycycline Monohydrate (Vibramycin) 100 mg EVERY 12 HOURS ORAL 08/22/18 11:30 08/29/18 11:29 08/24/18 09:00 Heparin Sodium (Porcine) (Heparin 5000 units/ml) 5,000 units EVERY 12 HOURS SUBQ 08/20/18 09:00 09/11/18 20:59 08/23/18 20:23 Hydralazine HCl (Apresoline) 10 mg Q4H PRN IV SBP above 150mmHg 08/20/18 00:30 09/11/18 12:29 08/24/18 00:43 Insulin Aspart (NovoLOG) BEFORE MEALS AND HS SUBQ 08/24/18 06:30 09/23/18 06:29 08/24/18 11:34 Insulin Aspart (NovoLOG) NOVOTIAC SUBQ 08/24/18 06:30 09/23/18 06:29 UNV Levothyroxine Sodium (Synthroid) 150 mcg DAILY@0630 ORAL 08/20/18 06:30 09/12/18 06:29 08/24/18 06:27 Methylprednisolone Sodium Succinate (Solu-MEDROL) 40 mg BID IVP 08/20/18 09:00 09/15/18 11:59 08/24/18 09:00 Ondansetron HCl (Zofran) 4 mg Q6H PRN IVP Nausea & Vomiting 08/20/18 00:30 09/11/18 12:29 Pantoprazole (Protonix) 40 mg DAILY ORAL 08/20/18 09:00 09/11/18 19:59 08/24/18 09:00 Pregabalin (Lyrica) 50 mg BEDTIME ORAL 08/20/18 21:00 09/11/18 21:29 08/23/18 20:18 Tamsulosin HCl (Flomax) 0.4 mg BEDTIME ORAL 08/23/18 21:00 09/22/18 20:59 08/23/18 20:18 Assessment/Plan Problem List: (1) Abdominal pain Assessment & Plan: RUQ abd pain distention tender on exam leukocytosis abnormal lft US okay HIDA negative -CT A/P pending cont abx trend labs will monitor clinically thank you ICD Codes: R10.9 - Unspecified abdominal pain SNOMED: 07701944 Qualifiers: Qualified Codes: R10.11 - Right upper quadrant pain (2) Abnormal LFTs ICD Codes: R94.5 - Abnormal results of liver function studies SNOMED: 924018275 (3) Sepsis ICD Codes: A41.9 - Sepsis, unspecified organism SNOMED: 06920620 Qualifiers: Qualified Codes: A41.9 - Sepsis, unspecified organism [facility] Hospital declaration INPATIENT level of care is warranted for this patient because patient is a 89 year old with who presents with suspicion of . I have a high level of concern because . Patient is at high risk for . Plan of care/treatment include . Patient care is expected to be greater than 2 midnights. OBSERVATION level of care is warranted for this patient. Patient is a 89 year old with who presents with . Patient will be admitted for 1 midnight, but if additional night(s) is/are necessary, patient will be converted to inpatient status for the entire hospitalization Disposition: Once the patient is stable to leave the hospital, I anticipate the patient will likely be discharged to the following environment: Estimated discharge date: I spent 70 minutes on this patient's case, and minutes was dedicated to counseling and/or care coordination. MIPS (Merit-based Incentive Payment System) Applicable CPT: 98443, 66948 CHECK ALL THAT ARE MET: Measure #5 (CHF): All ages. Prescribe LISA/ARB upon discharge for patients with left ventricular systolic dysfunction. If not, the reason is clearly documented in the medical chart. Measure #8 (CHF): All ages. Prescribe a beta darrell upon discharge for patients with left ventricular systolic dysfunction. If not, the reason is clearly documented in the medical chart. Measure #47 Advance care plan or surrogate decision maker documented in the medical record. Measure #130 The provider has documented, updated, or reviewed the patients current medication list and has documented it in the patients note. Measure #374 (All): Send report to referring provider. Measure #407(Sepsis due to MSSA bacteremia): Age 18+ Patient treated with a beta-lactam antibiotic (Nafcillin, Oxacillin or Cefazolin) as definitive therapy. MEDICAL COMPLEXITY High complexity medical decision making (need 2/3 categories) Problem - need 4 points Acute/new problem with new plan for workup (4 points, 1 max) Acute/new problem without additional workup (3 points, 1 max) Unstable chronic problem actively being managed (2 point each, 2 max) Stable chronic problem actively being managed (1 point each, 2 max) Self-limited/transient process (constipation, muscle ache, etc) (1 point each , 2 max) Data - need 4 points Reviewed labs/imaging studies (1 points, 2 max) Independent review of imaging (EKG, xrays, etc) (2 points, 2 max) Discussed case with consult/other MD/RN (2 points, 2 max) High Risk - qualify if have one of the following: Severe exacerbation of acute problem, acute mental status change, IV narcotics , monitoring drug levels (vancomycin, INR, tacrolimus etc) Rick Jama Aug 24, 2018 12:28
--- NOTE | 2018-08-24 13:30 | NUR ---
NURSE NOTES: Patient went down for CT abd and pelvis scan.
--- NOTE | 2018-08-24 14:14 | NUR ---
REHAB/P.T PROGRESS NOTE: LATE ENTRY PATIENT IS CURRENTLY LIMITED BY GENERALIZED WEAKNESS MORE ON BLE GROSSLY GRADED 3/5, POOR ACTIVITY TOLERANCE EVIDENCED BY SOB AND FREQUENT REST PERIODS IN BETWEEN EXERCISE AND MOBILITY TASKS. PATIENT CURRENTLY REQUIRES MIN-CGA X 1 FOR BED MOBILITIES, MIN-MOD A X 1 FOR TRANSFER ACTIVITIES DEPENDING ON ENDURANCE LEVEL. PATIENT DANIELE ABLE TO STAND USING THE FWW FOR SHORT PERIOD OF TIME HOWEVER NOT ABLE TO INITIATE STEPS DUE TO WEAKNESS AND SOB. PATIENT OVERALL IS HIGHLY MOTIVATED AND COOPERATIVE IN THERAPY. RECOMMEND SNF FOR FURTHER REHAB AT [facility]. Addendum: 08/24/18 at 1416 by BLANCA CHRISTIANSON PT CONTINUE WITH POC.
--- NOTE | 2018-08-24 16:47 | Diagnostic Imaging Report ---
Indication: Right upper quadrant abdominal pain, leukocytosis, respiratory insufficiency Technique: Spiral acquisitions obtained through the abdomen and pelvis. Patient given oral contrast. No IV contrast utilized, per referring physician request.. Multiplanar reconstructions were generated. Total dose length product 750.89 mGycm. CTDIvol(s) 13.01 mGy. Dose reduction achieved using automated exposure control Comparison: No comparison CTs. Reference made to prior ultrasound dated 08/15/2018 Findings: The distal esophagus, stomach, duodenum are unremarkable. The appendix is normal. Small bowel loops are diffusely prominent, upper limits normal in caliber not frankly dilated. Contrast has transited only approximately chcf through the small bowel. No small bowel wall thickening. There is colonic diverticulosis. No evidence of diverticulitis. Moderate amount of dense retained stool is seen throughout the colon. Small amount of fluid is seen within anterior Gerota's fascia on the left. No free intraperitoneal gas. Lack of IV contrast limits assessment of the solid organs. The liver demonstrates a cyst in segment 8. The gallbladder is demonstrates slightly hyperattenuating contents, likely reflecting sludge described on recent ultrasound. No biliary ductal dilatation. The pancreas is somewhat fatty replaced, otherwise unremarkable. The spleen, adrenals are unremarkable. The left renal cyst described on recent ultrasound is not clearly visible. No findings are seen to correspond to the hyperechoic abnormality in the right renal upper pole described on recent ultrasound. The bladder is empty, contains a Zaidi catheter. There are prostate calcifications. There is generalized edema of the subcutaneous fat. This is particularly striking in the pelvic, groin, and buttock regions. The included lung bases demonstrate large bilateral pleural effusions, right greater than left. There is resultant complete atelectasis of the right lower and middle lobes, atelectasis of a significant portion of the left lower lobe, and extensive infiltrates or edema within the inferior upper lobes. The heart is enlarged and contains pacemaker wires. The ascending thoracic aorta is ectatic. Bone island is seen in the right sacral wing. Impression: No definite acute abnormality or findings to explain stated clinical history of right upper quadrant pain Small amount of fluid tracking within anterior Gerota's fascia on the left. May be inflammatory in nature but if so etiology not demonstrated Evidence of anasarca, with bilateral pleural effusions, generalized edema of the subcutaneous fat Atelectasis of the right middle and lower lobes, significant portion of the left lower lobe, secondary to compression by the pleural fluid Colonic diverticulosis. No evidence of diverticulitis. Cardiomegaly. Pacemaker Moderate dense retained stool. Correlate with any history of constipation Probable gallbladder sludge, also previously described. Note that renal findings described on recent ultrasound are not evident on this noninfused exam Small hepatic cyst. No further follow-up necessary. Incidental findings as noted The CT scanner at [facility] is accredited by the [employer] and the scans are performed using protocols designed to limit radiation exposure to as low as reasonably achievable to attain images of sufficient resolution adequate for diagnostic evaluation.
--- NOTE | 2018-08-24 19:20 | NUR ---
NURSE NOTES: Received report from Qasim Kahn RN. Pt is in the bed receiving breathing treatment by RT, tolerating well. is at the bedside. Edema is on BLE, and BLE. Safety measures are applied with bed alarm on, bed in lowest position, side rials are up x3, and breaks are engaged. Call light and side rails are w/in reach. Will follow plans of care.
[2018-08-24] MEDS: Tamsulosin 0.4mg cap ORAL SCH (20:53)
[2018-08-24] MEDS: Lyrica 50mg cap ORAL SCH (20:54)
--- NOTE | 2018-08-24 23:15 | Progress Note ---
DATE: 08/24/2018 CARDIOLOGY PROGRESS NOTE SUBJECTIVE: The patient remains on antimicrobials. OBJECTIVE: VITAL SIGNS: Blood pressure parameters on the high side 166/71, heart rate 84, and respiratory rate 20. LUNGS: Diminished breath sounds. Few rhonchi. HEART: Regular rhythm and rate. Normal S1, S2. ABDOMEN: Soft. EXTREMITIES: No edema. NEUROLOGIC: Mobility is limited due to weakness of legs. DIAGNOSTIC DATA: CAT scan of the abdomen and pelvis was obtained, notable for no acute findings other than diverticulosis and atelectasis with pleural effusion. IMPRESSION: 1. Pneumonia. 2. Pleural effusion. 3. Urinary retention. 4. Chronic obstructive pulmonary disease. 5. Permanent pacemaker. 6. Acute on chronic renal failure. 7. Hypertensive heart disease. 8. Acute on chronic diastolic congestive heart failure. PLAN: 1. Continue diuresis. 2. Respiratory hygiene. 3. Antimicrobials. 4. Indwelling Zaidi. 5. Medications reviewed. 6. Needs aggressive physical therapy and occupational therapy with rehabilitation prior to returning home. Crescencio Hidalgo M.D. DR: CITLALY JOB#: [id number] CC:
[2018-08-25] VITALS (7 sets, daily range): BP systolic 139–166; BP diastolic 57–78
--- NOTE | 2018-08-25 01:18 | NUR ---
NURSE NOTES: Pt is sleeping in the bed w/o distress in RA. B. soft restrains are applied. Dejuan jung is patent and draining. Will continue to monitor. Addendum: 08/25/18 at 0119 by SETH SINGH RN Wrong patient.
--- NOTE | 2018-08-25 01:19 | NUR ---
NURSE NOTES: Pt is sleeping in the bed, receiving BiPap treatment, tolerating well. is at the bedside and stated that pt had new onset of edema in his L. yesterday late afternoon. Hand. Edema noted in L. hand. Currently, L. Hand is elevated by pillow support and also, pt was instructed to raise left arm frequently. Zaidi cath. is patent and draining. Will continue to monitor.
[2018-08-25] MEDS: Albuterol/Ipratropium 3ml neb HHN SCH ×6 (03:39→23:52)
[2018-08-25] MEDS: NovoLOG Insulin Flexpen SUBQ SCH ×4 (06:30→22:02)
[2018-08-25 07:11] LABS: ALANINE AMINOTRANSFERASE 273 U/L (12-78); ALBUMIN 2.6 G/DL (3.4-5.0); ALKALINE PHOSPHATASE 65 U/L (46-116); AMYLASE 37 U/L (25-115); ANION GAP 10 mmol/L (5-15); ASPARTATE AMINO TRANSFERASE 95 U/L (15-37); BILIRUBIN,TOTAL 1.4 MG/DL (0.2-1.0); BLOOD UREA NITROGEN 47 mg/dL (7-18); CALCIUM 8.5 MG/DL (8.5-10.1); CARBON DIOXIDE 23 MMOL/L (21-32); CHLORIDE 106 MMOL/L (98-107); CREATININE 1.2 MG/DL (0.55-1.30); POTASSIUM 4.5 MMOL/L (3.5-5.1); SODIUM 139 MMOL/L (136-145)
[2018-08-25 07:13] LABS: BILIRUBIN,DIRECT 0.3 MG/DL (0.0-0.3)
[2018-08-25 07:18] LABS: INR 1.1 (0.9-1.1)
--- NOTE | 2018-08-25 07:20 | General Progress Note ---
Assessment/Plan Problem List: (1) Sepsis ICD Codes: A41.9 - Sepsis, unspecified organism SNOMED: 64540387 Qualifiers: Qualified Codes: A41.9 - Sepsis, unspecified organism (2) COPD exacerbation ICD Codes: J44.1 - Chronic obstructive pulmonary disease with (acute) exacerbation SNOMED: 270244244 (3) Respiratory distress ICD Codes: R06.03 - Acute respiratory distress SNOMED: 610751232 Status: stable, progressing Assessment/Plan abx resp care/o2 amio for rate control bipap as needed cont steroids per pulm monitor labs and cxr diuresis per cards ct abd- negative bowel regime dc planning snf surgery eval Subjective ROS Limited/Unobtainable: No Constitutional: Reports: malaise, weakness HEENT: Reports: no symptoms Cardiovascular: Reports: no symptoms Respiratory: Reports: no symptoms Gastrointestinal/Abdominal: Reports: no symptoms Genitourinary: Reports: no symptoms Neurologic/Psychiatric: Reports: no symptoms Endocrine: Reports: no symptoms Hematologic/Lymphatic: Reports: no symptoms Allergies: Coded Allergies: No Known Allergies (Unverified , 08/12/18) All Systems: reviewed and negative except above Subjective no events. w/o complaints. c/o slight hand edemea. CT negative- GB normal. + constipation Objective Last 24 Hour Vital Signs Date Time Temp Pulse Resp B/P (MAP) Pulse Ox O2 Delivery O2 Flow Rate FiO2 08/25/18 06:51 164/68 08/25/18 06:44 73 164/68 (100) 08/25/18 05:35 84 20 97 08/25/18 04:00 98.2 70 20 149/68 (95) 99 08/25/18 03:53 67 08/25/18 03:50 74 26 97 Facial 30 08/25/18 03:41 82 20 97 Nasal Cannula 2.0 28 08/25/18 03:39 78 18 97 Bi-pap 30 08/25/18 00:04 80 20 95 Nasal Cannula 2.0 28 08/25/18 00:03 69 28 97 Facial 30 08/25/18 00:00 98.2 70 20 142/69 (93) 94 08/24/18 23:42 64 18 94 Nasal Cannula 2.0 28 08/24/18 23:42 68 08/24/18 23:39 69 18 94 Nasal Cannula 2.0 28 08/24/18 21:00 Nasal Cannula 3.0 Nasal Cannula 3.0 08/24/18 21:00 28 08/24/18 20:00 98.2 73 20 144/55 (84) 94 08/24/18 19:55 80 20 95 Nasal Cannula 2.0 28 08/24/18 19:49 Nasal Cannula 2.0 28 08/24/18 19:49 94 Nasal Cannula 2.0 28 08/24/18 19:45 76 18 94 Nasal Cannula 2.0 28 08/24/18 19:32 67 08/24/18 17:06 163/68 08/24/18 16:00 69 08/24/18 16:00 98.1 71 18 163/68 (99) 94 08/24/18 15:32 84 21 98 Nasal Cannula 4.0 36 08/24/18 15:22 74 20 95 Nasal Cannula 3.0 32 08/24/18 12:00 85 08/24/18 12:00 98.2 79 18 153/72 (99) 94 08/24/18 10:58 86 21 98 Nasal Cannula 4.0 36 08/24/18 10:48 69 20 94 Nasal Cannula 3.0 32 08/24/18 09:00 Nasal Cannula 3.0 Nasal Cannula 3.0 08/24/18 09:00 87 166/71 08/24/18 09:00 3.0 08/24/18 08:25 87 21 97 Nasal Cannula 3.0 32 08/24/18 08:12 75 20 94 Nasal Cannula 3.0 32 08/24/18 08:12 Nasal Cannula 3.0 32 08/24/18 08:12 94 Nasal Cannula 3.0 32 08/24/18 08:00 97.9 75 18 147/65 (92) 95 08/24/18 08:00 77 Intake and Output 08/24/18 08/25/18 18:59 06:59 Output Total 150 ml Balance -150 ml Output Urine Total 150 ml # Bowel Movements 1 Laboratory Tests 08/25/18 05:45: White Blood Count [Pending], Red Blood Count [Pending], Hemoglobin [Pending], Hematocrit [Pending], Mean Corpuscular Volume [Pending], Mean Corpuscular Hemoglobin [Pending], Mean Corpuscular Hemoglobin Concent [Pending], Red Cell Distribution Width [Pending], Platelet Count [Pending], Mean Platelet Volume [ Pending], Neutrophils (%) (Auto) [Pending], Lymphocytes (%) (Auto) [Pending], Monocytes (%) (Auto) [Pending], Eosinophils (%) (Auto) [Pending], Basophils (%) (Auto) [Pending], Erythrocyte Sedimentation Rate [Pending], Prothrombin Time [ Pending], Prothromb Time International Ratio [Pending], Activated Partial Thromboplast Time [Pending], Sodium Level 139, Potassium Level 4.5, Chloride Level 106, Carbon Dioxide Level 23, Anion Gap 10, Blood Urea Nitrogen 47H, Creatinine 1.2, Estimat Glomerular Filtration Rate , Glucose Level 145H, Calcium Level 8.5, Total Bilirubin 1.4H, Direct Bilirubin 0.3, Aspartate Amino Transf (AST/SGOT) 95H, Alanine Aminotransferase (ALT/SGPT) 273H, Alkaline Phosphatase 65, C-Reactive Protein, Quantitative < 0.4, Total Protein 5.3L, Albumin 2.6L, Globulin 2.7, Albumin/Globulin Ratio 1.0, Amylase Level 37, Lipase 104 Height (Feet): 5 Height (Inches): 5.00 Weight (Pounds): 139 Objective General Appearance: WD/WN, alert Neck: supple Cardiovascular: normal rate, regular rhythm Respiratory/Chest: no accessory muscle use, rhonchi - bilaterally, expiratory wheezing- minimal Abdomen: normal bowel sounds, non tender, soft Neurologic: defect repairer glassware II-XII grossly normal, alert, oriented x 3 Joshua Sultana MD Aug 25, 2018 07:20
--- NOTE | 2018-08-25 07:37 | NUR ---
HAND-OFF: Report given to Qasim Kahn RN. Dr. Sultana visited pt in the morning. Endorsed plans of care.
--- NOTE | 2018-08-25 07:42 | NUR ---
NURSE NOTES: Received report from ADOLFO Hogan. Patient is in stable condition. No acute distress/SOB noted. Daughter and are at the bedside. Will continue plan of care.
--- NOTE | 2018-08-25 08:08 | Urology Progress Note ---
Assessment/Plan Assessment/Plan 1. Urinary retention. 2. Benign prostatic hypertrophy. 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 4. Renal insufficiency, acute on chronic, improved. 5. Hematuria. 6. Renal cyst. 7. Small angiomyolipoma. charles indwellig flomax added monitor renal fxn voiding trial soon cysto later Subjective Allergies: Coded Allergies: No Known Allergies (Unverified , 08/12/18) Subjective all noted Objective Last 24 Hour Vital Signs Date Time Temp Pulse Resp B/P (MAP) Pulse Ox O2 Delivery O2 Flow Rate FiO2 08/25/18 07:41 95 Nasal Cannula 2.0 28 08/25/18 07:41 Nasal Cannula 2.0 28 08/25/18 07:28 Nasal Cannula 2.0 28 08/25/18 07:28 Nasal Cannula 2.0 28 08/25/18 06:51 164/68 08/25/18 06:44 73 164/68 (100) 08/25/18 05:35 84 20 97 08/25/18 04:00 98.2 70 20 149/68 (95) 99 08/25/18 03:53 67 08/25/18 03:50 74 26 97 Facial 30 08/25/18 03:41 82 20 97 Nasal Cannula 2.0 28 08/25/18 03:39 78 18 97 Bi-pap 30 08/25/18 00:04 80 20 95 Nasal Cannula 2.0 28 08/25/18 00:03 69 28 97 Facial 30 08/25/18 00:00 98.2 70 20 142/69 (93) 94 08/24/18 23:42 64 18 94 Nasal Cannula 2.0 28 08/24/18 23:42 68 08/24/18 23:39 69 18 94 Nasal Cannula 2.0 28 08/24/18 21:00 Nasal Cannula 3.0 Nasal Cannula 3.0 08/24/18 21:00 28 08/24/18 20:00 98.2 73 20 144/55 (84) 94 08/24/18 19:55 80 20 95 Nasal Cannula 2.0 28 08/24/18 19:49 Nasal Cannula 2.0 28 08/24/18 19:49 94 Nasal Cannula 2.0 28 08/24/18 19:45 76 18 94 Nasal Cannula 2.0 08/24/18 19:32 67 08/24/18 17:06 163/68 08/24/18 16:00 69 08/24/18 16:00 98.1 71 18 163/68 (99) 94 08/24/18 15:32 84 21 98 Nasal Cannula 4.0 36 08/24/18 15:22 74 20 95 Nasal Cannula 3.0 32 08/24/18 12:00 85 08/24/18 12:00 98.2 79 18 153/72 (99) 94 08/24/18 10:58 86 21 98 Nasal Cannula 4.0 36 08/24/18 10:48 69 20 94 Nasal Cannula 3.0 32 08/24/18 09:00 Nasal Cannula 3.0 Nasal Cannula 3.0 08/24/18 09:00 87 166/71 08/24/18 09:00 3.0 08/24/18 08:25 87 21 97 Nasal Cannula 3.0 32 08/24/18 08:12 75 20 94 Nasal Cannula 3.0 32 08/24/18 08:12 Nasal Cannula 3.0 32 08/24/18 08:12 94 Nasal Cannula 3.0 32 Intake and Output 08/24/18 08/25/18 18:59 06:59 Output Total 150 ml Balance -150 ml Output Urine Total 150 ml # Bowel Movements 1 Microbiology Date/Time Source Procedure Growth Status 08/12/18 02:45 Blood Blood Culture - Final Gram Negative Jones Complete 08/16/18 12:00 Sputum Gram Stain - Final Complete 08/16/18 12:00 Sputum Culture - Final Robina Albicans Staphylococcus Aureus - Mrsa Complete 08/13/18 20:25 Indwelling Cath Urine Culture - Final NO GROWTH AFTER 48 HOURS Complete Current Medications Medications (Trade) Dose Ordered Sig/Dinorah Route PRN Reason Start Time Stop Time Status Last Admin Dose Admin Acetaminophen (Tylenol) 650 mg Q6H PRN ORAL Mild Pain/Temp > 100.5 08/20/18 00:30 09/11/18 12:29 Albuterol/ Ipratropium (Albuterol/ Ipratropium) 3 ml Q4HRT HHN 08/23/18 00:00 08/28/18 00:00 08/25/18 03:39 Amiodarone HCl (Cordarone) 100 mg DAILY ORAL 08/20/18 09:00 09/12/18 08:59 08/24/18 09:00 Barium Sulfate (Readi-Cat 2) 450 ml NOW PRN ORAL Radiology Procedure 08/24/18 08:15 08/26/18 08:02 Dextrose (Dextrose 50%) 25 ml Q30M PRN IV Hypoglycemia 08/23/18 23:30 09/22/18 23:29 Dextrose (Dextrose 50%) 50 ml Q30M PRN IV Hypoglycemia 08/23/18 23:30 09/22/18 23:29 Diltiazem HCl (Cardizem CD) 180 mg DAILY ORAL 08/20/18 09:00 09/15/18 08:59 08/24/18 09:00 Doxycycline Monohydrate (Vibramycin) 100 mg EVERY 12 HOURS ORAL 08/22/18 11:30 08/29/18 11:29 08/24/18 20:54 Heparin Sodium (Porcine) (Heparin 5000 units/ml) 5,000 units EVERY 12 HOURS SUBQ 08/20/18 09:00 09/11/18 20:59 08/23/18 20:23 Hydralazine HCl (Apresoline) 10 mg Q4H PRN IV SBP above 150mmHg 08/20/18 00:30 09/11/18 12:29 08/25/18 06:51 Insulin Aspart (NovoLOG) BEFORE MEALS AND HS SUBQ 08/24/18 06:30 09/23/18 06:29 08/24/18 20:58 Levothyroxine Sodium (Synthroid) 150 mcg DAILY@0630 ORAL 08/20/18 06:30 09/12/18 06:29 08/25/18 05:53 Lisinopril (Prinivil) 20 mg DAILY ORAL 08/25/18 09:00 09/24/18 08:59 Methylprednisolone Sodium Succinate (Solu-MEDROL) 40 mg DAILY IVP 08/25/18 09:00 09/24/18 08:59 Ondansetron HCl (Zofran) 4 mg Q6H PRN IVP Nausea & Vomiting 08/20/18 00:30 09/11/18 12:29 Pantoprazole (Protonix) 40 mg DAILY ORAL 08/20/18 09:00 09/11/18 19:59 08/24/18 09:00 Pregabalin (Lyrica) 50 mg BEDTIME ORAL 08/20/18 21:00 09/11/18 21:29 08/24/18 20:54 Tamsulosin HCl (Flomax) 0.4 mg BEDTIME ORAL 08/23/18 21:00 09/22/18 20:59 08/24/18 20:53 Laboratory Tests 08/25/18 05:45: White Blood Count [Pending], Red Blood Count [Pending], Hemoglobin [Pending], Hematocrit [Pending], Mean Corpuscular Volume [Pending], Mean Corpuscular Hemoglobin [Pending], Mean Corpuscular Hemoglobin Concent [Pending], Red Cell Distribution Width [Pending], Platelet Count [Pending], Mean Platelet Volume [ Pending], Neutrophils (%) (Auto) [Pending], Lymphocytes (%) (Auto) [Pending], Monocytes (%) (Auto) [Pending], Eosinophils (%) (Auto) [Pending], Basophils (%) (Auto) [Pending], Erythrocyte Sedimentation Rate [Pending], Prothrombin Time 11.2, Prothromb Time International Ratio 1.1, Activated Partial Thromboplast Time 25, Sodium Level 139, Potassium Level 4.5, Chloride Level 106, Carbon Dioxide Level 23, Anion Gap 10, Blood Urea Nitrogen 47H, Creatinine 1.2, Estimat Glomerular Filtration Rate , Glucose Level 145H, Calcium Level 8.5, Total Bilirubin 1.4H, Direct Bilirubin 0.3, Aspartate Amino Transf (AST/SGOT) 95H, Alanine Aminotransferase (ALT/SGPT) 273H, Alkaline Phosphatase 65, C- Reactive Protein, Quantitative < 0.4, Total Protein 5.3L, Albumin 2.6L, Globulin 2.7, Albumin/Globulin Ratio 1.0, Amylase Level 37, Lipase 104 Height (Feet): 5 Height (Inches): 5.00 Weight (Pounds): 139 Objective exam stable charles indwelling with yellow urine Jovanny Bañuelos MD Aug 25, 2018 08:08
--- NOTE | 2018-08-25 08:12 | Pulmonology Progress Note ---
Assessment/Plan Assessment/Plan IMPRESSION: 1. Pulmonary edema. 2. Advanced COPD. 3. Pacemaker. DISCUSSION: Continue supplemental o2 via VTM; may use BiPAP prn ABG reviewed On tele now Continue steroids; now tapering CXR shows small R effusion; will diurese Carl Contreras M.D. Subjective Interval Events: none new Constitutional: Reports: no symptoms HEENT: Repors: no symptoms Respiratory: Reports: no symptoms Cardiovascular: Reports: no symptoms Gastrointestinal/Abdominal: Reports: no symptoms Genitourinary: Reports: no symptoms Allergies: Coded Allergies: No Known Allergies (Unverified , 08/12/18) Objective Last 24 Hour Vital Signs Date Time Temp Pulse Resp B/P (MAP) Pulse Ox O2 Delivery O2 Flow Rate FiO2 08/25/18 07:41 95 Nasal Cannula 2.0 08/25/18 07:41 Nasal Cannula 2.0 28 08/25/18 07:28 Nasal Cannula 2.0 28 08/25/18 07:28 Nasal Cannula 2.0 28 08/25/18 06:51 164/68 08/25/18 06:44 73 164/68 (100) 08/25/18 05:35 84 20 97 08/25/18 04:00 98.2 70 20 149/68 (95) 99 08/25/18 03:53 67 08/25/18 03:50 74 26 97 Facial 30 08/25/18 03:41 82 20 97 Nasal Cannula 2.0 28 08/25/18 03:39 78 18 97 Bi-pap 30 08/25/18 00:04 80 20 95 Nasal Cannula 2.0 28 08/25/18 00:03 69 28 97 Facial 30 08/25/18 00:00 98.2 70 20 142/69 (93) 94 08/24/18 23:42 64 18 94 Nasal Cannula 2.0 28 08/24/18 23:42 68 08/24/18 23:39 69 18 94 Nasal Cannula 2.0 28 08/24/18 21:00 Nasal Cannula 3.0 Nasal Cannula 3.0 08/24/18 21:00 28 08/24/18 20:00 98.2 73 20 144/55 (84) 94 08/24/18 19:55 80 20 95 Nasal Cannula 2.0 28 08/24/18 19:49 Nasal Cannula 2.0 28 08/24/18 19:49 94 Nasal Cannula 2.0 28 08/24/18 19:45 76 18 94 Nasal Cannula 2.0 28 08/24/18 19:32 67 08/24/18 17:06 163/68 08/24/18 16:00 69 08/24/18 16:00 98.1 71 18 163/68 (99) 94 08/24/18 15:32 84 21 98 Nasal Cannula 4.0 36 08/24/18 15:22 74 20 95 Nasal Cannula 3.0 32 08/24/18 12:00 85 08/24/18 12:00 98.2 79 18 153/72 (99) 94 08/24/18 10:58 86 21 98 Nasal Cannula 4.0 36 08/24/18 10:48 69 20 94 Nasal Cannula 3.0 32 08/24/18 09:00 Nasal Cannula 3.0 Nasal Cannula 3.0 08/24/18 09:00 87 166/71 08/24/18 09:00 3.0 08/24/18 08:25 87 21 97 Nasal Cannula 3.0 32 Intake and Output 08/24/18 08/25/18 18:59 06:59 Output Total 150 ml Balance -150 ml Output Urine Total 150 ml # Bowel Movements 1 General Appearance: no acute distress HEENT: normocephalic Respiratory/Chest: chest wall non-tender, lungs clear Cardiovascular: normal peripheral pulses, normal rate Abdomen: normal bowel sounds Laboratory Tests 08/25/18 05:45: White Blood Count [Pending], Red Blood Count [Pending], Hemoglobin [Pending], Hematocrit [Pending], Mean Corpuscular Volume [Pending], Mean Corpuscular Hemoglobin [Pending], Mean Corpuscular Hemoglobin Concent [Pending], Red Cell Distribution Width [Pending], Platelet Count [Pending], Mean Platelet Volume [ Pending], Neutrophils (%) (Auto) [Pending], Lymphocytes (%) (Auto) [Pending], Monocytes (%) (Auto) [Pending], Eosinophils (%) (Auto) [Pending], Basophils (%) (Auto) [Pending], Erythrocyte Sedimentation Rate [Pending], Prothrombin Time 11.2, Prothromb Time International Ratio 1.1, Activated Partial Thromboplast Time 25, Sodium Level 139, Potassium Level 4.5, Chloride Level 106, Carbon Dioxide Level 23, Anion Gap 10, Blood Urea Nitrogen 47H, Creatinine 1.2, Estimat Glomerular Filtration Rate , Glucose Level 145H, Calcium Level 8.5, Total Bilirubin 1.4H, Direct Bilirubin 0.3, Aspartate Amino Transf (AST/SGOT) 95H, Alanine Aminotransferase (ALT/SGPT) 273H, Alkaline Phosphatase 65, C- Reactive Protein, Quantitative < 0.4, Total Protein 5.3L, Albumin 2.6L, Globulin 2.7, Albumin/Globulin Ratio 1.0, Amylase Level 37, Lipase 104 Current Medications Medications (Trade) Dose Ordered Sig/Dinorah Route PRN Reason Start Time Stop Time Status Last Admin Dose Admin Acetaminophen (Tylenol) 650 mg Q6H PRN ORAL Mild Pain/Temp > 100.5 08/20/18 00:30 09/11/18 12:29 Albuterol/ Ipratropium (Albuterol/ Ipratropium) 3 ml Q4HRT HHN 08/23/18 00:00 08/28/18 00:00 08/25/18 03:39 Amiodarone HCl (Cordarone) 100 mg DAILY ORAL 08/20/18 09:00 09/12/18 08:59 08/24/18 09:00 Barium Sulfate (Readi-Cat 2) 450 ml NOW PRN ORAL Radiology Procedure 08/24/18 08:15 08/26/18 08:02 Dextrose (Dextrose 50%) 25 ml Q30M PRN IV Hypoglycemia 08/23/18 23:30 09/22/18 23:29 Dextrose (Dextrose 50%) 50 ml Q30M PRN IV Hypoglycemia 08/23/18 23:30 09/22/18 23:29 Diltiazem HCl (Cardizem CD) 180 mg DAILY ORAL 08/20/18 09:00 09/15/18 08:59 08/24/18 09:00 Doxycycline Monohydrate (Vibramycin) 100 mg EVERY 12 HOURS ORAL 08/22/18 11:30 08/29/18 11:29 08/24/18 20:54 Heparin Sodium (Porcine) (Heparin 5000 units/ml) 5,000 units EVERY 12 HOURS SUBQ 08/20/18 09:00 09/11/18 20:59 08/23/18 20:23 Hydralazine HCl (Apresoline) 10 mg Q4H PRN IV SBP above 150mmHg 08/20/18 00:30 09/11/18 12:29 08/25/18 06:51 Insulin Aspart (NovoLOG) BEFORE MEALS AND HS SUBQ 08/24/18 06:30 09/23/18 06:29 08/24/18 20:58 Levothyroxine Sodium (Synthroid) 150 mcg DAILY@0630 ORAL 08/20/18 06:30 09/12/18 06:29 08/25/18 05:53 Lisinopril (Prinivil) 20 mg DAILY ORAL 08/25/18 09:00 09/24/18 08:59 Methylprednisolone Sodium Succinate (Solu-MEDROL) 40 mg DAILY IVP 08/25/18 09:00 09/24/18 08:59 Ondansetron HCl (Zofran) 4 mg Q6H PRN IVP Nausea & Vomiting 08/20/18 00:30 09/11/18 12:29 Pantoprazole (Protonix) 40 mg DAILY ORAL 08/20/18 09:00 09/11/18 19:59 08/24/18 09:00 Pregabalin (Lyrica) 50 mg BEDTIME ORAL 08/20/18 21:00 09/11/18 21:29 08/24/18 20:54 Tamsulosin HCl (Flomax) 0.4 mg BEDTIME ORAL 08/23/18 21:00 09/22/18 20:59 08/24/18 20:53 Carl Contreras MD Aug 25, 2018 08:12
[2018-08-25] MEDS: Lisinopril 20mg tab ORAL SCH (08:14)
[2018-08-25] MEDS: dilTIAZem HCl CD 180mg cap ORAL SCH (08:14)
[2018-08-25] MEDS: Amiodarone 200mg tab ORAL SCH (08:15)
[2018-08-25] MEDS: Solu-MEDROL 40mg Inj IVP SCH (08:22)
[2018-08-25 08:42] LABS: HEMATOCRIT 36.2 % (42.0-52.0); HEMOGLOBIN 12.2 G/DL (14.2-18.0); MEAN CORPUSCULAR VOLUME 88 FL (80-99); PLATELET COUNT 114 K/UL (150-450); RED BLOOD COUNT 4.13 M/UL (4.70-6.10); RED CELL DISTRIBUTION WIDTH 14.3 % (11.6-14.8); WHITE BLOOD COUNT 20.5 K/UL (4.8-10.8)
[2018-08-25] MEDS: Heparin 5000 units/ml inj SUBQ SCH ×2 (08:51→21:00)
--- NOTE | 2018-08-25 10:39 | Infectious Diseases Prog Note ---
Assessment/Plan Assessment/Plan antibiotics : doxycycline A 1. MRSA pneumonia improving 2. CHF 3. leucocytosis increased likely secondary to steroids 4. renal failure improving 5. COPD 6. hypertension 7. sphingobacterium sepsis s/p rx P 1. continue doxycycline 2 more days 2. will follow up cultures Subjective ROS Limited/Unobtainable: Yes Allergies: Coded Allergies: No Known Allergies (Unverified , 08/12/18) Objective Vital Signs Last 24 Hour Vital Signs Date Time Temp Pulse Resp B/P (MAP) Pulse Ox O2 Delivery O2 Flow Rate FiO2 08/25/18 09:00 3.0 08/25/18 09:00 Nasal Cannula 3.0 Nasal Cannula 3.0 08/25/18 08:14 166/77 08/25/18 08:14 73 164/68 08/25/18 08:00 98.1 78 20 166/77 (106) 94 08/25/18 07:41 95 Nasal Cannula 2.0 28 08/25/18 07:41 Nasal Cannula 2.0 28 08/25/18 07:28 Nasal Cannula 2.0 28 08/25/18 07:28 Nasal Cannula 2.0 28 08/25/18 06:51 164/68 08/25/18 06:44 73 164/68 (100) 08/25/18 05:35 84 20 97 08/25/18 04:00 98.2 70 20 149/68 (95) 99 08/25/18 03:53 67 08/25/18 03:50 74 26 97 Facial 30 08/25/18 03:41 82 20 97 Nasal Cannula 2.0 28 08/25/18 03:39 78 18 97 Bi-pap 30 08/25/18 00:04 80 20 95 Nasal Cannula 2.0 28 08/25/18 00:03 69 28 97 Facial 30 08/25/18 00:00 98.2 70 20 142/69 (93) 94 08/24/18 23:42 64 18 94 Nasal Cannula 2.0 28 08/24/18 23:42 68 08/24/18 23:39 69 18 94 Nasal Cannula 2.0 28 08/24/18 21:00 Nasal Cannula 3.0 Nasal Cannula 3.0 08/24/18 21:00 28 08/24/18 20:00 98.2 73 20 144/55 (84) 94 08/24/18 19:55 80 20 95 Nasal Cannula 2.0 28 08/24/18 19:49 Nasal Cannula 2.0 28 08/24/18 19:49 94 Nasal Cannula 2.0 28 08/24/18 19:45 76 18 94 Nasal Cannula 2.0 28 08/24/18 19:32 67 08/24/18 17:06 163/68 08/24/18 16:00 69 08/24/18 16:00 98.1 71 18 163/68 (99) 94 08/24/18 15:32 84 21 98 Nasal Cannula 4.0 36 08/24/18 15:22 74 20 95 Nasal Cannula 3.0 32 08/24/18 12:00 85 08/24/18 12:00 98.2 79 18 153/72 (99) 94 08/24/18 10:58 86 21 98 Nasal Cannula 4.0 36 08/24/18 10:48 69 20 94 Nasal Cannula 3.0 32 Height (Feet): 5 Height (Inches): 5.00 Weight (Pounds): 139 Respiratory/Chest: rhonchi - bilaterally - decreased Cardiovascular: normal rate, regular rhythm, no gallop/murmur Abdomen: soft, non tender Extremities: no edema Laboratory Tests Test 08/25/18 05:45 White Blood Count 20.5 K/UL (4.8-10.8) H Red Blood Count 4.13 M/UL (4.70-6.10) L Hemoglobin 12.2 G/DL (14.2-18.0) L Hematocrit 36.2 % (42.0-52.0) L Mean Corpuscular Volume 88 FL (80-99) Mean Corpuscular Hemoglobin 29.6 PG (27.0-31.0) Mean Corpuscular Hemoglobin Concent 33.7 G/DL (32.0-36.0) Red Cell Distribution Width 14.3 % (11.6-14.8) Platelet Count 114 K/UL (150-450) L Mean Platelet Volume 8.8 FL (6.5-10.1) Neutrophils (%) (Auto) % (45.0-75.0) Lymphocytes (%) (Auto) % (20.0-45.0) Monocytes (%) (Auto) % (1.0-10.0) Eosinophils (%) (Auto) % (0.0-3.0) Basophils (%) (Auto) % (0.0-2.0) Neutrophils % (Manual) Pending Lymphocytes % (Manual) Pending Platelet Estimate Pending Platelet Morphology Pending Erythrocyte Sedimentation Rate 2 MM/HR (0-20) Prothrombin Time 11.2 SEC (9.30-11.50) Prothromb Time International Ratio 1.1 (0.9-1.1) Activated Partial Thromboplast Time 25 SEC (23-33) Sodium Level 139 MMOL/L (136-145) Potassium Level 4.5 MMOL/L (3.5-5.1) Chloride Level 106 MMOL/L (98-107) Carbon Dioxide Level 23 MMOL/L (21-32) Anion Gap 10 mmol/L (5-15) Blood Urea Nitrogen 47 mg/dL (7-18) H Creatinine 1.2 MG/DL (0.55-1.30) Estimat Glomerular Filtration Rate mL/min (>60) Glucose Level 145 MG/DL (74-106) H Calcium Level 8.5 MG/DL (8.5-10.1) Total Bilirubin 1.4 MG/DL (0.2-1.0) H Direct Bilirubin 0.3 MG/DL (0.0-0.3) Aspartate Amino Transf (AST/SGOT) 95 U/L (15-37) H Alanine Aminotransferase (ALT/SGPT) 273 U/L (12-78) H Alkaline Phosphatase 65 U/L (46-116) C-Reactive Protein, Quantitative < 0.4 mg/dL (0.00-0.90) Total Protein 5.3 G/DL (6.4-8.2) L Albumin 2.6 G/DL (3.4-5.0) L Globulin 2.7 g/dL Albumin/Globulin Ratio 1.0 (1.0-2.7) Amylase Level 37 U/L (25-115) Lipase 104 U/L (73-393) Current Medications Medications (Trade) Dose Ordered Sig/Dinorah Route PRN Reason Start Time Stop Time Status Last Admin Dose Admin Acetaminophen (Tylenol) 650 mg Q6H PRN ORAL Mild Pain/Temp > 100.5 08/20/18 00:30 09/11/18 12:29 Albuterol/ Ipratropium (Albuterol/ Ipratropium) 3 ml Q4HRT HHN 08/23/18 00:00 08/28/18 00:00 08/25/18 03:39 Amiodarone HCl (Cordarone) 100 mg DAILY ORAL 08/20/18 09:00 09/12/18 08:59 08/25/18 08:15 Barium Sulfate (Readi-Cat 2) 450 ml NOW PRN ORAL Radiology Procedure 08/24/18 08:15 08/26/18 08:02 Dextrose (Dextrose 50%) 25 ml Q30M PRN IV Hypoglycemia 08/23/18 23:30 09/22/18 23:29 Dextrose (Dextrose 50%) 50 ml Q30M PRN IV Hypoglycemia 08/23/18 23:30 09/22/18 23:29 Diltiazem HCl (Cardizem CD) 180 mg DAILY ORAL 08/20/18 09:00 09/15/18 08:59 08/25/18 08:14 Doxycycline Monohydrate (Vibramycin) 100 mg EVERY 12 HOURS ORAL 08/22/18 11:30 08/29/18 11:29 08/25/18 08:14 Heparin Sodium (Porcine) (Heparin 5000 units/ml) 5,000 units EVERY 12 HOURS SUBQ 08/20/18 09:00 09/11/18 20:59 08/23/18 20:23 Hydralazine HCl (Apresoline) 10 mg Q4H PRN IV SBP above 150mmHg 08/20/18 00:30 09/11/18 12:29 08/25/18 06:51 Insulin Aspart (NovoLOG) BEFORE MEALS AND HS SUBQ 08/24/18 06:30 09/23/18 06:29 08/24/18 20:58 Levothyroxine Sodium (Synthroid) 150 mcg DAILY@0630 ORAL 08/20/18 06:30 09/12/18 06:29 08/25/18 05:53 Lisinopril (Prinivil) 20 mg DAILY ORAL 08/25/18 09:00 09/24/18 08:59 08/25/18 08:14 Methylprednisolone Sodium Succinate (Solu-MEDROL) 40 mg DAILY IVP 08/25/18 09:00 09/24/18 08:59 08/25/18 08:22 Ondansetron HCl (Zofran) 4 mg Q6H PRN IVP Nausea & Vomiting 08/20/18 00:30 09/11/18 12:29 Pantoprazole (Protonix) 40 mg DAILY ORAL 08/20/18 09:00 09/11/18 19:59 08/25/18 08:15 Pregabalin (Lyrica) 50 mg BEDTIME ORAL 08/20/18 21:00 09/11/18 21:29 08/24/18 20:54 Tamsulosin HCl (Flomax) 0.4 mg BEDTIME ORAL 08/23/18 21:00 09/22/18 20:59 08/24/18 20:53 Soo Almaraz MD Aug 25, 2018 10:39
--- NOTE | 2018-08-25 12:10 | Surgery Progress Note ---
Surgery Progress Note Subjective Additional Comments no acute events. CT noted. labs noted. exam stable. Objective Last 24 Hour Vital Signs Date Time Temp Pulse Resp B/P (MAP) Pulse Ox O2 Delivery O2 Flow Rate FiO2 08/25/18 10:44 68 18 98 Nasal Cannula 2.0 28 08/25/18 10:35 65 18 96 Nasal Cannula 2.0 28 08/25/18 09:00 3.0 08/25/18 09:00 Nasal Cannula 3.0 Nasal Cannula 3.0 08/25/18 08:14 166/77 08/25/18 08:14 73 164/68 08/25/18 08:00 73 08/25/18 08:00 98.1 78 20 166/77 (106) 94 08/25/18 07:41 95 Nasal Cannula 2.0 28 08/25/18 07:41 Nasal Cannula 2.0 28 08/25/18 07:28 Nasal Cannula 2.0 28 08/25/18 07:28 Nasal Cannula 2.0 28 08/25/18 06:51 164/68 08/25/18 06:44 73 164/68 (100) 08/25/18 05:35 84 20 97 08/25/18 04:00 98.2 70 20 149/68 (95) 99 08/25/18 03:53 67 08/25/18 03:50 74 26 97 Facial 30 08/25/18 03:41 82 20 97 Nasal Cannula 2.0 28 08/25/18 03:39 78 18 97 Bi-pap 30 08/25/18 00:04 80 20 95 Nasal Cannula 2.0 28 08/25/18 00:03 69 28 97 Facial 30 08/25/18 00:00 98.2 70 20 142/69 (93) 94 08/24/18 23:42 64 18 94 Nasal Cannula 2.0 28 08/24/18 23:42 68 08/24/18 23:39 69 18 94 Nasal Cannula 2.0 28 08/24/18 21:00 Nasal Cannula 3.0 Nasal Cannula 3.0 08/24/18 21:00 28 08/24/18 20:00 98.2 73 20 144/55 (84) 94 08/24/18 19:55 80 20 95 Nasal Cannula 2.0 28 08/24/18 19:49 Nasal Cannula 2.0 28 08/24/18 19:49 94 Nasal Cannula 2.0 28 08/24/18 19:45 76 18 94 Nasal Cannula 2.0 28 08/24/18 19:32 67 08/24/18 17:06 163/68 08/24/18 16:00 69 08/24/18 16:00 98.1 71 18 163/68 (99) 94 08/24/18 15:32 84 21 98 Nasal Cannula 4.0 36 08/24/18 15:22 74 20 95 Nasal Cannula 3.0 32 I&O Intake and Output 08/24/18 08/25/18 19:00 07:00 Output Total 300 ml Balance -300 ml Output Urine Total 300 ml # Bowel Movements 1 Drains: none Cardiovascular: RSR Respiratory: clear Abdomen: soft, present bowel sounds Extremities: no cyanosis Laboratory Tests Test 08/25/18 05:45 White Blood Count 20.5 K/UL (4.8-10.8) H Red Blood Count 4.13 M/UL (4.70-6.10) L Hemoglobin 12.2 G/DL (14.2-18.0) L Hematocrit 36.2 % (42.0-52.0) L Mean Corpuscular Volume 88 FL (80-99) Mean Corpuscular Hemoglobin 29.6 PG (27.0-31.0) Mean Corpuscular Hemoglobin Concent 33.7 G/DL (32.0-36.0) Red Cell Distribution Width 14.3 % (11.6-14.8) Platelet Count 114 K/UL (150-450) L Mean Platelet Volume 8.8 FL (6.5-10.1) Neutrophils (%) (Auto) % (45.0-75.0) Lymphocytes (%) (Auto) % (20.0-45.0) Monocytes (%) (Auto) % (1.0-10.0) Eosinophils (%) (Auto) % (0.0-3.0) Basophils (%) (Auto) % (0.0-2.0) Differential Total Cells Counted 100 Neutrophils % (Manual) 97 % (45-75) H Lymphocytes % (Manual) 1 % (20-45) L Monocytes % (Manual) 2 % (1-10) Eosinophils % (Manual) 0 % (0-3) Basophils % (Manual) 0 % (0-2) Band Neutrophils 0 % (0-8) Platelet Estimate Decreased L Platelet Morphology Normal Red Blood Cell Morphology Normal Erythrocyte Sedimentation Rate 2 MM/HR (0-20) Prothrombin Time 11.2 SEC (9.30-11.50) Prothromb Time International Ratio 1.1 (0.9-1.1) Activated Partial Thromboplast Time 25 SEC (23-33) Sodium Level 139 MMOL/L (136-145) Potassium Level 4.5 MMOL/L (3.5-5.1) Chloride Level 106 MMOL/L (98-107) Carbon Dioxide Level 23 MMOL/L (21-32) Anion Gap 10 mmol/L (5-15) Blood Urea Nitrogen 47 mg/dL (7-18) H Creatinine 1.2 MG/DL (0.55-1.30) Estimat Glomerular Filtration Rate mL/min (>60) Glucose Level 145 MG/DL (74-106) H Calcium Level 8.5 MG/DL (8.5-10.1) Total Bilirubin 1.4 MG/DL (0.2-1.0) H Direct Bilirubin 0.3 MG/DL (0.0-0.3) Aspartate Amino Transf (AST/SGOT) 95 U/L (15-37) H Alanine Aminotransferase (ALT/SGPT) 273 U/L (12-78) H Alkaline Phosphatase 65 U/L (46-116) C-Reactive Protein, Quantitative < 0.4 mg/dL (0.00-0.90) Total Protein 5.3 G/DL (6.4-8.2) L Albumin 2.6 G/DL (3.4-5.0) L Globulin 2.7 g/dL Albumin/Globulin Ratio 1.0 (1.0-2.7) Amylase Level 37 U/L (25-115) Lipase 104 U/L (73-393) Plan Problems: (1) Abdominal pain Assessment & Plan: RUQ abd pain distention tender on exam leukocytosis abnormal lft US okay HIDA negative CT negative abdominal discomfort likely due to constipation leukocytosis likely secondary to steroids abx as per ID trend labs no acute surgical intervention planned okay to d/c from surgical standpoint will monitor clinically thank you (2) Abnormal LFTs (3) Sepsis Rick Jama Aug 25, 2018 12:10
--- NOTE | 2018-08-25 19:45 | NUR ---
HAND-OFF: Report given to ADOLFO Valdez. Patient is in stable condition. Son is at the bedside. Endorsed plan of care.
--- NOTE | 2018-08-25 20:00 | NUR ---
NURSE NOTES: Pt awake/alert, laying in bed, breathing easily 3 lpm nasal cannula, denies SOB but c/o minor abdominal ache, 3/10, no nausea/vom/diarrhea. Vital signs stable with v-pace @ 62 on monitor. Pt with bilateral upper and lower extremity +1/+2 edema, good motor/neuro/capillary distal functions. IV access right wrist with flushed with 10 ml NS and locked. Zaidi cath in place, patent with clear yellow urine running into collection bag at foot of bed. Pressure release mattress installed and running. Son/family member at bedside rooming in. Bed left in low position, side rails up x 3 and call light left near pt's hand.
[2018-08-25] MEDS: Tamsulosin 0.4mg cap ORAL SCH (21:59)
[2018-08-25] MEDS: Lyrica 50mg cap ORAL SCH (22:00)
[2018-08-26] VITALS: BP 141/51
[2018-08-26] MEDS: Albuterol/Ipratropium 3ml neb HHN SCH ×6 (03:07→23:16)
[2018-08-26 04:00] VITALS: BP 133/60
[2018-08-26] MEDS: NovoLOG Insulin Flexpen SUBQ SCH ×4 (06:25→21:00)
--- NOTE | 2018-08-26 07:36 | NUR ---
NURSE NOTES: Received bedside report from José Miguel RN. Pt. in bed, awake, a/o x 4. No sign of distress. On O2 at 3LPM via NC. Denies pain at present. IV site at right wrist #24g. in placed SL. Zaidi cath. in placed patent/intact draining yellow colored urine. Bed in low position, locked. Call light within reach. Will cont. to monitor.
[2018-08-26 08:00] VITALS: BP 154/63
[2018-08-26] MEDS: Solu-MEDROL 40mg Inj IVP SCH (08:52)
[2018-08-26] MEDS: Lisinopril 20mg tab ORAL SCH (08:52)
[2018-08-26] MEDS: dilTIAZem HCl CD 180mg cap ORAL SCH (08:53)
[2018-08-26] MEDS: Amiodarone 200mg tab ORAL SCH (08:53)
[2018-08-26] MEDS: Heparin 5000 units/ml inj SUBQ SCH ×2 (08:53→21:00)
--- NOTE | 2018-08-26 09:18 | Urology Progress Note ---
Assessment/Plan Assessment/Plan 1. Urinary retention. 2. Benign prostatic hypertrophy. 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 4. Renal insufficiency, acute on chronic, improved. 5. Hematuria. 6. Renal cyst. 7. Small angiomyolipoma. charles indwellig flomax added consider adding proscar monitor renal fxn voiding trial soon, once more mobile cysto later d/w pt's d/w nursing staff Subjective Allergies: Coded Allergies: No Known Allergies (Unverified , 08/12/18) Subjective all noted Objective Last 24 Hour Vital Signs Date Time Temp Pulse Resp B/P (MAP) Pulse Ox O2 Delivery O2 Flow Rate FiO2 08/26/18 08:53 66 154/63 08/26/18 08:52 154/63 08/26/18 08:00 96.3 66 20 154/63 (93) 95 08/26/18 07:23 64 18 95 Nasal Cannula 2.0 28 08/26/18 07:23 64 18 95 Nasal Cannula 2.0 28 08/26/18 07:23 Nasal Cannula 2.0 28 08/26/18 07:23 95 Nasal Cannula 2.0 28 08/26/18 04:00 70 08/26/18 04:00 98.1 72 21 133/60 (84) 96 08/26/18 03:09 68 22 99 Bi-pap 30 08/26/18 03:03 68 19 98 Bi-pap 30 08/26/18 03:02 68 19 98 Facial 30 08/26/18 00:00 64 22 99 Facial 30 08/26/18 00:00 97.4 66 17 141/51 (81) 97 08/26/18 00:00 65 08/26/18 00:00 65 22 99 Bi-pap 30 08/25/18 23:52 65 20 94 Nasal Cannula 2.0 28 08/25/18 21:00 3.0 08/25/18 21:00 Nasal Cannula 3.0 Nasal Cannula 3.0 08/25/18 20:40 62 20 98 Nasal Cannula 2.0 28 08/25/18 20:37 92 Nasal Cannula 2.0 28 08/25/18 20:37 Nasal Cannula 2.0 28 08/25/18 20:30 62 22 92 Nasal Cannula 2.0 28 08/25/18 20:00 97.7 67 18 149/57 (87) 95 08/25/18 20:00 67 08/25/18 16:00 98.0 82 18 144/78 (100) 97 08/25/18 16:00 66 08/25/18 15:29 66 18 97 Nasal Cannula 2.0 28 08/25/18 15:22 63 16 95 Nasal Cannula 2.0 28 08/25/18 12:00 80 08/25/18 12:00 97.6 67 20 139/57 (84) 96 08/25/18 10:44 68 18 98 Nasal Cannula 2.0 28 08/25/18 10:35 65 18 96 Nasal Cannula 2.0 28 Intake and Output 08/25/18 08/26/18 18:59 06:59 Intake Total 240 ml 120 ml Output Total 150 ml 820 ml Balance 90 ml -700 ml Intake Oral 240 ml 120 ml Output Urine Total 150 ml 820 ml # Bowel Movements 2 Microbiology Date/Time Source Procedure Growth Status 08/12/18 02:45 Blood Blood Culture - Final Gram Negative Jones Complete 08/16/18 12:00 Sputum Gram Stain - Final Complete 08/16/18 12:00 Sputum Culture - Final Robina Albicans Staphylococcus Aureus - Mrsa Complete 08/13/18 20:25 Indwelling Cath Urine Culture - Final NO GROWTH AFTER 48 HOURS Complete Current Medications Medications (Trade) Dose Ordered Sig/Dinorah Route PRN Reason Start Time Stop Time Status Last Admin Dose Admin Acetaminophen (Tylenol) 650 mg Q6H PRN ORAL Mild Pain/Temp > 100.5 08/20/18 00:30 09/11/18 12:29 Albuterol/ Ipratropium (Albuterol/ Ipratropium) 3 ml Q4HRT HHN 08/23/18 00:00 08/28/18 00:00 08/26/18 07:23 Amiodarone HCl (Cordarone) 100 mg DAILY ORAL 08/20/18 09:00 09/12/18 08:59 08/26/18 08:53 Dextrose (Dextrose 50%) 25 ml Q30M PRN IV Hypoglycemia 08/23/18 23:30 09/22/18 23:29 Dextrose (Dextrose 50%) 50 ml Q30M PRN IV Hypoglycemia 08/23/18 23:30 09/22/18 23:29 Diltiazem HCl (Cardizem CD) 180 mg DAILY ORAL 08/20/18 09:00 09/15/18 08:59 08/26/18 08:53 Doxycycline Monohydrate (Vibramycin) 100 mg EVERY 12 HOURS ORAL 08/22/18 11:30 08/29/18 11:29 08/26/18 08:52 Heparin Sodium (Porcine) (Heparin 5000 units/ml) 5,000 units EVERY 12 HOURS SUBQ 08/20/18 09:00 09/11/18 20:59 08/23/18 20:23 Hydralazine HCl (Apresoline) 10 mg Q4H PRN IV SBP above 150mmHg 08/20/18 00:30 09/11/18 12:29 08/25/18 06:51 Insulin Aspart (NovoLOG) BEFORE MEALS AND HS SUBQ 08/24/18 06:30 09/23/18 06:29 08/25/18 22:02 Levothyroxine Sodium (Synthroid) 150 mcg DAILY@0630 ORAL 08/20/18 06:30 09/12/18 06:29 08/26/18 06:25 Lisinopril (Prinivil) 20 mg DAILY ORAL 08/25/18 09:00 09/24/18 08:59 08/26/18 08:52 Methylprednisolone Sodium Succinate (Solu-MEDROL) 40 mg DAILY IVP 08/25/18 09:00 09/24/18 08:59 08/26/18 08:52 Ondansetron HCl (Zofran) 4 mg Q6H PRN IVP Nausea & Vomiting 08/20/18 00:30 09/11/18 12:29 Pantoprazole (Protonix) 40 mg DAILY ORAL 08/20/18 09:00 09/11/18 19:59 08/26/18 08:52 Pregabalin (Lyrica) 50 mg BEDTIME ORAL 08/20/18 21:00 09/11/18 21:29 08/25/18 22:00 Tamsulosin HCl (Flomax) 0.4 mg BEDTIME ORAL 08/23/18 21:00 09/22/18 20:59 08/25/18 21:59 Height (Feet): 5 Height (Inches): 5.00 Weight (Pounds): 139 Objective exam stable charles indwelling with yellow urine Jovanny Bañuelos MD Aug 26, 2018 09:18
--- NOTE | 2018-08-26 09:26 | Pulmonology Progress Note ---
Assessment/Plan Assessment/Plan IMPRESSION: 1. Pulmonary edema. 2. Advanced COPD. 3. Pacemaker. DISCUSSION: Continue supplemental o2 via VTM; may use BiPAP prn CT abd/pelvis shows anasarca Needs ongoing diuresis Carl Contreras M.D. Subjective Interval Events: Saturating well on nasal O2 Constitutional: Reports: no symptoms HEENT: Repors: no symptoms Respiratory: Reports: no symptoms Cardiovascular: Reports: no symptoms Gastrointestinal/Abdominal: Reports: no symptoms Genitourinary: Reports: no symptoms Neurologic: Reports: no symptoms Allergies: Coded Allergies: No Known Allergies (Unverified , 08/12/18) Objective Last 24 Hour Vital Signs Date Time Temp Pulse Resp B/P (MAP) Pulse Ox O2 Delivery O2 Flow Rate FiO2 08/26/18 08:53 66 154/63 08/26/18 08:52 154/63 08/26/18 08:00 96.3 66 20 154/63 (93) 95 08/26/18 07:23 64 18 95 Nasal Cannula 2.0 28 08/26/18 07:23 64 18 95 Nasal Cannula 2.0 28 08/26/18 07:23 Nasal Cannula 2.0 28 08/26/18 07:23 95 Nasal Cannula 2.0 28 08/26/18 04:00 70 08/26/18 04:00 98.1 72 21 133/60 (84) 96 08/26/18 03:09 68 22 99 Bi-pap 30 08/26/18 03:03 68 19 98 Bi-pap 30 08/26/18 03:02 68 19 98 Facial 30 08/26/18 00:00 64 22 99 Facial 30 08/26/18 00:00 97.4 66 17 141/51 (81) 97 08/26/18 00:00 65 08/26/18 00:00 65 22 99 Bi-pap 30 08/25/18 23:52 65 20 94 Nasal Cannula 2.0 28 08/25/18 21:00 3.0 08/25/18 21:00 Nasal Cannula 3.0 Nasal Cannula 3.0 08/25/18 20:40 62 20 98 Nasal Cannula 2.0 28 08/25/18 20:37 92 Nasal Cannula 2.0 28 08/25/18 20:37 Nasal Cannula 2.0 28 08/25/18 20:30 62 22 92 Nasal Cannula 2.0 28 08/25/18 20:00 97.7 67 18 149/57 (87) 95 08/25/18 20:00 67 08/25/18 16:00 98.0 82 18 144/78 (100) 97 08/25/18 16:00 66 08/25/18 15:29 66 18 97 Nasal Cannula 2.0 28 08/25/18 15:22 63 16 95 Nasal Cannula 2.0 28 08/25/18 12:00 80 08/25/18 12:00 97.6 67 20 139/57 (84) 96 08/25/18 10:44 68 18 98 Nasal Cannula 2.0 28 08/25/18 10:35 65 18 96 Nasal Cannula 2.0 28 Intake and Output 08/25/18 08/26/18 18:59 06:59 Intake Total 240 ml 120 ml Output Total 150 ml 820 ml Balance 90 ml -700 ml Intake Oral 240 ml 120 ml Output Urine Total 150 ml 820 ml # Bowel Movements 2 General Appearance: no acute distress HEENT: normocephalic Respiratory/Chest: chest wall non-tender, decreased breath sounds Cardiovascular: normal peripheral pulses, normal rate Abdomen: normal bowel sounds, soft, non tender Extremities: no cyanosis Current Medications Medications (Trade) Dose Ordered Sig/Dinorah Route PRN Reason Start Time Stop Time Status Last Admin Dose Admin Acetaminophen (Tylenol) 650 mg Q6H PRN ORAL Mild Pain/Temp > 100.5 08/20/18 00:30 09/11/18 12:29 Albuterol/ Ipratropium (Albuterol/ Ipratropium) 3 ml Q4HRT HHN 08/23/18 00:00 08/28/18 00:00 08/26/18 07:23 Amiodarone HCl (Cordarone) 100 mg DAILY ORAL 08/20/18 09:00 09/12/18 08:59 08/26/18 08:53 Dextrose (Dextrose 50%) 25 ml Q30M PRN IV Hypoglycemia 08/23/18 23:30 09/22/18 23:29 Dextrose (Dextrose 50%) 50 ml Q30M PRN IV Hypoglycemia 08/23/18 23:30 09/22/18 23:29 Diltiazem HCl (Cardizem CD) 180 mg DAILY ORAL 08/20/18 09:00 09/15/18 08:59 08/26/18 08:53 Doxycycline Monohydrate (Vibramycin) 100 mg EVERY 12 HOURS ORAL 08/22/18 11:30 08/29/18 11:29 08/26/18 08:52 Heparin Sodium (Porcine) (Heparin 5000 units/ml) 5,000 units EVERY 12 HOURS SUBQ 08/20/18 09:00 09/11/18 20:59 08/23/18 20:23 Hydralazine HCl (Apresoline) 10 mg Q4H PRN IV SBP above 150mmHg 08/20/18 00:30 09/11/18 12:29 08/25/18 06:51 Insulin Aspart (NovoLOG) BEFORE MEALS AND HS SUBQ 08/24/18 06:30 09/23/18 06:29 08/25/18 22:02 Levothyroxine Sodium (Synthroid) 150 mcg DAILY@0630 ORAL 08/20/18 06:30 09/12/18 06:29 08/26/18 06:25 Lisinopril (Prinivil) 20 mg DAILY ORAL 08/25/18 09:00 09/24/18 08:59 08/26/18 08:52 Methylprednisolone Sodium Succinate (Solu-MEDROL) 40 mg DAILY IVP 08/25/18 09:00 09/24/18 08:59 08/26/18 08:52 Ondansetron HCl (Zofran) 4 mg Q6H PRN IVP Nausea & Vomiting 08/20/18 00:30 09/11/18 12:29 Pantoprazole (Protonix) 40 mg DAILY ORAL 08/20/18 09:00 09/11/18 19:59 08/26/18 08:52 Pregabalin (Lyrica) 50 mg BEDTIME ORAL 08/20/18 21:00 09/11/18 21:29 08/25/18 22:00 Tamsulosin HCl (Flomax) 0.4 mg BEDTIME ORAL 08/23/18 21:00 09/22/18 20:59 08/25/18 21:59 Carl Contreras MD Aug 26, 2018 09:26
--- NOTE | 2018-08-26 10:09 | Surgery Progress Note ---
Surgery Progress Note Subjective Additional Comments no acute events. stable. Objective Last 24 Hour Vital Signs Date Time Temp Pulse Resp B/P (MAP) Pulse Ox O2 Delivery O2 Flow Rate FiO2 08/26/18 08:53 66 154/63 08/26/18 08:52 154/63 08/26/18 08:00 96.3 66 20 154/63 (93) 95 08/26/18 07:23 64 18 95 Nasal Cannula 2.0 28 08/26/18 07:23 64 18 95 Nasal Cannula 2.0 28 08/26/18 07:23 Nasal Cannula 2.0 28 08/26/18 07:23 95 Nasal Cannula 2.0 28 08/26/18 04:00 70 08/26/18 04:00 98.1 72 21 133/60 (84) 96 08/26/18 03:09 68 22 99 Bi-pap 30 08/26/18 03:03 68 19 98 Bi-pap 30 08/26/18 03:02 68 19 98 Facial 30 08/26/18 00:00 64 22 99 Facial 30 08/26/18 00:00 97.4 66 17 141/51 (81) 97 08/26/18 00:00 65 08/26/18 00:00 65 22 99 Bi-pap 30 08/25/18 23:52 65 20 94 Nasal Cannula 2.0 28 08/25/18 21:00 3.0 08/25/18 21:00 Nasal Cannula 3.0 Nasal Cannula 3.0 08/25/18 20:40 62 20 98 Nasal Cannula 2.0 28 08/25/18 20:37 92 Nasal Cannula 2.0 28 08/25/18 20:37 Nasal Cannula 2.0 28 08/25/18 20:30 62 22 92 Nasal Cannula 2.0 28 08/25/18 20:00 97.7 67 18 149/57 (87) 95 08/25/18 20:00 67 08/25/18 16:00 98.0 82 18 144/78 (100) 97 08/25/18 16:00 66 08/25/18 15:29 66 18 97 Nasal Cannula 2.0 28 08/25/18 15:22 63 16 95 Nasal Cannula 2.0 28 08/25/18 12:00 80 08/25/18 12:00 97.6 67 20 139/57 (84) 96 08/25/18 10:44 68 18 98 Nasal Cannula 2.0 28 08/25/18 10:35 65 18 96 Nasal Cannula 2.0 28 I&O Intake and Output 08/25/18 08/26/18 18:59 06:59 Intake Total 240 ml 120 ml Output Total 150 ml 820 ml Balance 90 ml -700 ml Intake Oral 240 ml 120 ml Output Urine Total 150 ml 820 ml # Bowel Movements 2 Cardiovascular: RSR Respiratory: clear Abdomen: soft, tenderness, present bowel sounds, non-distended Extremities: no cyanosis Plan Problems: (1) Abdominal pain Assessment & Plan: RUQ abd pain distention tender on exam leukocytosis abnormal lft US okay HIDA negative CT negative abdominal discomfort likely due to constipation leukocytosis likely secondary to steroids abx as per ID trend labs no acute surgical intervention planned okay to d/c from surgical standpoint will monitor clinically thank you (2) Abnormal LFTs (3) Sepsis Rick Jama Aug 26, 2018 10:09
--- NOTE | 2018-08-26 11:09 | Infectious Diseases Prog Note ---
Assessment/Plan Assessment/Plan antibiotics : doxycycline A 1. MRSA pneumonia improving 2. CHF 3. leucocytosis increased likely secondary to steroids 4. renal failure improving 5. COPD 6. hypertension 7. sphingobacterium sepsis s/p rx P 1. continue doxycycline 1 more day 2. will follow up cultures Subjective ROS Limited/Unobtainable: Yes Allergies: Coded Allergies: No Known Allergies (Unverified , 08/12/18) Objective Vital Signs Last 24 Hour Vital Signs Date Time Temp Pulse Resp B/P (MAP) Pulse Ox O2 Delivery O2 Flow Rate FiO2 08/26/18 10:33 66 16 98 Nasal Cannula 2.0 28 08/26/18 10:30 68 20 96 Nasal Cannula 2.0 28 08/26/18 08:53 66 154/63 08/26/18 08:52 154/63 08/26/18 08:00 96.3 66 20 154/63 (93) 95 08/26/18 07:23 64 18 95 Nasal Cannula 2.0 28 08/26/18 07:23 64 18 95 Nasal Cannula 2.0 28 08/26/18 07:23 Nasal Cannula 2.0 28 08/26/18 07:23 95 Nasal Cannula 2.0 28 08/26/18 04:00 70 08/26/18 04:00 98.1 72 21 133/60 (84) 96 08/26/18 03:09 68 22 99 Bi-pap 30 08/26/18 03:03 68 19 98 Bi-pap 30 08/26/18 03:02 68 19 98 Facial 30 08/26/18 00:00 64 22 99 Facial 30 08/26/18 00:00 97.4 66 17 141/51 (81) 97 08/26/18 00:00 65 08/26/18 00:00 65 22 99 Bi-pap 30 08/25/18 23:52 65 20 94 Nasal Cannula 2.0 28 08/25/18 21:00 3.0 08/25/18 21:00 Nasal Cannula 3.0 Nasal Cannula 3.0 08/25/18 20:40 62 20 98 Nasal Cannula 2.0 28 08/25/18 20:37 92 Nasal Cannula 2.0 28 08/25/18 20:37 Nasal Cannula 2.0 28 08/25/18 20:30 62 22 92 Nasal Cannula 2.0 28 08/25/18 20:00 97.7 67 18 149/57 (87) 95 08/25/18 20:00 67 08/25/18 16:00 98.0 82 18 144/78 (100) 97 08/25/18 16:00 66 08/25/18 15:29 66 18 97 Nasal Cannula 2.0 28 08/25/18 15:22 63 16 95 Nasal Cannula 2.0 28 08/25/18 12:00 80 08/25/18 12:00 97.6 67 20 139/57 (84) 96 Height (Feet): 5 Height (Inches): 5.00 Weight (Pounds): 139 Respiratory/Chest: rhonchi - bilaterally - decreased Cardiovascular: normal rate, regular rhythm, no gallop/murmur Abdomen: soft, non tender Extremities: no edema Current Medications Medications (Trade) Dose Ordered Sig/Dinorah Route PRN Reason Start Time Stop Time Status Last Admin Dose Admin Acetaminophen (Tylenol) 650 mg Q6H PRN ORAL Mild Pain/Temp > 100.5 08/20/18 00:30 09/11/18 12:29 Albuterol/ Ipratropium (Albuterol/ Ipratropium) 3 ml Q4HRT HHN 08/23/18 00:00 08/28/18 00:00 08/26/18 10:30 Amiodarone HCl (Cordarone) 100 mg DAILY ORAL 08/20/18 09:00 09/12/18 08:59 08/26/18 08:53 Dextrose (Dextrose 50%) 25 ml Q30M PRN IV Hypoglycemia 08/23/18 23:30 09/22/18 23:29 Dextrose (Dextrose 50%) 50 ml Q30M PRN IV Hypoglycemia 08/23/18 23:30 09/22/18 23:29 Diltiazem HCl (Cardizem CD) 180 mg DAILY ORAL 08/20/18 09:00 09/15/18 08:59 08/26/18 08:53 Doxycycline Monohydrate (Vibramycin) 100 mg EVERY 12 HOURS ORAL 08/22/18 11:30 08/29/18 11:29 08/26/18 08:52 Heparin Sodium (Porcine) (Heparin 5000 units/ml) 5,000 units EVERY 12 HOURS SUBQ 08/20/18 09:00 09/11/18 20:59 08/23/18 20:23 Hydralazine HCl (Apresoline) 10 mg Q4H PRN IV SBP above 150mmHg 08/20/18 00:30 09/11/18 12:29 08/25/18 06:51 Insulin Aspart (NovoLOG) BEFORE MEALS AND HS SUBQ 08/24/18 06:30 09/23/18 06:29 08/25/18 22:02 Levothyroxine Sodium (Synthroid) 150 mcg DAILY@0630 ORAL 08/20/18 06:30 09/12/18 06:29 08/26/18 06:25 Lisinopril (Prinivil) 20 mg DAILY ORAL 08/25/18 09:00 09/24/18 08:59 08/26/18 08:52 Methylprednisolone Sodium Succinate (Solu-MEDROL) 40 mg DAILY IVP 08/25/18 09:00 09/24/18 08:59 08/26/18 08:52 Ondansetron HCl (Zofran) 4 mg Q6H PRN IVP Nausea & Vomiting 08/20/18 00:30 09/11/18 12:29 Pantoprazole (Protonix) 40 mg DAILY ORAL 08/20/18 09:00 09/11/18 19:59 08/26/18 08:52 Pregabalin (Lyrica) 50 mg BEDTIME ORAL 08/20/18 21:00 09/11/18 21:29 08/25/18 22:00 Tamsulosin HCl (Flomax) 0.4 mg BEDTIME ORAL 08/23/18 21:00 09/22/18 20:59 08/25/18 21:59 Soo Almaraz MD Aug 26, 2018 11:09
--- NOTE | 2018-08-26 11:56 | General Progress Note ---
Assessment/Plan Problem List: (1) Sepsis ICD Codes: A41.9 - Sepsis, unspecified organism SNOMED: 18529711 Qualifiers: Qualified Codes: A41.9 - Sepsis, unspecified organism (2) COPD exacerbation ICD Codes: J44.1 - Chronic obstructive pulmonary disease with (acute) exacerbation SNOMED: 001239736 (3) Respiratory distress ICD Codes: R06.03 - Acute respiratory distress SNOMED: 658892654 Status: stable, progressing Assessment/Plan abx resp care/o2 amio for rate control bipap as needed cont steroids per pulm monitor labs and cxr diuresis per cards ct abd- negative bowel regime dc planning snf Subjective Constitutional: Reports: malaise, weakness HEENT: Reports: no symptoms Cardiovascular: Reports: no symptoms Respiratory: Reports: cough Gastrointestinal/Abdominal: Reports: no symptoms Genitourinary: Reports: no symptoms Neurologic/Psychiatric: Reports: no symptoms Endocrine: Reports: no symptoms Hematologic/Lymphatic: Reports: no symptoms Allergies: Coded Allergies: No Known Allergies (Unverified , 08/12/18) Subjective no events. cultures noted. no fever or chills. no sob. Objective Last 24 Hour Vital Signs Date Time Temp Pulse Resp B/P (MAP) Pulse Ox O2 Delivery O2 Flow Rate FiO2 08/26/18 10:33 66 16 98 Nasal Cannula 2.0 28 08/26/18 10:30 68 20 96 Nasal Cannula 2.0 28 08/26/18 09:00 3.0 08/26/18 09:00 Nasal Cannula 3.0 Nasal Cannula 3.0 08/26/18 08:53 66 154/63 08/26/18 08:52 154/63 08/26/18 08:00 96.3 66 20 154/63 (93) 95 08/26/18 07:23 64 18 95 Nasal Cannula 2.0 28 08/26/18 07:23 64 18 95 Nasal Cannula 2.0 28 08/26/18 07:23 Nasal Cannula 2.0 28 08/26/18 07:23 95 Nasal Cannula 2.0 28 08/26/18 04:00 70 08/26/18 04:00 98.1 72 21 133/60 (84) 96 08/26/18 03:09 68 22 99 Bi-pap 30 08/26/18 03:03 68 19 98 Bi-pap 30 08/26/18 03:02 68 19 98 Facial 30 08/26/18 00:00 64 22 99 Facial 30 08/26/18 00:00 97.4 66 17 141/51 (81) 97 08/26/18 00:00 65 08/26/18 00:00 65 22 99 Bi-pap 30 08/25/18 23:52 65 20 94 Nasal Cannula 2.0 28 08/25/18 21:00 3.0 08/25/18 21:00 Nasal Cannula 3.0 Nasal Cannula 3.0 08/25/18 20:40 62 20 98 Nasal Cannula 2.0 28 08/25/18 20:37 92 Nasal Cannula 2.0 28 08/25/18 20:37 Nasal Cannula 2.0 28 08/25/18 20:30 62 22 92 Nasal Cannula 2.0 28 08/25/18 20:00 97.7 67 18 149/57 (87) 95 08/25/18 20:00 67 08/25/18 16:00 98.0 82 18 144/78 (100) 97 08/25/18 16:00 66 08/25/18 15:29 66 18 97 Nasal Cannula 2.0 28 08/25/18 15:22 63 16 95 Nasal Cannula 2.0 28 08/25/18 12:00 80 08/25/18 12:00 97.6 67 20 139/57 (84) 96 Intake and Output 08/25/18 08/26/18 18:59 06:59 Intake Total 240 ml 120 ml Output Total 150 ml 820 ml Balance 90 ml -700 ml Intake Oral 240 ml 120 ml Output Urine Total 150 ml 820 ml # Bowel Movements 2 Height (Feet): 5 Height (Inches): 5.00 Weight (Pounds): 139 Objective General Appearance: WD/WN, alert Neck: supple Cardiovascular: normal rate, regular rhythm Respiratory/Chest: no accessory muscle use, rhonchi - bilaterally, expiratory wheezing- minimal Abdomen: normal bowel sounds, non tender, soft Neurologic: change director II-XII grossly normal, alert, oriented x 3 Joshua Sultana MD Aug 26, 2018 11:56
[2018-08-26 12:00] VITALS: BP 150/56
[2018-08-26 16:00] VITALS: BP 138/48
--- NOTE | 2018-08-26 19:32 | NUR ---
HAND-OFF: Report given to Dimas MATA. Pt. remain stable.
--- NOTE | 2018-08-26 19:33 | NUR ---
NURSE NOTES: Got report from Lefty RN. Pt in stable condition. Denies any pain. No s/s of distress or discomfort noted. Pt resting in bed comfortably. Bed in low and locked position, call light within reach, bedside table within reach. continue to monitor.
[2018-08-26 20:00] VITALS: BP 125/51
[2018-08-26] MEDS: Tamsulosin 0.4mg cap ORAL SCH (21:59)
[2018-08-26] MEDS: Lyrica 50mg cap ORAL SCH (21:59)
[2018-08-27 00:21] VITALS: BP 134/55
[2018-08-27] MEDS: Albuterol/Ipratropium 3ml neb HHN SCH ×6 (02:53→23:12)
[2018-08-27 04:20] VITALS: BP 122/59
[2018-08-27] MEDS: NovoLOG Insulin Flexpen SUBQ SCH ×4 (06:30→21:16)
--- NOTE | 2018-08-27 07:30 | NUR ---
NURSE NOTES: Received update bedside report from Dimas MATA. Pt. in bed, awake, a/o x 4. No sign of distress. On O2 at 3LPM via NC. C/O discomfort at the tip of his penis from the catheter. Zaidi cath. in placed patent/intact draining yellow colored urine. IV site at right wrist #24g. in placed SL. Previous shift reported the output was 675cc total from last night. Palpate lower abdomen soft to touch. Bed in low position, locked. Call light within reach. Will cont. to monitor.
--- NOTE | 2018-08-27 07:30 | NUR ---
HAND-OFF: Report given to escobar Mcneil. endorsed plan of care.
[2018-08-27 08:00] VITALS: BP 132/52
[2018-08-27] MEDS: Heparin 5000 units/ml inj SUBQ SCH ×2 (09:00→21:00)
--- NOTE | 2018-08-27 09:04 | Pulmonology Progress Note ---
Assessment/Plan Assessment/Plan IMPRESSION: 1. Pulmonary edema. 2. Advanced COPD. 3. Pacemaker. DISCUSSION: Continue supplemental o2 via VTM; may use BiPAP prn CT abd/pelvis shows anasarca Continue diuresis Dc planning to SNF Carl Contreras M.D. Subjective Interval Events: None new; saturating well Constitutional: Reports: no symptoms HEENT: Repors: no symptoms Respiratory: Reports: no symptoms Cardiovascular: Reports: no symptoms Gastrointestinal/Abdominal: Reports: no symptoms Genitourinary: Reports: no symptoms Allergies: Coded Allergies: No Known Allergies (Unverified , 08/12/18) Objective Last 24 Hour Vital Signs Date Time Temp Pulse Resp B/P (MAP) Pulse Ox O2 Delivery O2 Flow Rate FiO2 08/27/18 07:07 67 20 98 Nasal Cannula 2.0 28 08/27/18 07:01 Nasal Cannula 2.0 28 08/27/18 07:00 94 Nasal Cannula 2.0 28 08/27/18 07:00 67 18 93 Nasal Cannula 2.0 28 08/27/18 04:28 63 08/27/18 04:20 96.9 74 17 122/59 (80) 97 08/27/18 03:05 70 20 98 Nasal Cannula 3.0 32 08/27/18 02:57 69 19 98 Facial 30 08/27/18 02:53 71 19 96 Bi-pap 30 08/27/18 01:20 70 23 96 Facial 30 08/27/18 00:27 63 08/27/18 00:21 96.6 64 18 134/55 (81) 97 08/26/18 23:28 65 18 99 Nasal Cannula 2.0 28 08/26/18 23:16 65 18 94 Nasal Cannula 2.0 28 08/26/18 21:00 3.0 08/26/18 21:00 Nasal Cannula 3.0 Nasal Cannula 3.0 08/26/18 20:00 98.3 72 18 125/51 (75) 96 08/26/18 20:00 65 08/26/18 19:38 63 18 98 Nasal Cannula 2.0 28 08/26/18 19:30 69 18 93 Nasal Cannula 2.0 28 08/26/18 19:30 Nasal Cannula 2.0 28 08/26/18 19:30 93 Nasal Cannula 2.0 28 08/26/18 16:00 97.7 65 20 138/48 (78) 99 08/26/18 15:21 68 12 99 Nasal Cannula 2.0 28 08/26/18 15:18 65 08/26/18 15:14 66 16 95 Nasal Cannula 2.0 28 08/26/18 12:00 97.4 67 20 150/56 (87) 95 08/26/18 11:53 65 08/26/18 10:33 66 16 98 Nasal Cannula 2.0 28 08/26/18 10:30 68 20 96 Nasal Cannula 2.0 28 Intake and Output 08/26/18 08/27/18 18:59 06:59 Intake Total 800 ml Output Total 550 ml 675 ml Balance 250 ml -675 ml Intake Oral 800 ml Output Urine Total 550 ml 675 ml General Appearance: no acute distress HEENT: normocephalic Respiratory/Chest: chest wall non-tender, lungs clear Cardiovascular: normal peripheral pulses, normal rate Abdomen: normal bowel sounds Current Medications Medications (Trade) Dose Ordered Sig/Dinorah Route PRN Reason Start Time Stop Time Status Last Admin Dose Admin Acetaminophen (Tylenol) 650 mg Q6H PRN ORAL Mild Pain/Temp > 100.5 08/20/18 00:30 09/11/18 12:29 Albuterol/ Ipratropium (Albuterol/ Ipratropium) 3 ml Q4HRT HHN 08/23/18 00:00 08/28/18 00:00 08/27/18 07:00 Amiodarone HCl (Cordarone) 100 mg DAILY ORAL 08/20/18 09:00 09/12/18 08:59 08/26/18 08:53 Dextrose (Dextrose 50%) 25 ml Q30M PRN IV Hypoglycemia 08/23/18 23:30 09/22/18 23:29 Dextrose (Dextrose 50%) 50 ml Q30M PRN IV Hypoglycemia 08/23/18 23:30 09/22/18 23:29 Diltiazem HCl (Cardizem CD) 180 mg DAILY ORAL 08/20/18 09:00 09/15/18 08:59 08/26/18 08:53 Doxycycline Monohydrate (Vibramycin) 100 mg EVERY 12 HOURS ORAL 08/22/18 11:30 08/29/18 11:29 08/26/18 21:59 Heparin Sodium (Porcine) (Heparin 5000 units/ml) 5,000 units EVERY 12 HOURS SUBQ 08/20/18 09:00 09/11/18 20:59 08/23/18 20:23 Hydralazine HCl (Apresoline) 10 mg Q4H PRN IV SBP above 150mmHg 08/20/18 00:30 09/11/18 12:29 08/25/18 06:51 Insulin Aspart (NovoLOG) BEFORE MEALS AND HS SUBQ 08/24/18 06:30 09/23/18 06:29 08/26/18 21:00 Levothyroxine Sodium (Synthroid) 150 mcg DAILY@0630 ORAL 08/20/18 06:30 09/12/18 06:29 08/27/18 06:13 Lisinopril (Prinivil) 20 mg DAILY ORAL 08/25/18 09:00 09/24/18 08:59 08/26/18 08:52 Methylprednisolone Sodium Succinate (Solu-MEDROL) 40 mg DAILY IVP 08/25/18 09:00 09/24/18 08:59 08/26/18 08:52 Ondansetron HCl (Zofran) 4 mg Q6H PRN IVP Nausea & Vomiting 08/20/18 00:30 09/11/18 12:29 Pantoprazole (Protonix) 40 mg DAILY ORAL 08/20/18 09:00 09/11/18 19:59 08/26/18 08:52 Pregabalin (Lyrica) 50 mg BEDTIME ORAL 08/20/18 21:00 09/11/18 21:29 08/26/18 21:59 Tamsulosin HCl (Flomax) 0.4 mg BEDTIME ORAL 08/23/18 21:00 09/22/18 20:59 08/26/18 21:59 Carl Contreras MD Aug 27, 2018 09:04
--- NOTE | 2018-08-27 09:18 | General Progress Note ---
Assessment/Plan Problem List: (1) Sepsis ICD Codes: A41.9 - Sepsis, unspecified organism SNOMED: 69890296 Qualifiers: Qualified Codes: A41.9 - Sepsis, unspecified organism (2) COPD exacerbation ICD Codes: J44.1 - Chronic obstructive pulmonary disease with (acute) exacerbation SNOMED: 756454906 (3) Respiratory distress ICD Codes: R06.03 - Acute respiratory distress SNOMED: 742201689 Status: stable Assessment/Plan abx resp care/o2 amio for rate control bipap as needed cont steroids per pulm monitor labs and cxr diuresis per cards lasix elevate hand and scrotum bowel regime dc planning snf Subjective ROS Limited/Unobtainable: No Constitutional: Reports: malaise, weakness HEENT: Reports: no symptoms Cardiovascular: Reports: edema Respiratory: Reports: no symptoms Gastrointestinal/Abdominal: Reports: no symptoms Genitourinary: Reports: no symptoms Neurologic/Psychiatric: Reports: no symptoms Endocrine: Reports: no symptoms Hematologic/Lymphatic: Reports: anemia Allergies: Coded Allergies: No Known Allergies (Unverified , 08/12/18) All Systems: reviewed and negative except above Subjective no events. cultures noted. no fever or chills. no sob. family c/o scrotal edema and left hand edema Objective Last 24 Hour Vital Signs Date Time Temp Pulse Resp B/P (MAP) Pulse Ox O2 Delivery O2 Flow Rate FiO2 08/27/18 07:07 67 20 98 Nasal Cannula 2.0 28 08/27/18 07:01 Nasal Cannula 2.0 28 08/27/18 07:00 94 Nasal Cannula 2.0 28 08/27/18 07:00 67 18 93 Nasal Cannula 2.0 28 08/27/18 04:28 63 08/27/18 04:20 96.9 74 17 122/59 (80) 97 08/27/18 03:05 70 20 98 Nasal Cannula 3.0 32 08/27/18 02:57 69 19 98 Facial 30 08/27/18 02:53 71 19 96 Bi-pap 30 08/27/18 01:20 70 23 96 Facial 30 08/27/18 00:27 63 08/27/18 00:21 96.6 64 18 134/55 (81) 97 08/26/18 23:28 65 18 99 Nasal Cannula 2.0 28 08/26/18 23:16 65 18 94 Nasal Cannula 2.0 28 08/26/18 21:00 3.0 08/26/18 21:00 Nasal Cannula 3.0 Nasal Cannula 3.0 08/26/18 20:00 98.3 72 18 125/51 (75) 96 08/26/18 20:00 65 08/26/18 19:38 63 18 98 Nasal Cannula 2.0 28 08/26/18 19:30 69 18 93 Nasal Cannula 2.0 28 08/26/18 19:30 Nasal Cannula 2.0 28 08/26/18 19:30 93 Nasal Cannula 2.0 28 08/26/18 16:00 97.7 65 20 138/48 (78) 99 08/26/18 15:21 68 12 99 Nasal Cannula 2.0 28 08/26/18 15:18 65 08/26/18 15:14 66 16 95 Nasal Cannula 2.0 28 08/26/18 12:00 97.4 67 20 150/56 (87) 95 08/26/18 11:53 65 08/26/18 10:33 66 16 98 Nasal Cannula 2.0 28 08/26/18 10:30 68 20 96 Nasal Cannula 2.0 28 Intake and Output 08/26/18 08/27/18 19:00 07:00 Intake Total 800 ml Output Total 550 ml 675 ml Balance 250 ml -675 ml Intake Oral 800 ml Output Urine Total 550 ml 675 ml Height (Feet): 5 Height (Inches): 5.00 Weight (Pounds): 139 Objective General Appearance: WD/WN, alert Neck: supple Cardiovascular: normal rate, regular rhythm Respiratory/Chest: no accessory muscle use, rhonchi - bilaterally, expiratory wheezing- minimal Abdomen: normal bowel sounds, non tender, soft Neurologic: equalizer operator II-XII grossly normal, alert, oriented x 3 Joshua Sultana MD Aug 27, 2018 09:18
--- NOTE | 2018-08-27 09:59 | Urology Progress Note ---
Assessment/Plan Assessment/Plan 1. Urinary retention. 2. Benign prostatic hypertrophy. 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 4. Renal insufficiency, acute on chronic, improved. 5. Hematuria. 6. Renal cyst. 7. Small angiomyolipoma. charles indwellig flomax added consider adding proscar monitor renal fxn voiding trial soon, once more mobile cysto later d/w pt's family Subjective Allergies: Coded Allergies: No Known Allergies (Unverified , 08/12/18) Subjective all noted Objective Last 24 Hour Vital Signs Date Time Temp Pulse Resp B/P (MAP) Pulse Ox O2 Delivery O2 Flow Rate FiO2 08/27/18 07:07 67 20 98 Nasal Cannula 2.0 28 08/27/18 07:01 Nasal Cannula 2.0 28 08/27/18 07:00 94 Nasal Cannula 2.0 28 08/27/18 07:00 67 18 93 Nasal Cannula 2.0 28 08/27/18 04:28 63 08/27/18 04:20 96.9 74 17 122/59 (80) 97 08/27/18 03:05 70 20 98 Nasal Cannula 3.0 32 08/27/18 02:57 69 19 98 Facial 30 08/27/18 02:53 71 19 96 Bi-pap 30 08/27/18 01:20 70 23 96 Facial 30 08/27/18 00:27 63 08/27/18 00:21 96.6 64 18 134/55 (81) 97 08/26/18 23:28 65 18 99 Nasal Cannula 2.0 28 08/26/18 23:16 65 18 94 Nasal Cannula 2.0 28 08/26/18 21:00 3.0 08/26/18 21:00 Nasal Cannula 3.0 Nasal Cannula 3.0 08/26/18 20:00 98.3 72 18 125/51 (75) 96 08/26/18 20:00 65 08/26/18 19:38 63 18 98 Nasal Cannula 2.0 28 08/26/18 19:30 69 18 93 Nasal Cannula 2.0 28 08/26/18 19:30 Nasal Cannula 2.0 28 08/26/18 19:30 93 Nasal Cannula 2.0 28 08/26/18 16:00 97.7 65 20 138/48 (78) 99 08/26/18 15:21 68 12 99 Nasal Cannula 2.0 28 08/26/18 15:18 65 08/26/18 15:14 66 16 95 Nasal Cannula 2.0 28 08/26/18 12:00 97.4 67 20 150/56 (87) 95 08/26/18 11:53 65 08/26/18 10:33 66 16 98 Nasal Cannula 2.0 28 08/26/18 10:30 68 20 96 Nasal Cannula 2.0 28 Intake and Output 08/26/18 08/27/18 18:59 06:59 Intake Total 800 ml Output Total 550 ml 675 ml Balance 250 ml -675 ml Intake Oral 800 ml Output Urine Total 550 ml 675 ml Microbiology Date/Time Source Procedure Growth Status 08/12/18 02:45 Blood Blood Culture - Final Gram Negative Jones Complete 08/16/18 12:00 Sputum Gram Stain - Final Complete 08/16/18 12:00 Sputum Culture - Final Robina Albicans Staphylococcus Aureus - Mrsa Complete 08/13/18 20:25 Indwelling Cath Urine Culture - Final NO GROWTH AFTER 48 HOURS Complete Current Medications Medications (Trade) Dose Ordered Sig/Dinorah Route PRN Reason Start Time Stop Time Status Last Admin Dose Admin Acetaminophen (Tylenol) 650 mg Q6H PRN ORAL Mild Pain/Temp > 100.5 08/20/18 00:30 09/11/18 12:29 Albuterol/ Ipratropium (Albuterol/ Ipratropium) 3 ml Q4HRT HHN 08/23/18 00:00 08/28/18 00:00 08/27/18 07:00 Amiodarone HCl (Cordarone) 100 mg DAILY ORAL 08/20/18 09:00 09/12/18 08:59 08/26/18 08:53 Dextrose (Dextrose 50%) 25 ml Q30M PRN IV Hypoglycemia 08/23/18 23:30 09/22/18 23:29 Dextrose (Dextrose 50%) 50 ml Q30M PRN IV Hypoglycemia 08/23/18 23:30 09/22/18 23:29 Diltiazem HCl (Cardizem CD) 180 mg DAILY ORAL 08/20/18 09:00 09/15/18 08:59 08/26/18 08:53 Doxycycline Monohydrate (Vibramycin) 100 mg EVERY 12 HOURS ORAL 08/22/18 11:30 08/29/18 11:29 08/26/18 21:59 Furosemide (Lasix) 20 mg ONCE IV 08/27/18 09:30 08/27/18 10:30 Heparin Sodium (Porcine) (Heparin 5000 units/ml) 5,000 units EVERY 12 HOURS SUBQ 08/20/18 09:00 09/11/18 20:59 08/23/18 20:23 Hydralazine HCl (Apresoline) 10 mg Q4H PRN IV SBP above 150mmHg 08/20/18 00:30 09/11/18 12:29 08/25/18 06:51 Insulin Aspart (NovoLOG) BEFORE MEALS AND HS SUBQ 08/24/18 06:30 09/23/18 06:29 08/26/18 21:00 Levothyroxine Sodium (Synthroid) 150 mcg DAILY@0630 ORAL 08/20/18 06:30 09/12/18 06:29 08/27/18 06:13 Lisinopril (Prinivil) 20 mg DAILY ORAL 08/25/18 09:00 09/24/18 08:59 08/26/18 08:52 Methylprednisolone Sodium Succinate (Solu-MEDROL) 40 mg DAILY IVP 08/25/18 09:00 09/24/18 08:59 08/26/18 08:52 Ondansetron HCl (Zofran) 4 mg Q6H PRN IVP Nausea & Vomiting 08/20/18 00:30 09/11/18 12:29 Pantoprazole (Protonix) 40 mg DAILY ORAL 08/20/18 09:00 09/11/18 19:59 08/26/18 08:52 Pregabalin (Lyrica) 50 mg BEDTIME ORAL 08/20/18 21:00 09/11/18 21:29 08/26/18 21:59 Tamsulosin HCl (Flomax) 0.4 mg BEDTIME ORAL 08/23/18 21:00 09/22/18 20:59 08/26/18 21:59 Height (Feet): 5 Height (Inches): 5.00 Weight (Pounds): 139 Objective exam stable charles indwelling with yellow urine Jovanny Bañuelos MD Aug 27, 2018 09:59
[2018-08-27] MEDS: Solu-MEDROL 40mg Inj IVP SCH (10:18)
[2018-08-27] MEDS: dilTIAZem HCl CD 180mg cap ORAL SCH (10:19)
[2018-08-27] MEDS: Amiodarone 200mg tab ORAL SCH (10:19)
[2018-08-27] MEDS: Lisinopril 20mg tab ORAL SCH (10:19)
--- NOTE | 2018-08-27 11:10 | Infectious Diseases Prog Note ---
Assessment/Plan Assessment/Plan A 1. pneumonia with MRSA treated 2. CHF 3. leucocytosis, steroid related 4. renal failure worse 5. COPD 6. hypertension 7. gram negative sepsis 8. increased LFT, HIDA scan : negative P 1. Discontinue Doxycycline 2. Taper steroids Subjective ROS Limited/Unobtainable: Yes Constitutional: Reports: no symptoms Allergies: Coded Allergies: No Known Allergies (Unverified , 08/12/18) Objective Vital Signs Last 24 Hour Vital Signs Date Time Temp Pulse Resp B/P (MAP) Pulse Ox O2 Delivery O2 Flow Rate FiO2 08/27/18 10:47 69 20 97 Nasal Cannula 2.0 28 08/27/18 10:40 70 18 95 Nasal Cannula 2.0 28 08/27/18 10:19 132/52 08/27/18 10:19 66 132/52 08/27/18 09:00 3.0 08/27/18 08:00 96.6 66 21 132/52 (78) 100 08/27/18 07:07 67 20 98 Nasal Cannula 2.0 28 08/27/18 07:01 Nasal Cannula 2.0 28 08/27/18 07:00 94 Nasal Cannula 2.0 28 08/27/18 07:00 67 18 93 Nasal Cannula 2.0 28 08/27/18 04:28 63 08/27/18 04:20 96.9 74 17 122/59 (80) 97 08/27/18 03:05 70 20 98 Nasal Cannula 3.0 32 08/27/18 02:57 69 19 98 Facial 30 08/27/18 02:53 71 19 96 Bi-pap 30 08/27/18 01:20 70 23 96 Facial 30 08/27/18 00:27 63 08/27/18 00:21 96.6 64 18 134/55 (81) 97 08/26/18 23:28 65 18 99 Nasal Cannula 2.0 28 08/26/18 23:16 65 18 94 Nasal Cannula 2.0 28 08/26/18 21:00 3.0 08/26/18 21:00 Nasal Cannula 3.0 Nasal Cannula 3.0 08/26/18 20:00 98.3 72 18 125/51 (75) 96 08/26/18 20:00 65 08/26/18 19:38 63 18 98 Nasal Cannula 2.0 28 08/26/18 19:30 69 18 93 Nasal Cannula 2.0 28 08/26/18 19:30 Nasal Cannula 2.0 28 08/26/18 19:30 93 Nasal Cannula 2.0 28 08/26/18 16:00 97.7 65 20 138/48 (78) 99 08/26/18 15:21 68 12 99 Nasal Cannula 2.0 28 08/26/18 15:18 65 08/26/18 15:14 66 16 95 Nasal Cannula 2.0 28 08/26/18 12:00 97.4 67 20 150/56 (87) 95 08/26/18 11:53 65 Height (Feet): 5 Height (Inches): 5.00 Weight (Pounds): 139 General Appearance: no acute distress HEENT: mucous membranes moist Respiratory/Chest: lungs clear, other - oxygen by cannula Cardiovascular: normal rate Abdomen: soft, non tender Extremities: other - edema of left hand Neurologic/Psychiatric: alert, responsive Current Medications Medications (Trade) Dose Ordered Sig/Dinorah Route PRN Reason Start Time Stop Time Status Last Admin Dose Admin Acetaminophen (Tylenol) 650 mg Q6H PRN ORAL Mild Pain/Temp > 100.5 08/20/18 00:30 09/11/18 12:29 Albuterol/ Ipratropium (Albuterol/ Ipratropium) 3 ml Q4HRT HHN 08/23/18 00:00 08/28/18 00:00 08/27/18 10:39 Amiodarone HCl (Cordarone) 100 mg DAILY ORAL 08/20/18 09:00 09/12/18 08:59 08/27/18 10:19 Dextrose (Dextrose 50%) 25 ml Q30M PRN IV Hypoglycemia 08/23/18 23:30 09/22/18 23:29 Dextrose (Dextrose 50%) 50 ml Q30M PRN IV Hypoglycemia 08/23/18 23:30 09/22/18 23:29 Diltiazem HCl (Cardizem CD) 180 mg DAILY ORAL 08/20/18 09:00 09/15/18 08:59 08/27/18 10:19 Doxycycline Monohydrate (Vibramycin) 100 mg EVERY 12 HOURS ORAL 08/22/18 11:30 08/29/18 11:29 08/27/18 10:22 Heparin Sodium (Porcine) (Heparin 5000 units/ml) 5,000 units EVERY 12 HOURS SUBQ 08/20/18 09:00 09/11/18 20:59 08/23/18 20:23 Hydralazine HCl (Apresoline) 10 mg Q4H PRN IV SBP above 150mmHg 08/20/18 00:30 09/11/18 12:29 08/25/18 06:51 Insulin Aspart (NovoLOG) BEFORE MEALS AND HS SUBQ 08/24/18 06:30 09/23/18 06:29 08/26/18 21:00 Levothyroxine Sodium (Synthroid) 150 mcg DAILY@0630 ORAL 08/20/18 06:30 09/12/18 06:29 08/27/18 06:13 Lisinopril (Prinivil) 20 mg DAILY ORAL 08/25/18 09:00 09/24/18 08:59 08/27/18 10:19 Methylprednisolone Sodium Succinate (Solu-MEDROL) 40 mg DAILY IVP 08/25/18 09:00 09/24/18 08:59 08/27/18 10:18 Ondansetron HCl (Zofran) 4 mg Q6H PRN IVP Nausea & Vomiting 08/20/18 00:30 09/11/18 12:29 Pantoprazole (Protonix) 40 mg DAILY ORAL 08/20/18 09:00 09/11/18 19:59 08/27/18 10:19 Pregabalin (Lyrica) 50 mg BEDTIME ORAL 08/20/18 21:00 09/11/18 21:29 08/26/18 21:59 Tamsulosin HCl (Flomax) 0.4 mg BEDTIME ORAL 08/23/18 21:00 09/22/18 20:59 08/26/18 21:59 Reji Batista MD Aug 27, 2018 11:10
[2018-08-27 12:00] VITALS: BP 127/55
--- NOTE | 2018-08-27 13:00 | Surgery Progress Note ---
Surgery Progress Note Subjective Additional Comments no acute events. stable. Objective Last 24 Hour Vital Signs Date Time Temp Pulse Resp B/P (MAP) Pulse Ox O2 Delivery O2 Flow Rate FiO2 08/27/18 10:47 69 20 97 Nasal Cannula 2.0 28 08/27/18 10:40 70 18 95 Nasal Cannula 2.0 28 08/27/18 10:19 132/52 08/27/18 10:19 66 132/52 08/27/18 09:00 Nasal Cannula 3.0 Nasal Cannula 3.0 08/27/18 09:00 3.0 08/27/18 08:00 96.6 66 21 132/52 (78) 100 08/27/18 07:50 76 08/27/18 07:07 67 20 98 Nasal Cannula 2.0 28 08/27/18 07:01 Nasal Cannula 2.0 28 08/27/18 07:00 94 Nasal Cannula 2.0 28 08/27/18 07:00 67 18 93 Nasal Cannula 2.0 28 08/27/18 04:28 63 08/27/18 04:20 96.9 74 17 122/59 (80) 97 08/27/18 03:05 70 20 98 Nasal Cannula 3.0 32 08/27/18 02:57 69 19 98 Facial 30 08/27/18 02:53 71 19 96 Bi-pap 30 08/27/18 01:20 70 23 96 Facial 30 08/27/18 00:27 63 08/27/18 00:21 96.6 64 18 134/55 (81) 97 08/26/18 23:28 65 18 99 Nasal Cannula 2.0 28 08/26/18 23:16 65 18 94 Nasal Cannula 2.0 28 08/26/18 21:00 3.0 08/26/18 21:00 Nasal Cannula 3.0 Nasal Cannula 3.0 08/26/18 20:00 98.3 72 18 125/51 (75) 96 08/26/18 20:00 65 08/26/18 19:38 63 18 98 Nasal Cannula 2.0 28 08/26/18 19:30 69 18 93 Nasal Cannula 2.0 28 08/26/18 19:30 Nasal Cannula 2.0 28 08/26/18 19:30 93 Nasal Cannula 2.0 28 08/26/18 16:00 97.7 65 20 138/48 (78) 99 08/26/18 15:21 68 12 99 Nasal Cannula 2.0 28 08/26/18 15:18 65 08/26/18 15:14 66 16 95 Nasal Cannula 2.0 28 I&O Intake and Output 08/26/18 08/27/18 18:59 06:59 Intake Total 800 ml Output Total 550 ml 675 ml Balance 250 ml -675 ml Intake Oral 800 ml Output Urine Total 550 ml 675 ml Dressing: other Wound: other Drains: other Cardiovascular: RSR Respiratory: clear Abdomen: soft, present bowel sounds, non-distended Extremities: other Plan Problems: (1) Abdominal pain Assessment & Plan: RUQ abd pain distention tender on exam leukocytosis abnormal lft US okay HIDA negative CT negative abdominal discomfort likely due to constipation leukocytosis likely secondary to steroids abx as per ID trend labs no acute surgical intervention planned okay to d/c from surgical standpoint will monitor clinically thank you (2) Abnormal LFTs (3) Sepsis Rick Jama Aug 27, 2018 13:00
[2018-08-27 16:00] VITALS: BP 130/58
--- NOTE | 2018-08-27 19:35 | NUR ---
HAND-OFF: Report given to Sherry MATA. Pt. remain stable.
--- NOTE | 2018-08-27 19:47 | NUR ---
NURSE NOTES: Received pt from ADOLFO Olea. Pt awake, alert, and watching TV. Bed in lowest position. at bedside. Call light within reach. Will continue to monitor.
[2018-08-27 20:00] VITALS: BP 120/47
[2018-08-27] MEDS: Lyrica 50mg cap ORAL SCH (21:12)
[2018-08-27] MEDS: Tamsulosin 0.4mg cap ORAL SCH (21:12)
[2018-08-28] VITALS: BP 135/58
--- NOTE | 2018-08-28 03:32 | NUR ---
RESPIRATORY NOTE: Pt placed on BiPAP for nightly use. Pt on BiPAP 15/4, backup rate 16, 35%. Pt on a Facial mask. Skin intact, no redness/breakdowns noted. Foam tape applied on pt's nosebridge/cheeks/chin to prevent any irritations. B/S alisha. diminished w/ minimal wheezing, nonproductive cough. BiPAP plugged into red outlet. Pt denies SOB/chest pain at this time. Will continue plan of care.
[2018-08-28 04:00] VITALS: BP 114/57
[2018-08-28] MEDS: NovoLOG Insulin Flexpen SUBQ SCH ×2 (05:41→11:30)
[2018-08-28 07:03] LABS: HEMATOCRIT 35.1 % (42.0-52.0); HEMOGLOBIN 11.7 G/DL (14.2-18.0); MEAN CORPUSCULAR VOLUME 88 FL (80-99); PLATELET COUNT 71 K/UL (150-450); RED BLOOD COUNT 3.97 M/UL (4.70-6.10); RED CELL DISTRIBUTION WIDTH 13.9 % (11.6-14.8); WHITE BLOOD COUNT 20.7 K/UL (4.8-10.8)
[2018-08-28 07:11] LABS: ALANINE AMINOTRANSFERASE 295 U/L (12-78); ALBUMIN 2.2 G/DL (3.4-5.0); ALBUMIN/GLOBULIN RATIO 0.8 (1.0-2.7); ALKALINE PHOSPHATASE 69 U/L (46-116); ANION GAP 6 mmol/L (5-15); ASPARTATE AMINO TRANSFERASE 88 U/L (15-37); BILIRUBIN,TOTAL 1.1 MG/DL (0.2-1.0); BLOOD UREA NITROGEN 48 mg/dL (7-18); CALCIUM 8.1 MG/DL (8.5-10.1); CARBON DIOXIDE 25 MMOL/L (21-32); CHLORIDE 105 MMOL/L (98-107); CREATININE 1.2 MG/DL (0.55-1.30); POTASSIUM 4.9 MMOL/L (3.5-5.1); SODIUM 136 MMOL/L (136-145)
--- NOTE | 2018-08-28 07:12 | NUR ---
HAND-OFF: Report given to ADOLFO Olea. Pt stable.
[2018-08-28 07:13] LABS: BILIRUBIN,DIRECT 0.2 MG/DL (0.0-0.3)
[2018-08-28] MEDS: Albuterol/Ipratropium 3ml neb HHN SCH ×3 (07:13→14:24)
--- NOTE | 2018-08-28 07:23 | NUR ---
NURSE NOTES: Received update bedside report from Sherry MATA. Pt. in bed, awake, a/o x 4. No sign of distress. On O2 at 3LPM via NC. Zaidi cath. in placed patent/intact draining yellow colored urine. IV site at right wrist #[id number]. in placed SL. Previous shift at present cleaning pt. up due to large BM. Bed in low position, locked. Call light within reach. Will cont. to monitor.
--- NOTE | 2018-08-28 07:34 | Pulmonology Progress Note ---
Assessment/Plan Assessment/Plan IMPRESSION: 1. Pulmonary edema. 2. Advanced COPD. 3. Pacemaker. DISCUSSION: Continue supplemental o2 via VTM; may use BiPAP prn CT abd/pelvis shows anasarca Continue diuresis Dc planning to SNF Carl Contreras M.D. Subjective Interval Events: none new Constitutional: Reports: no symptoms HEENT: Repors: no symptoms Respiratory: Reports: no symptoms Cardiovascular: Reports: no symptoms Gastrointestinal/Abdominal: Reports: no symptoms Genitourinary: Reports: no symptoms Allergies: Coded Allergies: No Known Allergies (Unverified , 08/12/18) Objective Last 24 Hour Vital Signs Date Time Temp Pulse Resp B/P (MAP) Pulse Ox O2 Delivery O2 Flow Rate FiO2 08/28/18 07:15 65 18 97 Nasal Cannula 2.0 28 08/28/18 07:14 96 Nasal Cannula 2.0 28 08/28/18 07:14 Nasal Cannula 2.0 28 08/28/18 07:13 65 18 96 Nasal Cannula 2.0 28 08/28/18 05:37 68 21 97 Facial 35 08/28/18 04:00 67 08/28/18 04:00 97.9 70 21 114/57 (76) 97 08/28/18 03:32 Bi-pap 35 08/28/18 03:32 Bi-pap 35 08/28/18 03:30 67 23 95 Facial 35 08/28/18 03:30 67 23 Bi-pap 35 08/28/18 00:00 61 08/28/18 00:00 98.0 67 20 135/58 (83) 94 08/27/18 23:22 63 18 98 Nasal Cannula 2.0 28 08/27/18 23:12 65 18 96 Nasal Cannula 2.0 28 08/27/18 21:00 3.0 08/27/18 21:00 Nasal Cannula 3.0 Nasal Cannula 3.0 08/27/18 20:00 97.6 63 24 120/47 (71) 94 08/27/18 20:00 61 08/27/18 19:33 60 16 97 Nasal Cannula 2.0 28 08/27/18 19:23 60 18 93 Nasal Cannula 2.0 28 08/27/18 19:22 93 Nasal Cannula 2.0 28 08/27/18 19:22 Nasal Cannula 2.0 28 08/27/18 16:00 97.7 63 22 130/58 (82) 93 08/27/18 15:44 63 08/27/18 15:30 66 16 99 Nasal Cannula 2.0 28 08/27/18 15:15 62 16 99 Nasal Cannula 2.0 28 08/27/18 12:00 96.1 70 20 127/55 (79) 95 08/27/18 11:52 70 08/27/18 10:47 69 20 97 Nasal Cannula 2.0 28 08/27/18 10:40 70 18 95 Nasal Cannula 2.0 28 08/27/18 10:19 132/52 08/27/18 10:19 66 132/52 08/27/18 09:00 Nasal Cannula 3.0 Nasal Cannula 3.0 08/27/18 09:00 3.0 08/27/18 08:00 96.6 66 21 132/52 (78) 100 08/27/18 07:50 76 Intake and Output 08/27/18 08/28/18 19:00 07:00 Intake Total 360 ml Output Total 1400 ml 400 ml Balance -1040 ml -400 ml Intake Oral 360 ml Output Urine Total 1400 ml 400 ml General Appearance: no acute distress HEENT: normocephalic Respiratory/Chest: chest wall non-tender, lungs clear Cardiovascular: normal peripheral pulses, normal rate Abdomen: normal bowel sounds Laboratory Tests 08/28/18 06:00: White Blood Count 20.7H, Red Blood Count 3.97L, Hemoglobin 11.7L, Hematocrit 35.1L, Mean Corpuscular Volume 88, Mean Corpuscular Hemoglobin 29.4, Mean Corpuscular Hemoglobin Concent 33.3, Red Cell Distribution Width 13.9, Platelet Count 71L, Mean Platelet Volume 9.8, Neutrophils (%) (Auto) , Lymphocytes (%) ( Auto) , Monocytes (%) (Auto) , Eosinophils (%) (Auto) , Basophils (%) (Auto) , Neutrophils % (Manual) [Pending], Lymphocytes % (Manual) [Pending], Platelet Estimate [Pending], Platelet Morphology [Pending], Sodium Level 136, Potassium Level 4.9, Chloride Level 105, Carbon Dioxide Level 25, Anion Gap 6, Blood Urea Nitrogen 48H, Creatinine 1.2, Estimat Glomerular Filtration Rate , Glucose Level 129H, Calcium Level 8.1L, Total Bilirubin 1.1H, Direct Bilirubin 0.2, Aspartate Amino Transf (AST/SGOT) 88H, Alanine Aminotransferase (ALT/SGPT) 295H , Alkaline Phosphatase 69, Total Protein 4.9L, Albumin 2.2L, Globulin 2.7, Albumin/Globulin Ratio 0.8L Current Medications Medications (Trade) Dose Ordered Sig/Dinorah Route PRN Reason Start Time Stop Time Status Last Admin Dose Admin Acetaminophen (Tylenol) 650 mg Q6H PRN ORAL Mild Pain/Temp > 100.5 08/20/18 00:30 09/11/18 12:29 Albuterol/ Ipratropium (Albuterol/ Ipratropium) 3 ml Q4HRT HHN 08/28/18 07:00 09/02/18 06:59 08/28/18 07:13 Amiodarone HCl (Cordarone) 100 mg DAILY ORAL 08/20/18 09:00 09/12/18 08:59 08/27/18 10:19 Dextrose (Dextrose 50%) 25 ml Q30M PRN IV Hypoglycemia 08/23/18 23:30 09/22/18 23:29 Dextrose (Dextrose 50%) 50 ml Q30M PRN IV Hypoglycemia 08/23/18 23:30 09/22/18 23:29 Diltiazem HCl (Cardizem CD) 180 mg DAILY ORAL 08/20/18 09:00 09/15/18 08:59 08/27/18 10:19 Heparin Sodium (Porcine) (Heparin 5000 units/ml) 5,000 units EVERY 12 HOURS SUBQ 08/20/18 09:00 09/11/18 20:59 08/23/18 20:23 Hydralazine HCl (Apresoline) 10 mg Q4H PRN IV SBP above 150mmHg 08/20/18 00:30 09/11/18 12:29 08/25/18 06:51 Insulin Aspart (NovoLOG) BEFORE MEALS AND HS SUBQ 08/24/18 06:30 09/23/18 06:29 08/28/18 05:41 Levothyroxine Sodium (Synthroid) 150 mcg DAILY@0630 ORAL 08/20/18 06:30 09/12/18 06:29 08/28/18 05:39 Lisinopril (Prinivil) 20 mg DAILY ORAL 08/25/18 09:00 09/24/18 08:59 08/27/18 10:19 Methylprednisolone Sodium Succinate (Solu-MEDROL) 40 mg DAILY IVP 08/25/18 09:00 09/24/18 08:59 08/27/18 10:18 Ondansetron HCl (Zofran) 4 mg Q6H PRN IVP Nausea & Vomiting 08/20/18 00:30 09/11/18 12:29 Pantoprazole (Protonix) 40 mg DAILY ORAL 08/20/18 09:00 09/11/18 19:59 08/27/18 10:19 Pregabalin (Lyrica) 50 mg BEDTIME ORAL 08/20/18 21:00 09/11/18 21:29 08/27/18 21:12 Tamsulosin HCl (Flomax) 0.4 mg BEDTIME ORAL 08/23/18 21:00 09/22/18 20:59 08/27/18 21:12 Carl Contreras MD Aug 28, 2018 07:34
[2018-08-28 08:00] VITALS: BP 131/54
[2018-08-28] MEDS ORDERED: PREDNISONE20 MG ORAL (08:20)
[2018-08-28] MEDS ORDERED: FLOMAX0.4 MG ORAL (08:20)
[2018-08-28] MEDS ORDERED: PROTONIX40 MG ORAL (08:20)
[2018-08-28] MEDS ORDERED: CARDIZEM CD180 MG ORAL (08:20)
[2018-08-28] MEDS ORDERED: SYNTHROID150 MCG ORAL (08:20)
[2018-08-28] MEDS ORDERED: LISINOPRIL20 MG ORAL (08:20)
[2018-08-28] MEDS: Heparin 5000 units/ml inj SUBQ SCH (09:00)
[2018-08-28] MEDS: dilTIAZem HCl CD 180mg cap ORAL SCH (10:14)
[2018-08-28] MEDS: Lisinopril 20mg tab ORAL SCH (10:14)
[2018-08-28] MEDS: Solu-MEDROL 40mg Inj IVP SCH (10:14)
[2018-08-28] MEDS: Amiodarone 200mg tab ORAL SCH (10:15)
--- NOTE | 2018-08-28 10:29 | Urology Progress Note ---
Assessment/Plan Assessment/Plan 1. Urinary retention. 2. Benign prostatic hypertrophy. 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 4. Renal insufficiency, acute on chronic, improved. 5. Hematuria. 6. Renal cyst. 7. Small angiomyolipoma. charles indwelling flomax added consider adding proscar monitor renal fxn voiding trial soon, once more mobile cysto later d/w Dr. Sultana Subjective Allergies: Coded Allergies: No Known Allergies (Unverified , 08/12/18) Subjective all noted Objective Last 24 Hour Vital Signs Date Time Temp Pulse Resp B/P (MAP) Pulse Ox O2 Delivery O2 Flow Rate FiO2 08/28/18 10:14 131/54 08/28/18 10:14 70 131/54 08/28/18 08:00 96.9 70 20 131/54 (79) 92 08/28/18 07:15 65 18 97 Nasal Cannula 2.0 28 08/28/18 07:14 96 Nasal Cannula 2.0 28 08/28/18 07:14 Nasal Cannula 2.0 28 08/28/18 07:13 65 18 96 Nasal Cannula 2.0 28 08/28/18 05:37 68 21 97 Facial 35 08/28/18 04:00 67 08/28/18 04:00 97.9 70 21 114/57 (76) 97 08/28/18 03:32 Bi-pap 35 08/28/18 03:32 Bi-pap 35 08/28/18 03:30 67 23 95 Facial 35 08/28/18 03:30 67 23 Bi-pap 35 08/28/18 00:00 61 08/28/18 00:00 98.0 67 20 135/58 (83) 94 08/27/18 23:22 63 18 98 Nasal Cannula 2.0 28 08/27/18 23:12 65 18 96 Nasal Cannula 2.0 28 08/27/18 21:00 3.0 08/27/18 21:00 Nasal Cannula 3.0 Nasal Cannula 3.0 08/27/18 20:00 97.6 63 24 120/47 (71) 94 08/27/18 20:00 61 08/27/18 19:33 60 16 97 Nasal Cannula 2.0 28 08/27/18 19:23 60 18 93 Nasal Cannula 2.0 28 08/27/18 19:22 93 Nasal Cannula 2.0 28 08/27/18 19:22 Nasal Cannula 2.0 28 08/27/18 16:00 97.7 63 22 130/58 (82) 93 08/27/18 15:44 63 08/27/18 15:30 66 16 99 Nasal Cannula 2.0 28 08/27/18 15:15 62 16 99 Nasal Cannula 2.0 28 08/27/18 12:00 96.1 70 20 127/55 (79) 95 08/27/18 11:52 70 08/27/18 10:47 69 20 97 Nasal Cannula 2.0 28 08/27/18 10:40 70 18 95 Nasal Cannula 2.0 28 Intake and Output 08/27/18 08/28/18 19:00 07:00 Intake Total 360 ml Output Total 1400 ml 400 ml Balance -1040 ml -400 ml Intake Oral 360 ml Output Urine Total 1400 ml 400 ml Microbiology Date/Time Source Procedure Growth Status 08/12/18 02:45 Blood Blood Culture - Final Gram Negative Jones Complete 08/16/18 12:00 Sputum Gram Stain - Final Complete 08/16/18 12:00 Sputum Culture - Final Robina Albicans Staphylococcus Aureus - Mrsa Complete 08/13/18 20:25 Indwelling Cath Urine Culture - Final NO GROWTH AFTER 48 HOURS Complete Current Medications Medications (Trade) Dose Ordered Sig/Dinorah Route PRN Reason Start Time Stop Time Status Last Admin Dose Admin Acetaminophen (Tylenol) 650 mg Q6H PRN ORAL Mild Pain/Temp > 100.5 08/20/18 00:30 09/11/18 12:29 Albuterol/ Ipratropium (Albuterol/ Ipratropium) 3 ml Q4HRT HHN 08/28/18 07:00 09/02/18 06:59 08/28/18 07:13 Amiodarone HCl (Cordarone) 100 mg DAILY ORAL 08/20/18 09:00 09/12/18 08:59 08/28/18 10:15 Dextrose (Dextrose 50%) 25 ml Q30M PRN IV Hypoglycemia 08/23/18 23:30 09/22/18 23:29 Dextrose (Dextrose 50%) 50 ml Q30M PRN IV Hypoglycemia 08/23/18 23:30 09/22/18 23:29 Diltiazem HCl (Cardizem CD) 180 mg DAILY ORAL 08/20/18 09:00 09/15/18 08:59 08/28/18 10:14 Heparin Sodium (Porcine) (Heparin 5000 units/ml) 5,000 units EVERY 12 HOURS SUBQ 08/20/18 09:00 09/11/18 20:59 08/23/18 20:23 Hydralazine HCl (Apresoline) 10 mg Q4H PRN IV SBP above 150mmHg 08/20/18 00:30 09/11/18 12:29 08/25/18 06:51 Insulin Aspart (NovoLOG) BEFORE MEALS AND HS SUBQ 08/24/18 06:30 09/23/18 06:29 08/28/18 05:41 Levothyroxine Sodium (Synthroid) 150 mcg DAILY@0630 ORAL 08/20/18 06:30 09/12/18 06:29 08/28/18 05:39 Lisinopril (Prinivil) 20 mg DAILY ORAL 08/25/18 09:00 09/24/18 08:59 08/28/18 10:14 Methylprednisolone Sodium Succinate (Solu-MEDROL) 40 mg DAILY IVP 08/25/18 09:00 09/24/18 08:59 08/28/18 10:14 Ondansetron HCl (Zofran) 4 mg Q6H PRN IVP Nausea & Vomiting 08/20/18 00:30 09/11/18 12:29 Pantoprazole (Protonix) 40 mg DAILY ORAL 08/20/18 09:00 09/11/18 19:59 08/28/18 10:15 Pregabalin (Lyrica) 50 mg BEDTIME ORAL 08/20/18 21:00 09/11/18 21:29 08/27/18 21:12 Tamsulosin HCl (Flomax) 0.4 mg BEDTIME ORAL 08/23/18 21:00 09/22/18 20:59 08/27/18 21:12 Laboratory Tests 08/28/18 06:00: White Blood Count 20.7H, Red Blood Count 3.97L, Hemoglobin 11.7L, Hematocrit 35.1L, Mean Corpuscular Volume 88, Mean Corpuscular Hemoglobin 29.4, Mean Corpuscular Hemoglobin Concent 33.3, Red Cell Distribution Width 13.9, Platelet Count 71L, Mean Platelet Volume 9.8, Neutrophils (%) (Auto) , Lymphocytes (%) ( Auto) , Monocytes (%) (Auto) , Eosinophils (%) (Auto) , Basophils (%) (Auto) , Differential Total Cells Counted 100, Neutrophils % (Manual) 92H, Lymphocytes % (Manual) 3L, Monocytes % (Manual) 4, Eosinophils % (Manual) 0, Basophils % ( Manual) 0, Band Neutrophils 1, Platelet Estimate Adequate, Platelet Morphology Normal, Hypochromasia 1+, Anisocytosis 1+, Sodium Level 136, Potassium Level 4.9 , Chloride Level 105, Carbon Dioxide Level 25, Anion Gap 6, Blood Urea Nitrogen 48H, Creatinine 1.2, Estimat Glomerular Filtration Rate , Glucose Level 129H, Calcium Level 8.1L, Total Bilirubin 1.1H, Direct Bilirubin 0.2, Aspartate Amino Transf (AST/SGOT) 88H, Alanine Aminotransferase (ALT/SGPT) 295H, Alkaline Phosphatase 69, Total Protein 4.9L, Albumin 2.2L, Globulin 2.7, Albumin/ Globulin Ratio 0.8L Height (Feet): 5 Height (Inches): 5.00 Weight (Pounds): 139 Objective exam stable charles indwelling with yellow urine Jovanny Bañuelos MD Aug 28, 2018 10:29
--- NOTE | 2018-08-28 10:57 | Infectious Diseases Prog Note ---
Assessment/Plan Assessment/Plan antibiotics : none A 1. MRSA pneumonia improving 2. CHF 3. leucocytosis increased likely secondary to steroids 4. renal failure improving 5. COPD 6. hypertension 7. sphingobacterium sepsis s/p rx P 1. continue off antibiotics Subjective ROS Limited/Unobtainable: Yes Allergies: Coded Allergies: No Known Allergies (Unverified , 08/12/18) Objective Vital Signs Last 24 Hour Vital Signs Date Time Temp Pulse Resp B/P (MAP) Pulse Ox O2 Delivery O2 Flow Rate FiO2 08/28/18 10:32 71 18 97 Nasal Cannula 2.0 28 08/28/18 10:31 70 18 96 Nasal Cannula 2.0 28 08/28/18 10:14 131/54 08/28/18 10:14 70 131/54 08/28/18 08:00 96.9 70 20 131/54 (79) 92 08/28/18 07:15 65 18 97 Nasal Cannula 2.0 28 08/28/18 07:14 96 Nasal Cannula 2.0 28 08/28/18 07:14 Nasal Cannula 2.0 28 08/28/18 07:13 65 18 96 Nasal Cannula 2.0 28 08/28/18 05:37 68 21 97 Facial 35 08/28/18 04:00 67 08/28/18 04:00 97.9 70 21 114/57 (76) 97 08/28/18 03:32 Bi-pap 35 08/28/18 03:32 Bi-pap 35 08/28/18 03:30 67 23 95 Facial 35 08/28/18 03:30 67 23 Bi-pap 35 08/28/18 00:00 61 08/28/18 00:00 98.0 67 20 135/58 (83) 94 08/27/18 23:22 63 18 98 Nasal Cannula 2.0 28 08/27/18 23:12 65 18 96 Nasal Cannula 2.0 28 08/27/18 21:00 3.0 08/27/18 21:00 Nasal Cannula 3.0 Nasal Cannula 3.0 08/27/18 20:00 97.6 63 24 120/47 (71) 94 08/27/18 20:00 61 08/27/18 19:33 60 16 97 Nasal Cannula 2.0 28 08/27/18 19:23 60 18 93 Nasal Cannula 2.0 28 08/27/18 19:22 93 Nasal Cannula 2.0 28 08/27/18 19:22 Nasal Cannula 2.0 28 08/27/18 16:00 97.7 63 22 130/58 (82) 93 08/27/18 15:44 63 08/27/18 15:30 66 16 99 Nasal Cannula 2.0 28 08/27/18 15:15 62 16 99 Nasal Cannula 2.0 28 08/27/18 12:00 96.1 70 20 127/55 (79) 95 08/27/18 11:52 70 Height (Feet): 5 Height (Inches): 5.00 Weight (Pounds): 139 Respiratory/Chest: rhonchi - bilaterally Cardiovascular: normal rate, regular rhythm, no gallop/murmur Abdomen: soft, non tender Extremities: no edema Laboratory Tests Test 08/28/18 06:00 White Blood Count 20.7 K/UL (4.8-10.8) H Red Blood Count 3.97 M/UL (4.70-6.10) L Hemoglobin 11.7 G/DL (14.2-18.0) L Hematocrit 35.1 % (42.0-52.0) L Mean Corpuscular Volume 88 FL (80-99) Mean Corpuscular Hemoglobin 29.4 PG (27.0-31.0) Mean Corpuscular Hemoglobin Concent 33.3 G/DL (32.0-36.0) Red Cell Distribution Width 13.9 % (11.6-14.8) Platelet Count 71 K/UL (150-450) L Mean Platelet Volume 9.8 FL (6.5-10.1) Neutrophils (%) (Auto) % (45.0-75.0) Lymphocytes (%) (Auto) % (20.0-45.0) Monocytes (%) (Auto) % (1.0-10.0) Eosinophils (%) (Auto) % (0.0-3.0) Basophils (%) (Auto) % (0.0-2.0) Differential Total Cells Counted 100 Neutrophils % (Manual) 92 % (45-75) H Lymphocytes % (Manual) 3 % (20-45) L Monocytes % (Manual) 4 % (1-10) Eosinophils % (Manual) 0 % (0-3) Basophils % (Manual) 0 % (0-2) Band Neutrophils 1 % (0-8) Platelet Estimate Adequate Platelet Morphology Normal Hypochromasia 1+ Anisocytosis 1+ Sodium Level 136 MMOL/L (136-145) Potassium Level 4.9 MMOL/L (3.5-5.1) Chloride Level 105 MMOL/L (98-107) Carbon Dioxide Level 25 MMOL/L (21-32) Anion Gap 6 mmol/L (5-15) Blood Urea Nitrogen 48 mg/dL (7-18) H Creatinine 1.2 MG/DL (0.55-1.30) Estimat Glomerular Filtration Rate mL/min (>60) Glucose Level 129 MG/DL (74-106) H Calcium Level 8.1 MG/DL (8.5-10.1) L Total Bilirubin 1.1 MG/DL (0.2-1.0) H Direct Bilirubin 0.2 MG/DL (0.0-0.3) Aspartate Amino Transf (AST/SGOT) 88 U/L (15-37) H Alanine Aminotransferase (ALT/SGPT) 295 U/L (12-78) H Alkaline Phosphatase 69 U/L (46-116) Total Protein 4.9 G/DL (6.4-8.2) L Albumin 2.2 G/DL (3.4-5.0) L Globulin 2.7 g/dL Albumin/Globulin Ratio 0.8 (1.0-2.7) L Current Medications Medications (Trade) Dose Ordered Sig/Dinorah Route PRN Reason Start Time Stop Time Status Last Admin Dose Admin Acetaminophen (Tylenol) 650 mg Q6H PRN ORAL Mild Pain/Temp > 100.5 08/20/18 00:30 09/11/18 12:29 Albuterol/ Ipratropium (Albuterol/ Ipratropium) 3 ml Q4HRT HHN 08/28/18 07:00 09/02/18 06:59 08/28/18 10:31 Amiodarone HCl (Cordarone) 100 mg DAILY ORAL 08/20/18 09:00 09/12/18 08:59 08/28/18 10:15 Dextrose (Dextrose 50%) 25 ml Q30M PRN IV Hypoglycemia 08/23/18 23:30 09/22/18 23:29 Dextrose (Dextrose 50%) 50 ml Q30M PRN IV Hypoglycemia 08/23/18 23:30 09/22/18 23:29 Diltiazem HCl (Cardizem CD) 180 mg DAILY ORAL 08/20/18 09:00 09/15/18 08:59 08/28/18 10:14 Heparin Sodium (Porcine) (Heparin 5000 units/ml) 5,000 units EVERY 12 HOURS SUBQ 08/20/18 09:00 09/11/18 20:59 08/23/18 20:23 Hydralazine HCl (Apresoline) 10 mg Q4H PRN IV SBP above 150mmHg 08/20/18 00:30 09/11/18 12:29 08/25/18 06:51 Insulin Aspart (NovoLOG) BEFORE MEALS AND HS SUBQ 08/24/18 06:30 09/23/18 06:29 08/28/18 05:41 Levothyroxine Sodium (Synthroid) 150 mcg DAILY@0630 ORAL 08/20/18 06:30 09/12/18 06:29 08/28/18 05:39 Lisinopril (Prinivil) 20 mg DAILY ORAL 08/25/18 09:00 09/24/18 08:59 08/28/18 10:14 Methylprednisolone Sodium Succinate (Solu-MEDROL) 40 mg DAILY IVP 08/25/18 09:00 09/24/18 08:59 08/28/18 10:14 Ondansetron HCl (Zofran) 4 mg Q6H PRN IVP Nausea & Vomiting 08/20/18 00:30 09/11/18 12:29 Pantoprazole (Protonix) 40 mg DAILY ORAL 08/20/18 09:00 09/11/18 19:59 08/28/18 10:15 Pregabalin (Lyrica) 50 mg BEDTIME ORAL 08/20/18 21:00 09/11/18 21:29 08/27/18 21:12 Tamsulosin HCl (Flomax) 0.4 mg BEDTIME ORAL 08/23/18 21:00 09/22/18 20:59 08/27/18 21:12 Soo Almaraz MD Aug 28, 2018 10:57
--- NOTE | 2018-08-28 11:13 | NUR ---
*-* DISCHARGE PLANNING *-* PATIENT HAS BEEN REFERRED TO: [facility] P:[phone] F:[phone]
[2018-08-28 12:00] VITALS: BP 125/54
--- NOTE | 2018-08-28 12:26 | NUR ---
*-* DISCHARGE PLANNED *-* PATIENT DISCHARGED TO: [facility] ROOM# 56-A SKILLED T:[phone] FOR NURSE TO NURSE REPORT [facility] HAS BEEN ARRANGED FOR SALES LEAD GENERATOR AT [address] [id number]
--- NOTE | 2018-08-28 12:36 | Surgery Progress Note ---
Surgery Progress Note Subjective Additional Comments no acute events. Objective Last 24 Hour Vital Signs Date Time Temp Pulse Resp B/P (MAP) Pulse Ox O2 Delivery O2 Flow Rate FiO2 08/28/18 10:32 71 18 97 Nasal Cannula 2.0 28 08/28/18 10:31 70 18 96 Nasal Cannula 2.0 28 08/28/18 10:14 131/54 08/28/18 10:14 70 131/54 08/28/18 09:00 Nasal Cannula 3.0 Nasal Cannula 3.0 08/28/18 09:00 3.0 08/28/18 08:00 96.9 70 20 131/54 (79) 92 08/28/18 07:34 69 08/28/18 07:15 65 18 97 Nasal Cannula 2.0 28 08/28/18 07:14 96 Nasal Cannula 2.0 28 08/28/18 07:14 Nasal Cannula 2.0 28 08/28/18 07:13 65 18 96 Nasal Cannula 2.0 28 08/28/18 05:37 68 21 97 Facial 35 08/28/18 04:00 67 08/28/18 04:00 97.9 70 21 114/57 (76) 97 08/28/18 03:32 Bi-pap 35 08/28/18 03:32 Bi-pap 35 08/28/18 03:30 67 23 95 Facial 35 08/28/18 03:30 67 23 Bi-pap 35 08/28/18 00:00 61 08/28/18 00:00 98.0 67 20 135/58 (83) 94 08/27/18 23:22 63 18 98 Nasal Cannula 2.0 28 08/27/18 23:12 65 18 96 Nasal Cannula 2.0 28 08/27/18 21:00 3.0 08/27/18 21:00 Nasal Cannula 3.0 Nasal Cannula 3.0 08/27/18 20:00 97.6 63 24 120/47 (71) 94 08/27/18 20:00 61 08/27/18 19:33 60 16 97 Nasal Cannula 2.0 28 08/27/18 19:23 60 18 93 Nasal Cannula 2.0 28 08/27/18 19:22 93 Nasal Cannula 2.0 28 08/27/18 19:22 Nasal Cannula 2.0 28 08/27/18 16:00 97.7 63 22 130/58 (82) 93 08/27/18 15:44 63 08/27/18 15:30 66 16 99 Nasal Cannula 2.0 28 08/27/18 15:15 62 16 99 Nasal Cannula 2.0 28 I&O Intake and Output 08/27/18 08/28/18 19:00 07:00 Intake Total 360 ml Output Total 1400 ml 400 ml Balance -1040 ml -400 ml Intake Oral 360 ml Output Urine Total 1400 ml 400 ml Dressing: other Wound: other Drains: other Cardiovascular: RSR Respiratory: decreased breath sounds Abdomen: soft, non-tender, decreased bowel sounds Extremities: no cyanosis Laboratory Tests Test 08/28/18 06:00 White Blood Count 20.7 K/UL (4.8-10.8) H Red Blood Count 3.97 M/UL (4.70-6.10) L Hemoglobin 11.7 G/DL (14.2-18.0) L Hematocrit 35.1 % (42.0-52.0) L Mean Corpuscular Volume 88 FL (80-99) Mean Corpuscular Hemoglobin 29.4 PG (27.0-31.0) Mean Corpuscular Hemoglobin Concent 33.3 G/DL (32.0-36.0) Red Cell Distribution Width 13.9 % (11.6-14.8) Platelet Count 71 K/UL (150-450) L Mean Platelet Volume 9.8 FL (6.5-10.1) Neutrophils (%) (Auto) % (45.0-75.0) Lymphocytes (%) (Auto) % (20.0-45.0) Monocytes (%) (Auto) % (1.0-10.0) Eosinophils (%) (Auto) % (0.0-3.0) Basophils (%) (Auto) % (0.0-2.0) Differential Total Cells Counted 100 Neutrophils % (Manual) 92 % (45-75) H Lymphocytes % (Manual) 3 % (20-45) L Monocytes % (Manual) 4 % (1-10) Eosinophils % (Manual) 0 % (0-3) Basophils % (Manual) 0 % (0-2) Band Neutrophils 1 % (0-8) Platelet Estimate Adequate Platelet Morphology Normal Hypochromasia 1+ Anisocytosis 1+ Sodium Level 136 MMOL/L (136-145) Potassium Level 4.9 MMOL/L (3.5-5.1) Chloride Level 105 MMOL/L (98-107) Carbon Dioxide Level 25 MMOL/L (21-32) Anion Gap 6 mmol/L (5-15) Blood Urea Nitrogen 48 mg/dL (7-18) H Creatinine 1.2 MG/DL (0.55-1.30) Estimat Glomerular Filtration Rate mL/min (>60) Glucose Level 129 MG/DL (74-106) H Calcium Level 8.1 MG/DL (8.5-10.1) L Total Bilirubin 1.1 MG/DL (0.2-1.0) H Direct Bilirubin 0.2 MG/DL (0.0-0.3) Aspartate Amino Transf (AST/SGOT) 88 U/L (15-37) H Alanine Aminotransferase (ALT/SGPT) 295 U/L (12-78) H Alkaline Phosphatase 69 U/L (46-116) Total Protein 4.9 G/DL (6.4-8.2) L Albumin 2.2 G/DL (3.4-5.0) L Globulin 2.7 g/dL Albumin/Globulin Ratio 0.8 (1.0-2.7) L Plan Problems: (1) Abdominal pain Assessment & Plan: RUQ abd pain distention tender on exam leukocytosis abnormal lft US okay HIDA negative CT negative abdominal discomfort likely due to constipation leukocytosis likely secondary to steroids abx as per ID trend labs no acute surgical intervention planned okay to d/c from surgical standpoint will monitor clinically thank you (2) Abnormal LFTs (3) Sepsis Rick Jama Aug 28, 2018 12:36
--- NOTE | 2018-08-28 13:48 | NUR ---
NURSE NOTES: Called [facility] rehab. and gave report to Jennyfer MATA.
--- NOTE | 2018-08-28 16:00 | NUR ---
Discharge: Patient is being discharged to [facility] from medical care. Awake, alert and oriented x3-4. All medical devices such as IV, color television console monitor and ID band were removed. Discharged pt. with hearing aid (left and right) and denture (upper/lower) son made aware and signed belonging list. Patient wheeled out via [facility] ambulance with all personal belongings.
--- NOTE | 2018-08-28 21:45 | Discharge Summary ---
DATE OF ADMISSION: 08/12/2018 DATE OF DISCHARGE: 08/28/2018 ADMISSION DIAGNOSES: Respiratory failure, COPD, chronic kidney disease, anemia, paroxysmal AFib, history of pacemaker, osteoarthritis, hypothyroidism, peptic ulcer disease, hyperlipidemia, BPH. DISCHARGE DIAGNOSES: Respiratory failure, COPD, chronic kidney disease, anemia, paroxysmal AFib, history of pacemaker, osteoarthritis, hypothyroidism, peptic ulcer disease, hyperlipidemia, BPH. BRIEF HISTORY AND HOSPITAL COURSE: The patient is an unfortunate male admitted with complaints of shortness of breath. He initially required placement on BiPAP. He received intravenous steroids. He received breathing treatments [id number]. Pulmonary, Cardiology, and Infectious Disease consultations were obtained. The patient was diagnosed in addition to COPD exacerbation with pneumonia. He received intravenous antibiotics and intravenous steroids. He had very slow improvement in his COPD exacerbation. His hospital course was complicated by persistent bronchospasm and wheezing. The patient was continued on IV steroids. He was also noted to have elevated liver function tests. He had a HIDA scan which was negative and a CT scan that showed no evidence of cholecystitis. Surgery consultation was obtained. It was agreed that the patient did not have cholecystitis. Liver function tests remained slightly elevated. His statin was discontinued. The patient also had generalized edema likely secondary to low albumin. He received a dose of Lasix. On discharge though the patient was stable, he did have an elevated white count believed to be secondary to steroids. The patient had completed all of his antibiotics prior to discharge. He will be [facility] to a [facility] facility. DISCHARGE MEDICATIONS: Please see discharge medication list for discharge medications. DIET: Cardiac diet. ACTIVITY: Ad-henna. FOLLOWUP: The patient is to be followed up by his PMD at the [facility] facility. Joshua Sultana M.D. DR: Shaheed JOB#: [id number] CC:
--- NOTE | 2018-08-30 01:45 | Progress Note ---
DATE: 08/28/2018 CARDIOLOGY PROGRESS NOTE This is late entry. SUBJECTIVE: The patient has less shortness of breath. No BiPAP support needed. He is off steroids. He is requiring intermittent diuretic therapy. Liver function studies remained stable although slightly elevated. CAT scan revealed no evidence of cholecystic disease. PHYSICAL EXAMINATION: VITAL SIGNS: Blood pressure 142/60, pulse 78, and respiratory rate 18. LUNGS: Coarse breath sounds. HEART: Regular rhythm and rate. Normal S1, S2. ABDOMEN: Soft. EXTREMITIES: Trace edema. IMPRESSION: 1. Paroxysmal atrial fibrillation. 2. Acute on chronic diastolic congestive heart failure. 3. Permanent pacemaker. 4. COPD. 5. Paroxysmal bronchospasm. 6. Healthcare-acquired pneumonia. 7. Transaminitis. 8. Moderate protein-calorie malnutrition. 9. Decondition. 10. Muscle weakness. PLAN: 1. Stable for outpatient management at half-way facility. 2. Medications reviewed and reconciled. 3. Discussed with Dr. uSltana. 4. Reassess long-term amiodarone use in view of liver function studies. 5. Diuretic dosing to be adjusted based on clinical findings. Mary Gross JOB#: [id number] CC:
--- NOTE | 2018-08-30 01:45 | Progress Note ---
DATE: 08/25/2018 CARDIOLOGY PROGRESS NOTE Late entry for 08/25/2018. SUBJECTIVE: The patient remains congested. Heart rate remained controlled. Intermittent BiPAP support, now needed less frequently. OBJECTIVE: VITAL SIGNS: Blood pressure 142/69 to 164/68, heart rate 67 to 73, respiratory 20 to 26, and afebrile. LUNGS: Diminished breath sounds. Few rhonchi. HEART: Irregularly irregular rhythm. Normal S1, S2. ABDOMEN: Soft and nontender. Trace edema of hands. LABORATORY DATA: White count 20 and hemoglobin 12. Potassium 4.5, BUN 47, and creatinine 1.2. Albumin 2.6. IMPRESSION: 1. COPD exacerbation. 2. Pneumonia. 3. Paroxysmal atrial fibrillation. 4. Transaminitis. 5. Acute on chronic diastolic congestive heart failure. 6. Acute on chronic kidney disease. 7. Mild protein-calorie malnutrition. PLAN: 1. Continue amiodarone. 2. Periodic diuresis. 3. Taper steroids. 4. Respiratory therapy. 5. Monitor liver function. 6. Consider discontinuing amiodarone if liver function fails to improve. 7. Discharge planning in progress. Mary Gross JOB#: [id number] CC:
== END 2018-08-28 15:55 | DRG 871 ==
LOC: EDBD 02:18 → EMR 02:42 → 2W 02:51 → EDBEDREQ 03:27 → ICU 14:50 → 2W 08-14 12:16 → 2E 08-19 23:00
DX: A41.50 Gram-negative sepsis, unspecified (principal); J96.01 Acute respiratory failure with hypoxia; I50.43 Acute on chronic combined systolic (congestive) and diastolic (congestive) heart failure; J15.212 Pneumonia due to Methicillin resistant Staphylococcus aureus; J96.02 Acute respiratory failure with hypercapnia; J44.0 Chronic obstructive pulmonary disease with (acute) lower respiratory infection; E87.2 Acidosis; J44.1 Chronic obstructive pulmonary disease with (acute) exacerbation; I13.0 Hypertensive heart and chronic kidney disease with heart failure and stage 1 through stage 4 chronic kidney disease, or unspecified chronic kidney disease; I48.0 Paroxysmal atrial fibrillation; Z95.0 Presence of cardiac pacemaker; N18.9 Chronic kidney disease, unspecified; E03.9 Hypothyroidism, unspecified; K27.9 Peptic ulcer, site unspecified, unspecified as acute or chronic, without hemorrhage or perforation; E78.5 Hyperlipidemia, unspecified; N40.1 Benign prostatic hyperplasia with lower urinary tract symptoms; R33.8 Other retention of urine; R31.9 Hematuria, unspecified; D17.9 Benign lipomatous neoplasm, unspecified
CPT/HCPCS: 36415; 36600; 71045; 74176; 76700; 78266; 80053; 80202; 81003; 82150; 82248; 82550; 82553; 82803; 82962; 83605; 83690; 83735; 83880; 84443; 84484; 85007; 85025; 85610; 85651; 85730; 86140; 86710; 87040; 87070; 87086; 87181; 87205; 93005; 93306; 94640; 94660; 94664; 94760; 96361; 96365; 96367; 96368; 96375; 99291; J1815; J7620; J8499

== ENCOUNTER 2018-09-04 08:15 | Inpatient (IN) | payer MEDICARE, MEDICAID ==
[2018-09-04] VITALS (30 sets, daily range): BP systolic 46–135; BP diastolic 27–80
[~2018-09-04] VITALS: Ht 175.3 cm; Wt 64.4 kg
[~2018-09-04 08:15] MED LIST: AMIODARONE HCL100 MG ORAL; ATORVASTATIN CA40 MG ORAL; BUMEX1 MG ORAL; CARDIZEM CD180 MG ORAL; COMBIVENT RESPIM4 GM IH; COREG3.125 MG ORAL; FLOMAX0.4 MG ORAL; LISINOPRIL20 MG ORAL; LYRICA50 MG ORAL; POTASSIUM CHLO10 ME3 ORAL; PREDNISONE20 MG ORAL; PROTONIX20 MG ORAL; PROTONIX40 MG ORAL; SYNTHROID137 MCG ORAL; SYNTHROID150 MCG ORAL
--- NOTE | 2018-09-04 08:15 | NUR ---
ED Nurse Note: PT ARRIVED AT 0750, IN FULL CARDIAC ARREST, CPR WAS INITIATED IMMEDIATELY.
--- NOTE | 2018-09-04 08:54 | NUR ---
ED Nurse Note: Code has been completed. BP shows low to systolic 44. Levophed will be initiated as soon as central line is confirmed to use. Dr. Piper made aware.
--- NOTE | 2018-09-04 09:07 | Emergency Room Report ---
History of Present Illness General Source: Medical Record, EMS Present Illness HPI Patient is an 82-year-old male brought in by EMS patient was noted to have increased altered mental status as well as increased difficulty with breathing. Patient had respiratory arrest while being brought in by EMS. Patient underwent [id number]. Patient had recent hospitalization. He hed been noted to be hypotensive during transport and was noted to have decreased respiratory effort prior to entering ED. Allergies: Coded Allergies: No Known Allergies (Unverified , 08/12/18) Patient History Reviewed Nursing Documentation: PMH: Agreed; PSxH: Agreed Nursing Documentation-PMH Hx Hypertension: Yes Hx Pacemaker: Yes - left chest Hx COPD: Yes Hx Cancer: No Review of Systems All Other Systems: limited - by acuity Physical Exam Sp02 EP Interpretation: other General Appearance: severe distress, other - apneic Eyes: bilateral eye other - dilated ENT: other - blood in oropharynx Neck: limited range of motion Respiratory: decreased breath sounds Cardiovascular #1: bradycardia, edema Gastrointestinal: soft Genitourinary: other - rash to genital Neurologic: motor weakness, other - unresponsiv Skin: other - discoloration to perineum with white crusting possible nystatin cream Procedures Critical Care Time Critical Care Time Critical care time excluding separately billed procedures was 45 minutes. Central Line Central Line : Consent: Emergent Central Line Lumen: triple Maximal Sterile Barrier Tech: yes cap, yes mask, yes sterile gown, yes sterile gloves, yes large sterile sheet, yes hand hygiene, yes chlorhexidine prep Central Line Postion: internal jugular (R) Anesthesia: local cc's of anesthesia: 3 Complications: none Central Line Post Position: sutured, good blood return, position confirmed w / CXR Attempts: Other - three, subclavian attempted, line reversal up IJ. Removed and replaced Patient Tolerated: Well Complications: None Intubation Intubation : Consent: Emergent Intubation Method: orotracheal Tube Size (cm): 7.0 Breath Sounds after Intubation: equal Intubation Complications: oral-unsuccessful attempt Post Intubation Xray: Yes Attempts: One Patient Tolerated: Well Complications: None Medical Decision Making Diagnostic Impression: Primary Impression: Cardiac arrest Additional Impressions: Pacemaker Sepsis Thrombocytopenia Hyperkalemia Abnormal LFTs ER Course Patient presented after cardiac arrest. differential diagnosis include was not limited to myocardial infarction, pulmonary embolism, sepsis, hyperkalemia among others. Because of complexity of patient's case laboratory testing and imaging studies were ordered. Patient was noted to have been brought in by EMS. Patient was noted to be unresponsive on initial presentation. Patient did not appear to be having spontaneous respirations and was intubated due to unresponsiveness patient noted to have no present pulse and CPR was initiated. Patient was given multiple rounds of medications with return of spontaneous circulation.A right femoral central venous catheter was attempted without success.A right internal jugular central line was ultimately placed. Patient was noted to have return of spontaneous circulation after prolonged CPR.Patient was not sedated while in ED but was not noted to have any return of reflexes.Patient will be admitted to Dr. Hidalgo due to cardiac arrest and previous admission Labs Test 09/04/18 09:00 09/04/18 09:35 White Blood Count 4.5 K/UL (4.8-10.8) Red Blood Count 2.93 M/UL (4.70-6.10) Hemoglobin 8.7 G/DL (14.2-18.0) Hematocrit 27.5 % (42.0-52.0) Mean Corpuscular Volume 94 FL (80-99) Mean Corpuscular Hemoglobin 29.8 PG (27.0-31.0) Mean Corpuscular Hemoglobin Concent 31.7 G/DL (32.0-36.0) Red Cell Distribution Width 15.3 % (11.6-14.8) Platelet Count 41 K/UL (150-450) Mean Platelet Volume 10.5 FL (6.5-10.1) Neutrophils (%) (Auto) % (45.0-75.0) Lymphocytes (%) (Auto) % (20.0-45.0) Monocytes (%) (Auto) % (1.0-10.0) Eosinophils (%) (Auto) % (0.0-3.0) Basophils (%) (Auto) % (0.0-2.0) Differential Total Cells Counted 100 Neutrophils % (Manual) 90 % (45-75) Lymphocytes % (Manual) 8 % (20-45) Monocytes % (Manual) 2 % (1-10) Eosinophils % (Manual) 0 % (0-3) Basophils % (Manual) 0 % (0-2) Band Neutrophils 0 % (0-8) Platelet Estimate Decreased Platelet Morphology Normal Anisocytosis 1+ Acanthocytes 1+ Schistocytes 1+ Prothrombin Time 10.2 SEC (9.30-11.50) Prothromb Time International Ratio 1.0 (0.9-1.1) Activated Partial Thromboplast Time 24 SEC (23-33) Sodium Level 140 MMOL/L (136-145) Potassium Level 6.2 MMOL/L (3.5-5.1) Chloride Level 107 MMOL/L (98-107) Carbon Dioxide Level 23 MMOL/L (21-32) Anion Gap 8 mmol/L (5-15) Blood Urea Nitrogen 58 mg/dL (7-18) Creatinine 1.6 MG/DL (0.55-1.30) Estimat Glomerular Filtration Rate mL/min (>60) Glucose Level 105 MG/DL (74-106) Lactic Acid Level 9.60 mmol/L (0.4-2.0) Calcium Level 10.9 MG/DL (8.5-10.1) Phosphorus Level 9.8 MG/DL (2.5-4.9) Magnesium Level 3.4 MG/DL (1.8-2.4) Total Bilirubin 0.6 MG/DL (0.2-1.0) Aspartate Amino Transf (AST/SGOT) 345 U/L (15-37) Alanine Aminotransferase (ALT/SGPT) 387 U/L (12-78) Alkaline Phosphatase 83 U/L (46-116) Total Creatine Kinase 341 U/L (26-308) Creatine Kinase MB 10.9 NG/ML (0.0-3.6) Creatine Kinase MB Relative Index 3.1 Troponin I 0.476 ng/mL (0.000-0.056) Pro-B-Type Natriuretic Peptide 30264 pg/mL (0-125) Total Protein 4.4 G/DL (6.4-8.2) Albumin 1.3 G/DL (3.4-5.0) Globulin 3.1 g/dL Albumin/Globulin Ratio 0.4 (1.0-2.7) Urine Color Yellow Urine Appearance Clear Urine pH 5 (4.5-8.0) Urine Specific [place] 1.020 (1.005-1.035) Urine Protein 3+ (NEGATIVE) Urine Glucose (UA) Negative (NEGATIVE) Urine Ketones Negative (NEGATIVE) Urine Blood 5+ (NEGATIVE) Urine Nitrite Negative (NEGATIVE) Urine Bilirubin Negative (NEGATIVE) Urine Urobilinogen Normal MG/DL (0.0-1.0) Urine Leukocyte Esterase 2+ (NEGATIVE) Urine RBC 40-60 /HPF (0 - 0) Urine WBC 10-15 /HPF (0 - 0) Urine Squamous Epithelial Cells Occasional /LPF Urine Bacteria Few /HPF (NONE) Urine Yeast Many /HPF (NONE) EKG Diagnostic Results Rate: normal Rhythm: other - paced Rhythm Strip Diag. Results Rhythm: NSR, no PVC's, no ectopy Status: improved Disposition: ADMITTED INPATIENT Condition: Critical Cordell Piper MD Sep 04, 2018 09:07
[2018-09-04] MEDS ORDERED: Vancomycin 750 MG in NS 275 ML IVPB ONE (09:15)
[2018-09-04] MEDS ORDERED: Cefepime HCl 2 GM in NS 110 ML IV SCH (09:15)
[2018-09-04 09:28] LABS: HEMATOCRIT 27.5 % (42.0-52.0); HEMOGLOBIN 8.7 G/DL (14.2-18.0); MEAN CORPUSCULAR VOLUME 94 FL (80-99); PLATELET COUNT 41 K/UL (150-450); RED BLOOD COUNT 2.93 M/UL (4.70-6.10); RED CELL DISTRIBUTION WIDTH 15.3 % (11.6-14.8); WHITE BLOOD COUNT 4.5 K/UL (4.8-10.8)
--- NOTE | 2018-09-04 09:30 | NUR ---
ED Nurse Note: Central line is not confirmed to use. Levophed 8mg drip is being hold and family came in to see the pt per family's request.
[2018-09-04 09:50] LABS: APPEARANCE,URINE CLEAR; BILIRUBIN, URINE NEGATIVE (NEGATIVE); GLUCOSE, URINE (UA) NEGATIVE (NEGATIVE); KETONES,URINE NEGATIVE (NEGATIVE); LEUKOCYTE ESTERASE ,URINE 2+ (NEGATIVE); NITRITE,URINE NEGATIVE (NEGATIVE); PH,URINE 5 (4.5-8.0); PROTEIN,URINE 3+ (NEGATIVE); UROBILINOGEN,URINE NORMAL MG/DL (0.0-1.0)
[2018-09-04 09:51] LABS: COLOR,URINE YELLOW
[2018-09-04 09:51] LABS: ALANINE AMINOTRANSFERASE 387 U/L (12-78); ALBUMIN 1.3 G/DL (3.4-5.0); ALBUMIN/GLOBULIN RATIO 0.4 (1.0-2.7); ALKALINE PHOSPHATASE 83 U/L (46-116); ANION GAP 8 mmol/L (5-15); ASPARTATE AMINO TRANSFERASE 345 U/L (15-37); BILIRUBIN,TOTAL 0.6 MG/DL (0.2-1.0); BLOOD UREA NITROGEN 58 mg/dL (7-18); CALCIUM 10.9 MG/DL (8.5-10.1); CARBON DIOXIDE 23 MMOL/L (21-32); CHLORIDE 107 MMOL/L (98-107); CKMB 10.9 NG/ML (0.0-3.6); CREATINE KINASE 341 U/L (26-308); CREATININE 1.6 MG/DL (0.55-1.30); PHOSPHORUS 9.8 MG/DL (2.5-4.9); SODIUM 140 MMOL/L (136-145)
[2018-09-04 09:57] LABS: POTASSIUM 6.2 MMOL/L (3.5-5.1)
[2018-09-04] MEDS ORDERED: Heparin 2000 units/Ns 1000ml INJ ONE (10:00)
[2018-09-04] MEDS ORDERED: Lidocaine 1% Plain 30 ml INJ ONE (10:00)
[2018-09-04] MEDS ORDERED: Levophed 4mg/4mL Inj IV ONE (10:15)
[2018-09-04] MEDS ORDERED: Sodium Bicarbonate 50ml Carp IV ONE (10:15)
--- NOTE | 2018-09-04 10:22 | NUR ---
ED Nurse Note: Rt side IJ line is confirmed to use by Dr. Piper. Levophed drip initiated.
--- NOTE | 2018-09-04 11:00 | NUR ---
HAND-OFF: Report given to ADOLFO Rodriges. Pt remains in trach to vent dependent. Remain in Levophed drip, endorsed to Zahira MATA to monitor BP. Second Lactic and type and screen tube sent down to the lab.
--- NOTE | 2018-09-04 11:00 | NUR ---
ED Nurse Note: received report from RN Luis Mark, pt on levophed drip, AA&ox0, pupils pinpoint, +et tube and on vent, will cont monitor.
--- NOTE | 2018-09-04 12:30 | NUR ---
ED Nurse Note: pt blood transfusion started, two nurses verified and checked. Adama MATA.
--- NOTE | 2018-09-04 13:00 | NUR ---
ED Nurse Note: no blood transfusion reaction noted. will cont monitor.
--- NOTE | 2018-09-04 13:50 | NUR ---
ED Nurse Note: REPORT GIVEN TO ADOLFO SINGH FROM ICU TO CONTINUE CARE.
--- NOTE | 2018-09-04 14:01 | NUR ---
ED Nurse Note: pt transferred to ICU, all belongings sent with pt.
[2018-09-04] MEDS ORDERED: Norepinephrine 4mg in D5W 250ml IV SCH (14:30)
[2018-09-04] MEDS ORDERED: DOPamine 400mg/250ml 250 ML IV ONE ×2 (15:09→20:07)
[2018-09-04] MEDS: DOPamine 400mg/250ml 250 ML IV SCH ×2 (15:45→20:43)
--- NOTE | 2018-09-04 16:40 | Diagnostic Imaging Report ---
Indication: Post line placement Technique: One view of the chest Comparison: 08/02/2018 Findings: Interim placement of right jugular central venous catheter, tip which projects at the level of the right mid innominate vein. No gross pneumothorax. There appears to be decreased infiltrate in the right lower lung but increased infiltrates in the perihilar regions bilaterally. There is a moderate right pleural effusion again demonstrated, and a [id number] left pleural effusion, the latter appearing smaller than previously. Interim endotracheal intubation, endotracheal tube tip projecting approximately 4 cm above the emily. Left chest pacemaker again demonstrated. Defibrillator paddles overlie the lower chest/upper abdomen Impression: Satisfactory endotracheal intubation Right central venous catheter, tip at the level of the mid innominate vein, no radiographic evident complication Shifting infiltrates/edema, as described Bilateral pleural effusions persist, probably stable on the right, improved on the left Other findings as noted
[2018-09-04] MEDS ORDERED: Vancomycin 750mg/NS 275ml IVPB ONE ×2 (18:00)
[2018-09-04 18:07] LABS: HEMATOCRIT 35.4 % (42.0-52.0); HEMOGLOBIN 11.4 G/DL (14.2-18.0); MEAN CORPUSCULAR VOLUME 93 FL (80-99); PLATELET COUNT 43 K/UL (150-450); RED BLOOD COUNT 3.83 M/UL (4.70-6.10); WHITE BLOOD COUNT 8.3 K/UL (4.8-10.8)
[2018-09-04 18:19] LABS: ALANINE AMINOTRANSFERASE 1195 U/L (12-78); ALBUMIN 1.4 G/DL (3.4-5.0); ALBUMIN/GLOBULIN RATIO 0.5 (1.0-2.7); ALKALINE PHOSPHATASE 125 U/L (46-116); ANION GAP 8 mmol/L (5-15); ASPARTATE AMINO TRANSFERASE 1270 U/L (15-37); BILIRUBIN,TOTAL 0.9 MG/DL (0.2-1.0); BLOOD UREA NITROGEN 73 mg/dL (7-18); CALCIUM 8.3 MG/DL (8.5-10.1); CARBON DIOXIDE 26 MMOL/L (21-32); CHLORIDE 106 MMOL/L (98-107); CREATININE 1.8 MG/DL (0.55-1.30); SODIUM 140 MMOL/L (136-145)
[2018-09-04] MEDS: Albuterol/Ipratropium 3ml neb HHN SCH ×2 (19:35→23:06)
[2018-09-04] MEDS ORDERED: Dyna-Hex 2% Top Sol 2oz TOPIC SCH (20:00)
--- NOTE | 2018-09-04 20:00 | NUR ---
NURSE NOTES: pt s/p code blue pt obtunded bp 86/50 on dop drip 20mcg/kg/min and levo drip at 30mcg/min family at bedside was aware pt condition reposition and
--- NOTE | 2018-09-04 20:58 | NUR ---
CASE MANAGEMENT: REVIEW 82/[facility] CC: CPR SI: S/P CARDIAC ARREST . AMS T 98.0 HR 60 RR 20 BP 46/27 SAT 96% MECH VENT FIO2 100 WBC 4.5 H/H 8.7/27.5 K 6.2 BUN 58 CR 1.6 TROPONIN I 0.476 BNP 16574 IS: LEVOPHED IV X1 DOPAMINE IV X1 SODIUM BICARB IV X1 VANCO IV X1 PATIENT ADMITTED TO ICU 09/04/2018 DCP: PATIENT IS FROM [facility]
[2018-09-04] MEDS: Dyna-Hex 2% Top Sol 2oz TOPIC SCH (21:58)
--- NOTE | 2018-09-04 22:00 | NUR ---
NURSE NOTES: pt condition critical
[2018-09-04] MEDS: Piperacillin/Tazobactam 3.375 GM in NS 110 ML IVPB SCH (22:01)
[2018-09-05] VITALS (49 sets, daily range): BP systolic 57–93; BP diastolic 27–54
--- NOTE | 2018-09-05 | NUR ---
NURSE NOTES: dr devlin in and seen pt and family
[2018-09-05] MEDS: Norepinephrine Bitartrate 8 MG in D5W 500ml 492 ML IV SCH ×4 (00:17→17:27)
[2018-09-05] MEDS: DOPamine 400mg/250ml 250 ML IV SCH ×5 (01:04→20:34)
--- NOTE | 2018-09-05 02:00 | NUR ---
NURSE NOTES: CONDITION CRITICAL UN CHANGE
[2018-09-05] MEDS: Albuterol/Ipratropium 3ml neb HHN SCH ×6 (03:09→23:05)
--- NOTE | 2018-09-05 04:00 | History and Physical Report ---
DATE OF ADMISSION: 09/04/2018 REASON FOR ADMISSION: Respiratory arrest and shock. HISTORY OF PRESENT ILLNESS: This is an 82-year-old [place] male, he has been convalescing at a half-way facility. He apparently was in his usual state of health last night when his left him, but when she returned this morning, she found him to be poorly responsive and lethargic. Paramedics were summoned by staff. He was brought to the emergency room and apparently had a respiratory arrest en route with subsequent hypotension. In the emergency room, the patient was volume resuscitated and with central venous access obtained. He also required intubation and mechanical ventilation initiation and ultimately admitted to the intensive care unit where pressors were initiated following my evaluation. PAST MEDICAL HISTORY: Hypertension, permanent pacemaker, chronic obstructive pulmonary disease, ischemic cardiomyopathy, paroxysmal atrial fibrillation, prostatic hypertrophy, hypothyroidism, type 2 diabetes mellitus with neuropathy and nephropathy. ALLERGIES: None. MEDICATIONS: Prior to admission, reviewed and reconciled. SOCIAL HISTORY: Prior smoker. No alcohol or substance abuse. FAMILY HISTORY: Noncontributory. REVIEW OF SYSTEMS: Not reliably obtained from the patient at this time. Records from recent hospitalization at this facility through 08/28/2018 were reviewed. PHYSICAL EXAMINATION: VITAL SIGNS: Blood pressure 93/40, heart rate 84, respiratory rate 15, afebrile. GENERAL: Orally intubated. Mechanically ventilated. Unresponsive. Atrial fibrillation is the rhythm. LUNGS: Coarse breath sounds with rhonchi. HEART: Irregularly irregular rhythm. Normal S1, S2. ABDOMEN: Soft, quiet. EXTREMITIES: With dependent edema and weeping of the skin with ecchymosis. SKIN: There is a central line in the right IJ. LABORATORY DATA: Labs, white count 4.5, hemoglobin 8.7. Sodium 140, potassium 6.2, bicarb 23, BUN 58, and creatinine 1.6. Pro-natriuretic peptide 15,000. Troponin 0.476. Albumin 1.3. IMPRESSION: 1. Respiratory failure. 2. Shock. 3. Sepsis. 4. Intravascular volume depletion. 5. Acute myocardial ischemia. 6. Permanent pacemaker. 7. 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 8. Transaminitis, likely due to shock liver. 9. Hyperkalemia. 10. Acute on chronic renal failure. 11. Condition critical. Prognosis guarded. 12. Lactic acidosis. PLAN: 1. Review chest x-ray. 2. Intensive care unit care. 3. Ventilator support. 4. A pulmonary evaluation. 5. Broad-spectrum antibiotics. 6. Followup culture results. 7. Serial lactic acid levels. 8. Volume resuscitation. 9. Pressors as needed. 10. DVT and stress ulcer prophylaxes. 11. The patient's son is at bedside. The patient's son was made aware of the critical condition and high mortality of up to 50% in this setting. Family members are not interested in discussing palliative care at this time; they also want to pursue aggressive care plan and full code. Crescencio Hidalgo M.D. DR: CITLALY JOB#: [id number] CC: DAVID
[2018-09-05 05:49] LABS: HEMATOCRIT 34.3 % (42.0-52.0); HEMOGLOBIN 11.3 G/DL (14.2-18.0); MEAN CORPUSCULAR VOLUME 92 FL (80-99); PLATELET COUNT 41 K/UL (150-450); RED BLOOD COUNT 3.73 M/UL (4.70-6.10); RED CELL DISTRIBUTION WIDTH 14.4 % (11.6-14.8); WHITE BLOOD COUNT 5.9 K/UL (4.8-10.8)
--- NOTE | 2018-09-05 06:00 | NUR ---
NURSE NOTES: DR EGAN WAS NOTIFY REGARDING K 7.5
[2018-09-05] MEDS: Piperacillin/Tazobactam 3.375 GM in NS 110 ML IVPB SCH ×3 (06:20→22:16)
[2018-09-05 06:33] LABS: ALANINE AMINOTRANSFERASE 2441 U/L (12-78); ALBUMIN 1.1 G/DL (3.4-5.0); ALBUMIN/GLOBULIN RATIO 0.4 (1.0-2.7); ALKALINE PHOSPHATASE 115 U/L (46-116); ANION GAP 11 mmol/L (5-15); ASPARTATE AMINO TRANSFERASE 2259 U/L (15-37); BILIRUBIN,TOTAL 1.5 MG/DL (0.2-1.0); BLOOD UREA NITROGEN 78 mg/dL (7-18); CALCIUM 7.5 MG/DL (8.5-10.1); CARBON DIOXIDE 20 MMOL/L (21-32); CHLORIDE 104 MMOL/L (98-107); CREATININE 2.2 MG/DL (0.55-1.30); SODIUM 134 MMOL/L (136-145)
[2018-09-05 06:38] LABS: POTASSIUM 7.5 MMOL/L (3.5-5.1)
[2018-09-05 06:39] LABS: BILIRUBIN,DIRECT 0.7 MG/DL (0.0-0.3)
--- NOTE | 2018-09-05 07:25 | NUR ---
RESPIRATORY NOTE: Received pt on AC 69-157uw-705% FiO2- peep of 3, saturates at 95%. Pt is obtunded, unresponsive, and is orally intubated with ETT 7.5 @ 22cm lips line, secured by anchor fast. Breathing TX given without adverse reaction. Tramaine rales heard upon auscultation, suctioned moderate amount of thick/thin brown/edmond secretions without any incidents. Oral care done. Alarms are set and audible, vent is plugged into the red outlet. Ambu bag is at bedside. Vent circuits and sxn tubbing are secured and out of the way. Family member at bedside. Will continue to monitor pt closely.
[2018-09-05] MEDS ORDERED: Sodium Polystyrene Sulfonate Enema RECTAL SCH ×2 (07:30→15:00)
[2018-09-05] MEDS ORDERED: Insulin Human Regular 100units/ml 3ml SUBQ SCH (07:30)
--- NOTE | 2018-09-05 07:49 | NUR ---
HAND-OFF: Report given tokwilnertine rn using sbar
--- NOTE | 2018-09-05 07:50 | NUR ---
NURSE NOTES: Received pt from Allie MATA. Pt obtunded and unresponsive. 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 Pt orally intubated ETT 7.5, 23 cm, AC 20, TV 500, 100% fiO2 and PEEP 3. Zaidi intact draining a small amount earnest urine to gravity. RIJ intact with dopamine running 20 mcg/min, levophed 30 mcg/kg/min and NS @ 100 ml/hr. Safety measures in place with bed locked and in lowest position, side rails x3 up and bed alarm activated. Will continue to monitor and continue plan of care.
[2018-09-05] MEDS ORDERED: Pantoprazole Inj IVP SCH (09:00)
--- NOTE | 2018-09-05 09:39 | NUR ---
NURSE NOTES: Discussed latest ABG result with Dr Contreras. No new orders. will come to see pt. Will continue to monitor.
--- NOTE | 2018-09-05 09:45 | NUR ---
RESPIRATORY NOTE: Dr. Contreras at bedside and order to change the settings to AC 15- 450ml- 100% FiO2- peep of 5, ABG in 1 hour. RN Magda and family members at bedside. Pt is tolerating well new setting. Will continue to monitor pt.
[2018-09-05 09:47] LABS: ANION GAP 10 mmol/L (5-15); BLOOD UREA NITROGEN 78 mg/dL (7-18); CALCIUM 6.9 MG/DL (8.5-10.1); CARBON DIOXIDE 21 MMOL/L (21-32); CHLORIDE 104 MMOL/L (98-107); CREATININE 2.4 MG/DL (0.55-1.30); SODIUM 135 MMOL/L (136-145)
[2018-09-05 09:50] LABS: POTASSIUM 7.5 MMOL/L (3.5-5.1)
[2018-09-05] MEDS ORDERED: Sodium Bicarbonate 50ml Carp IV SCH (10:00)
--- NOTE | 2018-09-05 10:17 | NUR ---
NURSE NOTES: Dr Contreras here to see pt. Vent settings adjusted. ABG ordered for 1100. Will continue to monitor.
[2018-09-05 11:18] LABS: ANION GAP 11 mmol/L (5-15); BLOOD UREA NITROGEN 79 mg/dL (7-18); CALCIUM 6.9 MG/DL (8.5-10.1); CARBON DIOXIDE 21 MMOL/L (21-32); CHLORIDE 104 MMOL/L (98-107); CREATININE 2.4 MG/DL (0.55-1.30); SODIUM 135 MMOL/L (136-145)
[2018-09-05 11:19] LABS: POTASSIUM 7.3 MMOL/L (3.5-5.1)
[2018-09-05] MEDS ORDERED: Micafungin 100 MG in NS 110 ML IVPB SCH (13:00)
--- NOTE | 2018-09-05 13:03 | NUR ---
NURSE NOTES: Spoke to Dr Contreras about latest ABG results. Dr ordered to keep vent settings. Spoke with Dr Sultana repeat KCL 7.3, ordered NS bolus and kayexelate enema. Will continue to monitor.
--- NOTE | 2018-09-05 14:30 | NUR ---
NURSE NOTES: Dr Izaguirre here to see pt. IVF ordered. Calcium gluconate ordered. Will continue to monitor.
[2018-09-05] MEDS ORDERED: Sodium Bicarbonate 150 ML in D5W 1000ml 1,000 ML IV SCH (15:00)
[2018-09-05] MEDS: Calcium Gluconate 10% 1 GM in NS 110 ML IVPB SCH ×4 (15:04→18:47)
--- NOTE | 2018-09-05 15:41 | NUR ---
NURSE NOTES:WOUND CARE NOTES :Pt was not seen due to pt not stable for wound evaluation
--- NOTE | 2018-09-05 15:45 | Consultation ---
DATE OF CONSULTATION: 09/05/2018 INFECTIOUS DISEASES CONSULTATION CONSULTING PHYSICIAN: Soo Almaraz M.D. REFERRING PHYSICIAN: Crescencio Hidalgo M.D. REASON FOR CONSULTATION: Sepsis. HISTORY OF PRESENTING ILLNESS: This is an 82-year-old gentleman with history of hypertension, COPD, pacemaker placement, diabetes, atrial fibrillation who came in from a alf facility with hypotension and he was also lethargic. He was brought into the emergency room where he was found to be hypotensive. He was intubated and has been admitted to the ICU and an Infectious Diseases consultation has been obtained for antibiotics. PAST MEDICAL HISTORY: 1. History of hypertension. 2. COPD. 3. Pacemaker placement. 4. Cardiomyopathy. 5. Atrial fibrillation. 6. Prostatic hypertrophy. 7. Hypothyroidism. 8. Diabetes with neuropathy and nephropathy. MEDICATIONS: As an inpatient, he is on Protonix, Zosyn, Levophed, chlorhexidine gluconate, albuterol ipratropium, IV vancomycin, dopamine. ALLERGIES: No known drug allergies. SOCIAL HISTORY: He used to be a smoker. He does not drink or use drugs. FAMILY HISTORY: Noncontributory. REVIEW OF SYSTEMS: Unable to obtain currently. PHYSICAL EXAMINATION: VITAL SIGNS: Temperature of 97.7, T-max of 98.6, pulse of 60, respiratory rate of 16, blood pressure 78/36, O2 saturation of 94%. HEENT: . The patient intubated and the right IJ catheter noted. NECK: Supple. No adenopathy. No JVD. CARDIOVASCULAR: Regular rate and rhythm. No murmurs. LUNGS: Clear to auscultation bilaterally. No crackles. No wheezes. ABDOMEN: Soft and nontender. No organomegaly. EXTREMITIES: No cyanosis, no clubbing, no edema. LABORATORY AND DIAGNOSTIC DATA: White count 5.9, hemoglobin 11.3 hematocrit 34.3, MCV 92, platelet count of , neutrophils of 67%. Sodium 135, potassium 7.5, chloride 104, bicarb 21, BUN 78, creatinine 2.4, glucose 110, calcium 6.9. Total bilirubin 1.5 and direct bilirubin 0.7, AST 2259, ALT 2441, alkaline phosphatase 115. Total protein 3.9 and albumin 1.1. UA showing 10 to 15 white cells. Urine culture growing more than 100,000 colonies of yeast. Chest x-ray is showing shifting infiltrates and edema, bilateral pleural effusions noted. ASSESSMENT: This is an 82-year-old gentleman with history of hypertension, COPD, cardiomyopathy, diabetes who comes in with fevers and hypotension would like to rule out. 1. Septic shock as a possibility. 2. Fungal urinary tract infection. 3. Elevated liver function tests. 4. Pneumonia. 5. Respiratory failure. 6. Renal failure. PLAN: 1. Continue Zosyn. 2. Discontinue vancomycin. 3. We will start the patient on linezolid and micafungin given his elevated liver function tests. 4. We will follow up cultures and adjust antibiotics accordingly. 5. We will order sputum for Gram stain and culture. I would like to thank, Dr. Hidalgo, for this consultation. Soo Almaraz M.D. DR: Judy JOB#: [id number] CC: Crescencio Hidalgo M.D.
--- NOTE | 2018-09-05 16:45 | Consultation ---
DATE OF CONSULTATION: 09/05/2018 NEPHROLOGY CONSULTATION CONSULTING PHYSICIAN: Des Izaguirre M.D. REFERRING PHYSICIAN: 1. Crescencio Hidalgo M.D. 2. Joshua Sultana M.D. REASON FOR CONSULTATION: Elevated BUN, creatinine, and potassium. HISTORY OF PRESENT ILLNESS: The patient 82-year-old man resident of [facility] presents with full arrest. He is intubated in the intensive care unit, unresponsive on high dose of Levophed and dopamine. The patient has hyperkalemia and low urine output. There is a history of chronic obstructive pulmonary disease, atrial fibrillation, hypertension, permanent pacemaker, osteoarthritis, degenerative disk disease, hypothyroidism, peptic ulcers, hyperlipidemia, prostate hyperplasia. ALLERGIES: None known. MEDICATIONS: At the [facility] include Lasix, Lyrica, DuoNeb, amiodarone, Flomax, levothyroxine, Cardizem, ProStat, multivitamins, sliding-scale insulin, prednisone, Protonix. SYSTEM REVIEW: Unable. PHYSICAL EXAMINATION: GENERAL: The patient is seen in the intensive care unit. He is intubated and obtunded VITAL SIGNS: Blood pressure 80/30, respirations 15 pulses 60, temperature 97.2. HEAD, EYES, EARS, NOSE, THROAT: He is not following with his eyes. He is orally intubated. NECK: No adenopathy. Lungs bilateral rhonchi. HEART: Rhythm is regular. I hear no murmur. ABDOMEN: I am unable to feel liver or spleen. There is mild distention. EXTREMITIES: A 1+ edema. NEUROLOGIC: He is unresponsive. LABORATORY AND DIAGNOSTIC DATA: Sodium 135, potassium 7.3, chloride 104, CO2 21, BUN 79, and creatinine 2.4. Lactic acid 6.9. Bilirubin is 1.5, AST 2259, ALT 2441. IMPRESSION: 1. Acute kidney injury on chronic kidney disease. 2. Hyperkalemia. 3. Cardiopulmonary arrest and acute myocardial infarction with elevated troponin. 4. Congestive heart failure. 5. Mild rhabdomyolysis, CK is 341. 6. Shock liver. 7. Severe protein-calorie malnutrition with albumin of 1.3 or 1.4. PLAN: The patient is likely terminal with end-stage multiorgan failure and severe malnutrition, has metabolic acidosis and respiratory failure. He could not be dialyzed in this condition as it will promote sudden and hypovolemic shock, septic shock, and cardiogenic shock. I would consider palliative care. For now, we will give bicarbonate and Lasix but I doubt that this is . Des Izaguirre M.D. DR: Pop JOB#: [id number] CC:
--- NOTE | 2018-09-05 19:12 | NUR ---
HAND-OFF: Report given to Allie MATA.
--- NOTE | 2018-09-05 19:25 | NUR ---
CASE MANAGEMENT: REVIEW SI: S/P CARDIAC ARREST . AMS T 97.7 HR 60 RR 15 BP 74/27 SAT 97% MECH VENT FIO2 100 H/H 11.3/34.3 NA 135 K 7.3 LACTIC ACID 7.60 IS: KAYEXALATE ENEMA X1 SODIUM BICARB IV @100ML/HR LASIX IV Q6HR MICAFUNGIN IV Q24HR ZYVOX IV Q12HR LEVOPHED IV GTT Q24HR DOPAMINE IV GTT Q24HR ICU STATUS DCP: [facility]
--- NOTE | 2018-09-05 20:00 | NUR ---
NURSE NOTES: pt orally intubated -vent o2 sat97 0/0 obtunded no movement both upper and lower extremities on both dopamine at 20 mcg/kg /min AND LEVO DRIPAT 39MCG /WITH [id number] DR EGAN IS AWARE PT CONDITION
--- NOTE | 2018-09-05 20:01 | Consultation ---
Consult Note Consult Note NEUROLOGY CONSULTATION: Full note dictated #[id number] 82 y/o, [place] who has a PH of hypothyroidism, HTN, DM, pacemaker, COPD, PAF, CAD who was recently hospitalized and sent [place]. On the night of 09/03/18 he was relatively well. When his went to visit him on the morning of 09/04/18 he was found to be poorly responsive. Paramedics were called in he was hypotensive and having respiratory problems. On his way to [facility] he went into full CPA it took a prolonged period of time before a cardiac rhythm was obtained. He has been comatose since then. ON EXAM: Minimal EM on OCM Otherwise no cerebral function or brain stem reflexes. IMPRESSION: Severe anoxic/ischemic encephalopathy. Prognosis poor. REC: Observe in ICU Try to keep BP >110 systolic EEG Augusto Rosado M.D., M.S.P.H. Augusto Rosado MD Sep 05, 2018 20:01
[2018-09-05] MEDS: Dyna-Hex 2% Top Sol 2oz TOPIC SCH (20:29)
--- NOTE | 2018-09-05 20:45 | Progress Note ---
DATE: 09/05/2018 INTERNAL MEDICINE PROGRESS NOTE SUBJECTIVE: The patient remains in the intensive care unit. Condition remains critical. Prognosis remains guarded. The case was discussed with his son at bedside last evening. He was made aware of the critical condition and poor prognosis. The patient was seen and evaluated with the nursing staff. He remains on two pressors with marginal blood pressure readings at this time. Monitored rhythm, atrial fibrillation. Urine output is very poor. The patient is unresponsive. He does have spontaneous respirations. OBJECTIVE: VITAL SIGNS: Blood pressure 84/36, pulse 60, respirations 16, and afebrile. LUNGS: Bilateral breath sounds. HEART: Irregularly irregular rhythm. Normal S1, S2. ABDOMEN: Soft. EXTREMITIES: Dependent edema. LABORATORY DATA: White count 5.9 and hemoglobin 11.3. ABG, pH 7.11, pCO2 57, and pO2 77. Sodium 135, potassium 7.3, BUN 79, creatinine 2.4, and bicarb 21. Lactic acid 7.6. IMPRESSION: 1. Status post full arrest. 2. Acute myocardial infarction with elevated troponin. 3. Acute renal failure. 4. Hyperkalemia. 5. Acute on chronic diastolic and systolic congestive heart failure. 6. Shock liver. 7. Severe protein-calorie malnutrition. 8. Paroxysmal atrial fibrillation. 9. Lactic acidosis. 10. Sepsis. 11. Permanent pacemaker. 12. Diabetes with complications PLAN: 1. He is not a candidate for dialysis with the severity of his multiorgan system failure. 2. We will continue on intravenous fluids with bicarb support and furosemide to correct hyperkalemia. 3. We will continue on full ventilator support and broad-spectrum antimicrobials. 4. DVT and stress ulcer prophylaxes. 5. Intensive care unit care. Crescencio Hidalgo M.D. DR: ARELIS JOB#: [id number] CC:
--- NOTE | 2018-09-05 22:00 | NUR ---
NURSE NOTES: PT CONDITION CRITICAL FAMILY AT [facility] REPOSITION AND SUCTION
--- NOTE | 2018-09-05 22:30 | Consultation ---
DATE OF CONSULTATION: 09/05/2018 NEUROLOGY CONSULTATION CONSULTING PHYSICIAN: Augusto Rosado M.D. REQUESTING PHYSICIAN: Crescencio Hidalgo M.D. HISTORY: The patient is an 82-year-old [place]ese gentleman of unknown handedness, who does have a past history of hypothyroidism, hypertension, diabetes mellitus,, pacemaker implantation, chronic obstructive pulmonary disease, paroxysmal atrial fibrillation, and coronary artery disease, who was recently hospitalized at [facility] for multiple medical problems, stabilized, and then sent to a long-term. On the night of 09/03/2018, he was relatively well as per his . When his went to visit him on the morning of 09/04/2018, he was found to be poorly responsive. The paramedics were called in and he was found to be significantly hypotensive and having respiratory problems. On his way to [facility] in the ambulance, he apparently went into full cardiopulmonary arrest. It took a prolonged period of time before the cardiac rhythm was obtained. He has been comatose ever since. This consultation was requested to evaluate the patient from a neurological point of view and to help with prognostication. PAST MEDICAL HISTORY: Significant for hypothyroidism, hypertension, diabetes mellitus, pacemaker implantation, chronic obstructive pulmonary disease, paroxysmal atrial fibrillation, and coronary artery disease. PRESENT MEDICATIONS: Include sodium bicarbonate, Lasix, micafungin, , pantoprazole, Zosyn, norepinephrine, and dopamine. FAMILY HISTORY: Unavailable. PERSONAL HISTORY: Home, he lives in long-term. Work, he is unemployed. Habits, unknown. PHYSICAL EXAMINATION: GENERAL: He is a well-developed, well-nourished, [place] gentleman, lying in bed, in no acute distress. VITAL SIGNS: Pulse 60 per minute, blood pressure 84/37 mmHg, respirations 15 per minute, and temperature 97.7 degrees Fahrenheit. HEENT: Head, normocephalic and atraumatic. EENT examination benign. NECK: No neck rigidity was observed. NEUROLOGIC: Mental status, he was comatose and did not respond to any external stimuli. Further mental status testing was impossible. Speech could not be tested. Language could not be tested. CRANIAL NERVE II: He did not blink to threat. CRANIAL NERVES III, IV, AND : The external ocular movements were minimal on oculocephalic maneuvers. The pupils were 5 mm in diameter and did not react to light. CRANIAL NERVES V AND VII: The corneal reflexes were absent CRANIAL NERVE VIII: He did not respond to sounds and had no nystagmus. CRANIAL NERVES IX AND X: The gag reflex was absent on manipulating the endotracheal tube. CRANIAL NERVE XI: The sternocleidomastoids and trapezii did not function. CRANIAL NERVES XII: Could not be tested adequately. MOTOR SYSTEM: The tone was flaccid in all four extremities. Examination of muscle mass revealed no focal wasting. Examination of power could not be tested because even on applying deep painful stimuli no movements were seen. SENSORY EXAMINATION: He did not respond even to deep painful stimuli. REFLEXES: Is 0 at the biceps, triceps, brachioradialis, knees, and ankles. The plantar responses were mute bilaterally. COORDINATION, STANCE, AND GAIT: Could not be tested. DIAGNOSTIC IMPRESSION: 1. The patient is an 82-year-old [place]ese gentleman of unknown handedness, who has a past history of hypothyroidism, hypertension, diabetes mellitus, pacemaker implantation, chronic obstructive pulmonary disease, paroxysmal atrial fibrillation, and coronary artery disease, who was at a long-term where he was noted to be poorly responsive. The paramedics were called in and on route to the hospital, he became hypotensive, started having respiratory problems, and then went into full cardiopulmonary arrest. It took a prolonged period of time before he could be resuscitated. He has been comatose since then. 2. On neurological examination at this time, he has no signs of cortical cerebral function. He does have eye movements on oculocephalic maneuvers, but has no other brain stem reflexes. 3. The patient's history and neurological examination are most compatible with severe anoxic ischemic encephalopathy. The prognosis for recovery of neurological function is poor because of the fact that the patient had a prolonged cardiopulmonary arrest and his neurological function at this point in time is severely disordered. RECOMMENDATIONS: 1. Agree with management thus far. 2. We will try to keep the patient's blood pressure greater than 110 systolic. 3. An EEG will be ordered to evaluate the patient for the degree and type of cerebral dysfunction. 4. The patient will be observed closely and depending on how he fairs, further recommendations will be given. Thank you for entrusting me with the care of this patient. I shall follow him with you. Augusto Rosado M.D. DR: YELENA JOB#: [id number] CC:
--- NOTE | 2018-09-05 23:30 | Consultation ---
DATE OF CONSULTATION: 09/05/2018 NOTE: POOR AUDIO PULMONARY/ICU CONSULTATION CONSULTING PHYSICIAN: Carl Contreras M.D. HISTORY OF PRESENT ILLNESS: This is an 82-year-old [place] male, who had been discharged recently from [facility] to a rehabilitation facility after having had a protracted prolonged course at this hospital. At that time, he was diagnosed with respiratory failure. He was diuresed and discharged on BiPAP. He has been gradually declining in the last few days at the facility and was found to be poorly responsive by the yesterday, paramedics were called. He had respiratory arrest en route and he was intubated. A central line was placed in the right IJ and he was given . At this time, the patient is unresponsive to my assessment. PAST MEDICAL HISTORY: , permanent pacemaker, COPD, cardiomyopathy, atrial fibrillation, hypertrophy, hypothyroidism, and diabetes mellitus. ALLERGIES: None. HOME MEDICATIONS: Reviewed and reconciled in the chart. SOCIAL HISTORY: No history of alcohol or tobacco. mcc at this time. REVIEW OF SYSTEMS: Unobtainable. PHYSICAL EXAMINATION: GENERAL: Reveals an 82-year-old male. VITAL SIGNS: Blood pressure is 90/40 on epinephrine/ , heart rate 84, respirations are 15, he is afebrile. HEENT: Notable for oral intubation. Right IJ catheter in place. CHEST: Decreased breath sounds bilaterally. HEART: Normal heart sounds. ABDOMEN: Soft. EXTREMITIES: He has 2+ edema bilaterally. LABORATORY DATA: Lab testing otherwise is notable for hemoglobin 11.3. Chemistry notable for creatinine 2.4, potassium 7.5, sodium 135. Coags are normal. ABG this morning shows pH of 7.13, pCO2 , pO2 73, this is on AC of 12, tidal volume of 500, PEEP of 5, and FiO2 100%. IMPRESSION: 1. Acute respiratory failure. 2. COPD. 3. CHF. 4. Acute renal failure. 5. Hyperkalemia. 6. Shock. DISCUSSION: The patient is doing very poorly at this point in time despite being on high dose pressors, blood pressure is 100 systolic. Discussed with family at bedside in detail. Discussed with the staff design engineer and charge nurse. We will adjust ventilator to provide optimal flow rate, we will increase flow rate to 75 L/min, change rate to 15 and decrease tidal volume to 450 with this. His is about 40, which is adequate. Keep FiO2 100%. Unchanged PEEP to 5. We will obtain ABG one hour. The patient is markedly hyperkalemic. He has received insulin, dextrose, Xarelto, and bicarbonate, prognosis is poor. May need dialysis if the option discussed with family in detail. Carl Contreras M.D. DR: NILESH JOB#: [id number] CC:
[2018-09-06] VITALS: BP 82/54
--- NOTE | 2018-09-06 | NUR ---
NURSE NOTES:PT CONDITION UNCHANGE
[2018-09-06 00:30] VITALS: BP 82/54
[2018-09-06 01:00] VITALS: BP 82/54
[2018-09-06 01:12] VITALS: BP 0/0
--- NOTE | 2018-09-06 01:12 | NUR ---
CODE BLUE: See Code sheet which remains on paper.code [email or web address] called at 0112, at 0122
--- NOTE | 2018-09-06 02:30 | NUR ---
NURSE NOTES: post jitendra care done famiily at bedside
--- NOTE | 2018-09-06 02:32 | Emergency Room Report ---
History of Present Illness General Chief Complaint: CPR Source: Medical Record, EMS Present Illness HPI This is an elderly gentleman with multiple medical problem. He was admitted from the ER to the ICU for sepsis, septic shock and cardiac arrest. He was intubated. He is currently on max doses of pressors. Blood pressure continued to be hypotensive. A CODE BLUE was called and I spotted. On my arrival, CPR was in progress. Patient christophery intubated. He received a dose of epinephrine already. He remained asystolic. After second dose he remained asystolic so I called the code and pronounced him at 1:22 AM. Please see code sheet for full information. Allergies: Coded Allergies: No Known Allergies (Unverified , 08/12/18) Nursing Documentation-[facility] Past Medical History Deferred: Patient Unconscious Past Medical History: Deferred Hx Cardiac Problems: Yes - AFIB Hx Hypertension: Yes Hx Pacemaker: Yes Hx Asthma: No - OESTOARTHRITIS, HYPERLIPIDEMIA, PEPTIC ULCER Hx COPD: Yes Hx Diabetes: Yes Hx Cancer: No Hx Gastrointestinal Problems: Yes Hx Cerebrovascular Accident: Yes Physical Exam Vital Signs Date Time Temp Pulse Resp B/P (MAP) Pulse Ox O2 Delivery O2 Flow Rate FiO2 09/04/18 08:15 Non-Rebreather 15.0 09/04/18 09:00 60 20 100 09/04/18 10:22 46/27 09/04/18 10:24 96 09/04/18 11:05 97.2 Procedures CPR/Code Blue CPR/Code Blue Narrative patient underwent cardiac arrest secondary to asystole. He remained in asystole despite CPR and epinephrine. Please see code sheet for full formation. Patient pronounced at 1:22 AM. Medical Decision Making Diagnostic Impression: Primary Impression: Cardiac arrest Additional Impressions: Abnormal LFTs Pacemaker Thrombocytopenia Sepsis Hyperkalemia Last Vital Signs Date Time Temp Pulse Resp B/P (MAP) Pulse Ox O2 Delivery O2 Flow Rate FiO2 09/06/18 01:15 40 09/06/18 01:12 0 0/0 (0) 0 09/06/18 00:59 100 09/06/18 00:00 Mechanical Ventilator 09/05/18 20:00 98.5 09/04/18 11:00 15.0 Status: other Disposition: ADMITTED INPATIENT Condition: Referrals: NON PHYSICIAN (PCP) Mason Rendon MD Sep 06, 2018 02:32
--- NOTE | 2018-09-06 04:00 | NUR ---
NURSE NOTES: [place] [facility] [place]
--- NOTE | 2018-09-07 11:58 | Discharge Summary ---
Discharge Summary Discharge Summary _ DATE OF ADMISSION: 09/04/2018 DATE OF DISCHARGE: 09/06/2018 BRIEF SUMMARY: Patient is an 82-year-old Yakut male, from longterm facility. He has medical history significant for hypertension, permanent pacemaker, chronic obstructive pulmonary disease, ischemic cardiomyopathy, paroxysmal atrial fibrillation, prostatic hypertrophy, hypothyroidism, type 2 diabetes mellitus with neuropathy and nephropathy. He was apparently in his usual state of health until he was found poorly responsive and lethargic. Paramedics were summoned. He was brought to the emergency room and apparently had respiratory arrest en route with subsequent hypotension. At the emergency room, CPR was initiated. He was volume resuscitated and a central venous access was obtained through the right internal jugular. He also required intubation and mechanical ventilation. He was given multiple rounds of medication with return of spontaneous circulation. He was admitted to ICU post cardiac arrest. Discussion with family was made. Family wants to pursue aggressive care and full code. He was given IV pressors. He was started empirically on vancomycin and Zosyn. Lactic acid 9.6. ID was consulted. Urinalysis showed 10-15 white cells. Urine culture with Robina. Chest x-ray with infiltrates and edema and bilateral pleural effusion. Vancomycin was discontinued. He was continued on Zosyn. He was started on linezolid and micafungin given elevated LFTs. Blood culture showed growth of enterococcus and Enterobacter. He was noted to have hyperkalemia, potassium level in the 7 and low urine output. BUN was 79, creatinine 2.4. He was given Kayexalate, insulin and dextrose, calcium gluconate and sodium bicarbonate. Tiller Man was consulted. Patient also has elevated troponin and CK of 341, possible mild rhabdomyolysis. Patient had acute kidney injury on CKD and showed end-stage multiorgan failure and severe malnutrition. Patient had metabolic acidosis. He was given sodium bicarbonate and Lasix. Potassium remained persistently high. Patient is not a candidate for dialysis due to severity of his multiorgan failure. Neuro evaluation was done. Patient had been comatose since cardiac arrest. On neurological examination, patient did not show any signs of cortical cerebral function. Patient had eye movements on oculocephalic maneuvers, but has no other brainstem reflexes. Patient's history and neuro examination was compatible with severe anoxic ischemic encephalopathy and prognosis for recovery of neurological function is very poor. Recommend EEG to evaluate for degree and type of cerebral dysfunction. On 09/06/2018, LOLITA POLLACK was called, patient became hypotensive and asystolic despite max dose of pressors. Resuscitative efforts failed and patient eventually . FINAL DIAGNOSES: Status post cardiopulmonary arrest Acute myocardial infarction with elevated troponin Acute renal failure Hyperkalemia Acute on chronic diastolic and systolic congestive heart failure Shock liver Severe protein calorie malnutrition Paroxysmal atrial fibrillation Lactic acidosis Sepsis Permanent pacemaker Diabetes with complications DISPOSITION: Patient . I have been assigned to complete a discharge summary on this account, I was not involved with the patient's management. Ignacia Crawford NP Sep 07, 2018 11:58
== END 2018-09-06 01:22 | disposition expired | DRG 871 ==
LOC: EDBD 08:15 → EMR 09:30 → ICU 11:10 → EDBEDREQ 11:10
PROC: 5A1945Z Respiratory Ventilation, 24-96 Consecutive Hours (ICD-10-PCS; principal; 2018-09-04)
PROC: 30233N1 Transfusion of Nonautologous Red Blood Cells into Peripheral Vein, Percutaneous Approach (ICD-10-PCS; principal; 2018-09-04)
PROC: 0BH17EZ Insertion of Endotracheal Airway into Trachea, Via Natural or Artificial Opening (ICD-10-PCS; principal; 2018-09-04)
PROC: 05HM33Z Insertion of Infusion Device into Right Internal Jugular Vein, Percutaneous Approach (ICD-10-PCS; principal; 2018-09-04)
DX: A41.9 Sepsis, unspecified organism (principal); I50.43 Acute on chronic combined systolic (congestive) and diastolic (congestive) heart failure; J96.00 Acute respiratory failure, unspecified whether with hypoxia or hypercapnia; K72.00 Acute and subacute hepatic failure without coma; E43 Unspecified severe protein-calorie malnutrition; I21.9 Acute myocardial infarction, unspecified; R65.21 Severe sepsis with septic shock; N17.9 Acute kidney failure, unspecified; I13.0 Hypertensive heart and chronic kidney disease with heart failure and stage 1 through stage 4 chronic kidney disease, or unspecified chronic kidney disease; I46.9 Cardiac arrest, cause unspecified; E87.5 Hyperkalemia; Z95.0 Presence of cardiac pacemaker; E03.9 Hypothyroidism, unspecified; J44.9 Chronic obstructive pulmonary disease, unspecified; I25.5 Ischemic cardiomyopathy; I48.0 Paroxysmal atrial fibrillation; N40.0 Benign prostatic hyperplasia without lower urinary tract symptoms; E11.40 Type 2 diabetes mellitus with diabetic neuropathy, unspecified; E11.21 Type 2 diabetes mellitus with diabetic nephropathy; Z87.891 Personal history of nicotine dependence; N18.9 Chronic kidney disease, unspecified; R65.20 Severe sepsis without septic shock; I25.10 Atherosclerotic heart disease of native coronary artery without angina pectoris; Z86.74 Personal history of sudden cardiac arrest; Z79.4 Long term (current) use of insulin; Z68.22 Body mass index [BMI] 22.0-22.9, adult
CPT/HCPCS: 31500; 36415; 36600; 71045; 80048; 80053; 81003; 82248; 82550; 82553; 82803; 82962; 83605; 83735; 83880; 84100; 84484; 85007; 85025; 85610; 85730; 86850; 86900; 86901; 86920; 87040; 87081; 87086; 92950; 93005; 94002; 94003; 94640; 94664; 96361; 96365; 96375; 99291; J7620